=== PATIENT | female | born 1945 | race Caucasian/White ===

== ENCOUNTER 2018-05-26 09:20 | Day surgery (SDC) | payer MEDICARE, SELFPAY ==
--- NOTE | 2018-05-25 11:23 | W.PIPPEYE ---
History of Present Illness Chief Complaint: Progressive decreased vision, right eye Narrative: The patient is a 72-year-old female with history of hyperopia who has noted progressive decreased vision in both eyes at both distance and near. She has most difficulty when reading. On examination she was noted to have significant bilateral nuclear cataracts as well as endothelial dystrophy. Visual acuity measured less than 20/100 in the right eye best corrected. The option of cataract surgery was offered to the patient and she wished to proceed. NOTE: The Chief Complaint, HPI, Past Medical History, Past Surgical History, Family History, Social History, Medications, and complete Ophthalmic Exam with detailed Assessment and Plan have already been documented in the patient's outpatient ophthalmic record and are not covered again in detail here. [facility] Medical History Corneal endothelial dystrophy (Chronic) Nuclear sclerotic cataract of right eye (Acute) Nuclear sclerotic cataract of left eye (Acute) Social History Smoking/Tobacco Use Status: Former Tobacco Use Meds Home Medications Medication Instructions Recorded Confirmed Type aspirin [Aspir-81] 81 mg PO .QWE06/21/13 12/22/13 History levothyroxine [Synthroid] 100 mcg PO DAILY 06/21/13 05/21/18 History multivitamin [Multi-Day] 1 tab PO DAILY 06/21/13 05/21/18 History acetaminophen [Arthritis Pain 2 tab PO BID 05/21/18 05/21/18 History Reliever] diphenhydramine HCl [Benadryl 2 tab PO DAILY 05/21/18 05/21/18 History Allergy] loperamide [Imodium A-D] 2 mg PO BID 05/21/18 05/21/18 History metoprolol succinate 25 mg PO DAILY 05/21/18 05/21/18 History metoprolol succinate 50 mg PO DAILY 05/21/18 05/21/18 History Allergies Allergy/AdvReac Type Severity Reaction Status Date / Time codeine AdvReac Intermediate Unverified 12/22/13 10:51 Exam OCULAR EXAM:: Visual acuity at distance: Corrected to 20/125 OD, 20/40 OS. Pupils: Pupils equal, round, and reactive without afferent pupillary defect IOP: 16 OD 14 OS Extraocular Motility: Normal Pertinent Slit Lamp Findings: Significant for corneal endothelial guttata OU. 3+ brunescent nuclear cataract OD, 2+ nuclear cataract OS Dilated Funduscopic Examination: Disc cupping is 0.3 OU with good color BRIGHTNESS ACUITY TESTING (BAT):: Off right eye 20/125 Low: 20/200 Medium: 20/400 High: 20/400 Assessment and Plan (1) Nuclear sclerotic cataract of right eye: Current visit: No Status: Acute Assessment: Visually significant cataract, right eye. Plan: Cataract extraction with intraocular lens implantation, right eye Note: NOTE:: The details of the planned surgery, including the risks, indications,limitations,expectations,outcome and possible complications were explained to the patient. The patient understands the complications including, but not limited to: infection, hemorrhage, posterior dislocation of the lens or nuclear fragments which may require the intervention of a vitreoretinal surgeon, possible loss of the eye, or from anesthetic complications. The patient has been made aware of the option of not having surgery, that vision following surgery may not be equal to that prior to surgery, and that the planned surgery may not achieve the intended results. Following this discussion, which the patient appeared to understand, the patient wishes to proceed with cataract surgery with lens implantation of the affected eye to improve and maximize vision.
[2018-05-26 09:36] VITALS: BP 135/81; PULSE 118; RESP 18; TEMP 35.3; O2SAT 98
[2018-05-26] MEDS: Lidocaine 2% Jelly 6 ML SYR (10:52)
[2018-05-26] MEDS: Duovisc Viscoelastic System EACH 1 EACH (10:56)
[2018-05-26] MEDS: Balanced Salt Soln.-PLUS 500 ML BAG (10:56)
[2018-05-26] MEDS: Lidocaine 1% Pres-Free 5 ML VIAL (10:56)
[2018-05-26] MEDS: Povidone-Iodine Ophth 30 ML BTL (11:17)
--- NOTE | 2018-05-26 11:20 | W.PM.DSUDISC ---
Discharge Plan Discharge Details Reason For Visit: CATARACT OD Attending Provider: Hever Lawson Primary Care Provider: Raymon Cosby Home Meds and New Rx's Prescriptions: No Action multivitamin [Multi-Day] 1 EACH tablet 1 tab PO DAILY RF: 0 aspirin [Aspir-81] 81 MG tablet,delayed release (DR/EC) 81 mg PO .QWEDNESDAYS RF: 0 levothyroxine [Synthroid] 100 MCG tablet 100 mcg PO DAILY RF: 0 metoprolol succinate 25 mg Tablet Extended Release 24 Hr 25 mg PO DAILY RF: 0 metoprolol succinate 50 mg Cap,Sprinkle,Er 24hr Dose Pack 50 mg PO DAILY RF: 0 loperamide [Imodium A-D] 2 mg Capsule 2 mg PO BID RF: 0 acetaminophen [Arthritis Pain Reliever] 650 mg Tablet Extended Release 2 tab PO BID RF: 0 diphenhydramine HCl [Benadryl Allergy] 25 mg Tablet 2 tab PO DAILY RF: 0 Discharge Instructions Stand Alone Forms: Post-op Topical Cataract, Joseph Winters (DSU) DS: Diagnosis Discharge Diagnosis (1) Nuclear sclerotic cataract of right eye: Status: Resolved (2) Status post cataract extraction and insertion of intraocular lens of right eye: Status: Chronic
--- NOTE | 2018-05-26 11:21 | W.PM.OP ---
Date of service: 05/26/18 Time of Service: 11:21 Operative Note DATE OF PROCEDURE: 05/26/18 PRE-OP DIAGNOSIS: Cataract, right eye POST-OP DIAGNOSIS: same SURGEON: Hever Lawson ANESTHESIA: MAC and local (sub-tenon's anesthetic infiltration) PATHOLOGY: none sent COMPLICATIONS: None Patient was transported to: same day Patient's condition: stable Implants: [employer] / [employer] Tecnis [id number] Indications: Progressive decreased vision due to cataract, right eye Procedure Description: CATARACT SURGERY OPERATIVE REPORT PREOPERATIVE DIAGNOSIS: Nuclear cataract, right eye, symptomatic POSTOPERATIVE DIAGNOSIS: Same OPERATION: Cataract extraction using phacoemulsification with posterior chamber intraocular lens implant, right eye. IOL: IOL Gamer/Model: [employer]J Vision / PEDRO Tecnis ZCB00 IOL Power: + 27.0 diopters IOL Serial Number: [id number] Optic Diameter: 6.0mm Haptic/Overall Diameter: 13.0mm PHACO INFO: Champ PPLCONNECTurion Vision System with OZil and Active Fluidics Cumulative Dispersed Energy (CDE): 14.06 seconds SURGEON: Hever Lawson MD, RAQUEL ANESTHESIA: Monitored Anesthesia Care (MAC), with local sub-tenon's anesthetic infiltration COMPLICATIONS: None SPECIMENS: None INDICATIONS FOR PROCEDURE: The patient is a 72-year-old lady with history of progressive decreased vision in her right eye. She is noted to have a dense nuclear cataract with corneal endothelial dystrophy with visual acuity of less than 20/100. The option of cataract surgery was offered to the patient and she wished to proceed. PROCEDURE: The correct surgical eye was identified and marked as the right eye and the pupil was dilated in the preoperative area using mydriatics, cycloplegics, and NSAIDS (except in aspirin allergic patients). The dilated pupil size was 8.0 mm. Oral sedation was administered in the form of an Imprimis MKO Melt (midazolam 3mg/ketamine 25mg/ondansetron 2mg). The patient was brought to the operating room where cardiopulmonary monitoring was instituted and surgical time-out was performed, confirming the correct operative eye and IOL power. Topical anesthesia was administered and ophthalmic povidone-iodine 5% was instilled into the conjunctival fornices. Lidocaine gel was applied to the cornea and the pinky-ocular area was prepped with Betadine 10% solution and draped in the usual sterile fashion for intraocular surgery. Steri-strips were used to cover the lashes and lid margins and an adhesive eye drape was placed. Care was taken to isolate the lashes and lid margins under the Steri-strips and adhesive eye drape. A lid speculum was placed between the lids of the operative eye and the Rebecca-Susan operating microscope was maneuvered into position. Hellen scissors were then used to make a conjunctival buttonhole approximately 6mm posterior to the limbus in the inferonasal quadrant. Blunt dissection was carried out to expose bare sclera, and a blunt-tipped sub-tenon?s anesthesia cannula was introduced and passed posteriorly along the globe where non-preserved plain lidocaine was injected into posterior sub-Tenon?s space. A sideport knife was used to make a paracentesis port at the 7:00 postion and the anterior chamber was filled with Viscoat. A 2.4mm keratome knife was used to create a half-thickness groove at the limbus and then to construct a three-plane near-clear corneal tunnel extending 2.0mm into clear cornea at the 10:00 position. A flap was raised on the anterior capsule and capsulorhexis forceps were used to complete a continuous curvilinear capsulorhexis of 5.5 mm. Balanced salt solution was then used to perform cortical cleaving hydrodissection and nuclear hydrodelineation until the lens could be freely rotated within the capsular bag. The lens nucleus was then disassembled and removed within the capsular bag and iris plane using phacoemulsification. Residual cortical material was removed using the 45-degree angled silicone I/A tip with 0.3mm port. The posterior capsule was carefully polished to remove as much residual lens epithelial cells as safely possible. The capsular bag was then inflated and the anterior chamber deepened with ProVisc. The lens implant described above was inserted into the capsular bag using the PEDRO [place] Injector. A Kuglen hook was used to dial the IOL into position. Residual viscoelastic was then removed first from posterior to the IOL, then from the anterior chamber using the I/A handpiece. The lens implant was noted to center nicely within the capsular bag. The incisions were stromally hydrated, and the anterior chamber was reformed using BSS. Then 0.4cc of moxifloxacin 1.5mg/ml were injected into the capsular bag and anterior chamber. The incisions were checked with a Weck spear and found to be secure. Several drops of ophthalmic povidone-iodine 5% were then applied to the eye followed by two drops of Imprimis combination moxifloxacin/dexamethasone solution. The drapes were removed and a clear plastic protective eye shield was placed over the eye. The patient was then returned to Same Day Surgery in stable condition.
--- NOTE | 2018-05-26 11:26 | ROE_ITS ---
Date of service: 05/26/18 Time of Service: 11:21 Operative Note DATE OF PROCEDURE: 05/26/18 PRE-OP DIAGNOSIS: Cataract, right eye POST-OP DIAGNOSIS: same SURGEON: Hever Lawson ANESTHESIA: MAC and local (sub-tenon's anesthetic infiltration) PATHOLOGY: none sent COMPLICATIONS: None Patient was transported to: same day Patient's condition: stable Implants: Jonathan and Jonathan Vision / [employer] Tecnis [id number] Indications: Progressive decreased vision due to cataract, right eye Procedure Description: CATARACT SURGERY OPERATIVE REPORT PREOPERATIVE DIAGNOSIS: Nuclear cataract, right eye, symptomatic POSTOPERATIVE DIAGNOSIS: Same OPERATION: Cataract extraction using phacoemulsification with posterior chamber intraocular lens implant, right eye. IOL: IOL Quality Improvement Analyst/Model: J&J Vision / PEDRO [employer]ecnis ZCB00 IOL Power: + 27.0 diopters IOL Serial Number: [id number] Optic Diameter: 6.0mm Haptic/Overall Diameter: 13.0mm PHACO INFO: Champ [employer]omotiurion Vision System with OZil and Active Fluidics Cumulative Dispersed Energy (CDE): 14.06 seconds SURGEON: Hever Lawson MD, RAQUEL ANESTHESIA: Monitored Anesthesia Care (MAC), with local sub-tenon's anesthetic infiltration COMPLICATIONS: None SPECIMENS: None INDICATIONS FOR PROCEDURE: The patient is a 72-year-old lady with history of progressive decreased vision in her right eye. She is noted to have a dense nuclear cataract with corneal endothelial dystrophy with visual acuity of less than 20/100. The option of cataract surgery was offered to the patient and she wished to proceed. PROCEDURE: The correct surgical eye was identified and marked as the right eye and the pupil was dilated in the preoperative area using mydriatics, cycloplegics, and NSAIDS (except in aspirin allergic patients). The dilated pupil size was 8.0 mm. Oral sedation was administered in the form of an Imprimis MKO Melt (midazolam 3mg/ketamine 25mg/ondansetron 2mg). The patient was brought to the operating room where cardiopulmonary monitoring was instituted and surgical time-out was performed, confirming the correct operative eye and IOL power. Topical anesthesia was administered and ophthalmic povidone-iodine 5% was instilled into the conjunctival fornices. Lidocaine gel was applied to the cornea and the pinky-ocular area was prepped with Betadine 10% solution and draped in the usual sterile fashion for intraocular surgery. Steri-strips were used to cover the lashes and lid margins and an adhesive eye drape was placed. Care was taken to isolate the lashes and lid margins under the Steri-strips and adhesive eye drape. A lid speculum was placed between the lids of the operative eye and the Rebecca-Susan operating microscope was maneuvered into position. Hellen scissors were then used to make a conjunctival buttonhole approximately 6mm posterior to the limbus in the inferonasal quadrant. Blunt dissection was carried out to expose bare sclera, and a blunt-tipped sub-tenon? s anesthesia cannula was introduced and passed posteriorly along the globe where non-preserved plain lidocaine was injected into posterior sub-Tenon?s space. A sideport knife was used to make a paracentesis port at the 7:00 postion and the anterior chamber was filled with Viscoat. A 2.4mm keratome knife was used to create a half-thickness groove at the limbus and then to construct a three-plane near-clear corneal tunnel extending 2.0mm into clear cornea at the 10:00 position. A flap was raised on the anterior capsule and capsulorhexis forceps were used to complete a continuous curvilinear capsulorhexis of 5.5 mm. Balanced salt solution was then used to perform cortical cleaving hydrodissection and nuclear hydrodelineation until the lens could be freely rotated within the capsular bag. The lens nucleus was then disassembled and removed within the capsular bag and iris plane using phacoemulsification. Residual cortical material was removed using the 45-degree angled silicone I/A tip with 0.3mm port. The posterior capsule was carefully polished to remove as much residual lens epithelial cells as safely possible. The capsular bag was then inflated and the anterior chamber deepened with ProVisc. The lens implant described above was inserted into the capsular bag using the PEDRO [place] Injector. A Kuglen hook was used to dial the IOL into position. Residual viscoelastic was then removed first from posterior to the IOL, then from the anterior chamber using the I/A handpiece. The lens implant was noted to center nicely within the capsular bag. The incisions were stromally hydrated , and the anterior chamber was reformed using BSS. Then 0.4cc of moxifloxacin 1.5mg/ml were injected into the capsular bag and anterior chamber. The incisions were checked with a Weck spear and found to be secure. Several drops of ophthalmic povidone-iodine 5% were then applied to the eye followed by two drops of Imprimis combination moxifloxacin/dexamethasone solution. The drapes were removed and a clear plastic protective eye shield was placed over the eye. The patient was then returned to Same Day Surgery in stable condition.
[2018-05-26 11:50] VITALS: BP 90/60; PULSE 60; RESP 16; TEMP 37.3; O2SAT 95
== END 2018-05-26 12:01 | disposition home or self-care (01) ==
LOC: SUR 09:21
PROVIDERS: PCP Internal Medicine; Visit Provider Ophthalmology
PROC: (CPT 66984; principal; 2018-05-26 11:30)
DX: H25.11 Age-related nuclear cataract, right eye (principal); Z98.41 Cataract extraction status, right eye; Z96.1 Presence of intraocular lens
CPT/HCPCS: 66984; V2632

== ENCOUNTER 2019-03-26 12:44 | Outpatient (REF) | payer MEDICARE, SELFPAY ==
[2019-03-26 21:38] LABS: Anion Gap 10.6 mmol/L (3-11); BUN 17 mg/dL (7-18); CO2 23.4 mmol/L (21.0-32.0); CREATININE 0.94 mg/dL (0.55-1.02); Calcium 9.5 mg/dL (8.5-10.1); Chloride 105 mmol/L (98-107); Estimated GFR 58.37 (mL/min/1.73m2); Glucose 82 mg/dL (70-100); Magnesium 1.5 mg/dL (1.8-2.4); Potassium 4.6 mmol/L (3.5-5.1); Sodium 139 mmol/L (136-145); TSH 0.29 uIU/mL (0.36-3.74)
== END 2019-03-26 13:04 ==
LOC: NCHCN 12:44
PROVIDERS: PCP Internal Medicine; Visit Provider Internal Medicine
DX: E03.9 Hypothyroidism, unspecified (principal); E83.42 Hypomagnesemia
CPT/HCPCS: 80048; 83735; 84443

== ENCOUNTER 2019-04-15 14:50 | Outpatient (REF) | payer MEDICARE, SELFPAY | END 2019-04-15 15:10 | LOC: NCHCN 14:50 | PROVIDERS: PCP Internal Medicine; Visit Provider Internal Medicine | DX: E03.9 Hypothyroidism, unspecified (principal) | CPT/HCPCS: 84443 ==

== ENCOUNTER 2019-07-03 10:21 | Outpatient (REF) | payer MEDICARE, SELFPAY ==
[2019-07-03 21:16] LABS: FREE T4 1.42 ng/dL (0.76-1.46); TSH 1.43 uIU/mL (0.36-3.74)
== END 2019-07-03 10:41 ==
LOC: NCHCN 10:21
PROVIDERS: PCP Internal Medicine; Visit Provider Internal Medicine
DX: E03.9 Hypothyroidism, unspecified (principal)
CPT/HCPCS: 84439; 84443

== ENCOUNTER 2020-03-29 11:54 | Outpatient (REF) | payer MEDICARE, SELFPAY ==
[2020-03-29 21:19] LABS: FREE T4 1.33 ng/dL (0.76-1.46); TSH 1.29 uIU/mL (0.36-3.74)
== END 2020-03-29 12:14 ==
LOC: NCHCN 11:54
PROVIDERS: PCP Internal Medicine; Visit Provider Internal Medicine
DX: E03.9 Hypothyroidism, unspecified (principal)
CPT/HCPCS: 84439; 84443

== ENCOUNTER 2021-02-20 10:35 | Outpatient (REF) | payer MEDICARE, SELFPAY ==
[2021-02-20 15:36] LABS: HCT 38.2 % (36.0-46.0); HGB 12.1 g/dL (11.2-15.7); MCH 32.5 pg (27.0-33.0); MCHC 31.7 % (32.0-36.0); MCV 102.7 fL (80-95); MPV 9.8 fL (8.0-11.0); Platelet Count 299 10^3/uL (130-400); RBC 3.72 10^6/uL (3.93-5.22); RDW 13.1 % (11.7-14.6); RDW-SD 49.3 fL; WBC 7.14 10^3/uL (4.4-10.8)
[2021-02-20 16:01] LABS: Anion Gap 8.9 mmol/L (3-11); BUN 12 mg/dL (7-18); CO2 27.1 mmol/L (21.0-32.0); CREATININE 0.8 mg/dL (0.55-1.02); Calcium 9.4 mg/dL (8.5-10.1); Chloride 105 mmol/L (98-107); FREE T4 1.46 ng/dL (0.76-1.46); Glucose 84 mg/dL (74-106); Potassium 4.3 mmol/L (3.5-5.1); Sodium 141 mmol/L (136-145); TSH 1.23 uIU/mL (0.36-3.74)
== END 2021-02-20 10:36 | disposition home or self-care (01) ==
LOC: NCHCN 10:35
PROVIDERS: PCP Internal Medicine; Visit Provider Internal Medicine
DX: E03.9 Hypothyroidism, unspecified (principal); I95.1 Orthostatic hypotension
CPT/HCPCS: 80048; 85027; 84439; 84443

== ENCOUNTER 2021-02-24 14:50 | Outpatient (REF) | payer MEDICARE, SELFPAY ==
[2021-02-24 16:52] LABS: Vitamin B12 221 pg/mL (193-986)
[2021-02-24 16:53] LABS: Folate > 20.0 ng/mL (8.6-20.0)
== END 2021-02-24 14:51 | disposition home or self-care (01) ==
LOC: NCHCN 14:50
PROVIDERS: PCP Internal Medicine; Visit Provider Internal Medicine
DX: E53.8 Deficiency of other specified B group vitamins (principal)
CPT/HCPCS: 82607; 82746

== ENCOUNTER 2023-01-25 19:17 | Emergency (ER) | payer MEDICARE, SELFPAY ==
[2023-01-25] VITALS (27 sets, daily range): BP systolic 139–165; BP diastolic 83–111; PULSE 97–167; RESP 16–31; TEMP 36.4; O2SAT 93–100
--- NOTE | 2023-01-25 20:00 | RT.EKG_ITS ---
APPROVED REPORT Exam: Resting ECG Reason for Exam: Tachycardia, hx of A fib Patient Location: E HR:150 bpm ECG Measurements Heart Rate 150 AXIS SD [id number] P [id number] QRSd 75 QRS 1 QT 299 T -18 QTc 473 Conclusion Atrial fibrillation with rapid V-rate...A-rate 454 Repolarization abnormality, prob rate related...ST dep, T neg, tachycardia afib rvr, normal axis
[2023-01-25 21:29] LABS: Abs Immature Grans 0.05 10^3/uL (0.0-0.06); Absolute Basophil Count 0.06 10^3/uL (0.0-0.2); Absolute Eosinophil Count 0.16 10^3/uL (0.0-0.7); Absolute Lymphocyte Count 0.97 10^3/uL (1.2-3.4); Absolute Monocyte Count 0.63 10^3/uL (0.1-0.8); Absolute Neutrophil Count 6.97 10^3/uL (1.2-6.7); Basophils % 0.7; Eosinophils % 1.8; HGB 13.2 g/dL (11.2-15.7); Immature Grans % 0.6; MCH 30.6 pg (27.0-33.0); MCHC 31.4 % (32.0-36.0); MCV 97 fL (80-95); Monocytes % 7.1; Neutrophils % 78.8; Platelet Count 293 10^3/uL (130-400); RBC 4.31 10^6/uL (3.93-5.22); RDW-SD 50.7 fL; WBC 8.84 10^3/uL (4.4-10.8)
[2023-01-25 21:41] LABS: ALT 32 U/L (14-59); AST 41 U/L (15-37); Albumin 3.8 g/dL (3.4-5.0); Alkaline Phosphatase 220 U/L (46-116); Anion Gap 10.5 mmol/L (3-11); BUN 18 mg/dL (7-18); Bilirubin, Total 0.4 mg/dL (0.2-1.0); CO2 27.5 mmol/L (21.0-32.0); CREATININE 0.9 mg/dL (0.55-1.02); Calcium 9.5 mg/dL (8.5-10.1); Chloride 103 mmol/L (98-107); Estimated GFR 65.84 (mL/min/1.73m2); Glucose 112 mg/dL (74-106); Magnesium 1.5 mg/dL (1.8-2.4); Potassium 4.3 mmol/L (3.5-5.1); Sodium 141 mmol/L (136-145); Total Protein 8.1 g/dL (6.4-8.2)
--- NOTE | 2023-01-25 22:00 | DI.CT_ITS ---
Exam(s) CT ABDOMEN PELVIS W EXAM: CT ABDOMEN PELVIS W CLINICAL HISTORY: Abdominal pain, Vaginal bleeding, Hx of bowel SX. TECHNIQUE: Imaging Protocol: Axial computed tomography images with coronal and sagittal reformatted images were created and reviewed CONTRAST MATERIAL: Intravenous: Omnipaque 350 Contrast volume:100 ml Oral: / no COMPARISON: CT ABD PELVIS WO CONTRAST from 08/30/2013 FINDINGS: Heart is enlarged. Nodule medial lung base measuring 10 millimeters, slightly increased in size when compared with the prior exam. IVC filter. Abdominal aorta and branches heavily calcified. Liver, spleen, kidneys are unremarkable. Gallstones noted. No gallbladder wall thickening. Pancrea s somewhat atrophic. Prominent left adrenal gland, unchanged from prior. IVC filter. Bilateral ostomies, unremarkable. Suture material at transverse colon.. Dilated loops of small arden l in the pelvis with fluid. Bowel distal to This is decompressed, consistent with partial obstructio n. Small amount of fluid in low in the pelvis. Status post hysterectomy. Fluid and air bubble seen within the vagina consistent with abscess. The urinary bladder is nearly empty but is thick walled. Degenerative changes in the spine and pelvis. Impression: Vaginal abscess. Partial small bowel obstruction with transition point in the low pelvis. Bilateral ostomies are unremarkable. Spiculated mass medial left lower lobe was present previously but appears larger. PET-CT could be pe rformed for further evaluation. RADIATION DOSE DELIVERED: 428.42mGy.cm Total DLP DATA REPOSITORY: All CT scans at this facility are submitted to the National Radiology Data Registry (NRDR) Dose Index Registry (DIR) with the [employer] (A[employer]). RADIATION OPTIMIZATION: All CT scans at this facility use at least one of these dose optimization te chniques: automated exposure control; mA and/or kV adjustment per patient size (includes targeted exa ms where dose is matched to clinical indication); or iterative reconstruction.
--- NOTE | 2023-01-25 22:03 | W.ED.GENAD ---
Discharge Plan Disposition Patient Disposition: Home Condition: Improving Discharge Details Clinical Impression: Bright red rectal bleeding, Painless vaginal bleeding Primary Care Provider: Raymon Cosby ED Provider: Sybil Quintero Home Meds and New Rx's Prescriptions: Continued multivitamin [Multi-Day] 1 EACH tablet 1 tab PO DAILY aspirin [Aspir-81] 81 MG tablet,delayed release (DR/EC) 81 mg PO .QWEDN Patient Comments: 09/12/13 ([facility])--NOW TAKING 325 MG REPLACING THE PREVIOUS ORDER levothyroxine [Synthroid] 100 MCG tablet 100 mcg PO DAILY metoprolol succinate 25 mg Tablet Extended Release 24 Hr 25 mg PO DAILY metoprolol succinate 50 mg Cap,Sprinkle,Er 24hr Dose Pack 50 mg PO DAILY loperamide [Imodium A-D] 2 mg Capsule 2 mg PO BID acetaminophen [Arthritis Pain Reliever] 650 mg Tablet Extended Release 2 tab PO BID diphenhydramine HCl [Benadryl Allergy] 25 mg Tablet 2 tab PO DAILY Discharge Instructions Instructions: Abnormal (Dysfunctional) Uterine Bleeding (ED), Rectal Bleeding (ED) Additional Instructions: At this time your lab work is stable. I am concerned because you do have some bleeding from your vaginal canal in your rectum. You were given a small extra dose of your metoprolol here in the ER. Please follow-up with women's wellness, [employer], your PCP or your GI specialist at [facility] for continued bleeding. Return to the ER at any time if you start feeling dizzy lightheaded worse than normal or the bleeding does not stop. Follow up with primary care provider in 3-5 days. Return to ED sooner if any worsening or concerns. Increase oral fluids. Referrals: [facility] [Provider Group] - 3 days (Call for an appointment if bleeding continues) [facility] [Outside] - Return if symptoms worsen Discharge Data Discharge Date/Time-TO BE ENTERED AT DEPARTURE: 01/26/23 01:13 Medical Decision Making 77-year-old female presents to the ER with a chief complaint of abdominal pain, vaginal bleeding which began today. Patient reports that she had an episode few days ago which resolved. Today she had worsening vaginal bleeding with clots. She reports some dizziness upon standing but that is at baseline for her. She does have a history of an ileostomy and colostomy due to cervical cancer. Other past medical history includes atrial fibrillation, chronic kidney disease, ruptured bladder, DVT chronic kidney disease patient is tachycardic upon arrival heart rate of 150. Pelvic exam performed Viridiana RN witnessed. Patient tolerated with difficulty. There is bleeding from the vaginal canal and from the rectum. Gross bright red blood. Patient does not make bowel movements any longer from her rectum. There was a mass felt to her rectum. No obvious gross blood noted in her ileostomy bag. At this time labs are stable. I did discuss with the patient that if she continues to bleed like this for days that she needs to follow-up with [employer] or GI doctor at [facility]. Patient's heart rate is 157 she is hypertensive we will give 2.5 of metoprolol IV. She did take her normal metoprolol today. She reports she takes baby aspirin once a week. She does have a history of bleeding with aspirin administration. Patient placed on the care management list to have palliative care consultation. Patient did express while in the room that she would not want surgery or any other heroic measures if it was needed. After metoprolol of 2.5 IV heart rate has improved to 112 blood pressure is 127/78. Spoke with [facility] radiologist regarding CT results he is questioning a fluid-filled area with bubbles in the vagina which could be abscess or mass he is also concerned for cancer. I do suspect that this is all cancer related as she has no systemic signs of infection no white blood cell count. I will discuss the results of the CT with patient and caregiver. I did discuss this findings with patient and friend. They will plan to follow-up with PCP early next week on Saturday. I did discuss strict return instructions to return for any continued or worsening bleeding at any time. Patient has stressed that she does not want any more surgeries and has discussed with her oncology team that radiation and chemotherapy are not options for her. Vital signs of improved. Patient alert and oriented. Patient discharged in the care of her friend. Medical Records Medical records reviewed: Yes I reviewed the patient's medical records. Lab Data Lab results reviewed: Yes I reviewed the patient's lab results. Labs: Laboratory Tests Range/Units 01/25/23 01/25/23 21:21 21:21 WBC (4.4-10.8) 10^3/uL 8.84 RBC (3.93-5.22) 10^6/uL 4.31 Hgb (11.2-15.7) g/dL 13.2 Hct (36.0-46.0) % 42.0 MCV (80-95) fL 97 H MCH (27.0-33.0) pg 30.6 MCHC (32.0-36.0) % 31.4 L RDW (11.7-14.6) % 14.0 Plt Count (130-400) 10^3/uL 293 MPV (8.0-11.0) fL 9.0 Immature Gran % 0.6 Neutrophils % 78.8 Lymphocytes % 11.0 Monocytes % 7.1 Eosinophils % 1.8 Basophils % 0.7 Nucleated RBC % (0.0-0.3) % 0.0 Absolute Neutrophils (1.2-6.7) 10^3/uL 6.97 H Absolute Lymphocytes (1.2-3.4) 10^3/uL 0.97 L Absolute Monocytes (0.1-0.8) 10^3/uL 0.63 Absolute Eosinophils (0.0-0.7) 10^3/uL 0.16 Absolute Basophils (0.0-0.2) 10^3/uL 0.06 Sodium (136-145) mmol/L 141 Potassium (3.5-5.1) mmol/L 4.3 Chloride (98-107) mmol/L 103 Carbon Dioxide (21.0-32.0) mmol/L 27.5 Anion Gap (3-11) mmol/L 10.5 BUN (7-18) mg/dL 18 Creatinine (0.55-1.02) mg/dL 0.9 Est GFR (CKD-EPI 2020) (mL/min/1.73m2) 65.84 Glucose (74-106) mg/dL 112 H Calcium (8.5-10.1) mg/dL 9.5 Magnesium (1.8-2.4) mg/dL 1.5 L Total Bilirubin (0.2-1.0) mg/dL 0.4 AST (15-37) U/L 41 H ALT (14-59) U/L 32 Alkaline Phosphatase (46-116) U/L 220 H Total Protein (6.4-8.2) g/dL 8.1 Albumin (3.4-5.0) g/dL 3.8 HPI General Mode of arrival: ambulatory. Date/Time Provider Initiated Documentation: 01/25/23 19:34. Limitations to Documentation: no limitations. Information obtained by: patient, family, RN notes reviewed and old records reviewed. HPI Narrative: 77-year-old female presents to the ER with a chief complaint of abdominal pain, vaginal bleeding which began today. Patient reports that she had an episode few days ago which resolved. Today she had worsening vaginal bleeding with clots. She reports some dizziness upon standing but that is at baseline for her. She does have a history of an ileostomy and colostomy due to cervical cancer. Other past medical history includes atrial fibrillation, chronic kidney disease, ruptured bladder, DVT chronic kidney disease patient is tachycardic upon arrival heart rate of 150. Related Data Home Medications Medication Instructions Recorded Confirmed aspirin 81 mg tablet,delayed 81 mg PO .QWEDN06/21/13 01/26/23 release (Aspir-) levothyroxine 100 mcg tablet 100 mcg PO DAILY 06/21/13 01/26/23 (Synthroid) multivitamin (Multi-Day tablet) 1 tab PO DAILY 06/21/13 01/26/23 acetaminophen 650 mg 2 tab PO BID 05/21/18 01/26/23 tablet,extended release (Arthritis Pain Reliever) diphenhydramine HCl 25 mg tablet 2 tab PO DAILY 05/21/18 01/26/23 (Benadryl Allergy) loperamide 2 mg capsule (Imodium 2 mg PO BID 05/21/18 01/26/23 A-D) metoprolol succinate 25 mg 25 mg PO DAILY 05/21/18 01/26/23 tablet,extended release 24 hr metoprolol succinate 50 mg capsule 50 mg PO DAILY 05/21/18 01/26/23 sprinkle, ext. release 24 hr Allergies Allergy/AdvReac Type Severity Reaction Status Date / Time codeine AdvReac Intermediate Unverified 01/26/23 14:35 General Stated Complaint: Abd Prob FEDE: 3 PFSH All Active Problems (Updated 01/26/23 @ 17:00 by Delvin Singh MD) Bright red rectal bleeding (Acute) Painless vaginal bleeding (Acute) Acute lactic acidosis (Acute) Acute blood loss anemia (Acute) Hypoalbuminemia (Acute) Moderate vaginal bleeding (Acute) Status post cataract extraction and insertion of intraocular lens of right eye (Chronic 05/26/18) Corneal endothelial dystrophy (Chronic) Nuclear sclerotic cataract of left eye (Acute) Weakness (Chronic 08/28/13) Hyponatremia (Chronic 06/21/13) 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 Frequent falls (Chronic 08/28/13) Hypothyroidism (Chronic) Orthostatic hypotension (Chronic) Treated with Fludrocortisone. 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 Pancreatic insufficiency (Chronic) Cholelithiasis (Chronic) Adrenal nodule (Chronic) Incidental. Ruptured bladder (Acute 09/12/13) Cutaneous urostomy tubes. Open midline wound (Acute 09/12/13) DVT (deep venous thrombosis) (Acute 09/12/13) Where the femoral and saphenous veins meet. No Coumadin. FIlter in palce. Aspirin 325 mg daily. Lovenox 40 mg subcutaneously until mobile. 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 Gross hematuria. Medical History (Updated 01/26/23 @ 17:00 by Delvin Singh MD) Nuclear sclerotic cataract of right eye Social History Smoking/Tobacco Use Status: Former Tobacco Use Smoking risk assessment performed?: Yes Alcohol Intake: never Drug use: Never Housing: house Do you feel safe at home: Yes Exam Narrative Exam Narrative: Constitutional: Alert and oriented x3. Appears stated age. Thin body habitus. Head: Normocephalic, no trauma. Eyes: Pupils PERRL, Red reflex noted, EOM's intact. Eyelids symmetrical without lesions, discharge, or swelling. ENT: Bilateral TM's WNL, External ear normal to inspection, no mastoid TTP, swelling, or erythema, Nasal turbinates WNL, no nasal discharge. Normal dentition, Posterior pharynx WNL, no exudate. Chest: Irregular rate A-fib with RVR intermittently rate of 150 down to 120, normal S1, S2, distal pulses intact. Resp: Lungs clear to auscultation bilaterally, no wheezes, rales, or rhonchi. Abdomen: non-distended, does have an ileostomy and urostomy bag no gross bleeding from the ileostomy. No gross blood noted from the urostomy bag. She does have some tenderness in the lower abdomen. exam: See below Musculoskeletal: 5/5 strength to all four extremities. Skin: No suspicious rashes or lesions. Capillary refill less than 2 sec. Neurologic: Cranial nerves II-XII intact. Alert and oriented x 3. Motor: No deficits noted. Sensory: Intact bilaterally all 4 extremities. Reflexes: DTR's intact bilaterally.. Hematologic/Lymphatic: No ecchymosis, no lymphadenopathy. GI Rectal Exam - female: heme positive stool Rectal exam heme positive - female: gross blood and tenderness Speculum Exam - Vagina: vaginal bleeding and tenderness Speculum Exam - Cervix: other (Unable to visualize cervix) OB/External & Speculum: vaginal bleeding Other: Unable to visualize vaginal vault , gross bleeding from vagina and rectum. Course Vital Signs Vital signs: Vital Signs Temperature 36.4 C 01/25/23 19:27 Pulse 122 H 01/25/23 19:27 Respiratory Rate 20 01/25/23 19:27 Blood Pressure 149/96 H 01/25/23 19:27 Pulse Oximetry 99 01/25/23 19:27 Temperature 36.4 C 01/25/23 19:27 Temperature Source Oral 01/25/23 19:27 Pulse 123 H 01/25/23 21:30 Pulse 137 H 01/25/23 21:31 Respiratory Rate 26 H 01/25/23 21:31 Respiratory Effort Normal, Non-Labored 01/25/23 19:33 Blood Pressure 147/93 H 01/25/23 21:30 Blood Pressure Mean 106 01/25/23 21:30 Blood Pressure Position Sitting 01/25/23 19:27 Pulse Oximetry 99 01/25/23 21:31 Oxygen Delivery Method Room Air 01/25/23 19:27 Oxygen Flow Rate 0 01/25/23 19:27 Pain Level 8 01/25/23 19:27 Lab/Test Results Lab/Test Results: Laboratory Tests Range/Units 01/25/23 01/25/23 21:21 21:21 WBC (4.4-10.8) 10^3/uL 8.84 RBC (3.93-5.22) 10^6/uL 4.31 Hgb (11.2-15.7) g/dL 13.2 Hct (36.0-46.0) % 42.0 MCV (80-95) fL 97 H MCH (27.0-33.0) pg 30.6 MCHC (32.0-36.0) % 31.4 L RDW (11.7-14.6) % 14.0 Plt Count (130-400) 10^3/uL 293 MPV (8.0-11.0) fL 9.0 Immature Gran % 0.6 Neutrophils % 78.8 Lymphocytes % 11.0 Monocytes % 7.1 Eosinophils % 1.8 Basophils % 0.7 Nucleated RBC % (0.0-0.3) % 0.0 Absolute Neutrophils (1.2-6.7) 10^3/uL 6.97 H Absolute Lymphocytes (1.2-3.4) 10^3/uL 0.97 L Absolute Monocytes (0.1-0.8) 10^3/uL 0.63 Absolute Eosinophils (0.0-0.7) 10^3/uL 0.16 Absolute Basophils (0.0-0.2) 10^3/uL 0.06 Sodium (136-145) mmol/L 141 Potassium (3.5-5.1) mmol/L 4.3 Chloride (98-107) mmol/L 103 Carbon Dioxide (21.0-32.0) mmol/L 27.5 Anion Gap (3-11) mmol/L 10.5 BUN (7-18) mg/dL 18 Creatinine (0.55-1.02) mg/dL 0.9 Est GFR (CKD-EPI 2020) (mL/min/1.73m2) 65.84 Glucose (74-106) mg/dL 112 H Calcium (8.5-10.1) mg/dL 9.5 Magnesium (1.8-2.4) mg/dL 1.5 L Total Bilirubin (0.2-1.0) mg/dL 0.4 AST (15-37) U/L 41 H ALT (14-59) U/L 32 Alkaline Phosphatase (46-116) U/L 220 H Total Protein (6.4-8.2) g/dL 8.1 Albumin (3.4-5.0) g/dL 3.8
[2023-01-25] MEDS: ACETAMINOPHEN 1,000 MG/100 ML BTL 400 MG IVPB (22:10)
[2023-01-25] MEDS: Normal Saline 250 ML 500 ML IV (22:10)
[2023-01-25] MEDS: Magnesium Oxide 400 MG TAB PO (22:10)
[2023-01-25] MEDS: Omnipaque 350 MG/ML 100 ML BTL IJ (22:32)
[2023-01-25] MEDS: Normal Saline - Diluent 50 ML VIAL IJ (22:33)
--- NOTE | 2023-01-25 23:25 | NUR.NOTE ---
Pt placed on care management for palliative care within 1-5 days Nursing Note:
[2023-01-25] MEDS: Metoprolol 5 MG/5 ML VIAL 2.5 MG IVP (23:30)
[2023-01-26] VITALS: BP 127/78; PULSE 109; PULSE 131; RESP 18; O2SAT 98
[2023-01-26 00:01] VITALS: PULSE 120; RESP 16; O2SAT 98
[2023-01-26 00:10] VITALS: PULSE 108; RESP 14; O2SAT 95
--- NOTE | 2023-01-26 00:19 | DI.VRAD_ITS ---
Addendum created by Alfred Daley MD on 01/26/2023 12:29:02 AM EDT: There has been a left hemicolectomy. There are ostomies in both right and left flanks. Addendum created by Alfred Daley MD on 01/26/2023 12:26:05 AM EDT: THIS REPORT CONTAINS FINDINGS THAT MAY BE CRITICAL TO PATIENT CARE. The findings were verbally communicated via telephone conference with ANALIA DINH at 12:24 AM EDT on 01/26/2023. The findings were acknowledged and understood. Vaginal or surgical carcinoma may present a similar picture. As there is thickening of the rectum and cecum, consider non emergent colonoscopy to exclude underlying neoplasm. Initial report created on 01/26/2023 12:19:11 AM EDT: PROCEDURE INFORMATION: Exam: CT Abdomen And Pelvis With Contrast Exam date and time: 01/25/2023 10:57 PM Age: 77 years old Clinical indication: Other: Abd pain, vag bleeding, HX bowel SX TECHNIQUE: Imaging protocol: Computed tomography of the abdomen and pelvis with contrast. Contrast material: 350; Contrast volume: 60 ml; Contrast route: INTRAVENOUS (IV); COMPARISON: CT Abdomen And Pelvis wo Contrast 08/30/2013 6:01 PM FINDINGS: Lungs: In the left lower lobe, there is a suspicious perifissural, 8 x 7 mm nodule with prominent spiculation. The nodule is identified on the comparison study of 08/30/2013, at which time it measured 6 x 7 mm. It has increased mildly in size in the interim and has developed more prominent spiculation. Liver: The liver is normal in size. There are no enhancing liver masses. Gallbladder and bile ducts: There are multiple calcified gallstones. There is no significant gallbladder wall thickening or pericholecystic fluid. Pancreas: There is fatty degeneration of the pancreas. Spleen: Normal. No splenomegaly. Adrenal glands: Stable indeterminate left adrenal gland measuring 1.9 x 1.6 cm. Kidneys and ureters: There is no hydronephrosis. No renal or obstructive ureteral calculi are identified. There are bilateral extrarenal pelvises. Stomach and bowel: Wall thickening of the cecum, ascending colon and ileum with mild dilatation of distal ileal loops. The ileal loops appear tethered in the pelvis in the expected location of the uterus and roof of the bladder. Findings are suggestive of a low-grade partial small bowel obstruction with a transition point at this level in the lower pelvis. Thickening of the rectal wall suggestive of proctitis. Appendix: There is a 13 mm calcific opacity adherent to the tip of the cecum, in close proximity to the appendix. This likely represents an area of old fat necrosis. There are no periappendiceal inflammatory changes. Intraperitoneal space: No free air. There is a small fluid collection in the pelvis. Vasculature: There is an inferior vena cava filter in appropriate position, with the vertex at the level of the confluence of the renal veins. Some of the filter legs extend beyond the wall of the IVC into the retroperitoneal, para-aortic space. There is moderate atherosclerotic calcification of the abdominal aorta and its branches without aneurysm. Lymph nodes: No enlarged retroperitoneal or mesenteric lymph nodes. Urinary bladder: There is bladder wall thickening. Reproductive: The vagina contains debris and gas bubbles suggestive of infection/abscess. The uterus is not identified and may be surgically absent or atrophic. Bones/joints: Multilevel degenerative disc disease with mild central spinal canal stenosis at L4-L5. Grade 1 anterolisthesis of L4 without associated fracture and presumably degenerative related. Soft tissues: Anasarca. IMPRESSION: 1. Partial small bowel obstruction with a transition point at the lower pelvis, level of the uterus and vagina. The uterus is not clearly visualized. 2. Findings suggestive of vaginal infection/abscess. 3. Distal ileocolitis. 4. Bladder wall thickening that may be secondary to cystitis or underdistension. 5. Thickening of the rectal wall suggestive of proctitis. 6. IVC filter in appropriate position. 7. Cholelithiasis. 8. A suspicious 8 mm nodule in the left lower lobe. Consider correlation with non emergent PET-CT and/or tissue sampling if clinically indicated. 9. Additional non emergent findings as stated in the body of the report. Dictated and Authenticated by: Alfred Daley MD. Ordering:TERRIE Devine MD
== END 2023-01-26 01:13 | disposition home or self-care (01) ==
PROVIDERS: Emergency Provider Registered Nurse Emergency; PCP Internal Medicine
DX: N93.9 Abnormal uterine and vaginal bleeding, unspecified (principal); K62.5 Hemorrhage of anus and rectum
CPT/HCPCS: 80053; 93005; 96361; 96365; 96375; 99285; 74177; 83735; 85025; 93010; 99284; J0131; J3490

== ENCOUNTER 2023-01-26 09:07 | Emergency (ER) | payer MEDICARE, SELFPAY ==
[2023-01-26] VITALS (133 sets, daily range): BP systolic 109–147; BP diastolic 66–100; PULSE 90–140; RESP 12–34; TEMP 36.8–37; O2SAT 90–97
--- NOTE | 2023-01-26 09:08 | W.ED.GENAD ---
Discharge Plan Disposition Patient Disposition: Transfer-Acute Inpatient Care Specific Acute Inpt Facility: [facility] Discharge Details Clinical Impression: Acute lactic acidosis, Acute blood loss anemia, Hypoalbuminemia, Moderate vaginal bleeding Primary Care Provider: Raymon Cosby ED Provider: Delvin Singh Home Meds and New Rx's Prescriptions: No Action multivitamin [Multi-Day] 1 EACH tablet 1 tab PO DAILY aspirin [Aspir-81] 81 MG tablet,delayed release (DR/EC) 81 mg PO .QWEDN Patient Comments: 09/12/13 ([facility])--NOW TAKING 325 MG REPLACING THE PREVIOUS ORDER levothyroxine [Synthroid] 100 MCG tablet 100 mcg PO DAILY metoprolol succinate 25 mg Tablet Extended Release 24 Hr 25 mg PO DAILY metoprolol succinate 50 mg Cap,Sprinkle,Er 24hr Dose Pack 50 mg PO DAILY loperamide [Imodium A-D] 2 mg Capsule 2 mg PO BID acetaminophen [Arthritis Pain Reliever] 650 mg Tablet Extended Release 2 tab PO BID diphenhydramine HCl [Benadryl Allergy] 25 mg Tablet 2 tab PO DAILY Medical Decision Making This is a chronically ill tachycardic and not hypoxic but normotensive 77-year-old female with what appears to be a bleeding mass in her pelvis likely secondary to cervical cancer. CT read from last night was concern for possibility of abscess so based on vital signs will obtain lactate, 2 sets of blood cultures, treat empirically with piperacillin/tazobactam. Given vaginal bleeding will provide 1 g of IV tranexamic acid. Patient is not anticoagulated to suggest need for reversal. We will send type and screen cross and transfuse as needed based on labs. Given ongoing bleeding and complicated past surgical history including ileostomy and urostomy anticipate patient will benefit from transfer to tertiary care as she may require surgical intervention and/or embolization with interventional radiology. We [place] [facility] [place]. Will plan on reaching out [place] [facility] [place] following labs. 9:51 AM Patient did have a mild lactic acidosis at 2.6 mmol/L for which she will receive 500 cc of crystalloid. 10 AM Leukocytosis with a white blood cell count of 12.48. Mild macrocytic anemia with a hemoglobin of 10.2. No thrombocytopenia. Patient had 2-3 drenched pads when she was changed. In the setting of active vaginal bleeding will transfuse with 2 units. We will treat with 5 mg IV metoprolol.Comprehensive metabolic panel with hypoalbuminemia concerning for the possibility of capillary leak. No MUKUL. No acute electrolyte abnormalities. Negative troponin. Patient confirms full code. [id number] I spoke to Dr. Petty from rad/onc who reviewed patient history of diverting colostomy. 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 She reported has demured pelvic exams. She agreed to accept the patient in transfer [place] [facility] [place] We will repeat H&H at 12:45 PM. 12:37 PM I received a call from the blood bank. They reported that they were having difficult time crossmatching patient for blood. I asked that they crossmatch some O- blood. Will defer transfusion at this point in time as patient is pending transfer. 1:35 PM Hemoglobin stable. Will order repeat H&H at 4:30 PM in the event that patient remains in the department. For patient's nurse patient is lost 3 cc of blood based on calculations using scale and measured pads. We will defer transfusion at this point in time as patient would only build to received code blood. Still waiting on bed placement [place] [facility] [place] We will initiate maintenance fluids and keep patient n.p.o. 2:45 PM Patient has a bed available at [facility] [place] We will treat with 5 additional milligrams of metoprolol. Patient transferred [place] [facility] [place] Patient and her son updated at bedside. Chronic conditions affecting the care of the patient: Cervical malignancy History obtained from an outside historian: Paramedics External record review: [facility] [place] Diagnostic interpretations performed by me: [Per my independent interpretation chest x-ray shows:] No acute cardiopulmonary process Per my independent interpretation EKG shows: Narrow complex atrial fibrillation with rapid ventricular response at a rate of 133. Normal axis. Mildly prolonged QTc at [address] segment depressions left chest wall leads. Appears similar to prior dated last night. QTc has prolonged. Low voltage in limb leads similar to prior. No acute injury pattern. Medications: Home metoprolol ordered Social determinants of health affecting disposition: N/A Management discussed with: Gynecology[place]cology [place] [facility] [place] Treatment/interventions considered: Local hospitalization but deferred given concern for possible IR needs Response to therapies provided: Hemodynamically stable in the ED. HPI General Date/Time Provider Initiated Documentation: 01/26/23 09:08. HPI Narrative: This is a 77-year-old female with a history of cervical cancer in the emergency department in setting of vaginal bleeding. Patient reported that her bleeding began yesterday. She was seen in the emergency department and had a CT scan performed of her abdomen and pelvis which showed concern for possible abscess. She remotely had radiation to her pelvis. She said that since she got home she soaked through several towels. She reports both rectal and vaginal bleeding. She has remote history of an ileostomy and urostomy. She has also remotely had a DVT. She has an IVC filter. She is not anticoagulated. She denies routine tobacco, ethanol, and illicits. She does not have any chest pain fevers chills nausea nor vomiting. She had a room air sat for paramedics of 88%. She has not taken any recent falls. Patient has not taken her home metoprolol this morning. Related Data Home Medications Medication Instructions Recorded Confirmed aspirin 81 mg tablet,delayed 81 mg PO .QWE06/21/13 01/26/23 release (Aspir-) levothyroxine 100 mcg tablet 100 mcg PO DAILY 06/21/13 01/26/23 (Synthroid) multivitamin (Multi-Day tablet) 1 tab PO DAILY 06/21/13 01/26/23 acetaminophen 650 mg 2 tab PO BID 05/21/18 01/26/23 tablet,extended release (Arthritis Pain Reliever) diphenhydramine HCl 25 mg tablet 2 tab PO DAILY 05/21/18 01/26/23 (Benadryl Allergy) loperamide 2 mg capsule (Imodium 2 mg PO BID 05/21/18 01/26/23 A-D) metoprolol succinate 25 mg 25 mg PO DAILY 05/21/18 01/26/23 tablet,extended release 24 hr metoprolol succinate 50 mg capsule 50 mg PO DAILY 05/21/18 01/26/23 sprinkle, ext. release 24 hr Allergies Allergy/AdvReac Type Severity Reaction Status Date / Time codeine AdvReac Intermediate Unverified 01/26/23 14:35 General FEDE: 3 PFSH All Active Problems (Updated 01/26/23 @ 17:00 by Delvin Singh MD) Bright red rectal bleeding (Acute) Painless vaginal bleeding (Acute) Acute lactic acidosis (Acute) Acute blood loss anemia (Acute) Hypoalbuminemia (Acute) Moderate vaginal bleeding (Acute) Status post cataract extraction and insertion of intraocular lens of right eye (Chronic 05/26/18) Corneal endothelial dystrophy (Chronic) Nuclear sclerotic cataract of left eye (Acute) Weakness (Chronic 08/28/13) Hyponatremia (Chronic 06/21/13) 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. Frequent falls (Chronic 08/28/13) Hypothyroidism (Chronic) Orthostatic hypotension (Chronic) Treated with Fludrocortisone. 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 Pancreatic insufficiency (Chronic) Cholelithiasis (Chronic) Adrenal nodule (Chronic) Incidental. Ruptured bladder (Acute 09/12/13) Cutaneous urostomy tubes. Open midline wound (Acute 09/12/13) DVT (deep venous thrombosis) (Acute 09/12/13) Where the femoral and saphenous veins meet. No Coumadin. FIlter in palce. Aspirin 325 mg daily. Lovenox 40 mg subcutaneously until mobile. 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 Gross hematuria. Medical History (Updated 01/26/23 @ 17:00 by Delvin Singh MD) Nuclear sclerotic cataract of right eye Social History Smoking/Tobacco Use Status: Former Tobacco Use Smoking risk assessment performed?: Yes Alcohol Intake: never Drug use: Never Housing: house Do you feel safe at home: Yes Exam Narrative Exam Narrative: General: Pale and chronically ill-appearing in no acute distress speaking in complete sentences. Head: Normocephalic, atraumatic. Eye: Extraocular eye movements intact. No conjunctival injection. No scleral icterus. Ear, nose, mouth, throat: Grossly normal inspection. Normal voice, handling secretions normally. Neck: Trachea midline. Cardiovascular: Pale feet bilaterally with venous insufficiency changes. Cap refill less than 2 seconds in the toes bilaterally. Irregularly irregular rhythm. Respiratory: Nonlabored respiration. Satting well on 2 L nasal cannula. Gastrointestinal: Urostomy and ileostomy bags in place. No significant abdominal tenderness. : Active vaginal bleeding. Patient refused internal exam. I was chaperoned by patient's nurse Enma during external exam. Musculoskeletal: No significant lower extremity edema. Moving all 4 extremities spontaneously. Bilateral feet with chronic venous insufficiency. On limited bedside ultrasound patient did pulses with Doppler signals on her bilateral DP and PT pulses. Skin: Normal for age and race, grossly normal temperature and turgor. No acute rash. Neurologic: Alert and appropriate, no apparent acute deficits. Psychiatric: Mood and manner are appropriate. Grooming and personal hygiene are appropriate. Critical Care Time Critical Care Time Critical Care Time: Yes Total Critical Care Time: 30 Attestation: Active vaginal bleeding requiring tranexamic acid and a tertiary care transfer.
--- NOTE | 2023-01-26 09:15 | DI.RAD_ITS ---
Exam(s) XR PORTABLE CHEST AP EXAM: XR PORTABLE CHEST AP CLINICAL HISTORY: Shortness of breath TECHNIQUE: 2D digital imaging was performed. COMPARISON: CR ABD FLAT UPRIGHT PA CHEST from 08/30/2013 FINDINGS: LUNGS: Fibrotic changes, otherwise clear. No infiltrate. No evidence of pulmonary edema. No pleura l abnormality seen. HEART: Enlarged AORTA: Normal diameter. BONES: Unremarkable for age. Soft tissues: IVC filter. If occasions around right shoulder. IMPRESSION: No acute findings. DATA REPOSITORY: RADIATION DOSE DELIVERED:
--- NOTE | 2023-01-26 09:15 | RT.EKG_ITS ---
APPROVED REPORT Exam: Resting ECG Reason for Exam: Tachycardia Patient Location: E HR:133 bpm ECG Measurements Heart Rate 133 AXIS MI [id number] P [id number] QRSd 70 QRS 3 QT 333 T -2 QTc 496 Conclusion Atrial fibrillation...V-rate 105-163, irreg A-activity Narrow complex atrial fibrillation with rapid ventricular response at a rate of 133. Normal axis. M ildly prolonged QTc at [address] segment depressions left chest wall leads. Appears simila r to prior dated last night. QTc has prolonged. Low voltage in limb leads similar to prior. No acu te injury pattern.
[2023-01-26 09:49] LABS: Abs Immature Grans 0.09 10^3/uL (0.0-0.06); Absolute Basophil Count 0.06 10^3/uL (0.0-0.2); Absolute Eosinophil Count 0.04 10^3/uL (0.0-0.7); Absolute Lymphocyte Count 0.84 10^3/uL (1.2-3.4); Basophils % 0.5; Eosinophils % 0.3; HCT 32.3 % (36.0-46.0); HGB 10.2 g/dL (11.2-15.7); Immature Grans % 0.7; Lymphocytes % 6.7; MCHC 31.6 % (32.0-36.0); MCV 98 fL (80-95); MPV 8.8 fL (8.0-11.0); Monocytes % 5.6; Neutrophils % 86.2; Platelet Count 269 10^3/uL (130-400); RBC 3.29 10^6/uL (3.93-5.22); RDW 14.2 % (11.7-14.6); WBC 12.48 10^3/uL (4.4-10.8)
[2023-01-26 09:51] LABS: Lactate 2.6 mmol/L (0.6-1.4)
[2023-01-26 09:56] LABS: Absolute Neutrophil Count 10.76 10^3/uL (1.2-6.7)
[2023-01-26 10:10] LABS: ALT 19 U/L (14-59); AST 29 U/L (15-37); Albumin 2.9 g/dL (3.4-5.0); Alkaline Phosphatase 172 U/L (46-116); BUN 16 mg/dL (7-18); Bilirubin, Total 0.3 mg/dL (0.2-1.0); CREATININE 0.9 mg/dL (0.55-1.02); Calcium 8.5 mg/dL (8.5-10.1); Chloride 108 mmol/L (98-107); Estimated GFR 65.84 (mL/min/1.73m2); Glucose 132 mg/dL (74-106); Potassium 4.3 mmol/L (3.5-5.1); Sodium 143 mmol/L (136-145)
[2023-01-26 10:13] LABS: Troponin I < 50 ng/L (<or=60)
[2023-01-26] MEDS: Normal Saline 500 ML IV (10:16)
[2023-01-26] MEDS: Tranexamic Acid 1,000 MG/10 ML VIAL 1000 MG IVP (10:17)
[2023-01-26] MEDS: Metoprolol 5 MG/5 ML VIAL IVP ×2 (10:17→14:52)
[2023-01-26] MEDS: PIPERACILLIN/TAZO 3.375 GM in Normal Saline 50 ML IVPB (10:17)
--- NOTE | 2023-01-26 10:44 | DI.VRAD_ITS ---
PROCEDURE INFORMATION: Exam: XR Chest Exam date and time: 01/26/2023 10:36 AM Age: 77 years old Clinical indication: Shortness of breath TECHNIQUE: Imaging protocol: Radiologic exam of the chest. Views: 1 view. COMPARISON: CT ABDOMEN PELVIS W 01/25/2023 10:57 PM FINDINGS: Lungs: Hyperexpanded lung saha consistent with COPD. No focal consolidation.. Pleural spaces: Unremarkable. No pleural effusion. No pneumothorax. Heart/Mediastinum: Stable cardiac silhouette Bones/joints: Unremarkable. IMPRESSION: No focal consolidation.. Dictated and Authenticated by: Faiza Shukla MD. Ordering:CELESTE Hargrove MD
[2023-01-26 13:13] LABS: HCT 31.1 % (36.0-46.0)
[2023-01-26 14:20] LABS: Troponin I < 50 ng/L (<or=60)
== END 2023-01-26 15:47 | disposition short-term general hospital (02) ==
PROVIDERS: Emergency Provider Emergency Medicine; PCP Internal Medicine
DX: R06.02 Shortness of breath (principal); K62.5 Hemorrhage of anus and rectum; E87.21 Acute metabolic acidosis; D62 Acute posthemorrhagic anemia; E88.09 Other disorders of plasma-protein metabolism, not elsewhere classified; R00.0 Tachycardia, unspecified; I48.91 Unspecified atrial fibrillation; R94.31 Abnormal electrocardiogram [ECG] [EKG]; C53.9 Malignant neoplasm of cervix uteri, unspecified; C79.82 Secondary malignant neoplasm of genital organs; Z79.82 Long term (current) use of aspirin; Z93.2 Ileostomy status; Z79.899 Other long term (current) drug therapy
CPT/HCPCS: 80053; 86850; 86900; 86901; 86920; 87040; 93005; 96365; 96375; 99291; 71045; 83605; 84484; 85014; 85018; 85025; 86870; 86902; 93010; J2543

== ENCOUNTER 2023-02-06 11:26 | Outpatient (REF) | payer MEDICARE, SELFPAY ==
[2023-02-06 16:25] LABS: HCT 33.2 % (36.0-46.0); HGB 10.4 g/dL (11.2-15.7); MCH 30.5 pg (27.0-33.0); MCHC 31.3 % (32.0-36.0); MCV 97 fL (80-95); MPV 8.8 fL (8.0-11.0); Platelet Count 504 10^3/uL (130-400); RBC 3.41 10^6/uL (3.93-5.22); RDW 14.6 % (11.7-14.6); RDW-SD 52.9 fL; WBC 8.13 10^3/uL (4.4-10.8)
== END 2023-02-06 11:27 | disposition home or self-care (01) ==
LOC: NCHCN 11:26
PROVIDERS: PCP Internal Medicine; Visit Provider Internal Medicine
DX: N93.8 Other specified abnormal uterine and vaginal bleeding (principal)
CPT/HCPCS: 85027

== ENCOUNTER 2023-03-18 12:50 | Outpatient (REF) | payer MEDICARE, SELFPAY ==
[2023-03-18 14:58] LABS: HCT 41.9 % (36.0-46.0); MCV 97 fL (80-95); MPV 9.5 fL (8.0-11.0); Platelet Count 334 10^3/uL (130-400); RBC 4.33 10^6/uL (3.93-5.22); RDW 14.6 % (11.7-14.6); RDW-SD 52.7 fL; WBC 8.09 10^3/uL (4.4-10.8)
[2023-03-18 15:28] LABS: Iron 38 ug/dL (50-170); Total Iron Binding Capacity 441 ug/dL (250-450); Transferrin Sat 9 % (15-50)
[2023-03-18 15:33] LABS: TSH (W/Ref FT4) 1.95 uIU/mL (0.36-3.74)
== END 2023-03-18 12:51 | disposition home or self-care (01) ==
LOC: NCHCN 12:50
PROVIDERS: PCP Internal Medicine; Visit Provider Family Medicine
DX: R63.6 Underweight (principal); N93.8 Other specified abnormal uterine and vaginal bleeding; E03.9 Hypothyroidism, unspecified
CPT/HCPCS: 85027; 83540; 83550; 84443

== ENCOUNTER → 2023-07-24 01:36 | Outpatient (CLI) | payer MEDICARE, SELFPAY ==
--- NOTE | 2023-07-24 | DI.CT_ITS ---
Exam(s) CT NECK W EXAM: CT NECK W CLINICAL HISTORY: ENLARGED LYMPH NODES R59.0. TECHNIQUE: Imaging Protocol: Axial computed tomography images with coronal and sagittal reformatted images were created and reviewed CONTRAST MATERIAL: Intravenous: Omnipaque 350 Contrast volume:100 ml contrast COMPARISON: CT CHEST ABD WITH CONTRAST from 04/01/2012 CT ABD PELVIS WITH CONTRAST from 05/21/2012 CT ABD PELVIS WO CONTRAST from 08/30/[address] ABDOMEN PELVIS W from 01/25/2023 FINDINGS: Parotids: Normal. Submandibular glands: Normal. Thyroid gland: Normal. Lymph nodes: No enlarged lymph nodes are identified. Soft tissues: The floor the mouth is unremarkable. The tonsils and adenoids are unremarkable. The epiglottis and vocal cords are within normal limits. Lungs: Emphysematous changes. Nodular area of scarring noted in anterior right upper lobe. Bones: Severe degenerative changes of the cervical spine. Severe degenerative changes at C1-2 with p annus formation causing significant central canal stenosis. Visualized portions of the brain and orbits: Unremarkable. Sinuses and mastoids: Clear. IMPRESSION: No evidence of adenopathy or neck mass. Severe degenerative changes C1 to causing severe central canal stenosis. RADIATION DOSE DELIVERED: Total DLP DATA REPOSITORY: All CT scans at this facility are submitted to the National Radiology Data Registry (NRDR) Dose Index Registry (DIR) with the [employer] (ACR). RADIATION OPTIMIZATION: All CT scans at this facility use at least one of these dose optimization te chniques: automated exposure control; mA and/or kV adjustment per patient size (includes targeted exa ms where dose is matched to clinical indication); or iterative reconstruction.
[2023-07-24 14:49] LABS: Estimated GFR 57.66 (mL/min/1.73m2)
[2023-07-24] MEDS: Normal Saline - Diluent 50 ML VIAL IJ (15:14)
[2023-07-24] MEDS: Omnipaque 350 MG/ML 100 ML BTL IJ (15:15)
== END ==
PROVIDERS: PCP Internal Medicine; Visit Provider Family Medicine
DX: M48.02 Spinal stenosis, cervical region (principal)
CPT/HCPCS: 70491; 82565; J3490

== ENCOUNTER 2023-08-29 14:52 | Outpatient (REF) | payer MEDICARE, SELFPAY ==
[2023-08-29 15:29] LABS: HCT 42.4 % (36.0-46.0); HGB 13.5 g/dL (11.2-15.7); MCH 32.5 pg (27.0-33.0); MCHC 31.8 % (32.0-36.0); MCV 102 fL (80-95); MPV 9.8 fL (8.0-11.0); Platelet Count 354 10^3/uL (130-400); RBC 4.16 10^6/uL (3.93-5.22); RDW 15.4 % (11.7-14.6); RDW-SD 58.9 fL; WBC 7.29 10^3/uL (4.4-10.8)
[2023-08-29 16:05] LABS: Iron 134 ug/dL (50-170); Total Iron Binding Capacity 345 ug/dL (250-450); Transferrin Sat 39 % (15-50)
[2023-08-29 16:15] LABS: Ferritin 94 ng/mL (8-252); TSH 1.96 uIU/mL (0.36-3.74)
== END 2023-08-29 14:53 | disposition home or self-care (01) ==
LOC: NCHCN 14:52
PROVIDERS: PCP Internal Medicine; Visit Provider Family Medicine
DX: D64.9 Anemia, unspecified (principal); E03.9 Hypothyroidism, unspecified
CPT/HCPCS: 85027; 82728; 83540; 83550; 84439; 84443

== ENCOUNTER 2023-10-31 14:33 | Outpatient (REF) | payer MEDICARE, SELFPAY ==
[2023-10-31 15:27] LABS: TSH (W/Ref FT4) 2.14 uIU/mL (0.36-3.74)
== END 2023-10-31 14:34 | disposition home or self-care (01) ==
LOC: NCHCN 14:33
PROVIDERS: PCP Internal Medicine; Visit Provider Family Medicine
DX: E03.9 Hypothyroidism, unspecified (principal)
CPT/HCPCS: 84443

== ENCOUNTER 2023-11-27 08:46 | Inpatient (IN) | payer MEDICARE, SELFPAY ==
[2023-11-27] VITALS (98 sets, daily range): BP systolic 112–175; BP diastolic 54–121; PULSE 65–159; RESP 12–37; TEMP 35.9–36.4; O2SAT 97–99
--- NOTE | 2023-11-27 08:45 | DI.CT_ITS ---
Exam(s) CT HEAD CERVICAL SPINE WO EXAM: CT HEAD CERVICAL SPINE WO CLINICAL HISTORY: fall, head injury, neck pain. TECHNIQUE: Imaging Protocol: Axial computed tomography images with coronal and sagittal reformatted images were created and reviewed COMPARISON: CT CT NECK W from 07/24/2023 FINDINGS: Head CT Ventricles and Extra axial spaces: Normal in size and morphology for the patient's age. Hemorrhage: None. Cerebral parenchyma: No evidence of mass or acute infarct. Midline shift: None. Brainstem/Cerebellum: Normal. Calvarium: Normal. Visualized Paranasal sinuses/Mastoids: Clear. Soft tissues: Unremarkable. Cervical Spine CT BONES: Vertebral body heights are maintained. Alignment is normal. There is no evidence of acute frac ture. Severe degenerative disc changes and facet degenerative changes are seen are particularly around the dens. SOFT TISSUES: No paraspinal hematoma. The airway appears intact. No pneumothorax is seen at the lung apices. IMPRESSION: Head CT: No acute abnormality. C-spine CT: Degenerative changes, no acute abnormality. RADIATION DOSE DELIVERED: 1,109.7mGy.cm Total DLP DATA REPOSITORY: All CT scans at this facility are submitted to the National Radiology Data Registry (NRDR) Dose Index Registry (DIR) with the [employer] (ACR). RADIATION OPTIMIZATION: All CT scans at this facility use at least one of these dose optimization te chniques: automated exposure control; mA and/or kV adjustment per patient size (includes targeted exa ms where dose is matched to clinical indication); or iterative reconstruction.
--- NOTE | 2023-11-27 08:56 | DI.CT_ITS ---
Exam(s) CT CHEST/ABD/PEL W CT THORACIC LUMBAR SPINE REC EXAM: CT CHEST/ABD/PEL W CLINICAL HISTORY: fall, sob, pain. TECHNIQUE: Imaging Protocol: Axial computed tomography images with coronal and sagittal reformatted images were created and reviewed CONTRAST MATERIAL: Intravenous: Omnipaque 350 Contrast volume:60 ml Oral: / no COMPARISON: CT CHEST ABD WITH CONTRAST from 04/01/2012 CT ABD PELVIS WITH CONTRAST from 05/21/2012 CT ABD PELVIS WO CONTRAST from 08/30/[address] ABDOMEN PELVIS W from 01/25/[address] THORACIC LUMBAR SPINE REC from 11/27/2023 FINDINGS: CHEST: Small amount of fluid in lower sided skin the indicate reflux. Tracheobronchial tree: Patent. Pulmonary parenchyma: 9 millimeter nodule with surrounding ground-glass opacities at the medial left lung base. This has increased slowly over time since 2011. Mild emphysematous changes Pleura: No effusion or pneumothorax. Lymph nodes: Within normal limits. Aorta: Ascending aorta measures 3.5 cm in diameter. Descending aorta measures 2.2 cm. Heart: Biatrial enlargement. Coronary artery calcifications. No pericardial effusion. Pulmonary arteries. No emboli are identified. Bones: Severe degenerative changes at the right shoulder and sternoclavicular joints. No lytic or bl astic lesions.Severe degenerative changes of the thoracic spine. No acute fractures. Old left rib fra ctures. No acute rib fracture visible. Soft tissues: Unremarkable. ABDOMEN and PELVIS: Liver: Normal density. No measurable mass. Gallbladder and biliary tract: Cholelithiasis. No gallbladder wall thickening. No biliary dilatatio n. Pancreas: Normal density, no abnormal calcifications or inflammatory process. Spleen: Normal. Kidneys: Normal size, contour and axis. Tiny nonobstructing stone lower pole right kidney. No obstr uctive uropathy. No suspicious masses seen. Adrenal glands: Stable thickening of the left adrenal gland. Aorta: Abdominal portion non-dilated. Severe atherosclerotic changes. Lymph nodes: Within normal limits. Soft tissues: Bilateral ostomies. IVC filter. Bladder: Nearly empty. Not well evaluated. Bowel: No obstruction or bowel wall thickening. Peritoneal cavity: Small amount fluid in the presacral region, similar to prior. No focal collection . No mesenteric inflammatory response. Bones: Minimal compression of the superior endplate of T1 which is new since the prior exam. Severe degenerative changes in the lumbar spine. Severe central canal stenosis at L3-4 and L4-5 secondary to a combination of degenerative disc changes and facet degenerative changes. Reproductive organs: Status post hysterectomy. Abnormal vaginal thickening noted. This area. Findi ngs may represent vaginal mass. Small amount of fluid present. IMPRESSION: No acute abnormality in the chest. 9 millimeter nodule again noted in the left lung base. No acute t horacic spine fracture. Minimal compression of the superior endplate of L1, new since the prior exam. Severe degenerative davey nges causing severe central canal stenosis at L3-4 and L4-5. Abnormal thickening enhanced and enhancement of the vagina may represent a mass versus infection. Si milar appearance to prior. Clinical correlation recommended. Findings called to find BONY Colon provider RADIATION DOSE DELIVERED: 633.99mGy.cm Total DLP DATA REPOSITORY: All CT scans at this facility are submitted to the National Radiology Data Registry (NRDR) Dose Index Registry (DIR) with the [employer] (ACR). RADIATION OPTIMIZATION: All CT scans at this facility use at least one of these dose optimization te chniques: automated exposure control; mA and/or kV adjustment per patient size (includes targeted exa ms where dose is matched to clinical indication); or iterative reconstruction.
--- NOTE | 2023-11-27 09:00 | RT.EKG_ITS ---
APPROVED REPORT Exam: Resting ECG Reason for Exam: weakness Patient Location: E HR:120 bpm ECG Measurements Heart Rate 120 AXIS PA [id number] P [id number] QRSd 76 QRS -18 QT 326 T -21 QTc 461 Conclusion Atrial fibrillation...V-rate 82-165, irreg A-activity Inferior infarct, old...Q >35mS, II III aVF
[2023-11-27 09:30] LABS: Abs Immature Grans 0.06 10^3/uL (0.0-0.06); Absolute Basophil Count 0.04 10^3/uL (0.0-0.2); Absolute Eosinophil Count 0.03 10^3/uL (0.0-0.7); Absolute Lymphocyte Count 0.74 10^3/uL (1.2-3.4); Absolute Monocyte Count 0.48 10^3/uL (0.1-0.8); Absolute Neutrophil Count 8.67 10^3/uL (1.2-6.7); Basophils % 0.4 %; Eosinophils % 0.3 %; HCT 44.2 % (36.0-46.0); HGB 14.3 g/dL (11.2-15.7); Immature Grans % 0.6 %; Lymphocytes % 7.4 %; MCH 32.6 pg (27.0-33.0); MCHC 32.4 % (32.0-36.0); MCV 101 fL (80-95); MPV 8.9 fL (8.0-11.0); Monocytes % 4.8 %; Neutrophils % 86.5 %; Platelet Count 351 10^3/uL (130-400); RBC 4.39 10^6/uL (3.93-5.22); RDW 14.2 % (11.7-14.6); WBC 10.02 10^3/uL (4.4-10.8)
[2023-11-27] MEDS: Metoprolol 5 MG/5 ML VIAL IVP (09:33)
[2023-11-27 09:34] LABS: Lactate 2.1 mmol/L (0.6-1.4)
[2023-11-27 09:59] LABS: ALT 30 U/L (14-59); AST 30 U/L (15-37); Alkaline Phosphatase 179 U/L (46-116); Anion Gap 9.6 mmol/L (3-11); BUN 16 mg/dL (7-18); Bilirubin, Total 0.4 mg/dL (0.2-1.0); CO2 28.4 mmol/L (21.0-32.0); CREATININE 0.9 mg/dL (0.55-1.02); Calcium 9.4 mg/dL (8.5-10.1); Chloride 99 mmol/L (98-107); Estimated GFR 65.44 (mL/min/1.73m2); Glucose 103 mg/dL (74-106); Magnesium 1.5 mg/dL (1.8-2.4); NT-proBNP 2234 pg/mL (<300); Potassium 4.4 mmol/L (3.5-5.1); Sodium 137 mmol/L (136-145); TSH (W/Ref FT4) 4.18 uIU/mL (0.36-3.74); Total Protein 7.2 g/dL (6.4-8.2)
[2023-11-27 10:17] LABS: FREE T4 1.54 ng/dL (0.76-1.46); Procalcitonin 0.2 ng/mL
[2023-11-27] MEDS: Omnipaque 350 MG/ML 100 ML BTL IJ (10:34)
[2023-11-27] MEDS: Normal Saline - Diluent 50 ML VIAL IJ (10:36)
--- NOTE | 2023-11-27 10:46 | W.ED.GENAD ---
Discharge Plan Disposition Patient Disposition: Admit to [facility] Discharge Details Clinical Impression: Hypothyroidism, Orthostatic hypotension, Compression fx, lumbar spine, Cardiomegaly, Atrial fibrillation Primary Care Provider: Raymon Cosby ED Provider: Veronika Pfeiffer Home Meds and New Rx's Prescriptions: No Action multivitamin [Multi-Day] 1 EACH tablet 1 tab PO DAILY aspirin [Aspir-81] 81 MG tablet,delayed release (DR/EC) 81 mg PO .QWEDN metoprolol succinate 25 mg Tablet Extended Release 24 Hr 25 mg PO DAILY metoprolol succinate 50 mg Cap,Sprinkle,Er 24hr Dose Pack 50 mg PO DAILY loperamide [Imodium A-D] 2 mg Capsule 2 mg PO BID acetaminophen [Arthritis Pain Reliever] 650 mg Tablet Extended Release 2 tab PO BID diphenhydramine HCl [Benadryl Allergy] 25 mg Tablet 2 tab PO DAILY levothyroxine 75 mcg tablet 75 mcg PO DAILY Patient Comments: TAKE 1 TABLET BY MOUTH DAILY HPI General Date/Time Provider Initiated Documentation: 11/27/23 08:56. HPI Narrative: This 78-year-old female presents with weakness, hyponatremia, chronic A-fib without anticoagulation secondary to GI bleed risk and frequent falls with hypothyroidism presents with report of fall on Saturday, this is a mechanical fall per patient. She states that she is having difficulty ambulating today secondary to shortness of breath and generalized weakness which is why she presents. She has not taken any of her morning meds specifically not her metoprolol. Patient denies any fever or chills. She has pain to her cervical spine and lumbar spine which she thinks is attributed to the fall on Saturday. Today her friend recommended she come to the emergency department secondary to her discomfort. Related Data Home Medications Medication Instructions Recorded Confirmed aspirin 81 mg tablet,delayed 81 mg PO .QWEDN06/21/13 11/27/23 release (Aspir-) multivitamin (Multi-Day tablet) 1 tab PO DAILY 06/21/13 11/27/23 acetaminophen 650 mg 2 tab PO BID 05/21/18 11/27/23 tablet,extended release (Arthritis Pain Reliever) diphenhydramine HCl 25 mg tablet 2 tab PO DAILY 05/21/18 11/27/23 (Benadryl Allergy) loperamide 2 mg capsule (Imodium 2 mg PO BID 05/21/18 11/27/23 A-D) metoprolol succinate 25 mg 25 mg PO DAILY 05/21/18 11/27/23 tablet,extended release 24 hr metoprolol succinate 50 mg capsule 50 mg PO DAILY 05/21/18 11/27/23 sprinkle, ext. release 24 hr levothyroxine 75 mcg tablet 75 mcg PO DAILY 11/27/23 11/27/23 Allergies Allergy/AdvReac Type Severity Reaction Status Date / Time codeine AdvReac Intermediate Nausea Unverified 11/27/23 08:43 General Stated Complaint: Fall/Non TraumaCriteria FEDE: 3 Exam Narrative Exam Narrative: Alert and oriented 78-year-old chronically ill-appearing female without any visible signs of trauma to head, GCS 15, no hemotympanum, pupils equal round reactive to light and accommodation, mild paraspinal cervical spine tenderness, no reproducible chest wall tenderness, lungs with crackles at bases, no respiratory distress although dyspneic with speech, no abdominal tenderness, lumbar spine tenderness paraspinally on exam, excoriations noted to posterior neck, back, no crepitus on exam, dorsi and plantarflexion symmetrical to bilateral lower extremities, hand grasp equal bilaterally, cranial nerves II through XII intact, alert and oriented x 4 Course Vital Signs Vital signs: Vital Signs Temperature 35.9 C L 11/27/23 08:37 Pulse 123 H 11/27/23 08:37 Respiratory Rate 22 11/27/23 08:37 Blood Pressure 173/121 H 11/27/23 08:37 Pulse Oximetry 97 11/27/23 08:37 Temperature 35.9 C L 11/27/23 08:37 Temperature Source Temporal Artery Scan 11/27/23 08:37 Pulse 89 11/27/23 09:45 Pulse 103 H 11/27/23 09:45 Respiratory Rate 28 H 11/27/23 09:45 Respiratory Effort Short of Breath 11/27/23 08:47 Blood Pressure 152/97 H 11/27/23 09:45 Blood Pressure Mean 111 11/27/23 09:45 Blood Pressure Position Sitting 11/27/23 08:37 Pulse Oximetry 97 11/27/23 08:37 Oxygen Delivery Method Room Air 11/27/23 08:37 Oxygen Flow Rate 0 11/27/23 08:37 Pain Level 8 11/27/23 08:37 Lab/Test Results Lab/Test Results: Laboratory Tests Range/Units 11/27/23 11/27/23 09:20 09:20 WBC (4.4-10.8) 10^3/uL 10.02 RBC (3.93-5.22) 10^6/uL 4.39 Hgb (11.2-15.7) g/dL 14.3 Hct (36.0-46.0) % 44.2 MCV (80-95) fL 101 H MCH (27.0-33.0) pg 32.6 MCHC (32.0-36.0) % 32.4 RDW (11.7-14.6) % 14.2 Plt Count (130-400) 10^3/uL 351 MPV (8.0-11.0) fL 8.9 Immature Gran % % 0.6 Neutrophils % % 86.5 Lymphocytes % % 7.4 Monocytes % % 4.8 Eosinophils % % 0.3 Basophils % % 0.4 Nucleated RBC % (0.0-0.3) % 0.0 Absolute Neutrophils (1.2-6.7) 10^3/uL 8.67 H Absolute Lymphocytes (1.2-3.4) 10^3/uL 0.74 L Absolute Monocytes (0.1-0.8) 10^3/uL 0.48 Absolute Eosinophils (0.0-0.7) 10^3/uL 0.03 Absolute Basophils (0.0-0.2) 10^3/uL 0.04 VBG Lactate (0.6-1.4) mmol/L 2.1 H Sodium (136-145) mmol/L 137 Potassium (3.5-5.1) mmol/L 4.4 Chloride (98-107) mmol/L 99 Carbon Dioxide (21.0-32.0) mmol/L 28.4 Anion Gap (3-11) mmol/L 9.6 BUN (7-18) mg/dL 16 Creatinine (0.55-1.02) mg/dL 0.9 Est GFR (CKD-EPI 2020) (mL/min/1.73m2) 65.44 Glucose (74-106) mg/dL 103 Calcium (8.5-10.1) mg/dL 9.4 Magnesium (1.8-2.4) mg/dL 1.5 L Total Bilirubin (0.2-1.0) mg/dL 0.4 AST (15-37) U/L 30 ALT (14-59) U/L 30 Alkaline Phosphatase (46-116) U/L 179 H NT-Pro-B Natriuret Pep (<300) pg/mL 2234 H Total Protein (6.4-8.2) g/dL 7.2 Albumin (3.4-5.0) g/dL 3.0 L Procalcitonin ng/mL 0.2 TSH (0.36-3.74) uIU/mL 4.18 H Cancelled Free T4 (0.76-1.46) ng/dL 1.54 H ABO/Rh A Positive Antibody Screen POSITIVE Medical Decision Making 78-year-old female looks older than stated age presenting with weakness and intermittent shortness of breath. Patient states symptoms began on Saturday after she had some lightheadedness and fell. She injured her neck and back when she fell but denies loss of consciousness. She is been having trouble ambulating since that time she has been able to crawl to get some food and fluids but feels too weak to stand. States she feels very lightheaded when she tries to ambulate, like she might pass out. She denies any blood in stool. She says she had her thyroid medication changed recently. CT head, cervical spine, chest abdomen pelvis ordered, she has cardiomegaly on CT, CT head and cervical spine are negative for acute abnormality, CT lumbar spine shows L1 superior endplate compression fracture, neurovascularly intact. Magnesium of 1.5, BNP of 2234, cardiomegaly on CT although no evidence of pulmonary vascular congestion, TSH of 4.18, 3 3 T4 mildly elevated. Has been taking her metoprolol as prescribed, but does state she missed her dose this morning. Denies any cough or urinary symptoms. Denies additional falls. States she feels worse when she goes from sitting to standing. Urinalysis with 5-10 white blood cells but leukocyte Estrace negative, will pend culture. Ambulatory trial was attempted, however patient with orthostatic positive, please see documentation and pulse went from 107 at rest to 159 with ambulation. She is in A-fib RVR with ambulation and not rate controlled which I suspect contributed to her lightheadedness and falls. She is fully alert and oriented at this time. I reviewed patient's prior echocardiogram however this was from 2013 and her ejection fraction was 55%. As patient is not anticoagulated and refuses anticoagulation secondary to recurrent vaginal and GI bleeding I did speak with Jovita Daly, physician emergency veterinary assistant at [facility]. She recommended increasing patient's metoprolol back to 25 mg a day as needed and using diltiazem or additional short acting metoprolol IV as needed for rate control. She did not recommend cardioverting patient at this time as she is in chronic atrial fibrillation. We talked about diuresis and patient may benefit from Lasix administration, 20 mg IV. Patient does not appear to be overtly volume overloaded at this time but I think an echocardiogram would be beneficial. I also think patient is probably intravascular depleted as she has not been able to ambulate well at home and will give 100 cc of clear an hour and monitor closely for any volume overload status. Quality:SDOH Health Related Social Needs: Health related social needs transpo insecurity Critical Care Time Critical Care Time Attestation: Approximately 35 minutes of critical care time secondary to metoprolol administration of atrial fibrillation RVR, telemetry monitoring, diagnostic imaging interpretation and review, diagnostic lab interpretation and review, magnesium supplementation PFSH All Active Problems (Updated 11/27/23 @ 15:05 by CARISSA Colon) Atrial fibrillation (Chronic) Cardiomegaly (Acute) Compression fx, lumbar spine (Acute) Status post cataract extraction and insertion of intraocular lens of right eye (Chronic 05/26/18) Corneal endothelial dystrophy (Chronic) Nuclear sclerotic cataract of left eye (Acute) Weakness (Chronic 08/28/13) Hyponatremia (Chronic 06/21/13) 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 Frequent falls (Chronic 08/28/13) Hypothyroidism (Chronic) Orthostatic hypotension (Chronic) Treated with Fludrocortisone. 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 Pancreatic insufficiency (Chronic) Cholelithiasis (Chronic) Adrenal nodule (Chronic) Incidental. Ruptured bladder (Acute 09/12/13) Cutaneous urostomy tubes. Open midline wound (Acute 09/12/13) DVT (deep venous thrombosis) (Acute 09/12/13) Where the femoral and saphenous veins meet. No Coumadin. FIlter in palce. Aspirin 325 mg daily. Lovenox 40 mg subcutaneously until mobile. 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 Gross hematuria. Medical History (Updated 11/27/23 @ 15:05 by CARISSA Colon) Nuclear sclerotic cataract of right eye Social History Smoking/Tobacco Use Status: Former Tobacco Use Smoking risk assessment performed?: Yes Alcohol Intake: never Drug use: Never Housing: house Do you feel safe at home: Yes
[2023-11-27] MEDS: METOPROLOL CR 50 MG, METOPROLOL CR 25 MG 75 MG PO (10:58)
[2023-11-27] MEDS: MAGNESIUM SULFATE 2 GM/50 ML BAG IVINF (10:59)
[2023-11-27 11:20] LABS: Bilirubin Negative (Negative); Blood Small (Negative); Clarity Clear (Clear); Glucose Negative (Negative); Ketones Negative (Negative); Leukocyte Esterase Negative (Negative); Nitrite Positive (Negative); Specific Gravity <= 1.005 (1.005-1.025); Urobilinogen 0.2 mg/dL (Up to 0.2)
[2023-11-27 11:29] LABS: Bacteria Moderate HPF (Negative); C & S Indicated? Yes; Casts Negative LPF (Negative); Crystals Negative HPF (Negative); Epithelial Cells Rare HPF (Negative); Mucus Negative (Negative)
[2023-11-27] MEDS: Normal Saline 1,000 ML 100 ML IV ×2 (14:22→23:52)
[2023-11-27] MEDS: Metoprolol CR 25 MG TABCR PO (14:22)
[2023-11-27 14:25] LABS: Lactate 1.8 mmol/L (0.6-1.4)
[2023-11-27 14:58] LABS: Troponin I < 50 ng/L (< or =60)
--- NOTE | 2023-11-27 15:45 | DI.US_ITS ---
APPROVED REPORT EXAM: Comprehensive 2D, Doppler, and color-flow Echocardiogram Patient Location: ER Room/Bed: 4 Sample Coordinator: Alyson Martinez RDCS (AE) Indications: Atrial Fibrillation, Orthostatic BNaP high Other Information Study Quality: Fair. Technically limited study due to body habitus, inability to position patient exa m done supine bedside er. Conclusion Normal left ventricular wall thickness and chamber size. Ejection fraction is reduced, EF is5 to 30% . There are no segmental wall motion abnormalities. Patient is in atrial fibrillation with beat-to- beat variation Mildly dilated and hypocontractile right ventricle Both atria are enlarged Trileaflet sclerotic aortic valve without stenosis or regurgitation Mild mitral annular calcification. Mild to moderate mitral regurgitation Mild tricuspid regurgitation. Estimated right ventricular systolic pressure is 22 mmHg Dilated aortic root Wall motion Left Ventricle The left ventricle is normal size. Left ventricular systolic function is decreased. There is normal l eft ventricular wall thickness. There is global hypokinesis of the left ventricle. There is no ventri cular septal defect visualized. LVEF is 25-30% Right Ventricle Right ventricle is mildly dilated. Right ventricle is mildly hypokinetic. Atria Left atrium is mildly dilated. Right atrium is mild to moderately dilated. The interatrial septum is intact with no evidence for an atrial septal defect. Aortic Valve The Aortic valve is sclerotic. Aortic valve is trileaflet. There is no aortic valvular stenosis. No a ortic regurgitation is present. Mitral Valve Mild mitral annular calcification. No evidence of mitral valve stenosis. Mild to moderate mitral regu rgitation. Tricuspid Valve The tricuspid valve is normal in structure. There is no tricuspid valve stenosis. Mild tricuspid regu rgitation. Pulmonic Valve The pulmonary valve is normal in structure. There is no pulmonic valvular stenosis. Trace pulmonic re gurgitation. Great Vessels Aortic root is mildly dilated. Ascending aorta is not well visualized. Aortic arch is not well visual ized. IVC is normal in size and collapses >50% with inspiration. Pericardium There is no pericardial effusion. 2D Dimensions IVSD d PLAX 0.77 cm F: 0.6-1.0 Ao Root d 3.41 cm F: 2.7 - 3.3 LVPW d PLAX 0.74 cm F: 0.6 - 1.0 LVID d PLAX 3.49 cm F: 3.8 - 5.2 LVDs 3.27 cm F: 2.2 - 3.5 LV EF Teichholz 14.9 % FS 6.46 % LV EDV (Teich) 50.7 mL LV ESV (Teich) 43.1 mL LA Volume LA Length A4C 5.1 cm LA Length A2C 4.8 cm LA Area A4C s 19.90 cm2 LA Area A2C s 15.90 cm2 LA Vol A4C A-L 66.49 mL LA Vol A2C A-L 44.65 mL LA Vol Biplane A-L 55.9 mL LA Vol/BSA A4C A-L LA Vol/BSA A2C A-L LA Vol/BSA BP A-L 40.5 mL/m2 LA Vol A4C MOD 63.1 mL LA Vol A2C MOD 41.0 mL LA Vol BP MOD 52.0 mL RA Volume RA Area A4C 19.1 cm2 RA ESV A4C (A-L) 59.9mL RA Vol/BSA A4C A-L RA Length A4C 5.2 cm RA ESV A4C (MOD) 58.0mL LV Diastology MV E' medial 0.103 (>0.07 m/s) Aortic Valve AoV Vmax 0.76 m/s LVOT Vmax 0.50 m/s AoV Peak Grad 2.3 mmHg LVOT Peak Grad 1.0 mmHg AoV Area (Vmax) 2.15 cm2 LVOT VTI 0.089 m AoV VTI 0.156 m LVOT Mean Grad 0.5 mmHg AoV Mean Zaid. 0.58 m/s LVOT SV 29.45 mL AoV Mean Grad 1.5 mmHg LVOT Diam s 2.00 cm AoV Area (VTI) 1.88 cm2 Velocity Ratio 0.66 Mitral Valve MV Vmax TIPS 0.93 m/s MV Mean Grad 1.1 (<2mmHg) MV VTI 0.197 m Pulmonary Valve PV Vmax 0.51 (0.5-1.5 m/s) RVOT Vmax 0.32 m/s PV Peak Grad 1.1 mmHg RVOT Peak Gr. 0.4 mmHg PV Mean Zaid 0.33 m/s RVOT VTI 0.075 m PV Mean Grad 0.5 mmHg RVOT Mean Gr. 0.2 mmHg Tricuspid Valve RA Pressure 3.00 mmHg TR Vmax 2.15 m/s TR Peak Grad 18.6 mmHg RVSP (TR) 21.7 mmHg
--- NOTE | 2023-11-27 17:00 | HPE_ITS ---
Date of service: 11/27/23 Time of Service: 17:00 Assessment and Plan Assessment and plan (1) Atrial fibrillation: Status: Chronic Assessment and plan: Chronic atrial fibrillation and now in RVR with associated DYSNO and orthostasis. Reviewing her history, she runs 100-120 often on a chronic basis. Her rate is likely higher due to missing a day or two of metoprolol and some degree of dehyrdation from poor oral intake. BNaP is elevated but exam and CT do not suggest CHF. I don't think she needs diuresis. EKG and troponin do not suggest ACS as a trigger Echocardiogram done today, should be read in AM by cardiology Case discussed with [facility] cardiology in the ED, will titrate up metoprolol slightly from 75mg to 100mg succinate. she decliens anticoagulation, understands risk of stroke. (2) Hypothyroidism: Status: Chronic Assessment and plan: TSH and Free T4 slightly high. This would suggest central hypothyroid if she wasn't on levothyroxine. Get T3 to help clarify. Given her weight and atrial fibrillation, I think she would be better off on a lower dose of levothyroxine, titrate down for now to 62.5 and follow. (3) Compression fx, lumbar spine: Status: Acute Assessment and plan: Symptoms are mild currently, treat pain as needed and consult PT. (4) Orthostatic hypotension: Status: Chronic Assessment and plan: This has been a chronic issue, and per record has been on fludricortisone in the past. For now, symptoms imrpoving with fluids and she is hypertensive at rest. Echo pending. Monitor on telemetry. Will not add mineralocorticoid for now. (5) DVT (deep venous thrombosis): Status: Acute Assessment and plan: Does not tolerate anticoagulation, has IVC filter (6) Adrenal nodule: Status: Chronic Assessment and plan: raises thought of pheochromocytoma contributing to tachycardia/hypertension, but this is more of thickening than a nodule and clinical presentation not consistent. History of Present Illness History of Present Illness Chief Complaint: weakness Narrative: 78 yo F with history Lof chronic atrial fibrillation, cervical cancer s/p uretostomy and ileostomy, underweight with malabsorption, h/o DVT, h/o orthostatic hypotension previously on fludricortisone, hypothyroid, presenting with dizziness for a week that has become worse in the past 2 days. She started feeling lightheaded about a week ago. Feels lightheaded standing, but also sitting and even in bed. She has been holding onto the wall to keep from falling. Two days ago she fell backward on her buttocks and hit the nuchal area of her head. Since then she has had low back pain, has been too weak to walk so has not been getting up to eat or drink or take her medications. During the past 2 days she has been increasingly short of breath. She never had chest pain. Her heart has been fast, but this is common for her. She never had LOC or focal weakness or numbness or headache, states her head where she hit it feels fine. She feels less dizzy and SOB since getting fluids here in the ED. She is quite hungry. Her back pain isn't bad now. Of note, 01/2023 she was transferred to [facility] with significant vaginal bleed from her pelvic wounds from her previous cervical cancer. She has refused blood thinners since then and has no interest in restarting. In august of 2023 her levothyroxine was decreased from 88mcg to 75mcg. She has been slowly loosing weight, 40lbs since her cancer and ostomies 10 years ago, states she eats but it goes right through her no matter what she eats. Review of Systems All systems reviewed & are unremarkable except as noted in HPI and below Constitutional Constitutional: Denies chills, Denies fever(s), Reports frequent falls, Denies headache(s) and Reports weight loss Eyes Eyes: Reports loss of vision (chronic, no acute change) ENT Ears, Nose, Mouth, and Throat: Reports change in voice, Denies dysphagia, Denies headache(s), Denies mouth lesions, Reports nasal discharge (chronic allergies) and Reports disequilibrium Gastrointestinal Gastrointestinal: Denies melena, Denies hematochezia, Reports change in bowel habits, Denies dysphagia, Reports loose stools (always has a lot of output after she eats), Denies nausea and Reports vomiting Genitourinary Genitourinary: Denies hematuria Integumentary/Breasts Skin/Breast: Reports pruritus and Reports sores (scabs from itching cased by tags on her shirt per patient) Neurologic Neurologic: Denies behavioral changes, Denies confusion, Reports frequent falls, Denies headache(s), Denies localized weakness, Reports loss of vision (chronic, no acute change), Denies memory loss, Denies tremor(s) and Reports disequilibrium Psychiatric Psychiatric: Denies behavioral changes, Denies confusion, Denies depression, Denies memory loss, Denies mood swings and Denies hallucinations PFSH All Active Problems Atrial fibrillation (Chronic) Cardiomegaly (Acute) Compression fx, lumbar spine (Acute) Status post cataract extraction and insertion of intraocular lens of right eye (Chronic 05/26/18) Corneal endothelial dystrophy (Chronic) Nuclear sclerotic cataract of left eye (Acute) Weakness (Chronic 08/28/13) Radiation cystitis (Chronic) Chronic diarrhea (Chronic) Chronic atrial fibrillation (Chronic) With a mean heart rate of 120 on Holter monitor July 2012 at [facility]. Frequent falls (Chronic 08/28/13) Hypothyroidism (Chronic) Orthostatic hypotension (Chronic) Treated with Fludrocortisone. 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 Pancreatic insufficiency (Chronic) Cholelithiasis (Chronic) Adrenal nodule (Chronic) Incidental. Ruptured bladder (Acute 09/12/13) Cutaneous urostomy tubes. Open midline wound (Acute 09/12/13) DVT (deep venous thrombosis) (Acute 09/12/13) Where the femoral and saphenous veins meet. No Coumadin. FIlter in palce. Aspirin 325 mg daily. Lovenox 40 mg subcutaneously until mobile. 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 Gross hematuria. Medical History Nuclear sclerotic cataract of right eye Surgical History (Updated 11/27/23 @ 21:26 by Delvin Horn) History of urostomy Status post ileostomy May 2012 Social History (Updated 11/27/23 @ 21:27 by Delvin Horn) Smoking/Tobacco Use Status: Former Tobacco Use Quit Date: 11/19/13 Smoking risk assessment performed?: Yes Alcohol Intake: never Drug use: Never Housing: house Do you feel safe at home: Yes Additional Social history: lives alone, with her cat Meds Allergies and Home Medications Allergies Allergy/AdvReac Type Severity Reaction Status Date / Time codeine AdvReac Intermediate Nausea Unverified 11/27/23 08:43 Home Medications Medication Instructions Recorded Confirmed Type aspirin 81 mg tablet,delayed 81 mg PO .QWE06/21/13 11/27/23 History release (Aspir-) multivitamin (Multi-Day tablet) 1 tab PO DAILY 06/21/13 11/27/23 History acetaminophen 650 mg 2 tab PO BID 05/21/18 11/27/23 History tablet,extended release (Arthritis Pain Reliever) diphenhydramine HCl 25 mg tablet 2 tab PO DAILY 05/21/18 11/27/23 History (Benadryl Allergy) loperamide 2 mg capsule (Imodium 2 mg PO BID 05/21/18 11/27/23 History A-D) metoprolol succinate 25 mg 25 mg PO DAILY 05/21/18 11/27/23 History tablet,extended release 24 hr metoprolol succinate 50 mg capsule 50 mg PO DAILY 05/21/18 11/27/23 History sprinkle, ext. release 24 hr levothyroxine 75 mcg tablet 75 mcg PO DAILY 11/27/23 11/27/23 History Exam Narrative Exam Narrative: GEN: Alert and oriented, pleasant and cooperative, gives linear history. No acute distress at rest. Cachectic appearing. HEENT: Head atraumatic. Conjunctiva clear, no icterus. PEERL, EOMI. no rhinorrhea. MMM, OP benign. Neck is supple with no masses or lymphadenopathy, trachea midline LUNGS: CTAB with normal effort CV: RRR with no murmurs, gallops, or rubs. nl carotid pulses leonides. No JVP ABD: +BS, soft, NT/ND EXT: no cyanosis, clubbing, or edema, legs non-tender MSK: No joint redness or swelling NEURO: CN 2-12 grossly intact. Normal movement and gross sensation of 4 extremities, though demished in feet leonides (chronc per patient) Normal speech and coordination. no tremor. SKIN: Excoriation with scabbing scattered on scalp and neck. No other rashes. PSYCH: normal mood and affect, normal thought process. Results Imaging CT scan - chest: report reviewed (No acute abnormality in the chest. 9 millimeter nodule again noted in the left lung base. No acute thoracic spine fracture. ) CT scan - pelvis: report reviewed (Minimal compression of the superior endplate of L1, new since the prior exam. Severe degenerative changes causing severe central canal stenosis at L3-4 and L4-5. Abnormal thickening enhanced and enhancement of the vagina may represent a mass versus infection. Similar appearance to prior. Clinica) EKG: report reviewed and image reviewed (atrial fibrillation rate 120, nl axis, intervals. no STEMI) Imaging Studies: Head CT: No acute abnormality. C-spine CT: Degenerative changes, no acute abnormality. Labs 11/27/23 09:20 11/27/23 09:20 Labs: Laboratory Results - last 24 hr 11/27/23 11/27/23 11/27/23 09:20 09:20 11:02 WBC 10.02 RBC 4.39 Hgb 14.3 Hct 44.2 MCV 101 H MCH 32.6 MCHC 32.4 RDW 14.2 Plt Count 351 MPV 8.9 Immature Gran % 0.6 Neutrophils % 86.5 Lymphocytes % 7.4 Monocytes % 4.8 Eosinophils % 0.3 Basophils % 0.4 Nucleated RBC % 0.0 Absolute Neutrophils 8.67 H Absolute Lymphocytes 0.74 L Absolute Monocytes 0.48 Absolute Eosinophils 0.03 Absolute Basophils 0.04 VBG Lactate 2.1 H Sodium 137 Potassium 4.4 Chloride 99 Carbon Dioxide 28.4 Anion Gap 9.6 BUN 16 Creatinine 0.9 Est GFR (CKD-EPI 2020) 65.44 Glucose 103 Calcium 9.4 Magnesium 1.5 L Total Bilirubin 0.4 AST 30 ALT 30 Alkaline Phosphatase 179 H Troponin I NT-Pro-B Natriuret Pep 2234 H Total Protein 7.2 Albumin 3.0 L Procalcitonin 0.2 TSH 4.18 H Cancelled Free T4 1.54 H Urine Color Yellow Urine Clarity Clear Urine pH 5.0 Ur Specific [place] <= 1.005 Urine Protein Negative Urine Ketones Negative Urine Blood Small H Urine Nitrite Positive H Urine Bilirubin Negative Urine Urobilinogen 0.2 Ur Leukocyte Esterase Negative Urine RBC 3-5 H Urine WBC 5-10 Ur Epithelial Cells Rare Urine Crystals Negative Urine Bacteria Moderate Urine Casts Negative Urine Mucus Negative Ur Culture Indicated? Yes Urine Glucose Negative ABO/Rh A Positive Antibody Screen POSITIVE Antibody Identification Not Applicable 11/27/23 11/27/23 11:06 14:19 WBC RBC Hgb Hct MCV MCH MCHC RDW Plt Count MPV Immature Gran % Neutrophils % Lymphocytes % Monocytes % Eosinophils % Basophils % Nucleated RBC % Absolute Neutrophils Absolute Lymphocytes Absolute Monocytes Absolute Eosinophils Absolute Basophils VBG Lactate 1.8 H Sodium Potassium Chloride Carbon Dioxide Anion Gap BUN Creatinine Est GFR (CKD-EPI 2020) Glucose Calcium Cancelled Magnesium Total Bilirubin AST ALT Alkaline Phosphatase Troponin I < 50 NT-Pro-B Natriuret Pep Total Protein Albumin Procalcitonin TSH Free T4 Urine Color Urine Clarity Urine pH Ur Specific [place] Urine Protein Urine Ketones Urine Blood Urine Nitrite Urine Bilirubin Urine Urobilinogen Ur Leukocyte Esterase Urine RBC Urine WBC Ur Epithelial Cells Urine Crystals Urine Bacteria Urine Casts Urine Mucus Ur Culture Indicated? Urine Glucose ABO/Rh Antibody Screen Antibody Identification Last Vital Signs Temp 35.9 C L 11/27/23 08:37 Pulse 99 H 11/27/23 16:00 Resp 20 11/27/23 16:10 BP 164/98 H 11/27/23 16:00 Pulse Ox 97 11/27/23 08:37 Time Spent Time spent with Patient: 55-74 minutes Time was spent: preparing to see the patient(eg.review tests), obtaining and/or reviewing separately otained hiistory, ordering medications,tests, procedures, referring, communicating with other health adult care manager, indepentently interpreting results and counseling the patient
[2023-11-27] MEDS: Loperamide 2 MG CAP PO (19:45)
[2023-11-27] MEDS: Acetaminophen 325 MG TAB PO (19:45)
[2023-11-28] VITALS (11 sets, daily range): BP systolic 99–144; BP diastolic 50–91; PULSE 69–151; RESP 16–27; TEMP 36.1–36.7; O2SAT 91–100
--- NOTE | 2023-11-28 01:22 | W.PC.ACHO ---
Registration Status: ADM IN Primary Language: Preferred Language: Divehi ED Information & Data Chief Complaint Fall/Non TraumaCriteria 11/27/23 10:52 Triage Note lives alone, fell saturday and 11/27/23 08:37 has had increased weakness and pain in back & neck ever since fall. SOB w/no exertion. Rapid afib, has not taken meds yet today. Medical / Surgical History (Last Reviewed 11/27/23 @ 21:24 by Delvin Horn) Nuclear sclerotic cataract of right eye (Last Updated 11/27/23 @ 21:26 by Delvin Horn) History of urostomy Status post ileostomy Most Recent Vital Signs Temperature 36.4 C L 11/27/23 18:33 Temperature Source Temporal Artery Scan 11/27/23 18:33 Pulse 69 11/28/23 00:01 Pulse 86 11/28/23 00:01 Respiratory Rate 20 11/28/23 00:01 Respiratory Effort Normal 11/28/23 00:22 Respiratory Depth Normal 11/28/23 00:22 Respiratory Pattern Normal 11/28/23 00:22 Blood Pressure 111/50 L 11/28/23 00:01 Blood Pressure Mean 66 11/28/23 00:01 Blood Pressure Position Sitting 11/27/23 08:37 Pulse Oximetry 91 L 11/28/23 00:01 Oxygen Delivery Method Room Air 11/28/23 00:22 Oxygen Flow Rate 0 11/28/23 00:22 Pain Level 7 11/27/23 19:45 Allergies codeine Adverse Reaction (Intermediate, Unverified 11/27/23 08:43) Nausea gi upset Precautions Isolation Standard precaution 11/27/23 08:47 Active Medications Generic Name Dose Route Start Last Admin Trade Name Freq PRN Reason Stop Dose Admin Acetaminophen 0 mg 11/27/23 15:13 11/27/23 19:45 Acetaminophen 325 Mg Tab PO 650 mg Q4H PRN PRN Administration Sodium Chloride 1,000 mls @ 100 mls/hr 11/27/23 14:00 11/27/23 23:52 Saline 1000ml Bag IV 100 mls/hr INFUSION NITIN Administration Iohexol 100 ml 11/27/23 10:45 11/27/23 10:34 Omnipaque 350 Mg/Ml 100 Ml Btl IJ 12/27/23 23:59 60 ml DIRECTED NITIN Administration Loperamide HCl 2 mg 11/27/23 20:00 11/27/23 19:45 Loperamide 2 Mg Cap PO 2 mg BID NITIN Administration Sodium Chloride 50 ml 11/27/23 10:45 11/27/23 10:36 Normal Saline - Diluent 50 Ml Vial IJ 50 ml .FOR DI USE NITIN Administration IV IV Catheter Type [Right Nexiva Diffusics Forearm] IV Catheter Gauge [Right 20 Forearm] Diet Orders Category Date Time Status Regular/Normal [DIET] Nutrition 11/27/23 Dinner Active Diagnostics 11/28/23 11/27/23 11/27/23 Range/Units 05:35 14:19 11:06 WBC (4.4-10.8) 10^3/uL RBC (3.93-5.22) 10^6/uL Hgb (11.2-15.7) g/dL Hct (36.0-46.0) % MCV (80-95) fL MCH (27.0-33.0) pg MCHC (32.0-36.0) % RDW (11.7-14.6) % Plt Count (130-400) 10^3/uL MPV (8.0-11.0) fL Immature Gran % % Neutrophils % % Lymphocytes % % Monocytes % % Eosinophils % % Basophils % % Nucleated RBC % (0.0-0.3) % Absolute Neutrophils (1.2-6.7) 10^3/uL Absolute Lymphocytes (1.2-3.4) 10^3/uL Absolute Monocytes (0.1-0.8) 10^3/uL Absolute Eosinophils (0.0-0.7) 10^3/uL Absolute Basophils (0.0-0.2) 10^3/uL VBG Lactate 1.8 H (0.6-1.4) mmol/L Sodium (136-145) mmol/L Potassium (3.5-5.1) mmol/L Chloride (98-107) mmol/L Carbon Dioxide (21.0-32.0) mmol/L Anion Gap (3-11) mmol/L BUN (7-18) mg/dL Creatinine (0.55-1.02) mg/dL Est GFR (CKD-EPI 2020) (mL/min/1.73m2) Glucose (74-106) mg/dL Calcium Cancelled (8.5-10.1) mg/dL Magnesium Pending (1.8-2.4) mg/dL Total Bilirubin (0.2-1.0) mg/dL AST (15-37) U/L ALT (14-59) U/L Alkaline Phosphatase (46-116) U/L Troponin I < 50 (< or =60) ng/L NT-Pro-B Natriuret Pep (<300) pg/mL Total Protein (6.4-8.2) g/dL Albumin (3.4-5.0) g/dL Procalcitonin ng/mL TSH (0.36-3.74) uIU/mL Free T4 (0.76-1.46) ng/dL Free T3 pg/mL Pending Urine Color (Yellow) Urine Clarity (Clear) Urine pH (5-8) Ur Specific [place] (1.005-1.025) Urine Protein (Neg-Trace) mg/dL Urine Ketones (Negative) mg/dL Urine Blood (Negative) Urine Nitrite (Negative) Urine Bilirubin (Negative) Urine Urobilinogen (Up to 0.2) mg/dL Ur Leukocyte Esterase (Negative) Urine RBC (0-2) HPF Urine WBC (0-5) HPF Ur Epithelial Cells (Negative) HPF Urine Crystals (Negative) HPF Urine Bacteria (Negative) HPF Urine Casts (Negative) LPF Urine Mucus (Negative) Ur Culture Indicated? Urine Glucose (Negative) mg/dL ABO/Rh Antibody Screen Antibody Identification 11/27/23 11/27/23 11/27/23 Range/Units 11:02 09:20 09:20 WBC 10.02 (4.4-10.8) 10^3/uL RBC 4.39 (3.93-5.22) 10^6/uL Hgb 14.3 (11.2-15.7) g/dL Hct 44.2 (36.0-46.0) % MCV 101 H (80-95) fL MCH 32.6 (27.0-33.0) pg MCHC 32.4 (32.0-36.0) % RDW 14.2 (11.7-14.6) % Plt Count 351 (130-400) 10^3/uL MPV 8.9 (8.0-11.0) fL Immature Gran % 0.6 % Neutrophils % 86.5 % Lymphocytes % 7.4 % Monocytes % 4.8 % Eosinophils % 0.3 % Basophils % 0.4 % Nucleated RBC % 0.0 (0.0-0.3) % Absolute Neutrophils 8.67 H (1.2-6.7) 10^3/uL Absolute Lymphocytes 0.74 L (1.2-3.4) 10^3/uL Absolute Monocytes 0.48 (0.1-0.8) 10^3/uL Absolute Eosinophils 0.03 (0.0-0.7) 10^3/uL Absolute Basophils 0.04 (0.0-0.2) 10^3/uL VBG Lactate 2.1 H (0.6-1.4) mmol/L Sodium 137 (136-145) mmol/L Potassium 4.4 (3.5-5.1) mmol/L Chloride 99 (98-107) mmol/L Carbon Dioxide 28.4 (21.0-32.0) mmol/L Anion Gap 9.6 (3-11) mmol/L BUN 16 (7-18) mg/dL Creatinine 0.9 (0.55-1.02) mg/dL Est GFR (CKD-EPI 2020) 65.44 (mL/min/1.73m2) Glucose 103 (74-106) mg/dL Calcium 9.4 (8.5-10.1) mg/dL Magnesium 1.5 L (1.8-2.4) mg/dL Total Bilirubin 0.4 (0.2-1.0) mg/dL AST 30 (15-37) U/L ALT 30 (14-59) U/L Alkaline Phosphatase 179 H (46-116) U/L Troponin I (< or =60) ng/L NT-Pro-B Natriuret Pep 2234 H (<300) pg/mL Total Protein 7.2 (6.4-8.2) g/dL Albumin 3.0 L (3.4-5.0) g/dL Procalcitonin 0.2 ng/mL TSH Cancelled 4.18 H (0.36-3.74) uIU/mL Free T4 1.54 H (0.76-1.46) ng/dL Free T3 pg/mL Urine Color Yellow (Yellow) Urine Clarity Clear (Clear) Urine pH 5.0 (5-8) Ur Specific [place] <= 1.005 (1.005-1.025) Urine Protein Negative (Neg-Trace) mg/dL Urine Ketones Negative (Negative) mg/dL Urine Blood Small H (Negative) Urine Nitrite Positive H (Negative) Urine Bilirubin Negative (Negative) Urine Urobilinogen 0.2 (Up to 0.2) mg/dL Ur Leukocyte Esterase Negative (Negative) Urine RBC 3-5 H (0-2) HPF Urine WBC 5-10 (0-5) HPF Ur Epithelial Cells Rare (Negative) HPF Urine Crystals Negative (Negative) HPF Urine Bacteria Moderate (Negative) HPF Urine Casts Negative (Negative) LPF Urine Mucus Negative (Negative) Ur Culture Indicated? Yes Urine Glucose Negative (Negative) mg/dL ABO/Rh A Positive Antibody Screen POSITIVE Antibody Identification Not Applicable 11/27/23 11:02 Urine Culture - Pending Urine - Reflex from Ua Intake and Output - 24 Hour Total 11/27/23 08:31 thru 11/28/23 00:22 Intake Total 1020 Output Total 200 Balance 820 Weight 37.4 kg Intake: IV 1020 Output: Urine 200 Other: Comment Urostomy Falls Risk Assessment History of Falls Admit Due to Fall 11/27/23 18:33 Contributing Factors Unstable,Impairments, 11/27/23 18:33 Medications Ambulatory Aids Uses ambulatory device + 11/27/23 18:33 Tubes/Lines With any additional score 11/27/23 18:33 Gait Evaluation W/any additional score 11/27/23 18:33 Cognition No cognitive impairment 11/27/23 18:33 Fall Total Score 104 11/27/23 18:33 Level of Risk Maximum Risk 11/27/23 18:33 Problems (Last Reviewed 11/27/23 @ 21:24 by Delvin Horn) Atrial fibrillation (Chronic) Cardiomegaly (Acute) Compression fx, lumbar spine (Acute) Hypothyroidism (Chronic) Orthostatic hypotension (Chronic) Adrenal nodule (Chronic) DVT (deep venous thrombosis) (Acute 09/12/13) v v v v v v v v v Sending and/or Receiving Nurses: Please use comment section below to note any information pertinent to the patient hand-off not included above. Information / Comments: Report received from: CASTILLO Driscoll 11/27/2023 @ 1152
[2023-11-28] MEDS: Metoprolol CR 100 MG TABCR PO (08:00)
[2023-11-28] MEDS: Loperamide 2 MG CAP PO ×2 (08:00→21:46)
[2023-11-28] MEDS: Multivitamin TAB 1 TAB PO (08:00)
[2023-11-28 09:33] LABS: Magnesium 1.7 mg/dL (1.8-2.4)
[2023-11-28] MEDS: Normal Saline 1,000 ML 100 ML IV (09:55)
[2023-11-28] MEDS: Acetaminophen 325 MG TAB PO (09:58)
--- NOTE | 2023-11-28 10:36 | W.PM.PROGNOT ---
Date of Service Date of service: 11/28/23 Time of Service: 10:37 Assessment and Plan Assessment and plan (1) Atrial fibrillation: Status: Chronic Assessment and plan: Chronic atrial fibrillation, admitted in RVR with associated DYSON and orthostasis. Improving but still orthostatic this mornign. Reviewing her history, she runs 100-120 often on a chronic basis, BNaP is elevated but exam and CT do not suggest CHF. I don't think she needs diuresis. EKG and troponin on admission not c/w ACS Echocardiogram shows deminished LVEF, see below. Case discussed with [facility] cardiology in the ED, titrated up metoprolol slightly from 75mg to 100mg succinate. she decliens anticoagulation, understands risk of stroke. (2) Heart failure with reduced ejection fraction due to cardiomyopathy: Status: Acute Assessment and plan: This is a new finding, last echo 2013. Looks biventricular. Will stop fluids (though she wasn't fluid overloaded at the time of her echo), touch base with cardiology about further work up, medication management (3) Hypothyroidism: Status: Chronic Assessment and plan: TSH and Free T4 slightly high. This would suggest central hypothyroid if she wasn't on levothyroxine. Get T3 to help clarify. Given her weight and atrial fibrillation, I think she would be better off on a lower dose of levothyroxine, titrated down for now to 62.5 and follow. (4) Compression fx, lumbar spine: Status: Acute Assessment and plan: Symptoms are mild currently, treat pain as needed and consult PT once she can stand up without orthostasis. (5) Orthostatic hypotension: Status: Chronic Assessment and plan: This has been a chronic issue, and per record has been on fludricortisone in the past (though she doesn't remember this). For now, symptoms improved some with fluids and she is hypertensive at rest, but still orthostatic with drop in BP and jump in HR with standing. D/w cardiology as above given new HFrEF. (6) DVT (deep venous thrombosis): Status: Acute Assessment and plan: Does not tolerate anticoagulation, has IVC filter Subjective Subjective Patient reports: feels better; denies nausea, vomiting, shortness of breath or fever Interval history since last seen: Feels less dizzy, but still dizzy with standing. She is eating but small amounts. Nothing out of ostomy yet, but no abdominal pain or bloating. Exam Narrative Exam Narrative: GEN: Alert and oriented, No acute distress at rest. Cachectic appearing. LUNGS: CTAB with normal effort CV: RRR with no murmurs, gallops, or rubs. ABD: +BS, soft, NT/ND. colonostomy and urostomy look benign, yellow urine in bag, no stool EXT: no cyanosis, clubbing, or edema, legs non-tender SKIN: Excoriation with scabbing scattered on scalp and neck. No other rashes. Objective Last Vital Signs Temp 36.1 C L 11/28/23 08:30 Pulse 91 H 11/28/23 09:52 Resp 20 11/28/23 08:30 BP 130/72 11/28/23 09:52 Pulse Ox 100 11/28/23 08:30 Laboratory Results - last 24 hr 11/27/23 11/27/23 11/27/23 09:20 11:02 11:06 VBG Lactate Calcium Cancelled Magnesium Troponin I Urine Color Yellow Urine Clarity Clear Urine pH 5.0 Ur Specific [place] <= 1.005 Urine Protein Negative Urine Ketones Negative Urine Blood Small H Urine Nitrite Positive H Urine Bilirubin Negative Urine Urobilinogen 0.2 Ur Leukocyte Esterase Negative Urine RBC 3-5 H Urine WBC 5-10 Ur Epithelial Cells Rare Urine Crystals Negative Urine Bacteria Moderate Urine Casts Negative Urine Mucus Negative Ur Culture Indicated? Yes Urine Glucose Negative Antibody Screen POSITIVE Antibody Identification Not Applicable 11/27/23 11/28/23 14:19 06:02 VBG Lactate 1.8 H Calcium Magnesium 1.7 L Troponin I < 50 Urine Color Urine Clarity Urine pH Ur Specific [place] Urine Protein Urine Ketones Urine Blood Urine Nitrite Urine Bilirubin Urine Urobilinogen Ur Leukocyte Esterase Urine RBC Urine WBC Ur Epithelial Cells Urine Crystals Urine Bacteria Urine Casts Urine Mucus Ur Culture Indicated? Urine Glucose Antibody Screen Antibody Identification Time Spent with Patient Time Spent with Patient: 35-49 minutes Time was spent: preparing to see the patient(eg.review tests), obtaining and/or reviewing separately otained hiistory, ordering medications,tests, procedures, referring, communicating with other health rn acute care, indepentently interpreting results, counseling the patient and care coordination
[2023-11-28] MEDS: Normal Saline Flush 10 ML SYR (10:38)
[2023-11-28] MEDS: MAGNESIUM SULFATE 2 GM/50 ML BAG IVINF (10:45)
--- NOTE | 2023-11-28 12:09 | INITIAL_ITS ---
Date of service: 11/28/23 Time of Service: 12:09 Care Management Initial Assmt Initial Assessment REASON FOR HOSPITALIZATION:: Afib with [facility] PREVIOUS FUNCTIONAL STATUS/SOCIAL/FAMILY SUPPORTS:: Emma lives alone in a single family home in [place] with her cat Joaquín. She has one son who lives in [place]. Emma is independent with ADLs but no longer drives. She has problems with her vision and for the past couple of days had a hard time getting around due to her recent illness. Emma uses [facility] for transportation. She also has friends and neighbors that will help her with shopping. CURRENT FUNCTIONAL STATUS:: Emma was sitting up in a chair when CM met with her. She was open to conversation and engaged well with CM. Emma talked about her home and all of the work she has had done. She is very independent and does most things for herself except drive. She shared that not driving has been the hardest thing for her. She used to just get in the car and drive wherever she wanted to, and now she can't. She indicated that she does not like to depend on others for anything. When asked if she would consider home health services if recommended, se stated only if Ann Marie comes every time. Ann Marie is a friend and neighbor that happens to work for [employer]. ADVANCE DIRECTIVES:: on file. Son Jerald Garcia [facility] Has patient been provided with info about the portal/API?: Yes Did the patient sign up for the portal?: No CODE STATUS:: DNR/DNI INSURANCE COVERAGE / FINANCIAL ISSUES:: Medicare CURRENT HOME/COMMUNITY SERVICES/EQUIPMENT:: [facility] for transportation to the grocery store PRIMARY CARE PHYSICIAN:: Maliha Ceja POTENTIAL DISCHARGE NEEDS:: follow up with PCP and plan of care PATIENT/FAMILY EDUCATION NEEDS:: Review of discharge instructions, activity, limitations, follow up plan, discuss [employer] TRANSPORTATION:: via private vehicle with family PLAN:: Anticipate Emma will be discharged home, possibly with new home health services, when medically cleared by provider. She will follow up with her PCP and plan of care and transport with family. CM will follow and continue to assess for discharge needs. PFSH All Active Problems (Updated 11/28/23 @ 10:53 by Delvin Horn) Heart failure with reduced ejection fraction due to cardiomyopathy (Acute) Atrial fibrillation (Chronic) Cardiomegaly (Acute) Compression fx, lumbar spine (Acute) Status post cataract extraction and insertion of intraocular lens of right eye (Chronic 05/26/18) Corneal endothelial dystrophy (Chronic) Nuclear sclerotic cataract of left eye (Acute) Weakness (Chronic 08/28/13) Radiation cystitis (Chronic) Chronic diarrhea (Chronic) Chronic atrial fibrillation (Chronic) With a mean heart rate of 120 on Holter monitor July 2012 at [facility] [place]. Frequent falls (Chronic 08/28/13) Hypothyroidism (Chronic) Orthostatic hypotension (Chronic) Treated with Fludrocortisone. 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 Pancreatic insufficiency (Chronic) Cholelithiasis (Chronic) Adrenal nodule (Chronic) Incidental. Ruptured bladder (Acute 09/12/13) Cutaneous urostomy tubes. Open midline wound (Acute 09/12/13) DVT (deep venous thrombosis) (Acute 09/12/13) Where the femoral and saphenous veins meet. No Coumadin. FIlter in palce. Aspirin 325 mg daily. Lovenox 40 mg subcutaneously until mobile. 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 Gross hematuria. 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 Social History (Updated 11/27/23 @ 21:27 by Delvin Horn) Smoking/Tobacco Use Status: Former Tobacco Use Quit Date: 11/19/13 Smoking risk assessment performed?: Yes Alcohol Intake: never Drug use: Never Housing: house Do you feel safe at home: Yes Additional Social history: lives alone, with her cat SDOH(Care Management) Screening Will the Patient Participate in the Screening?: Yes Do you worry about having a steady place to live?: no Problems where you live: no known problems In the past 12 months, have you had to go without electric, gas, oil or water in your home?: no Have you or anyone in your house had to go without enough food to eat?: no Has lack of transportation kept you from medical appointments or from doing things needed for daily living?: no Has anyone in your support network made you feel unsafe for any reason?: no Social Determinants of Health Comments(SDOH Details): Pt states she gets transportation assistance from [employer] [employer] but it has been a little inconsistent. Is looking for a appraiser personal property because she can't reach some shelves or see labels.
--- NOTE | 2023-11-28 13:41 | NS.NUTBLAN_ITS ---
Date of service: 11/28/23 Time of Service: 13:20 Nutritional Consult ASSESSMENT: Received consult regarding concerns of weight loss/nutrition status Pt is 78yo female who lives at home alone (she has caring neighbors who help when they can), does her own shopping and meal prep at home (with more and more help with transportation and shopping over the recent years). She had a fall and was found to be in Afib and admitted. PMH significant for Hypothyroid, comp fx of lumbar spine, adrenal nodule, cervical cancer - s/p ileostomy and urostomy over a decade ago. Has chronic diarrhea at home - states she has to change her pouch a million times a day. States output is digested material except peas and spinach will end up in the pouch whole when she eats them. She states she has been ~180lbs her whole life but has slowly lost weight over the last 14 years and remembers being 107lbs 2 years ago. Pt is currently 82.3lbs, which correlates to a 24.7lb wt loss x 2 years or 23% of her body weight over this time. She has poor vision but states she can maneuver around the kitchen and knows where most things are kept. She has dentures at home (not with her this admission) but states she doesn't use them often due to her weight loss they don't fit right anymore. Only supplement she takes at home is a MVI tablet for 60+. She has tried ONS at home like ensure and doesn't like the taste of those and they result in greater diarrhea - I offered boost pudding, or a homemade smoothie and she declines these. She does enjoy puddings and custards and such - will make kitchen aware and have these and similar items available to her. Also brought up that provider can order liquid protein TID and she does not want this either. Pt's electrolytes wnl except low magnesium (has received 4g magsulfate over the last 48hours to replete. Total protein wnl with low albumin. Nutrition focused physical exam findings: Moderate to severe subcutaneous fat loss assessed in orbital and buccal fat pads, tricps and midline/ribs. Moderate to severe muscle loss noted to temporal, pectoral and deltoid areas, milk interosseous muscle loss, sever muscle loss to gastrocnemius. Fluid status and private tutors and teachers strength not assessed. Noted alopecia with easily pluckable hairs which can point to zinc/biotin/iron, EFA and B2 deficiency. Estimated energy needs: 987kcals (REE x1.2 AF) (recommend 1200 for slow wt gain) and 52-62g protein (1-1.2g/kg IBW) From diet recall pt can offer (tends to be a grazer with dinner being bigger meal) she probably meets half her protein recommendation most days and falls closer to 500kcals most days lately due to small portions. NUTRITIONAL DIAGNOSIS: Severe Malnutrition (E43) related to inadequate protein-energy intake in the setting of chronic disease/condition and environment (radiation for cervical cancer ultimately resulting in colostomy/urostomy - with limited ability to consistently make and consume healthy meals due to diminished eye site, poor dentition and fatigue) as evidenced by taking <50% of estimated energy needs for >1 month, significant wt loss of >20% of body weight x2 years, and severe fat loss and muscle wasting. INTERVENTION: PT declines ONS that were offered. Provided education on high kcal food choices on the menu like custard, puddings, cottage cheese, sandwich fillings, mac and cheese, shepards pie etc... Will let kitchen staff know to offer her foods she likes and check with her on textures while ordering. Suggest she continue on MVI with iron but change from tablet to a liquid/powder/chewable form Suggest Magnesium Glycinate for less GI upset and to keep mag levels up without contributing to diarrhea problems at home Suggest Bcomplex vitamin and calcium chewable. Suggest check Vitamin D lab and correct (last viewable lab it was <10) MONITORING AND EVALUATION: will monitor labs, intake, weight, and ostomy output for further recommendations and nutrition intervention. Time Spent in Nutritional Counseling and Treatment: 15 minutes
[2023-11-28] MEDS: Metoprolol CR 25 MG TABCR PO (15:55)
--- NOTE | 2023-11-28 16:04 | W.PALLCONSUL ---
Date of service: 11/28/23 Time of Service: 16:04 History of Present Illness Narrative: Emma Garcia is a 78 year old woman from [facility] admitted to [facility] yesterday with significant orthostatic hypotension (50 points change in pulse from laying to standing)and recent falls resulting in compression fracture lumbar spine. Patient has significant past history of cervical cancer, chronic A-fib (not on anticoagulation since pelvic bleeding a year ago), hypothyroidism, macular degeneration. Pt also noted to have marked reduction in EF to 30% (previous 55% 2013) History today from patient and [facility] notes. Patient is a somewhat reticent historian. Some additional information from phone call with son Jerald. Patient initially diagnosed with cervical cancer in 2000. Underwent chemotherapy and radiation at [facility]. Ensuing complications included bladder rupture 2006, radiation proctitis requiring diverting ileocolostomy 2011, diverting nephrostomy because of chronic ruptured bladder 2013. She had been followed by Dr. Damon, urology with annual check-ins until 2019. In January 2023 developed vaginal bleeding. She was taken again to the OR at [facility] and this required resection of necrotic tissue which apparently was causing the bleeding. Patient has not had follow-up with [facility] urology or gynecology since last January 2023. Malnutrition/weight loss: Patient says her weight is low because I do not absorb things . This is from chronic diarrhea. Has to empty her ostomy bag multiple times a day. Only 1 kg weight loss from 02/11, but 11 kg weight loss over last 10 years. Son says under 95 pounds for 10 years. HAs lst a little more weight recently. Nutrition consult done today reviewed. They describe protein calorie malnutrition. Recommending 1200 kcal/day diet, change iron supplement from tablet to a liquid/powder/chewable form, change to Mag supplement Magnesium Glycinate (less GI upset and to keep mag levels up without contributing to diarrhea), Bcomplex vitamin and calcium chewable. Also recheck VItamin D as quite low in the past. -Patient says that she does not need vitamin D anymore They told me in [place] that it was now fine and I didn't need it any more. Unclear that she is taking the multivitamin discussed and nutrition consult. She says she eats a lot . Does not like supplements. Needs to limit dairy because she thinks she has lactose intolerance (increases her diarrhea). -Patient reports that she has an excellent appetite and eats well. Son says that she reports that she eats a lot but then he notes she only eats small amounts (she is not reliable in this regard). Chronic anemia: This is mentioned in [facility] notes but I note normal hemoglobin upon admission yesterday (there may be some hemoconcentration, however August 2023 hemoglobin normal range) Cardiology: -Patient has had atrial fibrillation for many years. Reports that she has seen Dr. Greenberg,But last note on record from 2011. She may have been seen at [facility] cardiology in the past. -ECHO done since admission shows markedly reduced EF at 5-30% - Patiently reportedly on DOAC up until episode of severe vaginal bleeding January 2023. She declined to resume taking DOAC subsequent to that event. -Patient declines to answer my question about how long she has been more short of breath. -Son says that neighbor Poppy says SOB started just the week before this admission. Supports: PC with Son Jerald: She has only a little accepted help from [employer]. Prefers to get this help from friends. He describes that she always has a Sharp 'no' ! to any changes, but might accept something new over time. She has always been this way, on reflection she might come around to the right choice. Mentally she is sharp. Once she trusts someone, she maintains that trust. Allowed HH to come in for only one or two visits last summer. Helpers need to persist and earn her trust. She seems to TRUST [facility] (as per son). Care Team: Primary Care physician: [facility] , Dr. Ayala Urology: [facility], no regular follow-up in the last few years Gynecology: [facility], 1 telehealth visit after hospital discharge January 2023 Cardiology: Unclear, see above note Social HX: Marital Status: Lives alone with cat (Joaquín). 2006. 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 Children: Son Jerald lives in [facility]. He calls her weekly.He visits every few months. 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 Mentions several friends and neighbors who helped her. (son mentions Poppy friend and neighbor (she was leaning too much on). She is currently going to the post office for all mail, son trying to talk her into mailbox, as someone else always has to go to Post Office for her. Son: really loves animals, she will trust anyone with a service dog. If you bring a service animal to her room, she will be really happy! Additional Services: Son Jerald recently connected with [place] [facility] ([facility]), who was able to set up twice monthly transportation to go shopping for his mom. Signed up for RTC Impression of currents health status: Heart is screwed up. Things will be better once that gets straightened out. What bothers you the most: Nothing. What worries you the most: No worries Goals: Feel stronger. remaining independent. Taking her cat for walks (he walks on a leash) Current information preferences: Function: Ambulation: Uses a cane (has a walker at home if she needs). ADLs: Independent iADLs: Does not drive. Hearing:fine Vision: Macular degeneration (R eye sees better than R). Magnifying glass. Cognition: perfect Falls:Fell 2 days before Driving: Had to give up driving 3+ years ago due to macular degeneration as per son. Palliative Performance Scale % Ambulation Activity and Evidence of Disease Self Care Intake Level of Consciousness 100 Full Normal activity, no evidence of disease Full Normal Full 90 Full Normal activity, some evidence of disease Full Normal Full 80 Full Normal activity with effort, some evidence of disease Full Normal or reduced Full 70 Reduced Unable to do normal work, some evidence of disease Full Normal or reduced Full 60 Reduced Unable to do hobby or some housework, significant disease Occasional assist necessary Normal or reduced Full or confusion 50 Mainly sit/lie Unable to do any work, extensive disease Considerable assistance required Normal or reduced Full or confusion 40 Mainly in bed Unable to do any work, extensive disease Mainly assistance Normal or reduced Full, drowsy, or confusion 30 Totally bed bound Unable to do any work, extensive disease Total care Reduced Full, drowsy, or confusion 20 Totally bed bound Unable to do any work, extensive disease Total care Minimal sips Full, drowsy, or confusion 10 Totally bed bound Unable to do any work, extensive disease Total care Mouth care only Drowsy or coma 0 - - - - Patient Score: 80 by report. Needs to be corroborated by family. Spiritual history: Not judaism. Frederic by joking and keeping an open mind. Palliative review of systems: Pain: No chronic pain Dyspnea: Does not answer (son says friend reported only dyspneic cutely in the last week) GI symptoms: Chronic diarrhea. I don't absorb food. Uses lmodium twice a day chronically. Appetite: Excellent. Eats a lot. usually eats 5-6 smaller meals. Depression: No Anxiety: None Emotional Distress: Spiritual/Existential Distress: None Labs: Cr:0.9 Liver panel: AST/ALT NL, alk phos sl elevated Albumin:3.0 CBC: hgb 14.3 Advanced Care Planning: Advanced Directive: 2011 [place] advanced directive on file Health Care Agent: Jerald Garcia listed as healthcare agent in 2011 advanced directive COLST: DNR/DNI status ordered, no COLST on file. (She says that she does not need a form and adamantly declines to have COLST form completed today) Limitations: Assessment and Plan Assessment and plan (1) Heart failure with reduced ejection fraction due to cardiomyopathy: Status: Acute Assessment and plan: Ms. Garcia is a 78-year-old woman who lives independently in [facility]. Overall during the last 10 years she has done well independently without many doctor's visits with her ileostomy and nephrostomy resulting from late radiation effects (cervical cancer 20 years ago). 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 Now she has newly diagnosed significant systolic heart failure, in addition to poor rate control with her Afib (may have ran out of beta linda), significant orthostasis (likely from dehydration) resulting in fall with lumbar compression fracture (likely osteoporosis associated with malnutrition). After talking with son, I suspect that her function has been declining over the last year, as he has reached out to [place] [facility] to put in place increased services. He describes his mother as set in her ways and not interested in change . She is fiercely independent. Examples of this include preferring not to follow-up with her medical providers unless necessary, up to this point successfully managing her ostomies on her own, declining to take supplements recommended in the past to counteract malabsorption, etc. However, she has been accepting of services that she clearly sees as beneficial, such as accepting rides to shopping from [employer] volunteer and accepting help from her son. Her son does point out that she often is reluctant to make any changes and it takes a long time to get her used to the idea and to accept changes. Since independence and remaining in her own home is so important to Mrs. Garcia, clearly stating (and restating) exactly how following medical/nutritional recommendations will facilitate this goal may be the best way to proceed. As per son's recommendation, also helpful to give suggestions time for consideration and to introduce changes 1 at the time. #Advance care planning: Patient has advanced directive from 2011. We discussed the procedure of CPaR, actual mechanical process, rate of success in restoring heartbeat, short and long-term side effects in survivors (including likely decreased physical and cognitive functioning). Patient consistently and repeatedly states that she is not interested in ever having CPR or being on a ventilator. She Understands what this means.However she repeatedly refuses to complete a COLST form, even to give verbal consent For me to complete a COLST without her signing. I have already filled out that form, everyone has a copy, it would just be confusing to have another form . This is not the first patient I have met who is refused to have a COLST form because they believe that their advance directive already states this. When I pointed out to the patient that EMS does not know this and that it would be important to have this form on her refrigerator (Otherwise CPR might be performed by EMT), she still declines to have a COLST form. This is my first meeting with the patient,I will revisit this with Her in the future.However, I agree that she clearly wishes to be DNR/DNI. She does want to continue to be transferred to the hospital to be evaluated and treated, receive IV hydration and IV fluids. #Goals of care: Patient's primary goal is to remain living independently in her house. She feels overall she is doing pretty good . Although she feels the diarrhea is too much , lessening the diarrhea is not one of her goals. Sounds like her son is strong advocate for her, ready having reached out to [place] [facility] to increase her supports. Going forward The patient, family,And chronic home health care provider from [facility] can work to further increase supports for patient. 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 Malabsorption quite concerning as has led to dangerous dehydration and orthostasis. Helpful nutrition consult done today. Patient may ultimately need referral to GI clinic for assistance from specialized dietitian. If this referral needed, consider referral to [facility], as this is logistically better for son. (son reports she only has ekta in [facility],) For diarrhea/malabsorptionPatient taking Imodium twice daily. Would recommend adding on soluble fiber (Metamucil starting with 2 g daily and increasing to 4 g if tolerated) It would be helpful for patient to have established relationship with an RD, whether through home health or outpatient at [facility]. Information Technology Account Manager will need to establish trust and BUY IN from the patient to continue vitamin/mineral supplements, emphasizing the Importance of nutrition in order to maintain independence. Suggest adding supplements one by one, allowing patient to set priorities and listening carefully for barriers (cost? Palatability of supplements? Side effects of supplements?). #Palliative care follow-up: Palliative Care Team will follow-up with patient home visits if she is amenable. 16 to 30 minutes spent today on Advance Care Planning. Patient and family participated voluntarily. Advance care planning may include (not limited to) explanation and discussion of advance directives, choosing and appointing healthcare agents, alternatives to various ACP tools, discussion of (and if indicated, completion of) COLST form, discussion of patient's values and overall goals for treatment, palliative and disease directive care options, ways to avoid hospital readmission including hospice discussions, care preferences should the patient's several other adverse health events.See today's palliative care note for additional information. This note was dictated using speech recognition software. Attempt was made at proofreading, but errors may be present. Please call with questions. (2) Atrial fibrillation: Status: Chronic (3) Reduced vision: Status: Acute (4) Compression fx, lumbar spine: Status: Acute (5) Underweight: Status: Acute (6) Radiation colitis: Status: Acute (7) History of urostomy: (8) Status post ileostomy: (9) Orthostatic hypotension: Status: Chronic (10) Advanced care planning/counseling discussion: Status: Acute (11) Palliative care patient: Status: Acute (12) DNR (do not resuscitate): Status: Acute PFSH All Active Problems (Updated 11/29/23 @ 07:40 by Yoly Bobby MD) DNR (do not resuscitate) (Acute) See November 28, 2023 palliative care note. Patient desires DNR/DNI. Does want to be transferred to the hospital and treated, receive IV fluids and IV antibiotics. Refuses to complete COLST form, as she feels advanced directive is enough and additional forms would just be confusing . Palliative care patient (Acute) Advanced care planning/counseling discussion (Acute) Radiation colitis (Acute) Underweight (Acute) Reduced vision (Acute) Macular degeneration by report Heart failure with reduced ejection fraction due to cardiomyopathy (Acute) Atrial fibrillation (Chronic) Cardiomegaly (Acute) Compression fx, lumbar spine (Acute) Status post cataract extraction and insertion of intraocular lens of right eye (Chronic 05/26/18) Corneal endothelial dystrophy (Chronic) Nuclear sclerotic cataract of left eye (Acute) Weakness (Chronic 08/28/13) Radiation cystitis (Chronic) Chronic diarrhea (Chronic) Short-bowel syndrome? Chronic atrial fibrillation (Chronic) With a mean heart rate of 120 on Holter monitor July 2012 at [facility]. Frequent falls (Chronic 08/28/13) Hypothyroidism (Chronic) Orthostatic hypotension (Chronic) Treated with Fludrocortisone. 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 Pancreatic insufficiency (Chronic) Cholelithiasis (Chronic) Adrenal nodule (Chronic) Incidental. Ruptured bladder (Acute 09/12/13) Cutaneous urostomy tubes. Open midline wound (Acute 09/12/13) DVT (deep venous thrombosis) (Acute 09/12/13) Where the femoral and saphenous veins meet. No Coumadin. FIlter in palce. Aspirin 325 mg daily. Lovenox 40 mg subcutaneously until mobile. 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 Gross hematuria. Medical History (Updated 11/29/23 @ 07:40 by Yoly Bobby MD) Nuclear sclerotic cataract of right eye Surgical History (Updated 11/27/23 @ 21:26 by Delvin Horn) History of urostomy Status post ileostomy May 2012 Social History (Updated 11/27/23 @ 21:27 by Delvin Horn) Smoking/Tobacco Use Status: Former Tobacco Use Quit Date: 11/19/13 Smoking risk assessment performed?: Yes Alcohol Intake: never Drug use: Never Housing: house Do you feel safe at home: Yes Additional Social history: lives alone, with her cat Exam Narrative Exam Narrative: Thin pleasant elderly woman in no distress. No dyspnea. Alert. Oriented to month, year, president. Full affect: Occasionally joking, sometimes annoyed by questions (and changes subject). Sometimes angry or irritated by specific questions. Results Last Vital Signs Temp 36.5 C 11/28/23 15:21 Pulse 82 11/28/23 15:21 Resp 16 11/28/23 15:21 BP 116/72 11/28/23 15:24 Pulse Ox 97 11/28/23 15:21 Labs 11/27/23 09:20 11/29/23 05:55 Labs: Laboratory Results - last 24 hr 11/28/23 06:02 Magnesium 1.7 L
[2023-11-28 19:12] LABS: T3,Free 2.3 pg/mL (2.8-5.3)
[2023-11-29] VITALS (9 sets, daily range): BP systolic 91–130; BP diastolic 60–87; PULSE 70–111; RESP 16–18; TEMP 35.9–36.7; O2SAT 94–98
[2023-11-29] MEDS: Levothyroxine 25 MCG TAB 62.5 MCG PO (05:47)
[2023-11-29 07:10] LABS: Anion Gap 8.8 mmol/L (3-11); BUN 13 mg/dL (7-18); CO2 27.2 mmol/L (21.0-32.0); CREATININE 0.7 mg/dL (0.55-1.02); Calcium 8.8 mg/dL (8.5-10.1); Chloride 104 mmol/L (98-107); Estimated GFR 88.47 (mL/min/1.73m2); Glucose 79 mg/dL (74-106); Magnesium 1.7 mg/dL (1.8-2.4); Potassium 3.7 mmol/L (3.5-5.1); Sodium 140 mmol/L (136-145)
[2023-11-29] MEDS: Loperamide 2 MG CAP PO ×2 (07:36→20:32)
[2023-11-29] MEDS: Multivitamin TAB 1 TAB PO (07:36)
[2023-11-29] MEDS: Acetaminophen 325 MG TAB PO ×2 (07:36→20:32)
--- NOTE | 2023-11-29 08:16 | CMPROGNOTE_ITS ---
Date of service: 11/29/23 Time of Service: 08:16 Care Management Progress Note Progress Note Text Progress Note Text: S/O:Emma was sitting up in a chair when CM met with her. She seemed to be in good spirits and engaged well with CM. Emma stated that she is feeling better, however she still can't walk far. She has only been able to stand for a short time and go from bed to chair. Emma's heart rate has been much better controlled today, running between 70 and 100, but her blood pressure has been on the low side. Her SBP has been in the 90s. CM spoke with Emma's son Sebastian. He informed CM that he plans to drive over from [place] on Saturday and will remain in the area when she is discharged. He believes his mother could benefit from some home health services. At this time Emma is reluctant to accept outside help. A PT evaluation will be ordered to assess her needs and help to inform a safe discharge plan. A: Emma is a 78 year old woman admitted on 11/27/23 with atrial fibrillation P:Anticipate Emma will be discharged home, possibly with new home health services, when medically cleared by provider. She will follow up with her PCP and plan of care and transport with family. CM will follow and continue to assess for discharge needs. SDOH(Care Management) Screening Will the Patient Participate in the Screening?: Yes Do you worry about having a steady place to live?: no Problems where you live: no known problems In the past 12 months, have you had to go without electric, gas, oil or water in your home?: no Have you or anyone in your house had to go without enough food to eat?: no Has lack of transportation kept you from medical appointments or from doing things needed for daily living?: no Has anyone in your support network made you feel unsafe for any reason?: no Social Determinants of Health Comments(SDOH Details): Pt states she gets transportation assistance from [place] [facility] but it has been a little inconsistent. Is looking for a operational test mechanic because she can't reach some shelves or see labels.
[2023-11-29] MEDS: Metoprolol CR 25 MG TABCR PO (08:20)
[2023-11-29] MEDS: Metoprolol CR 100 MG TABCR PO (08:20)
[2023-11-29] MEDS: MAGNESIUM SULFATE 2 GM/50 ML BAG IVINF (10:48)
[2023-11-29] MEDS: Normal Saline Flush 10 ML SYR (10:49)
--- NOTE | 2023-11-29 12:35 | W.PM.PROGNOT ---
Date of Service Date of service: 11/29/23 Time of Service: 12:36 Assessment and Plan Assessment and plan (1) Atrial fibrillation: Status: Chronic Assessment and plan: Chronic atrial fibrillation, admitted in RVR with associated DYSON and orthostasis. Improving but still orthostatic this mornign. Reviewing her history, she runs 100-120 often on a chronic basis, BNaP is elevated but exam and CT do not suggest CHF, we did not give further diuresis EKG and troponin on admission not c/w ACS Echocardiogram shows deminished LVEF, see below. Case discussed with [facility] cardiology in the ED and with Dr. Greenberg 11/27. Titrated up metoprolol slightly from 75mg. 125mg on 11/27 and improving but rate still high, will increase to 150mg. she declines anticoagulation, understands risk of stroke. (2) Heart failure with reduced ejection fraction due to cardiomyopathy: Status: Acute Assessment and plan: This is a new finding, last echo 2013. Looks biventricular. Case discussed with Dr. Greenberg who felt like this is tachycardia related and did not warrant a stress test/cath. We could expand GDMT but but we need to have caution with orthostatic hypotenstion. First step is to better control the rate as above. Will trial on SGLTi empagliflozin. (3) Orthostatic hypotension: Status: Chronic Assessment and plan: This has been a chronic issue, and per record has been on fludricortisone in the past (though she doesn't remember this). For now, symptoms improved some with fluids and better rate control of Afib. She is stil technically orthostatic this mornign but much less of a drop in BP. Adjusting medication as above. (4) Hypothyroidism: Status: Chronic Assessment and plan: TSH and Free T4 slightly high. This would suggest central hypothyroid if she wasn't on levothyroxine. Get T3 to help clarify. Given her weight and atrial fibrillation, I think she would be better off on a lower dose of levothyroxine, titrated down for now to 62.5 and follow as outpatient (5) Compression fx, lumbar spine: Status: Acute Assessment and plan: Symptoms are mild currently, treat pain as needed. Consider consulting PT once she can stand up without orthostasis. (6) DVT (deep venous thrombosis): Status: Acute Assessment and plan: Does not tolerate anticoagulation, has IVC filter (7) Underweight: Status: Acute Assessment and plan: a/w malnutrition. appreciate palliative and nutrition consults. 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 Will discuss vitamin supplument recommendations with patient first as she has been resistant to this in the past. Hopefully she will follow up fdc. Additional IV magnesium given today Subjective Subjective Patient reports: no new complaints; denies nausea, vomiting, shortness of breath or fever Interval history since last seen: Events: Seen by palliative care and nutritation She is feeling a bit better. Was able to stand up this morning without feelign as dizzy. She sat up most of yesterday in the chair. She is eating well. Her colostomy is putting out. Exam Narrative Exam Narrative: GEN: Alert and oriented, No acute distress at rest. Cachectic appearing, but energetic. LUNGS: CTAB with normal effort CV: RRR with no murmurs, gallops, or rubs. ABD: +BS, soft, NT/ND. colonostomy and urostomy look benign. EXT: no cyanosis, clubbing, or edema, legs non-tender SKIN: Excoriation with scabbing scattered on scalp and neck. No other rashes. Objective Last Vital Signs Temp 36.1 C L 11/29/23 11:05 Pulse 98 H 11/29/23 11:05 Resp 16 11/29/23 11:05 BP 105/60 11/29/23 11:05 Pulse Ox 98 11/29/23 11:05 Laboratory Results - last 24 hr 11/28/23 11/29/23 06:02 05:55 Sodium 140 Potassium 3.7 Chloride 104 Carbon Dioxide 27.2 Anion Gap 8.8 BUN 13 Creatinine 0.7 Est GFR (CKD-EPI 2020) 88.47 Glucose 79 Calcium 8.8 Magnesium 1.7 L Free T3 pg/mL 2.3 L Time Spent with Patient Time Spent with Patient: 35-49 minutes Time was spent: preparing to see the patient(eg.review tests), obtaining and/or reviewing separately otained hiistory, ordering medications,tests, procedures, referring, communicating with other health home health care provider, indepentently interpreting results, counseling the patient and care coordination
[2023-11-29] MEDS: Normal Saline Flush 10 ML SYR IVP (13:41)
[2023-11-29] MEDS: Empaglifozin 10 MG TAB PO (14:28)
[2023-11-29] MEDS: Cetirizine 10 MG TAB PO (15:19)
[2023-11-30] VITALS (8 sets, daily range): BP systolic 97–134; BP diastolic 58–89; PULSE 60–103; RESP 16–20; TEMP 35.9–36.8; O2SAT 94–99
--- NOTE | 2023-11-30 | DI.CT_ITS ---
Exam(s) CT CHEST PE CTA EXAM: CT CHEST PE CTA CLINICAL HISTORY: acute chest pain, h/o DVT. TECHNIQUE: Imaging Protocol: Axial CT angiography was performed with multi-slice acquisition and mu lti-planar and/or 3D reconstructions. CONTRAST MATERIAL: Intravenous: Omnipaque 350 contrast volume:55 mL COMPARISON: CT CT NECK W from 07/24/[address] CHEST/ABD/PEL W from 11/27/[address] THORACIC LUMBAR SPINE REC from 11/27/2023 FINDINGS: Tracheobronchial tree: Patent where visualized. Pulmonary parenchyma: Centrilobular emphysematous changes are present. The 3 mm nodule in the latera l aspect of the right lower lobe is stable (series 8, image 390). The nodular opacity in the medial aspect of the left lower lobe is again seen. There is mild increased surrounding infiltrate. Curren tly the whole area measures approximately 1.5 cm. There is a stable small ground-glass nodule in the left upper lobe (series 8, image 132). Pulmonary Arteries: No evidence of filling defect to suggest pulmonary emboli. Mediastinum and Priscilla: No dominant adenopathy or fluid collection. The esophagus is unremarkable. Visualized thyroid gland: Unremarkable. Pleura: No effusion or pneumothorax. Heart: Mild cardiomegaly. Coronary artery calcifications are present. No pericardial effusion. Aorta: Thoracic aorta non-dilated. Due to the bolus timing, the aorta is not adequately opacified. A therosclerotic calcification is present. Upper abdomen: Portions of an IVC filter are present. Stable nodularity of the left adrenal gland. The right adrenal gland is unremarkable. Tubes, Catheters, and Lines: Portions of the IVC filter are identified. Soft tissues: Unremarkable. Bones: Within normal limits for the patient's age.There is again seen a stable compression fracture o f the superior endplate of L1. The bones are osteopenic. IMPRESSION: 1. No evidence of a pulmonary embolism. 2. Interval increase in size of the nodule in the left lower lobe since 11/27/2023. This increase in s ize in less than 7 days suggest infection. Follow-up examination is recommended to document resoluti on and to exclude malignancy. A CT scan of the chest in 1 month should be considered for re-evaluati on. 3. Small ground-glass nodule in the left upper lobe. Given the findings in the left lower lobe this may represent sent an infectious or inflammatory nodule. 4. Stable 3 mm nodule in the right lower lobe. RADIATION DOSE DELIVERED: 178.21mGy.cm Total DLP DATA REPOSITORY: All CT scans at this facility are submitted to the National Radiology Data Registry (NRDR) Dose Index Registry (DIR) with the [employer] (A[employer]). RADIATION OPTIMIZATION: All CT scans at this facility use at least one of these dose optimization te chniques: automated exposure control; mA and/or kV adjustment per patient size (includes targeted exa ms where dose is matched to clinical indication); or iterative reconstruction.
[2023-11-30] MEDS: Levothyroxine 25 MCG TAB 62.5 MCG PO (06:47)
[2023-11-30] MEDS: Acetaminophen 325 MG TAB PO ×2 (06:52→20:52)
[2023-11-30] MEDS: Metoprolol CR 50 MG TABCR 150 MG PO (08:32)
[2023-11-30] MEDS: Metoprolol 5 MG/5 ML VIAL 2.5 MG IVP (08:39)
[2023-11-30] MEDS: Normal Saline Flush 10 ML SYR IVP (08:42)
[2023-11-30] MEDS: Loperamide 2 MG CAP PO ×2 (08:42→20:52)
[2023-11-30] MEDS: Multivitamin TAB 1 TAB PO (08:42)
[2023-11-30] MEDS: Cetirizine 10 MG TAB PO (08:42)
[2023-11-30] MEDS: Empaglifozin 10 MG TAB PO (08:42)
[2023-11-30 09:38] LABS: Vitamin D 25 Total < 5 ng/mL (30-100)
--- NOTE | 2023-11-30 14:30 | RT.EKG_ITS ---
APPROVED REPORT Exam: Resting ECG Reason for Exam: chest pain Patient Location: I HR:89 bpm ECG Measurements Heart Rate 89 AXIS [place] [id number] P [id number] QRSd 101 QRS -15 QT 359 T -13 QTc 437 Conclusion Atrial fibrillation...V-rate 68-119, irreg A-activity Borderline left axis deviation...QRS axis (-15,-29) Borderline low voltage, extremity leads...all extremity leads <0.6mV
--- NOTE | 2023-11-30 14:44 | W.PM.PROGNOT ---
Date of Service Date of service: 11/30/23 Time of Service: 14:44 Assessment and Plan Assessment and plan (1) Chest pain: Status: Acute Assessment and plan: EKG reassuring, no ischemic changes. However with her history of DVT, not anticoagulated, and ongoing tachycadia she should have CTA. Get troponins as well. (2) Atrial fibrillation: Status: Chronic Assessment and plan: Chronic atrial fibrillation, admitted in RVR with associated DYSON and orthostasis. Improving but still orthostatic this mornign. Reviewing her history, she runs 100-120 often on a chronic basis, BNaP is elevated but exam and CT do not suggest CHF, we did not give further diuresis EKG and troponin on admission not c/w ACS Echocardiogram shows deminished LVEF, see below. Case discussed with [facility] in the ED and with Dr. Greenberg 11/27. Titrated up metoprolol slightly from 75mg, up to 150mg. 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 she declines anticoagulation, understands risk of stroke. (3) Heart failure with reduced ejection fraction due to cardiomyopathy: Status: Acute Assessment and plan: This is a new finding, last echo 2013. Looks biventricular. Case discussed with Dr. Greenberg who felt like this is tachycardia related and did not warrant a stress test/cath. We could expand GDMT but but we need to have caution with orthostatic hypotenstion. First step is to better control the rate as above. Will trial on SGLTi empagliflozin. (4) Orthostatic hypotension: Status: Chronic Assessment and plan: This has been a chronic issue, and per record has been on fludricortisone in the past (though she doesn't remember this). For now, symptoms improved some with fluids and better rate control of Afib. She is stil technically orthostatic this mornign but much less of a drop in BP. Adjusting medication as above. (5) Hypothyroidism: Status: Chronic Assessment and plan: TSH and Free T4 slightly high. This would suggest central hypothyroid if she wasn't on levothyroxine. Get T3 to help clarify. Given her weight and atrial fibrillation, I think she would be better off on a lower dose of levothyroxine, titrated down for now to 62.5 and follow as outpatient (6) Compression fx, lumbar spine: Status: Acute Assessment and plan: Symptoms are mild currently, treat pain as needed. Consider consulting PT once she can stand up without orthostasis. (7) DVT (deep venous thrombosis): Status: Acute Assessment and plan: Does not tolerate anticoagulation, has IVC filter (8) Underweight: Status: Acute Assessment and plan: a/w malnutrition. appreciate palliative and nutrition consults. 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 Will discuss vitamin supplument recommendations with patient first as she has been resistant to this in the past. Hopefully she will follow up parts counterman. Additional IV magnesium given today, vitamin D, liquid MVI to start Subjective Subjective Patient reports: no new complaints; denies nausea, vomiting or fever Interval history since last seen: She has been able to get up in the room, but feels lightheaded. Had HR in 180s while eating this morning, again felt a little cloudy headed but no chest pain or real palpitations. She has been eating, ostomy changes 10 times a day or more. Had chest pain just now at rest with more SOB that is new left sided, feels pressure in her left arm, lightheaded. Improving after a few minutes, but still there. EKG ordered. Exam Narrative Exam Narrative: GEN: Alert and oriented, No acute distress at rest. Cachectic appearing, but energetic. LUNGS: CTAB with normal effort CV: tachycardic, irregularly irregular with no murmurs, gallops, or rubs. ABD: +BS, soft, NT/ND. colonostomy and urostomy look benign. EXT: no cyanosis, clubbing, or edema, legs non-tender SKIN: Excoriation with scabbing scattered on scalp and neck. No other rashes. Objective Last Vital Signs Temp 35.9 C L 11/30/23 07:26 Pulse 101 H 11/30/23 08:49 Resp 16 11/30/23 08:49 BP 97/58 L 11/30/23 08:49 Pulse Ox 99 11/30/23 08:49 Laboratory Results - last 24 hr 11/30/23 08:40 25-OH Vitamin D Total < 5 L Time Spent with Patient Time Spent with Patient: >50 minutes Time was spent: preparing to see the patient(eg.review tests), obtaining and/or reviewing separately otained hiistory, ordering medications,tests, procedures, referring, communicating with other health critical care educator, indepentently interpreting results and counseling the patient
[2023-11-30 15:46] LABS: Troponin I < 50 ng/L (< or =60)
[2023-11-30] MEDS: Normal Saline - Diluent 50 ML VIAL IJ (15:47)
[2023-11-30] MEDS: Omnipaque 350 MG/ML 100 ML BTL IJ (15:48)
[2023-11-30] MEDS: MAGNESIUM SULFATE 2 GM/50 ML BAG IVINF (16:30)
[2023-11-30] MEDS: Metoprolol 50 MG TAB PO (16:30)
--- NOTE | 2023-11-30 17:05 | DI.VRAD_ITS ---
PROCEDURE INFORMATION: Exam: CTA Chest With Contrast Exam date and time: 11/30/2023 3:45 PM Age: 78 years old Clinical indication: Other: Acute chest pain, h/o dvt TECHNIQUE: Imaging protocol: Computed tomographic angiography of the chest with contrast. Exam focused on the arteries. 3D rendering (Not supervised by radiologist): MIP and/or 3D reconstructed images were created by the technologist. Contrast material: 350; Contrast volume: 100 ml; Contrast route: INTRAVENOUS (IV); COMPARISON: CT CHEST/ABD/PEL W 11/27/2023 10:39 AM FINDINGS: Pulmonary arteries: No evidence for pulmonary arterial embolism. Aorta: Unremarkable. No aortic aneurysm. No aortic dissection. Veins: IVC filter. Lungs: Spiculated left lower lobe nodule measuring up to 1.7 cm. 4 mm solid nodule left upper lobe (series 6, image 124). 3 mm posterior peripheral right upper lobe nodule (series 6, image 92). Fleischner Society based recommendations for follow-up not indicated prior to evaluation left lower lobe nodule. Focal scarring anteriorly in right upper lobe. Pleural spaces: Unremarkable. No pneumothorax. No pleural effusion. Heart: Unremarkable. No cardiomegaly. No pericardial effusion. Lymph nodes: Unremarkable. No enlarged lymph nodes. Bones/joints: Degenerative change in both shoulders. Diffuse thoracic spine degenerative disc disease. Mild nonacute L1 compression fracture. Soft tissues: Unremarkable. Other findings: Emphysema. IMPRESSION: 1. No evidence for pulmonary arterial embolism. 2. Spiculated left lower lobe nodule measuring up to 1.7 cm. This is larger than what was seen on chest CT from 11/27/2023. This rapid increase favors infection rather than neoplasm but follow up is recommended to document resolution. Dictated and Authenticated by: Ryan Green MD. Ordering:GEOFF Hargrove MD
[2023-11-30 18:54] LABS: Troponin I < 50 ng/L (< or =60)
[2023-12-01] MEDS: Metoprolol 50 MG TAB PO ×4 (00:23→23:18)
[2023-12-01 03:09] VITALS: BP 119/73; PULSE 79; RESP 16; TEMP 35.8; O2SAT 97
[2023-12-01 06:18] LABS: Lactate 1.5 mmol/L (0.6-1.4)
[2023-12-01 06:21] LABS: Abs Immature Grans 0.04 10^3/uL (0.0-0.06); Absolute Basophil Count 0.08 10^3/uL (0.0-0.2); Absolute Eosinophil Count 0.35 10^3/uL (0.0-0.7); Absolute Lymphocyte Count 0.76 10^3/uL (1.2-3.4); Absolute Monocyte Count 0.89 10^3/uL (0.1-0.8); Absolute Neutrophil Count 6.02 10^3/uL (1.2-6.7); Eosinophils % 4.3 %; HCT 41.3 % (36.0-46.0); HGB 13.3 g/dL (11.2-15.7); Immature Grans % 0.5 %; Lymphocytes % 9.3 %; MCH 32.8 pg (27.0-33.0); MCHC 32.2 % (32.0-36.0); MCV 102 fL (80-95); MPV 8.6 fL (8.0-11.0); Monocytes % 10.9 %; Platelet Count 277 10^3/uL (130-400); RBC 4.06 10^6/uL (3.93-5.22); RDW 14.3 % (11.7-14.6); WBC 8.14 10^3/uL (4.4-10.8)
[2023-12-01 06:32] LABS: Anion Gap 6.2 mmol/L (3-11); BUN 16 mg/dL (7-18); CO2 30.8 mmol/L (21.0-32.0); CREATININE 0.8 mg/dL (0.55-1.02); Calcium 8.8 mg/dL (8.5-10.1); Chloride 104 mmol/L (98-107); Estimated GFR 75.37 (mL/min/1.73m2); Glucose 92 mg/dL (74-106); Sodium 141 mmol/L (136-145)
[2023-12-01 06:33] LABS: Magnesium 2.1 mg/dL (1.8-2.4)
[2023-12-01] MEDS: Levothyroxine 25 MCG TAB 62.5 MCG PO (06:52)
[2023-12-01 07:55] VITALS: BP 123/89; PULSE 77; RESP 18; TEMP 36.3; O2SAT 97
[2023-12-01] MEDS: Empaglifozin 10 MG TAB PO (08:43)
[2023-12-01] MEDS: Cetirizine 10 MG TAB PO (08:44)
[2023-12-01] MEDS: Loperamide 2 MG CAP PO ×2 (08:44→20:17)
[2023-12-01] MEDS: Multivitamin TAB 1 TAB PO (08:44)
[2023-12-01] MEDS: Acetaminophen 325 MG TAB PO ×2 (08:45→23:18)
[2023-12-01] MEDS: Ergocalciferol 50000 UNITS CAP PO (08:50)
[2023-12-01 09:15] LABS: Folate > 20.0 ng/mL (8.6-20.0); Vitamin B12 349 pg/mL (193-986)
[2023-12-01 11:29] VITALS: BP 115/71; PULSE 74; RESP 18; TEMP 36.3; O2SAT 99
--- NOTE | 2023-12-01 13:39 | W.PM.PROGNOT ---
Date of Service Date of service: 12/01/23 Time of Service: 13:39 Assessment and Plan Assessment and plan (1) Chest pain: Status: Resolved Assessment and plan: no further chest pain, negative troponin I from 11/29 x 2 sets, repeat EKG on 11/29 w/out acute ischemic or injury pattern Qualifiers: Chest pain type: precordial pain Qualified Code(s): R07.2 - Precordial pain (2) Atrial fibrillation: Status: Chronic Assessment and plan: patient does not want anticoagulated d/t prior bleeding complications; she is now on lopressor 50 mg q8h (had been on Toprol XL 50 gdaily); Dr. Horn changed her to the shorter acting lopressor d/t more rapid absorption and in light of her short gut, this is a good choice, her rate seems better controlled in the 80's and 90's; will monitor for one more day and if she remains stable on this regimen, she can return home on her new dose. Qualifiers: Atrial fibrillation type: longstanding persistent Qualified Code(s): I48.11 - Longstanding persistent atrial fibrillation (3) Heart failure with reduced ejection fraction due to cardiomyopathy: Status: Acute Assessment and plan: echo demonstrated biventricular failure w/ LVEF of 25 to 30%, RV also dilated and hypocontractile , biatrial enlargement and mild to moderate MR and mild TR. Dr. Horn has begun her on Jardiance 10 mg daily; I would also like to trial her on Entresto however w/ her orthostatic hypotension I am reluctant to add this at this time. I will have nursing monitor her BP orthostatic but Entresto should be considered as outpatient treatment (or at least an ARB at low dose). she appears to be euvolemic, therefore I have not added diuretics. (4) Orthostatic hypotension: Status: Chronic Assessment and plan: monitor, hopefully will improve w/ treatment of her rapid afib. she already wears support stockings at home but does not have them on here. I will order them. consider low dose midodrine if not improved w/ TEDS. avoid fludrocortisone given her CHF. (5) Hypothyroidism: Status: Chronic Assessment and plan: Dr. Horn decr her dose of levothyroxoine to 62 mcg from 75 mcg however her TSH was slightly elevated, not decreased as would be expected if she were being over replaced and although her FT4 was slightly higher than normal her FT3 was actually low. I have resumed her prior dose of levothyroxine. I do not think her levothyroxine is contributing in any significant way to her rapid afib. (6) Compression fx, lumbar spine: Status: Acute Assessment and plan: patient states pain is controlled now. If she needs anything for pain, I would add topical steroids or lidocaine and avoid narcotics. Qualifiers: Encounter type: initial encounter Lumbar vertebra fracture level: L1 Qualified Code(s): S32.010A - Wedge compression fracture of first lumbar vertebra, initial encounter for closed fracture (7) Underweight: Status: Acute (8) DVT prophylaxis: Status: Acute Assessment and plan: TEDBlue Subjective Subjective Interval history since last seen: Emma denies any pain, dyspnea or dizziness. however she has only gotten from the bed to the chair and has not done any walking. HR is better controlled today. Exam Narrative Exam Narrative: she is alert and oriented and in NAD, sitting up in her chair Lungs: clear Heart: irregularly irregular, soft systomic murmur over apex Abdomen: soft, nontender Legs/feet: no edema Objective Last Vital Signs Temp 36.3 C L 12/01/23 11:29 Pulse 74 12/01/23 11:29 Resp 18 12/01/23 11:29 BP 115/71 12/01/23 11:29 Pulse Ox 99 12/01/23 11:29 Laboratory Results - last 24 hr 11/30/23 11/30/23 12/01/23 15:20 18:29 06:08 WBC 8.14 RBC 4.06 Hgb 13.3 Hct 41.3 MCV 102 H MCH 32.8 MCHC 32.2 RDW 14.3 Plt Count 277 MPV 8.6 Immature Gran % 0.5 Neutrophils % 74.0 Lymphocytes % 9.3 Monocytes % 10.9 Eosinophils % 4.3 Basophils % 1.0 Nucleated RBC % 0.0 Absolute Neutrophils 6.02 Absolute Lymphocytes 0.76 L Absolute Monocytes 0.89 H Absolute Eosinophils 0.35 Absolute Basophils 0.08 VBG Lactate 1.5 H Sodium 141 Potassium 4.0 Chloride 104 Carbon Dioxide 30.8 Anion Gap 6.2 BUN 16 Creatinine 0.8 Est GFR (CKD-EPI 2020) 75.37 Glucose 92 Calcium 8.8 Magnesium 2.1 Troponin I < 50 < 50 Vitamin B12 349 Folate > 20.0 H Time Spent with Patient Time Spent with Patient: 25-34 minutes Time was spent: preparing to see the patient(eg.review tests), ordering medications,tests, procedures, referring, communicating with other health care management associate, indepentently interpreting results, counseling the patient and care coordination
[2023-12-01 15:37] VITALS: BP 115/70; PULSE 83; RESP 17; TEMP 36.3; O2SAT 99
[2023-12-01 19:20] VITALS: BP 137/84; PULSE 86; RESP 16; TEMP 36.2; O2SAT 99
[2023-12-01 23:15] VITALS: BP 121/91; PULSE 113; RESP 16; TEMP 36; O2SAT 95
[2023-12-02] VITALS (11 sets, daily range): BP systolic 90–125; BP diastolic 66–81; PULSE 86–103; RESP 16–20; TEMP 36.4–36.8; O2SAT 95–100
[2023-12-02] MEDS: Levothyroxine 75 MCG TAB PO (05:59)
[2023-12-02] MEDS: Acetaminophen 325 MG TAB PO ×2 (06:01→21:00)
[2023-12-02] MEDS: Loperamide 2 MG CAP PO ×2 (09:05→21:00)
[2023-12-02] MEDS: Multivitamin TAB 1 TAB PO (09:05)
[2023-12-02] MEDS: Empaglifozin 10 MG TAB PO (09:05)
[2023-12-02] MEDS: Cetirizine 10 MG TAB PO (09:05)
--- NOTE | 2023-12-02 10:12 | CMPROGNOTE_ITS ---
Date of service: 12/02/23 Time of Service: 10:12 Care Management Progress Note Progress Note Text Progress Note Text: S/O:Emma was sitting up in a chair when CM met with her. She was smiling and engaged well with CM. Emma stated that she is finally feeling better. Her heart rate is under better control and has been below 100 for most of the past 2 days and her systolic blood pressure has not been below 90; it has generally been between 105 and the 120s. Per provider, if she continues to do well, she will possibly be discharged tomorrow. CM contavcted Emma's son Reg to update him at the end of the day. A: Emma is a 78 year old woman admitted on 11/27/23 with atrial fibrillation P:Anticipate Emma will be discharged home, likely with new home health services, when medically cleared by provider. She will follow up with her PCP and plan of care and transport with family. CM will follow and continue to assess for discharge needs. SDOH(Care Management) Screening Will the Patient Participate in the Screening?: Yes Do you worry about having a steady place to live?: no Problems where you live: no known problems In the past 12 months, have you had to go without electric, gas, oil or water in your home?: no Have you or anyone in your house had to go without enough food to eat?: no Has lack of transportation kept you from medical appointments or from doing things needed for daily living?: no Has anyone in your support network made you feel unsafe for any reason?: no Social Determinants of Health Comments(SDOH Details): Pt states she gets transportation assistance from [place] [facility] [employer] but it has been a little inconsistent. Is looking for a building maintenance supervisor because she can't reach some shelves or see labels.
[2023-12-02] MEDS: Metoprolol 50 MG TAB PO ×2 (11:17→16:34)
--- NOTE | 2023-12-02 13:23 | PGE_ITS ---
Date of Service Date of service: 12/02/23 Time of Service: 13:23 Assessment and Plan Assessment and plan (1) Atrial fibrillation: Status: Chronic Assessment and plan: patient does not want anticoagulated d/t prior bleeding complications; she is now on lopressor 50 mg q8h (had been on Toprol XL 50 gdaily); Dr. 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 I will begin iv digoxin (0.25 mg IVP q6h x 3 doses) and check levels tomorrow (at least 8 hour after last dose), then put on low dose for maintenance. Qualifiers: Atrial fibrillation type: longstanding persistent Qualified Code(s): I48.11 - Longstanding persistent atrial fibrillation (2) Heart failure with reduced ejection fraction due to cardiomyopathy: Status: Acute Assessment and plan: echo demonstrated biventricular failure w/ LVEF of 25 to 30%, RV also dilated and hypocontractile , biatrial enlargement and mild to moderate MR and mild TR. Dr. Horn has begun her on Jardiance 10 mg daily; I would also like to trial her on Entresto however w/ her orthostatic hypotension I am reluctant to add this at this time. I will have nursing monitor her BP orthostatic but Entresto should be considered as outpatient treatment (or at least an ARB at low dose). she appears to be euvolemic, therefore I have not added diuretics although addition of spironolactone would be indicated for GDT of her HFREF. (3) Orthostatic hypotension: Status: Chronic Assessment and plan: monitor, hopefully will improve w/ treatment of her rapid afib. she already wears support stockings at home but does not have them on here. I will order them. consider low dose midodrine if not improved w/ TEDS. avoid fludrocortisone given her CHF. (4) Hypothyroidism: Status: Chronic Assessment and plan: I resumed her home dose of levothryoxine 75 mcg yesterday.. Qualifiers: Hypothyroidism type: acquired Qualified Code(s): E03.9 - Hypothyroidism, unspecified (5) Compression fx, lumbar spine: Status: Acute Assessment and plan: patient states pain is controlled now. If she needs anything for pain, I would add topical steroids or lidocaine and avoid narcotics. Qualifiers: Encounter type: initial encounter Lumbar vertebra fracture level: L1 Qualified Code(s): S32.010A - Wedge compression fracture of first lumbar vertebra, initial encounter for closed fracture (6) Underweight: Status: Acute Assessment and plan: nutritional consult obtained 11/27, see Antione Webster notes for recommendations regarding MVI, magensium supplement and B complex and vitamin D levels. 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 I will request repeat levels in 4 weeks. (7) DVT prophylaxis: Status: Acute Assessment and plan: TEDS Subjective Subjective Interval history since last seen: Overall Emma feels better. Still having some paroxysms of rapid afib. However for most part her HR has been controlled w/ the lopressor (changed from her Toprol XL, better absorption given her short gut). I have added digoxin to her regimen given her biventricular HF (LVEF 25-30%, dilated hypocontractile RV). She denies any CP or dyspnea at rest. I told Emma that we would get P.T. to see her and evaluate her for home health services since she lives alone. Exam Narrative Exam Narrative: Emma is sitting up in her chair, alert and oriented, pleasant, watching TV, no acute distress, not dyspneic w/ prolonged conversation Lungs: clear Heart: irregularly irregular slightly fast, soft systolic murmur over apex Extremities: no edema Objective Last Vital Signs Temp 36.6 C 12/02/23 11:22 Pulse 98 H 12/02/23 11:22 Resp 20 12/02/23 11:22 BP 116/79 12/02/23 11:22 Pulse Ox 100 12/02/23 11:22 Reviewed Pertinent PMH: Yes Time Spent with Patient Time Spent with Patient: 25-34 minutes Time was spent: preparing to see the patient(eg.review tests), ordering medications,tests, procedures, referring, communicating with other health residential care facility manager, indepentently interpreting results, counseling the patient and care coordination
--- NOTE | 2023-12-02 14:03 | IN_ITS ---
PT Notes Visit Reasons: Atrial Fibrillation with RVR, Orthostasis Physical Therapy Inpatient Initial Evaluation Date: 12/02/2023 Referring Doctor: Bryant Linton. PT Orders: PT CONSULT: Safety consult for D/C Precautions: Fall. Standard. Activity as tolerated. Patient Profile/Admitting Diagnosis: Aron is a 78-year-old female who presented to the ED on 11/27/2023 due to a fall on 11/25/2023, SOB, and generalized weakness. Patient is admitted for management of AF, hypothyroidism, compression fracture of lumbar vertebrae, orthostatic hypotension, and adrenal nodule. PMHX: All Active Problems Atrial fibrillation (Chronic) Cardiomegaly (Acute) Compression fx, lumbar spine (Acute) Status post cataract extraction and insertion of intraocular lens of right eye (Chronic 05/26/18) Corneal endothelial dystrophy (Chronic) Nuclear sclerotic cataract of left eye (Acute) Weakness (Chronic 08/28/13) Radiation cystitis (Chronic) Chronic diarrhea (Chronic) Chronic atrial fibrillation (Chronic) With a mean heart rate of 120 on Holter monitor July 2012 at [facility].Frequent falls (Chronic 08/28/13) Hypothyroidism (Chronic) Orthostatic hypotension (Chronic) Treated with Fludrocortisone.Hyperlipidemia (Chronic) 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 No Coumadin. FIlter in palce. Aspirin 325 mg daily. Lovenox 40 mg subcutaneously until mobile. 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 Gross hematuria. 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 Receives help from neighbor for grocery shopping. Independent with all mobility ADL performance using a single-point cane. Able to manage colostomy and suprapubic catheter independently. Has a son who lives in [place] who is able to provide needed help. Equipment Owned/DME: [employer] MÉNDE[employer] Subjective: Denied headache, chest pain, and lightheadedness throughout ambulation activity. Mildly fatigued. No SOB. Objective: General Observation: Seated on bedside recliner. Suprapubic catheter in place. Colostomy bag in place. Low BMI. Mental Status: Alert and oriented as to person, place, time, and purpose. Able to pay attention, focus, and respond appropriately. Pain: None reported Vital Signs: After walking activity BP 117/64 mmHg, oxygen saturations left index finger 98% on RA, HR 92 bpm ROM: Right Upper Extremity: Shoulder Flexion WFL. Shoulder abduction WFL. Elbow flexion WFL. Wrist flexion WFL. Functional opening and closing of hand WFL. Left Upper Extremity: Shoulder Flexion WFL. Shoulder abduction WFL. Elbow flexion WFL. Wrist flexion WFL. Functional opening and closing of hand WFL. Right Lower Extremity: Hip flexion WFL. Hip abduction WFL. Knee flexion WFL. Ankle dorsiflexion WFL. Ankle plantarflexion WFL. Left Lower Extremity: Hip flexion WFL. Hip abduction WFL. Knee flexion WFL. Ankle dorsiflexion WFL. Ankle plantarflexion WFL. Strength: Right Upper Extremity: Shoulder flexors 4-/5. Shoulder abductors 4-/5. Elbow flexors 4-/5. Elbow extensors 4-/5. Jig And Fixture Maker strong. Left Upper Extremity: Shoulder flexors 4-/5. Shoulder abductors 4-/5. Elbow flexors 4-/5. Elbow extensors 4-/5. Jig And Fixture Maker strong. Right Lower Extremity: Hip flexors 4-/5. Hip abductors 4-/5. Knee flexors 4-/5. Knee extensors 4-/5. Ankle dorsiflexors 4-/5. Ankle plantarflexors 4-/5. Left Lower Extremity: Hip flexors 4-/5. Hip abductors 4-/5. Knee flexors 4-/5. Knee extensors 4-/5. Ankle dorsiflexors 4-/5. Ankle plantarflexors 4-/5. Bed Mobility/Transfers: Minimal cueing provided for use of B hands as needed for support, movement sequence, AD management, and posture to reduce fall risk and minimize pain report Rolling independent Supine to sit independent Sit to supine independent Sit to stand supervision Stand to sit supervision Bed to reclining chair standby assist with FWW Reclining chair to bed standby assist with FWW Gait: Facilitated safe and correct performance of level surface ambulation covering a distance of 300 feet using front wheeled walker with step through reciprocal heel-toe gait pattern requiring only standby assist with wheelchair follow provided for safety. No SOB. Minimal SOB that resolved with rest. VS as above. Balance: Static Sitting: Normal Dynamic Sitting: Normal Static Standing: Good Dynamic Standing: Fair Special Tests: Mobility Limitations Standardized Measure [facility] AM-PAC 6 clicks Basic Mobility Inpatient Short Form: Raw Score: 23 CMS Score: 11% deficit 4-Stage Balance test: Feet together 10 seonds Semi-tandem <10 seconds minutes Full tandem <10 seconds One-legged stance unable Informed Consent/Education: Patient was instructed in purpose of PT consult and plan of care. Agreeable to proceed with established PT POC to achieve personal goals. Assessment: Patient requires use of front wheeled walker for mobility ADL performance maximize independence and reduce fall risk at this time. Patient presents with clinical signs and symptoms consistent with current/admitting diagnoses that have resulted to mobility limitations, gait instability, generalized weakness, and overall ADL decline as demonstrated by the following impairment level findings: 1. Decreased strength to B UE/LE major muscle groups 2. Impaired sitting/standing balance 3. Impaired activity tolerance 4. Shortness of breath Impairments are contributing to the following functional limitations: 1. Difficulty with ambulation without assistive device and physical assistance 2. Increased completion time for mobility ADL performance 3. Increased risk for falls 4. Difficulty with managing steps alone safely Patient is assessed as a 61035 moderate complexity based on the following: History: 78-year-old female with past medical history as indicated above Examination: Demonstrable impairment in strength, balance, and mobility level with underlying impairments and functional limitations as exhibited above as well as deficit score of 11% utilizing the [facility] Mobility Inpatient Short Form Presentation: Evolving Decision Makin moderate complexity Goals: Goals X1 week 1. Supine-Sit independent 2. Sit-Supine independent 3. Sit-Stand independent 4. Stand-Sit independent with SPC 5. Bed-Chair independent with SPCSPC 6. Chair-Bed independent with SPC 7. Independent gait on level surface with use of SPC for at least 300 feet without report of pain nor dyspnea 8. Independent stair negotiation while holding onto B rails for at least 4 steps without report of pain nor dyspnea 9. Independent with home exercise program 10. Good static and dynamic standing balance/tolerance Plan of Care/Treatment Plan: 1-2x/day, 7 days/week x 1 week. Plan of care has been reviewed with the [employer]AT[employer] PROFESSIONAL providing the service under Physical Therapy direction. Initiate Physical Therapy intervention for pain management as needed, strengthening, bed mobility, transfers, gait, stairs, balance training, and use of assistive device. DISCHARGE RECOMMENDATIONS: [] Home with no services [] [X] Home with services. Patient will benefit from home health PT services in order to progress mobility level using least restrictive assistive ambulatory device, assess home safety, identify additional equipment needs, and establish a functional maintenance program that will increase ability of patient to remain at home. He is not discharged as tolerated. [] Home with outpatient PT [] [] SNF for continued rehabilitation [] [] Residential Care [] [] SNF versus LTC based on ability to participate and progress [] TREATMENT CODE/TIME: 47059 x 20 minutes for 1 unit, 9753 0 x 7 minutes for 1 unit (14:03-14:34). Thank you for the opportunity to participate in the care of this patient. Kandy Raza PT, DPT, CLT [facility] [place], [place]
[2023-12-02] MEDS: Digoxin 0.5 MG/2 ML AMP 0.25 MG IVP ×2 (14:49→21:00)
[2023-12-02] MEDS: Normal Saline Flush 10 ML SYR IVP (21:01)
[2023-12-03] MEDS: Metoprolol 50 MG TAB PO ×3 (00:25→16:02)
[2023-12-03 02:53] VITALS: BP 114/72; PULSE 85; RESP 18; TEMP 36.2; O2SAT 96
[2023-12-03 02:55] VITALS: BP 114/72; PULSE 78
[2023-12-03] MEDS: Digoxin 0.5 MG/2 ML AMP 0.25 MG IVP (02:55)
[2023-12-03] MEDS: Normal Saline Flush 10 ML SYR IVP ×2 (02:55→08:19)
[2023-12-03] MEDS: Acetaminophen 325 MG TAB PO (05:01)
[2023-12-03] MEDS: Levothyroxine 75 MCG TAB PO (05:01)
[2023-12-03 07:14] LABS: Anion Gap 6.4 mmol/L (3-11); BUN 22 mg/dL (7-18); CO2 28.6 mmol/L (21.0-32.0); CREATININE 0.9 mg/dL (0.55-1.02); Calcium 9.2 mg/dL (8.5-10.1); Chloride 103 mmol/L (98-107); Estimated GFR 65.44 (mL/min/1.73m2); Glucose 76 mg/dL (74-106); Magnesium 1.6 mg/dL (1.8-2.4); Potassium 4.6 mmol/L (3.5-5.1); Sodium 138 mmol/L (136-145)
[2023-12-03 07:30] VITALS: BP 113/78; PULSE 81; RESP 18; TEMP 36.3; O2SAT 96
[2023-12-03] MEDS: Empaglifozin 10 MG TAB PO (08:15)
[2023-12-03] MEDS: Cetirizine 10 MG TAB PO (08:17)
[2023-12-03] MEDS: Loperamide 2 MG CAP PO (08:18)
[2023-12-03] MEDS: Magnesium Gluconate 500 MG TAB PO (09:40)
[2023-12-03] MEDS: Calcium Carbonate *TUMS* 500 MG CHEW 1000 MG PO (09:41)
--- NOTE | 2023-12-03 10:38 | PT.INTREAT ---
PT Notes Visit Reasons: Atrial Fibrillation with RVR, Orthostasis Date: 12/03/23 PRECAUTIONS: Fall. Standard. Activity as tolerated. SUBJECTIVE: Pt in recliner when approached for therapy this morning. no complaint of pain, agreed to participating with therapy session. OBJECTIVE: ? Telemetry in place, yusuf catheter? PAIN: none reported VITALS: ?Monitored by nursing?? Therapeutic Activities 98762: Direct one-on-one instruction in dynamic activities to improve functional performance. ?? BED MOBILITY/TRANSFERS? Rolling L/R: Supervision Supine-sit: ? Supervision? Sit-supine: ?Supervision ? Sit-stand: ? Supervision ? Stand-sit: ??Supervision ? Bed-Chair:? Supervision? Chair-bed: Supervision Provided skilled cues and instruction on performance and technique throughout. Gait Training 42171: Direct one-on-one instruction and skilled instruction in: Employing an assistive device Modified weight-bearing status Movement sequencing Turning and movement with proper form Provided verbal cues for equipment management and technique Provided instruction in gait pattern Patient education regarding pacing and breathing techniques to maximize activity tolerance? GAIT? Assistive Device: ?SPC? Weight bearing: FWB Assist: ?SBA? Distance:?? 300' ? Deviation: ? WBOS, Stoop forward posture, low step height, low step length ? ASSESSMENT:?Pt tolerated activity well did not have SOB, pt expressed she is looking forward to going home this afternoon. PLAN: Continue with balance training, global strengthening and general conditioning for improved safety, mobility and activity tolerance until pt is ready for DC. TREATMENT CODE/TIME: 46330h4 15mins (10:20-10:35am)
[2023-12-03 11:01] VITALS: BP 115/77; PULSE 82; RESP 18; TEMP 36.1; O2SAT 98
[2023-12-03 11:49] LABS: Digoxin 1.48 ng/mL (0.90-2.00)
--- NOTE | 2023-12-03 15:05 | PT.INTREAT ---
PT Notes Visit Reasons: Atrial Fibrillation with RVR, Orthostasis Date: 12/03/23 PRECAUTIONS: Fall. Standard. Activity as tolerated. SUBJECTIVE: Pt in recliner when approached for therapy in the afternoon. no complaint of pain, agreed to participating with therapy session. Pt expressed she is getting frustrated with not getting information about her DC later in the afternoon, concerned since her son that is coming from [place] has still not received any confirmation that she is going home at 7pm. brought pt concern to Nurse Roxanna and senior manager mergers & acquisitions Lacey to clarify DC status with pt. OBJECTIVE: ? Telemetry in place, yusuf catheter? PAIN: none reported VITALS: ?Monitored by nursing?? Therapeutic Activities 91016: Direct one-on-one instruction in dynamic activities to improve functional performance. ?? BED MOBILITY/TRANSFERS? Rolling L/R: Supervision Supine-sit: ? Supervision? Sit-supine: ?Supervision ? Sit-stand: ? Supervision ? Stand-sit: ??Supervision ? Bed-Chair:? Supervision? Chair-bed: Supervision Provided skilled cues and instruction on performance and technique throughout. Gait Training 39032: Direct one-on-one instruction and skilled instruction in: Employing an assistive device Modified weight-bearing status Movement sequencing Turning and movement with proper form Provided verbal cues for equipment management and technique Provided instruction in gait pattern Patient education regarding pacing and breathing techniques to maximize activity tolerance? GAIT? Assistive Device: ?SPC? Weight bearing: FWB Assist: ?SBA? Distance:?? 300' ? Deviation: ? WBOS, Stoop forward posture, low step height, low step length ? ASSESSMENT:?Tolerated activity well had no LOB or OB during gait training session. PLAN: Continue with balance training, global strengthening and general conditioning for improved safety, mobility and activity tolerance until pt is ready for DC. TREATMENT CODE/TIME: [id number] 15mins (2:45-3:00pm)
[2023-12-03 15:11] VITALS: BP 122/75; PULSE 87; RESP 18; TEMP 36.3; O2SAT 96
--- NOTE | 2023-12-03 15:48 | CMDISCH_ITS ---
Date of service: 12/03/23 Time of Service: 15:49 LACE Index Scoring Tool Questions: Length of Stay (in days): 4 - 6 Was the patient admitted via the E.D.?: Yes Comorbidities: Congestive Heart Failure and Liver or Renal Disease E.D. Visits: 1 Answers: Total Score: 13 Risk of Readmission: High Risk Care Management Discharge Plan Reason for Hospitalization: Afib with RVR Discharge Plan: Emma will be discharged home with new home health services for RN, PT, OT and INTERVENTIONAL RADIOLOGIST. She will follow up with her PCP and plan of care and transport with her son. Patient/Family Education Needs: Review of discharge instructions, activity, limitations, follow up plan, discuss Ask Me Three Services Needed at Discharge: Home Health Care Services SDOH Health Related Social Needs: Health related social needs transpo insecurity Health related social needs: transportation insecurity(Z59.82)
--- NOTE | 2023-12-03 16:02 | W.PM.DS.N ---
Date of service: 12/03/23 Time of Service: 16:02 DS: Diagnosis Discharge Diagnosis (1) Atrial fibrillation: Status: Chronic Asessment and Plan: not anticoagulated d/t prior severe bleeding complications. rate now controlled on metoprolol tartrate (Lopressor) 50 mg tid along w/ digoxin. Just completed loading dose of iv digoxin last night. will give her po dose 0.125 mg today prior to her discharge then put on every other day dose. Consider repeat holter in a week to see if this regimen maintains control. Patient Toprol XL changed to shorter acting but more rapidly absorbed lopressor, which seems to have helped w/ her rate control but she still needed an additional agent therefore digoxin was chosen given her HFREF and intolerance to higher doses of lopressor. (2) Heart failure with reduced ejection fraction due to cardiomyopathy: Status: Acute Asessment and Plan: found to have biventricular failure w/ LVEF 25 to 30%, diffuse global hypokinesis and dilated hypocontractile RV, biatrial enlargment, sclerotic aortic valve w/out stenosis or regurgitation, but mild to moderate MR and mild TR w/ normal RVSP of 22 mm. Begun on Jardiance, not started on diuretics (she clinically was not hypervolemic and her BP were too tenous to add diuretics in addition to her metoprolol. Likewise Entresto was not added this admission. If BP remains stable as outpatient then suggest trial of low dose Entresto. (3) Orthostatic hypotension: Status: Resolved (4) Hypothyroidism: Status: Chronic Asessment and Plan: TSH 4.18 (slightly elevated) and slightly elevated FT4 of 1.54. I left her dose of levothyroxine the same at 75 mcg daily. (5) Compression fx, lumbar spine: Status: Acute Asessment and Plan: L1 compression fracture. patient not having any significant back pain w/ this. patient begun on vitamin D ergocalciferol 50,000 units weekly for her hypovitamin D (< 5 ng/mL) and begun on calcium supplements (Tums 1000 mg po bid). consider getting DEXA scan as outpatient and consider Boniva or another bisphosphonate. (6) Underweight: Status: Acute Asessment and Plan: consider cancer workup particularly in light of her lung nodules. See CT report (7) Lung nodule, multiple: Status: Acute Asessment and Plan: note some of her lung nodules seen on her CT scan have been reported in the past however there has been interval increase in her LLL nodule 1.[address] scan and stable RLL nodule 3 mm. I would recommend follow up PET/CT and possible bx Discharge Plan Disposition Patient Disposition: Home W/Home Health Services Condition: Improving Discharge Details Reason For Visit: Atrial Fibrillation with RVR, Orthostasis Admit Date/Time: 11/27/23 15:13 Admit Provider: Delvin Horn Attending Provider: Delvin Horn Primary Care Provider: Raymon Cosby Home Meds and New Rx's Prescriptions: New metoprolol tartrate 50 mg Tablet 50 mg PO TID Qty: 90 0RF Poly-Vi-Love 250 mcg-50 mg- 10 mcg/mL Drops 1 ml PO DAILY Qty: 30 0RF calcium carbonate 200 mg calcium (500 mg) Tablet,Chewable 1,000 mg PO BID Qty: 120 0RF ergocalciferol (vitamin D2) [Vitamin D2] 1,250 mcg (50,000 unit) Capsule 1,250 mcg PO Q7D Qty: 12 0RF magnesium gluconate 27 mg magnesium (500 mg) Tablet 500 mg PO DAILY Qty: 30 0RF Jardiance 10 mg Tablet 10 mg PO QAM Qty: 30 0RF digoxin 125 mcg (0.125 mg) tablet 125 mcg PO Q48H Qty: 15 0RF Continued multivitamin [Multi-Day] 1 EACH tablet 1 tab PO DAILY aspirin [Aspir-81] 81 MG tablet,delayed release (DR/EC) 81 mg PO .QWEDNESDAYS loperamide [Imodium A-D] 2 mg Capsule 2 mg PO BID acetaminophen [Arthritis Pain Reliever] 650 mg Tablet Extended Release 2 tab PO BID diphenhydramine HCl [Benadryl Allergy] 25 mg Tablet 2 tab PO DAILY levothyroxine 75 mcg tablet 75 mcg PO DAILY Patient Comments: TAKE 1 TABLET BY MOUTH DAILY Discontinued metoprolol succinate 25 mg Tablet Extended Release 24 Hr 25 mg PO DAILY metoprolol succinate 50 mg Cap,Sprinkle,Er 24hr Dose Pack 50 mg PO DAILY Discharge Instructions Instructions: Digoxin (By mouth), A-fib (Atrial Fibrillation) (DC) Additional Instructions: You were admitted for rapid atrial fibrillation after presenting w/ symptoms of weakness and dyspnea. You were found to have congestive heart failure. Echocardiogram (ultrasound of the heart was done) which demonstrated severe impairment of your left and right ventricles. Dr. Greenberg, coin machine collector was consulted, it was recommended that metoprolol dose be adjusted to control your atrial fibrillation rate and to treat for any volume overload of your heart failure. You were not found to be in acute volume overload. You had CT chest, abdomen and pelvis that demonstrated stable 9 mm nodule in the left lung and emphysema, enlarged heart and coronary calcifications but no lung blood clots and a new lumbar vertebral compression fracture of L1. CT of head and neck showed no acute abnormalities (there is degenerative arthritis of neck) Echocardiogram (ultrasound of the heart) was done and demonstrated moderate to severe decreased contraction of the left ventricle and mildly decreased contraction of the right ventricle. You were started on goal directed therapy for heart failure including starting on Jardiance. Your Toprol XL (metoprolol succinate) was changed to a form of metoprolol tartrate (Lopressor) which is better absored, more immediately available given your short gut syndrome. This did help w/ control of your atrial fibrillation but when it was not adequately controlled, digoxin intravenous doses were started and you will be discharged on low dose of oral digoxin to help control the atrial fibrillation. A digoxin level was checked after you completed your loading doses of intravenous digoxin and was found to be therapeutic. You should follow up w/ a coin machine collector to assist your primary care provider in controlling your heart failure and atrial fibrillation. You may need to go on a diuretics to control excess fluid build up. You should also be considered for addition of Entresto for your heart failure. Stand Alone Forms: Nursing Discharge Form Referrals: Karlos Lovell RDN [AUTOMOBILE SERVICE WRITER] - (Karlos will call you set up an appointment. ) Ritu Greenberg MD [ [facility] STAFF PHYSICIAN] - (The office will call to set up an appt) Raymon Cosby MD [Primary Care Provider] - 12/20/23 11:55 am Activity:: Activity as Tolerated Equipment/Supplies:: No Equipment Needed Diet:: Normal Diet Discharge Orders Discharge Orders: Discharge Order (Routine); Ordered 12/03/23 Ordered By: Bryant Linton Discharge Data Discharge Date/Time-TO BE ENTERED AT DEPARTURE: 12/03/23 19:08 DS: Summary Time Spent with Patient providing and/or coordinating discharge services: Greater than 30 minutes Specific discharge activities: Interview/exam of patient; review of discharge instructions, completion of prescriptions/discharge instructions; discussion w/ nursing and CM; documentation of hospital visit Status at Discharge Functional status at discharge: uses cane/walker Overall status at discharge: patient is progressing back to baseline Mental Status: mental status grossly normal Speech and Movement: speech and movement normal Mood: congruent mood Affect: normal affect Quality:SDOH Health Related Social Needs: Health related social needs transpo insecurity Exam Psych Mental Status: mental status grossly normal Speech and Movement: speech and movement normal Mood: congruent mood Affect: normal affect DS: Data Vitals/I&O Vitals and I&O: Vital Signs Temperature 36.3 C L 12/03/23 15:11 Temperature Source Tympanic 12/03/23 15:11 Pulse 87 12/03/23 15:11 Pulse Rhythm Irregular 12/03/23 14:45 Pulse 138 H 11/28/23 08:08 Respiratory Rate 18 12/03/23 15:11 Respiratory Effort Normal, Non-Labored 12/03/23 14:45 Respiratory Depth Normal 12/03/23 14:45 Respiratory Pattern Normal 12/03/23 14:45 Blood Pressure 122/75 12/03/23 15:11 Blood Pressure Mean 109 11/28/23 08:08 Blood Pressure Position Sitting 11/27/23 08:37 Pulse Oximetry 96 12/03/23 15:11 Oxygen Delivery Method Room Air 12/03/23 15:11 Oxygen Flow Rate 0 12/03/23 15:11 Pain Level 2 12/03/23 15:11 Comment s/p 2.5 mg IV and 150 mg PO metoprolol 11/30/23 08:49 Intake & Output 12/02/23 12/03/23 12/03/23 23:59 11:59 23:59 Intake Total 220 / 440 255 / 735 480 / 735 Output Total 375 / 1375 1450 / 1900 450 / 1900 Balance -155 / -935 -1195 / -1165 30 / -1165 Weight 39.463 kg Intake: IV 5 / 5 Oral 220 / 440 250 / 730 480 / 730 Output: Urine 175 / 575 850 / 1150 300 / 1150 Right Abd 200 / 200 Stool 200 / 800 600 / 750 150 / 750 Other: Urine Color Yellow Yellow Yellow Urine Appearance Clear Clear Clear Urine Odor Normal Stool Size Small Stool Characteristics Soft Voiding Methods Urostomy Urostomy Urostomy Data Completed and Pending Labs on day of discharge: Labs from last 24 hours 12/03/23 12/03/23 11:15 06:30 Sodium 138 Potassium 4.6 Chloride 103 Carbon Dioxide 28.6 Anion Gap 6.4 BUN 22 H Creatinine 0.9 Est GFR (CKD-EPI 2020) 65.44 Glucose 76 Calcium 9.2 Magnesium 1.6 L Digoxin 1.48 PFSH All Active Problems (Updated 12/03/23 @ 20:12 by Bryant Linton MD) Lung nodule, multiple (Acute) DVT prophylaxis (Acute) DNR (do not resuscitate) (Acute) See November 28, 2023 palliative care note. Patient desires DNR/DNI. Does want to be transferred to the hospital and treated, receive IV fluids and IV antibiotics. Refuses to complete COLST form, as she feels advanced directive is enough and additional forms would just be confusing . Palliative care patient (Acute) Advanced care planning/counseling discussion (Acute) Radiation colitis (Acute) Underweight (Acute) Reduced vision (Acute) Macular degeneration by report Heart failure with reduced ejection fraction due to cardiomyopathy (Acute) Atrial fibrillation (Chronic) Cardiomegaly (Acute) Compression fx, lumbar spine (Acute) Status post cataract extraction and insertion of intraocular lens of right eye (Chronic 05/26/18) Corneal endothelial dystrophy (Chronic) Nuclear sclerotic cataract of left eye (Acute) Weakness (Chronic 08/28/13) Radiation cystitis (Chronic) Chronic diarrhea (Chronic) Short-bowel syndrome? Chronic atrial fibrillation (Chronic) With a mean heart rate of 120 on Holter monitor July 2012 at [facility]. 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 Pancreatic insufficiency (Chronic) Cholelithiasis (Chronic) Adrenal nodule (Chronic) Incidental. Ruptured bladder (Acute 09/12/13) Cutaneous urostomy tubes. Open midline wound (Acute 09/12/13) DVT (deep venous thrombosis) (Acute 09/12/13) Where the femoral and saphenous veins meet. No Coumadin. FIlter in palce. Aspirin 325 mg daily. Lovenox 40 mg subcutaneously until mobile. 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 Gross hematuria. 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 Social History Smoking/Tobacco Use Status: Former Tobacco Use Quit Date: 11/19/13 Smoking risk assessment performed?: Yes Alcohol Intake: never Drug use: Never Housing: house Do you feel safe at home: Yes Additional Social history: lives alone, with her cat Time Spent with Patient Time Spent with Patient: 45-69 minutes Time was spent: preparing to see the patient(eg.review tests), obtaining and/or reviewing separately otained hiistory, ordering medications,tests, procedures, referring, communicating with other health wound care coordinator, indepentently interpreting results, counseling the patient and care coordination
--- NOTE | 2023-12-03 16:11 | PDOC.HHF2F ---
Home Health Referral Home Health Orders Clinical synopsis of why skilled professionals are needed: patient needs home health including nursing, P.T., O.T. and CHEMICAL RESEARCH ENGINEER. She was hospitalized d/t rapid atrial fibrillation exacerbation, weight loss, malnutrition. She was found to be hypovitamin D, hypomagnesemic and found to have new onset heart failure w/ reduced ejection fraction of a moderate to severe degree. Nursing needs to monitor her HR and BP and the changes in her meds for her HF and to coordinate w/ her PCP and cardiology any further med changes, or relay any changes in her condition. P.T. and O.T. have been requested as the patient is weak, deconditioned and has hx of falls, (has new L1 compression fracture) and needs therapy to prevent falls, improve her ADL performance and to improve her overall strength and mobility. CHEMICAL RESEARCH ENGINEER is requested to help coordinate her services. Medical diagnosis necessitation home health referral: new HFREF, chronic atrial fibrillation w/ exacerbation w/ rapid ventricular response, malnutrition w/ inadequate protein/calorie intake, involuntary weight loss, hypomagnesemia, hypothyroidism, L1 compression fracture, high output diarrhea, exertional dyspnea Registered Nurse: Check all that apply Instruct on new or changed medication(s)/assess compliance: Ordered Assess for exacerbation of medical condition, instruct patient/caregivers on signs and symptoms to report for early detection: Ordered Physical Therapist: Check all that apply Increase strength & endurance for safe mobility at home: Ordered To design/establish home maintenance program: Ordered Fall reduction therapy program for patient with history of frequent falls: Ordered Home safety evaluation and teaching/gait training including stair management (if applicable): Ordered Occupational Therapist: Evaluate and treat for patient unable to perform ADL/IADL/self-care: Ordered Upper extremity strengthening, range and motion: Ordered Acoustical Logging Engineer: Assist with community resources: Ordered Assist with assisted care planning: Ordered Home Bound Status Requires the aid of supportive device (check all that apply): Walker Describe why leaving home would require a considerable and taxing effort: Requires frequent rest periods and Safety Concerns: describe (frequent falls leading to lumbar frx) Encounter Date and Reason: I certify that a FTF encounter for this patient was performed on December 03, 2023 and that such encounter was related to the primary reason the patient requires home health services. The encounter was conducted in the following manner: By me as the certifying physician, TALENT DEVELOPMENT MANAGER, PA or By an inpatient physician, TALENT DEVELOPMENT MANAGER or PA during an inpatient stay who communicated findings to me, Certification And Authentication I certify that I composed the above information based on my clinical judgment relating to this patient's medical condition and, if applicable, clinical findings communicated to me by the NPP or inpatient physician who performed the FTF encounter. Name of Provider that will be monitoring home health services: Raymon Cosby
--- NOTE | 2023-12-03 16:25 | CHAPLAIN ---
Emma and two friends/family members with her. I introduced myself, explained my role and offered support.
[2023-12-03 17:03] VITALS: PULSE 84
[2023-12-03] MEDS: Digoxin 0.125 MG TAB PO (17:03)
== END 2023-12-03 19:08 | disposition home health service (06) | DRG 308 ==
LOC: ER 16:48 → ICU 18:23 → MS 11-28 09:49
PROVIDERS: Internal Medicine; Admitting Provider Family Medicine; Emergency Provider Physician Assistant; PCP Internal Medicine; Visit Provider Family Medicine
DX: I48.11 Longstanding persistent atrial fibrillation (principal); I50.21 Acute systolic (congestive) heart failure; S32.010A Wedge compression fracture of first lumbar vertebra, initial encounter for closed fracture; Z68.1 Body mass index [BMI] 19.9 or less, adult; N30.40 Irradiation cystitis without hematuria; K90.822 Short bowel syndrome without colon in continuity; I42.9 Cardiomyopathy, unspecified; E03.9 Hypothyroidism, unspecified; I95.1 Orthostatic hypotension; E27.8 Other specified disorders of adrenal gland; Z93.2 Ileostomy status; Z66 Do not resuscitate; Z51.5 Encounter for palliative care; R07.2 Precordial pain; Z86.718 Personal history of other venous thrombosis and embolism; W19.XXXA Unspecified fall, initial encounter; Z85.41 Personal history of malignant neoplasm of cervix uteri; K52.9 Noninfective gastroenteritis and colitis, unspecified; R29.6 Repeated falls; E78.5 Hyperlipidemia, unspecified; K86.89 Other specified diseases of pancreas; N18.9 Chronic kidney disease, unspecified; Z95.828 Presence of other vascular implants and grafts; I08.1 Rheumatic disorders of both mitral and tricuspid valves; R91.1 Solitary pulmonary nodule; J43.9 Emphysema, unspecified; M47.812 Spondylosis without myelopathy or radiculopathy, cervical region
CPT/HCPCS: 00123; 36415; 71275; 74177; 80048; 80053; 82306; 84145; 86850; 86900; 86901; 87077; 93005; 93306; 96361; 96365; 96366; 96375; 97162; 97530; 99291; 70450; 71260; 72125; 80162; 81003; 81015; 82310; 82607; 82746; 83605; 83735; 83880; 84439; 84443; 84481; 84484; 85025; 86870; 87086; 87186; 93010; 99222; 99231; 99232; 99233; 99239; J1160; J3475; J3490

== ENCOUNTER 2023-12-12 05:19 | Outpatient (CLI) | payer MEDICARE, SELFPAY ==
--- NOTE | 2023-12-17 09:53 | TELEFU_ITS ---
Date of service: 12/12/23 Time of Service: 12:30 Nutrition Note NOTE: Completed nutrition referral appt telephonically as Emma does not drive and has transportation barriers. Emma was hospitalized earlier in the month and was found to be in poor nutrition status. She has a colostomy and urostomy and has had unintentional wt loss with diarrhea a chronic issue. While hospitalized Emma declined nutrition based oral supplements, banatrol for diarrhea mgt and anything that fell into the realm of more agressive nutritional therapy. We spoke today and she reports diarrhea lately not quite so bad - she states she eats lots of rice and peanut better to help thicken out put. Has been prioritizing more protein choices that are better tolerated like cottage cheese, mac and cheese, oats, chicken, hamburger, and eggs. She reports gaining about 4 pounds since discharge and states she is now 86lbs. Still at this point declines to use ensure/boost or any other ONS or nutrition supplement outside of multivitamin. She received meals on wheels 5 times per week. She adds butter to veggies and starches to increase calories. She could not quantify her ostomy output - I empty it 16 times a day if it needs it - don't keep track. She seems to be certain that she is managing her conditions the way she feels she wants to. She did listen to my ideas for adding protein/kcals to her diet through fats/oils and [id number] starches and protein options. She thanked me for calling and said she was managing fine for now and will call with concerns. Time Spent in Nutritional Counseling and Treatment: 15 minutes
== END 2023-12-12 05:20 | disposition home or self-care (01) ==
LOC: DS 05:19
PROVIDERS: PCP Family Medicine; Visit Provider Dietitian, Registered
DX: R63.6 Underweight (principal); R19.7 Diarrhea, unspecified; Z71.3 Dietary counseling and surveillance
CPT/HCPCS: 00123; 97802

== ENCOUNTER 2023-12-13 14:50 | Outpatient (REF) | payer MEDICARE, SELFPAY ==
[2023-12-13 21:15] LABS: Anion Gap 4.8 mmol/L (3-11); BUN 18 mg/dL (7-18); CO2 31.2 mmol/L (21.0-32.0); CREATININE 0.9 mg/dL (0.55-1.02); Calcium 9.8 mg/dL (8.5-10.1); Chloride 106 mmol/L (98-107); Estimated GFR 65.44 (mL/min/1.73m2); Glucose 101 mg/dL (74-106); Magnesium 1.7 mg/dL (1.8-2.4); Potassium 4.7 mmol/L (3.5-5.1); Sodium 142 mmol/L (136-145)
== END 2023-12-13 14:51 | disposition home or self-care (01) ==
LOC: NCHCN 14:50
PROVIDERS: PCP Family Medicine; Visit Provider Family Medicine
DX: I48.20 Chronic atrial fibrillation, unspecified (principal); E83.42 Hypomagnesemia
CPT/HCPCS: 80048; 83735

== ENCOUNTER 2023-12-27 10:49 | Outpatient (CLI) | payer MEDICARE, SELFPAY ==
--- NOTE | 2023-12-27 10:45 | RT.EKG_ITS ---
APPROVED REPORT Exam: Resting ECG Reason for Exam: cardiac evaluation Patient Location: O HR:83 bpm ECG Measurements Heart Rate 83 AXIS SC [id number] P [id number] QRSd 83 QRS -7 QT 388 T 1 QTc 456 Conclusion Atrial fibrillation...V-rate 83- 83, irreg A-activity Low voltage, extremity leads...all extremity leads <0.5mV Borderline ST depression, diffuse leads...ST <-0.07mV, ant/lat/inf Baseline wander in lead(s) V2
== END 2023-12-27 10:50 | disposition home or self-care (01) ==
LOC: DI.CARD 10:50
PROVIDERS: PCP Family Medicine; Visit Provider Internal Medicine Cardiovascular Disease
DX: I51.7 Cardiomegaly (principal)
CPT/HCPCS: 93010

== ENCOUNTER → 2023-12-27 12:31 | Outpatient (BNVA) | payer MEDICARE, SELFPAY | PROVIDERS: PCP Family Medicine; Referring Provider Family Medicine; Visit Provider Internal Medicine Cardiovascular Disease | DX: I48.11 Longstanding persistent atrial fibrillation (principal); I48.91 Unspecified atrial fibrillation; R94.31 Abnormal electrocardiogram [ECG] [EKG]; I50.20 Unspecified systolic (congestive) heart failure | CPT/HCPCS: 93005; 99214 ==

== ENCOUNTER 2024-02-21 13:11 | Emergency (ER) | payer MEDICARE, SELFPAY ==
[2024-02-21] VITALS (34 sets, daily range): BP systolic 77–133; BP diastolic 45–86; PULSE 59–93; RESP 11–30; TEMP 36.6–36.7; O2SAT 98–100
--- NOTE | 2024-02-21 13:00 | RT.EKG_ITS ---
APPROVED REPORT Exam: Resting ECG Reason for Exam: dizziness Patient Location: E HR:79 bpm ECG Measurements Heart Rate 79 AXIS IN [id number] P [id number] QRSd 72 QRS -10 QT 379 T -42 QTc 434 Conclusion Pacemaker spikes or artifacts...timing non-diagnostic Atrial fibrillation...V-rate 60- 96, irreg A-activity Borderline ST depression, anterolateral leads...ST <-0.07mV, I aVL V2-V6 afib low volt, consider st depression anterior lateral leads
--- NOTE | 2024-02-21 13:30 | DI.RAD_ITS ---
Exam(s) XR CHEST 2V PA LATERAL EXAM: XR CHEST 2V PA LATERAL CLINICAL HISTORY: fatigue, presyncope TECHNIQUE: 2D digital imaging was performed. Two views. COMPARISON: CT CT CHEST PE CTA from 11/30/2023 FINDINGS: HEART: Normal mildly enlarged. Aorta: Not dilated. Calcification at aortic arch. PULMONARY VASCULATURE: Normal. MEDIASTINUM: Unremarkable. LUNGS: Mild interstitial changes. No focal infiltrate or mass. PLEURAL SPACE: No pleural effusion or pneumothorax. BONE:Unremarkable for age. SOFT TISSUES: IVC filter noted. IMPRESSION: No acute abnormality. DATA REPOSITORY: RADIATION DOSE DELIVERED:
--- NOTE | 2024-02-21 13:30 | DI.CT_ITS ---
Exam(s) CT HEAD WO EXAM: CT HEAD WO CLINICAL HISTORY: headache, lightheaded. TECHNIQUE: Imaging Protocol: Axial computed tomography images with coronal and sagittal reformatted images were created and reviewed COMPARISON: CT CT HEAD CERVICAL SPINE WO from 11/27/2023 FINDINGS: Ventricles and Extra axial spaces: Normal in size and morphology for the patient's age. Hemorrhage: None. Cerebral parenchyma: No evidence of acute infarct or mass. Midline shift: None. Brainstem/Cerebellum: Normal. Calvarium: Normal. Visualized Paranasal sinuses:Clear. Mastoids: Clear. Soft Tissues: Unremarkable. ORBITS: Unremarkable. PITUITARY: Not enlarged. IMPRESSION: No acute intracranial process. RADIATION DOSE DELIVERED: Total DLP DATA REPOSITORY: All CT scans at this facility are submitted to the National Radiology Data Registry (NRDR) Dose Index Registry (DIR) with the [employer] (A[employer]). RADIATION OPTIMIZATION: All CT scans at this facility use at least one of these dose optimization te chniques: automated exposure control; mA and/or kV adjustment per patient size (includes targeted exa ms where dose is matched to clinical indication); or iterative reconstruction.
[2024-02-21 14:03] LABS: Abs Immature Grans 0.03 10^3/uL (0.0-0.06); Absolute Basophil Count 0.05 10^3/uL (0.0-0.2); Absolute Eosinophil Count 0.15 10^3/uL (0.0-0.7); Absolute Lymphocyte Count 0.96 10^3/uL (1.2-3.4); Absolute Monocyte Count 0.81 10^3/uL (0.1-0.8); Absolute Neutrophil Count 5.99 10^3/uL (1.2-6.7); Basophils % 0.6 %; Eosinophils % 1.9 %; HCT 31.1 % (36.0-46.0); HGB 9.8 g/dL (11.2-15.7); Immature Grans % 0.4 %; MCH 33.6 pg (27.0-33.0); MCHC 31.5 % (32.0-36.0); MCV 107 fL (80-95); MPV 8.7 fL (8.0-11.0); Monocytes % 10.1 %; Platelet Count 303 10^3/uL (130-400); RBC 2.92 10^6/uL (3.93-5.22); RDW 16.6 % (11.7-14.6); RDW-SD 64.6 fL; WBC 7.99 10^3/uL (4.4-10.8)
[2024-02-21] MEDS: ACETAMINOPHEN 1,000 MG/100 ML BTL 400 MG IVPB (14:05)
[2024-02-21] MEDS: Normal Saline 1,000 ML 1000 ML IV (14:05)
--- NOTE | 2024-02-21 14:10 | ED.GENADUL_ITS ---
Discharge Plan Discharge Details Chief Complaint: Dizzy/Sync Primary Care Provider: Maliha Ceja ED Provider: Hever Devlin Home Meds and New Rx's Prescriptions: No Action multivitamin [Multi-Day] 1 EACH tablet 1 tab PO DAILY loperamide [Imodium A-D] 2 mg Capsule 2 mg PO BID acetaminophen [Arthritis Pain Reliever] 650 mg Tablet Extended Release 2 tab PO BID levothyroxine 75 mcg tablet 75 mcg PO DAILY Patient Comments: TAKE 1 TABLET BY MOUTH DAILY metoprolol tartrate 50 mg Tablet 50 mg PO TID Qty: 90 0RF Poly-Vi-Love 250 mcg-50 mg- 10 mcg/mL Drops 1 ml PO DAILY Qty: 30 0RF calcium carbonate 200 mg calcium (500 mg) Tablet,Chewable 1,000 mg PO BID Qty: 120 0RF ergocalciferol (vitamin D2) [Vitamin D2] 1,250 mcg (50,000 unit) Capsule 1,250 mcg PO Q7D Qty: 12 0RF magnesium gluconate 27 mg magnesium (500 mg) Tablet 500 mg PO DAILY Qty: 30 0RF Jardiance 10 mg Tablet 10 mg PO QAM Qty: 30 0RF digoxin 125 mcg (0.125 mg) tablet 125 mcg PO Q48H Qty: 15 0RF HPI General Date/Time Provider Initiated Documentation: 02/21/24 13:34 . HPI Narrative: 78-year-old female history of colostomy, urostomy, shortcut syndrome, A-fib on digoxin presents with generalized fatigue presyncopal sensation low energy over the last couple of days. Related Data Home Medications ?Medication ?Instructions ?Recorded ?Confirmed multivitamin (Multi-Day tablet) 1 tab PO DAILY 06/21/13 02/21/24 acetaminophen 650 mg 2 tab PO BID 05/21/18 02/21/24 tablet,extended release (Arthritis Pain Reliever) loperamide 2 mg capsule (Imodium 2 mg PO BID 05/21/18 02/21/24 A-D) levothyroxine 75 mcg tablet 75 mcg PO DAILY 11/27/23 02/21/24 calcium carbonate 1,000 mg (5 x 200 mg calcium (500 12/03/23 02/21/24 mg)) PO BID #120 tabs digoxin 125 mcg (0.125 mg) tablet 125 mcg PO Q48H #15 tabs 12/03/23 02/21/24 empagliflozin 10 mg tablet 10 mg PO QAM #30 tabs 12/03/23 02/21/24 (Jardiance) ergocalciferol (vitamin D2) 1,250 1,250 mcg PO Q7D #12 caps 12/03/23 02/21/24 mcg (50,000 unit) capsule (Vitamin D2) magnesium gluconate 27 mg 500 mg (18.5185 x 27 mg magnesium 12/03/23 02/21/24 magnesium (500 mg) tablet (500 mg)) PO DAILY #30 tabs metoprolol tartrate 50 mg tablet 50 mg PO TID #90 tabs 12/03/23 02/21/24 pediatric multivitamin no.192 250 1 ml PO DAILY #30 mL 12/03/23 02/21/24 mcg-50 mg-10 mcg/mL oral drops (Poly-Vi-Love) Previous Rx's ?Medication ?Instructions ?Recorded calcium carbonate 1,000 mg (5 x 200 mg calcium (500 12/03/23 mg)) PO BID #120 tabs digoxin 125 mcg (0.125 mg) tablet 125 mcg PO Q48H #15 tabs 12/03/23 empagliflozin 10 mg tablet 10 mg PO QAM #30 tabs 12/03/23 (Jardiance) ergocalciferol (vitamin D2) 1,250 1,250 mcg PO Q7D #12 caps 12/03/23 mcg (50,000 unit) capsule (Vitamin D2) magnesium gluconate 27 mg 500 mg (18.5185 x 27 mg magnesium 12/03/23 magnesium (500 mg) tablet (500 mg)) PO DAILY #30 tabs metoprolol tartrate 50 mg tablet 50 mg PO TID #90 tabs 12/03/23 pediatric multivitamin no.192 250 1 ml PO DAILY #30 mL 12/03/23 mcg-50 mg-10 mcg/mL oral drops (Poly-Vi-Love) Allergies Allergy/AdvReac Type Severity Reaction Status Date / Time codeine AdvReac Intermediate Nausea Verified 02/21/24 13:18 General Stated Complaint: Dizzy/Sync EFDE: 2 Exam Narrative Exam Narrative: Alert oriented interactive Cachectic frail Dry oral mucosa poor skin turgor Lungs clear bilaterally no wheezes rales or rhonchi Heart sounds clear no murmurs rubs or gallops Abdomen soft nontender nondistended No peripheral edema no signs of trauma Alert oriented cranial nerves intact 5-5 strength upper and lower extremities bilaterally no truncal ataxia Course Vital Signs Vital signs: Vital Signs Temperature 36.7 C 02/21/24 13:13 Pulse 78 02/21/24 13:13 Respiratory Rate 16 02/21/24 13:13 Blood Pressure 93/59 L 02/21/24 13:13 Pulse Oximetry 98 02/21/24 13:13 Temperature 36.7 C 02/21/24 13:13 Pulse 78 02/21/24 13:13 Respiratory Rate 16 02/21/24 13:13 Blood Pressure 93/59 L 02/21/24 13:13 Pulse Oximetry 98 02/21/24 13:13 Oxygen Delivery Method Room Air 02/21/24 13:13 Oxygen Flow Rate 0 02/21/24 13:13 Lab/Test Results Lab/Test Results: Laboratory Tests Range/Units 02/21/24 13:54 WBC (4.4-10.8) 10^3/uL 7.99 RBC (3.93-5.22) 10^6/uL 2.92 L Hgb (11.2-15.7) g/dL 9.8 L Hct (36.0-46.0) % 31.1 L MCV (80-95) fL 107 H MCH (27.0-33.0) pg 33.6 H MCHC (32.0-36.0) % 31.5 L RDW (11.7-14.6) % 16.6 H Plt Count (130-400) 10^3/uL 303 MPV (8.0-11.0) fL 8.7 Immature Gran % % 0.4 Neutrophils % % 75.0 Lymphocytes % % 12.0 Monocytes % % 10.1 Eosinophils % % 1.9 Basophils % % 0.6 Nucleated RBC % (0.0-0.3) % 0.0 Absolute Neutrophils (1.2-6.7) 10^3/uL 5.99 Absolute Lymphocytes (1.2-3.4) 10^3/uL 0.96 L Absolute Monocytes (0.1-0.8) 10^3/uL 0.81 H Absolute Eosinophils (0.0-0.7) 10^3/uL 0.15 Absolute Basophils (0.0-0.2) 10^3/uL 0.05 TSH Cancelled Medical Decision Making High clinical sufficient for dehydration/hypovolemia versus viral illness muscles EXTR bacterial infection such as pneumonia or UTI, low suspicion for CVA or intracranial hemorrhage, patient feels frail cachectic and dehydrated. Will initiate crystalloid fluid resuscitation, patient found to be hypoalbuminemic will infuse albumin. Awaiting labs and imaging for disposition likely admission 16: 27 evidence of hypoalbuminemia hypomagnesemia and likely hypovolemia. Responding to fluids albumin and magnesium. Will p.o. 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 Patient desires DNR/DNI. Does want to be transferred to the hospital and treated, receive IV fluids and IV antibiotics. Refuses to complete COLST form, as she feels advanced directive is enough and additional forms would just be confusing . Palliative care patient (Acute) Advanced care planning/counseling discussion (Acute) Radiation colitis (Acute) Underweight (Acute) Reduced vision (Acute) Macular degeneration by report Heart failure with reduced ejection fraction due to cardiomyopathy (Acute) Atrial fibrillation (Chronic) Cardiomegaly (Acute) Compression fx, lumbar spine (Acute) Status post cataract extraction and insertion of intraocular lens of right eye (Chronic 05/26/18) Corneal endothelial dystrophy (Chronic) Nuclear sclerotic cataract of left eye (Acute) Weakness (Chronic 08/28/13) Radiation cystitis (Chronic) Chronic diarrhea (Chronic) Short-bowel syndrome? 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 Pancreatic insufficiency (Chronic) Cholelithiasis (Chronic) Adrenal nodule (Chronic) Incidental. Ruptured bladder (Acute 09/12/13) Cutaneous urostomy tubes. 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 Gross hematuria. 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 Social History Smoking/Tobacco Use Status: Former Tobacco Use Quit Date: 11/19/13 Smoking risk assessment performed?: Yes Alcohol Intake: never Drug use: Never Housing: house Do you feel safe at home: Yes Additional Social history: lives alone, with her cat
[2024-02-21 14:17] LABS: INR 3.9 (0.9-1.1); PTT Activated 34.5 sec (23.6-32.8); Prothrombin Time 34.5 sec (9.1-11.1)
[2024-02-21 14:27] LABS: ALT 26 U/L (14-59); AST 37 U/L (15-37); Albumin 2.3 g/dL (3.4-5.0); Alkaline Phosphatase 110 U/L (46-116); Anion Gap 6.6 mmol/L (3-11); BUN 15 mg/dL (7-18); Bilirubin, Total 0.33 mg/dL (0.2-1.0); CO2 27.4 mmol/L (21.0-32.0); CREATININE 1.1 mg/dL (0.55-1.02); Calcium 8.5 mg/dL (8.5-10.1); Chloride 107 mmol/L (98-107); Estimated GFR 51.43 (mL/min/1.73m2); Glucose 94 mg/dL (74-106); Magnesium 1.7 mg/dL (1.8-2.4); NT-proBNP 3365 pg/mL (<300); Potassium 4.5 mmol/L (3.5-5.1); Sodium 141 mmol/L (136-145); TSH (W/Ref FT4) 3.19 uIU/mL (0.36-3.74); Total Protein 5.5 g/dL (6.4-8.2); Troponin I < 50 ng/L (< or =60)
[2024-02-21 14:38] LABS: Digoxin < 0.20 ng/mL (0.90-2.00)
[2024-02-21 15:06] LABS: COVID-19 PCR Negative (Negative); Influenza A PCR Negative (Negative); Influenza B PCR Negative (Negative); RSV PCR Negative (Negative)
[2024-02-21 15:12] LABS: Source Nasopharynx
[2024-02-21] MEDS: ALBUMIN HUMAN 25 GM/100 ML BTL IVPB (15:34)
[2024-02-21 15:57] LABS: Bilirubin Negative (Negative); Blood Negative (Negative); Clarity Clear (Clear); Glucose 100 mg/dL (Negative); Ketones Negative (Negative); Leukocyte Esterase Negative (Negative); Nitrite Negative (Negative); Urobilinogen 0.2 mg/dL (Up to 0.2)
[2024-02-21] MEDS: MAGNESIUM SULFATE 1 GM/100 ML BAG IVINF (16:20)
--- NOTE | 2024-02-21 16:38 | W.EDPROG ---
Date of service: 02/21/24 Time of Service: 17:00 Medical Decision Making This patient was signed out to me. Please see previous notes for H&P and initial eval. In brief, 78yo F with hx cancer/sp abdominal radiation, colostomy, shortgut, afib, presenting with generalized weakness. Workup significant for hypoalbumin and hypomag. Received fluids, albumin, magnesium and reports improvement in symptoms. Signed out pending ambulatory trial, if tolerates well plan for discharge home. Ambulated and tolerated well. Requesting discharge home which is reasonable. On review of ED labs, noted that her PTT/PT/INR are elevated. Normal LFTs/bilirubin. Discussed with patient, she is not on any blood thinners but does state she is prone to easy bleeding and that this has always been the case, she is careful to avoid aspirin and NSAIDs for this reason. No bleeding at this time including no dark stools. I am concerned that she could potentially fall (even though she ambualtes well currently) which could cause significant injury or given her coagulopathy. She states that she is feeling better and would like to go home and followup with her primary care doctor for this rather than remain in the hospital, which is reasonable given her lack of active bleeding, overall reassuring workup, improved symptoms, and current goals of care. Discharged home to followup with PCP on Saturday; discharge instructions and return precautions were reviewed with patient who verbalized understanding. All questions were answered and she is in full agreement with the plan. Lab Data Lab results reviewed: Yes I reviewed the patient's lab results. Quality:SDOH Health Related Social Needs: Health related social needs transpo insecurity Sign Out Sign Out Data: Sign Out Comment: hypomag, hypoalbumin, dehydrated, responding to interventions; eating, ambulate for dispo post albumin mag and fluids Last updated by Hever Devlin MD at 02/21/24 16:28 Discharge Plan Disposition Patient Disposition: Home Condition: Good Discharge Details Clinical Impression: Weakness, Hypoalbuminemia, Hypomagnesemia, Elevated INR Primary Care Provider: Maliha Ceja ED Provider: Josie Ness Home Meds and New Rx's Prescriptions: Continued multivitamin [Multi-Day] 1 EACH tablet 1 tab PO DAILY loperamide [Imodium A-D] 2 mg Capsule 2 mg PO BID acetaminophen [Arthritis Pain Reliever] 650 mg Tablet Extended Release 2 tab PO BID levothyroxine 75 mcg tablet 75 mcg PO DAILY Patient Comments: TAKE 1 TABLET BY MOUTH DAILY metoprolol tartrate 50 mg Tablet 50 mg PO TID Qty: 90 0RF Poly-Vi-Love 250 mcg-50 mg- 10 mcg/mL Drops 1 ml PO DAILY Qty: 30 0RF calcium carbonate 200 mg calcium (500 mg) Tablet,Chewable 1,000 mg PO BID Qty: 120 0RF ergocalciferol (vitamin D2) [Vitamin D2] 1,250 mcg (50,000 unit) Capsule 1,250 mcg PO Q7D Qty: 12 0RF magnesium gluconate 27 mg magnesium (500 mg) Tablet 500 mg PO DAILY Qty: 30 0RF Jardiance 10 mg Tablet 10 mg PO QAM Qty: 30 0RF digoxin 125 mcg (0.125 mg) tablet 125 mcg PO Q48H Qty: 15 0RF Discharge Instructions Instructions: Generalized Weakness, Low Magnesium Level (DC) Additional Instructions: Call your primary care doctor on Saturday to schedule an appointment to be seen as soon as possible, ideally Saturday, to followup on your visit here and to repeat your blood work. Return to the emergency department for new or worsening symptoms including headache, fall, dark or bloody stool, difficulty walking, difficultly breathing, or if you have any other concerns.
[2024-02-21 17:08] LABS: Troponin I < 50 ng/L (< or =60)
== END 2024-02-21 18:59 | disposition home or self-care (01) ==
PROVIDERS: Emergency Medicine; Emergency Provider Student in an Organized Health Care Education/Training Program; PCP Family Medicine
DX: R53.1 Weakness; E88.09 Other disorders of plasma-protein metabolism, not elsewhere classified; E83.42 Hypomagnesemia; I10 Essential (primary) hypertension; E78.5 Hyperlipidemia, unspecified; I48.91 Unspecified atrial fibrillation; K90.829 Short bowel syndrome, unspecified; Z93.3 Colostomy status; Z93.6 Other artificial openings of urinary tract status; R79.1 Abnormal coagulation profile
CPT/HCPCS: 123; 36415; 80053; 87637; 93005; 96365; 96366; 96367; 96375; 99285; 00123; 70450; 71046; 80162; 81003; 83735; 83880; 84443; 84484; 85025; 85610; 85730; 93010; 99284; J0131; J3475; P9047

== ENCOUNTER 2024-03-25 10:39 | Inpatient (IN) | payer MEDICARE, SELFPAY ==
[2024-03-25] VITALS (24 sets, daily range): BP systolic 81–130; BP diastolic 44–78; PULSE 61–107; RESP 15–32; TEMP 36.1–36.8; O2SAT 81–100
--- NOTE | 2024-03-25 10:45 | RT.EKG_ITS ---
APPROVED REPORT Exam: Resting ECG Reason for Exam: weakness , sob Patient Location: E HR:68 bpm ECG Measurements Heart Rate 68 [place] [id number] P [id number] QRSd 73 QRS -19 QT 360 T -67 QTc 384 Conclusion Atrial fibrillation...V-rate 50- 93, irreg A-activity Low voltage, extremity leads...all extremity leads <0.5mV afib rate controlled, consider lateral st seg depressions and t wave inversions
--- NOTE | 2024-03-25 11:01 | DI.CT_ITS ---
Exam(s) CT ABDOMEN PELVIS CTA EXAM: CT ABDOMEN PELVIS CTA CLINICAL HISTORY: blood in ostomy, hx vaginal ca, short gut. TECHNIQUE: Imaging Protocol: Axial CT angiography was performed with multi-slice acquisition and m ulti-planar and/or 3D reconstructions. Images were obtained without IV contrast, arterial phase imag ing and venous phase imaging. CONTRAST MATERIAL: Intravenous: Omnipaque 350 Contrast volume:100mL Oral: No COMPARISON: CT ABD PELVIS WITH CONTRAST from 05/21/2012 CT ABD PELVIS WO CONTRAST from 08/30/[address] ABDOMEN PELVIS W from 01/25/[address] CHEST/ABD/PEL W from 11/27/[address] THORACIC LUMBAR SPINE REC from 11/27/[address] CHEST PE CTA from 11/30/2023 FINDINGS: ABDOMEN AND PELVIS: Abdomen: Celiac axis/mesenteric arteries: Atherosclerotic calcification at the origins without significant patricia nosis. No evidence of occlusion. Renal Arteries: No evidence of occlusion or significant stenosis. Atherosclerotic calcification at th e origins without significant stenosis. Aorta: No evidence of occlusion or significant stenosis. No aneurysm or dissection. Atherosclerotic calcification is present. Pelvis: Iliac Arteries: No evidence of occlusion or significant stenosis. Atherosclerotic calcification is p resent. The findings are most marked in the internal iliac arteries bilaterally where there is multi focal marked stenosis. Common Femoral Arteries: No evidence of occlusion or significant stenosis. Atherosclerotic calcifica tion is present. No significant stenosis. ABDOMEN: Lung bases: There has been interval decrease in size of the left lower lobe pulmonary nodule. It now measures 7 x 6 mm (series 31, image 5). This compares to 1.5 x 0.9 cm on the prior examination. Liver: Normal density. No measurable mass. Portal, Superior Mesenteric, and Splenic Veins: Unremarkable. Gallbladder and Biliary Tract: Cholelithiasis. The gallbladder is contracted. There is no biliary d uctal dilatation. Pancreas: Normal density, no abnormal calcifications or inflammatory process. Spleen: Normal. Adrenals: There is again seen a left adrenal nodule likely reflecting an adenoma. This is been prese nt dating back to 2011. No right adrenal mass. IVC: There is an IVC filter in place. Kidneys: Normal size, contour and axis. No radiodense stones or obstructive uropathy. There is a tiny hypodensity in the left kidney. It is too small for further characterization but likely reflects a small cyst. No follow-up is recommended. Bowel: The patient has had a sigmoid resection. There is a residual blind-ending rectum. There is p ersistent mild thickening of the wall of the rectum. There is an ostomy in the left abdomen. There is no bowel wall thickening or obstruction present. No evidence to suggest acute appendicitis. No e vidence of extravasation of contrast into the lumen. Peritoneal Cavity: There is again seen thickening of the soft tissues anterior to the sacrum which ap pears stable. No ascites or pneumoperitoneum. No free air. Lymph Nodes: Within normal limits. Bones: The bones are osteopenic. Age-related degenerative changes are present. There has been inter nadiya slight progression of the compression fracture of the superior endplate of L1. There is now loss of approximately 25-30 percent of the height of the vertebral body anteriorly. No retropulsion or c entral spinal canal stenosis results. Soft Tissues: There is multifocal muscular fatty atrophy. PELVIS: Bladder: The patient appears to have a ileal conduit in the right abdominal wall. There does appear to be air in the patient's residual urinary bladder. Reproductive Organs: The uterus is absent. There is air seen within the vaginal vault. Lymph Nodes: Within normal limits. Bones: Within normal limits. IMPRESSION: 1. No evidence to suggest active bleeding from the bowels. 2. The patient has a right-sided ileal conduit/urostomy and left-sided colostomy. 3. The patient has the ute urinary bladder which is air-filled. There is also again seen an air-f illed structure posteriorly which may represent ute gynecologic structure. 4. Persistent mild thickening of the residual rectum. 5. Slight progression of the compression fracture of the superior endplate of L1. There is now loss of approximately 30 percent of the height of the vertebral body anteriorly. 6. Stable soft tissue thickening anterior to the sacrum. 7. Interval decrease in size of the left lower lobe pulmonary nodule. 8. Extensive atherosclerotic disease. Multifocal marked stenosis involving the internal iliac arteri es bilaterally. 9. Cholelithiasis. 10. Findings were discussed with Dr. Devlin at 2:10 p.m. on 03/25/2024. RADIATION DOSE DELIVERED: 578.56mGy.cm Total DLP DATA REPOSITORY: All CT scans at this facility are submitted to the National Radiology Data Registry (NRDR) Dose Index Registry (DIR) with the [employer] (A[employer]). RADIATION OPTIMIZATION: All CT scans at this facility use at least one of these dose optimization te chniques: automated exposure control; mA and/or kV adjustment per patient size (includes targeted exa ms where dose is matched to clinical indication); or iterative reconstruction.
--- NOTE | 2024-03-25 11:15 | ED.GENADUL_ITS ---
Discharge Plan Disposition Patient Disposition: Admit to [facility] Condition: Stable Discharge Details Chief Complaint: GI Bleed Clinical Impression: Frailty, Dehydration, Hypoalbuminemia, Generalized weakness Primary Care Provider: Maliha Ceja ED Provider: Hever Devlin Home Meds and New Rx's Prescriptions: No Action multivitamin [Multi-Day] 1 EACH tablet 1 tab PO DAILY loperamide [Imodium A-D] 2 mg Capsule 2 mg PO BID acetaminophen [Arthritis Pain Reliever] 650 mg Tablet Extended Release 2 tab PO BID levothyroxine 75 mcg tablet 75 mcg PO DAILY Patient Comments: TAKE 1 TABLET BY MOUTH DAILY metoprolol tartrate 50 mg Tablet 50 mg PO TID Qty: 90 0RF calcium carbonate 200 mg calcium (500 mg) Tablet,Chewable 1,000 mg PO BID Qty: 120 0RF ergocalciferol (vitamin D2) [Vitamin D2] 1,250 mcg (50,000 unit) Capsule 1,250 mcg PO Q7D Qty: 12 0RF magnesium gluconate 27 mg magnesium (500 mg) Tablet 500 mg PO DAILY Qty: 30 0RF Jardiance 10 mg Tablet 10 mg PO QAM Qty: 30 0RF digoxin 125 mcg (0.125 mg) tablet 125 mcg PO Q48H Qty: 15 0RF HPI General Date/Time Provider Initiated Documentation: 03/25/24 10:59 . 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 Patient experiencing generalized fatigue. No chest pain or shortness of breath no falls. Patient lives alone. Related Data Home Medications ?Medication ?Instructions ?Recorded ?Confirmed multivitamin (Multi-Day tablet) 1 tab PO DAILY 06/21/13 03/25/24 acetaminophen 650 mg 2 tab PO BID 05/21/18 03/25/24 tablet,extended release (Arthritis Pain Reliever) loperamide 2 mg capsule (Imodium 2 mg PO BID 05/21/18 03/25/24 A-D) levothyroxine 75 mcg tablet 75 mcg PO DAILY 11/27/23 03/25/24 calcium carbonate 1,000 mg (5 x 200 mg calcium (500 12/03/23 03/25/24 mg)) PO BID #120 tabs digoxin 125 mcg (0.125 mg) tablet 125 mcg PO Q48H #15 tabs 12/03/23 03/25/24 empagliflozin 10 mg tablet 10 mg PO QAM #30 tabs 12/03/23 03/25/24 (Jardiance) ergocalciferol (vitamin D2) 1,250 1,250 mcg PO Q7D #12 caps 12/03/23 03/25/24 mcg (50,000 unit) capsule (Vitamin D2) magnesium gluconate 27 mg 500 mg (18.5185 x 27 mg magnesium 12/03/23 03/25/24 magnesium (500 mg) tablet (500 mg)) PO DAILY #30 tabs metoprolol tartrate 50 mg tablet 50 mg PO TID #90 tabs 12/03/23 03/25/24 Previous Rx's ?Medication ?Instructions ?Recorded calcium carbonate 1,000 mg (5 x 200 mg calcium (500 12/03/23 mg)) PO BID #120 tabs digoxin 125 mcg (0.125 mg) tablet 125 mcg PO Q48H #15 tabs 12/03/23 empagliflozin 10 mg tablet 10 mg PO QAM #30 tabs 12/03/23 (Jardiance) ergocalciferol (vitamin D2) 1,250 1,250 mcg PO Q7D #12 caps 12/03/23 mcg (50,000 unit) capsule (Vitamin D2) magnesium gluconate 27 mg 500 mg (18.5185 x 27 mg magnesium 12/03/23 magnesium (500 mg) tablet (500 mg)) PO DAILY #30 tabs metoprolol tartrate 50 mg tablet 50 mg PO TID #90 tabs 12/03/23 Allergies Allergy/AdvReac Type Severity Reaction Status Date / Time aspirin Allergy Unknown Unknown Verified 03/25/24 10:57 codeine AdvReac Intermediate Nausea Verified 03/25/24 10:56 General Stated Complaint: GI Bleed FEDE: 3 Exam Narrative Exam Narrative: Frail, cachectic Pale with slightly dry oral mucosa and dry skin Lungs clear bilaterally speaking full sentences Abdomen soft nontender nondistended, dark brown stool with some possible admixed blood in ostomy Moving all extremities without deficit Course Vital Signs Vital signs: Vital Signs Temperature 36.1 C L 03/25/24 10:38 Pulse 74 03/25/24 10:38 Respiratory Rate 15 03/25/24 10:38 Blood Pressure 130/67 03/25/24 10:38 Pulse Oximetry 100 03/25/24 10:38 Temperature 36.1 C L 03/25/24 10:38 Temperature Source Temporal Artery Scan 03/25/24 10:38 Pulse 74 03/25/24 10:38 Respiratory Rate 15 03/25/24 10:38 Blood Pressure 130/67 03/25/24 10:38 Pulse Oximetry 100 03/25/24 10:38 Oxygen Delivery Method Room Air 03/25/24 10:38 Oxygen Flow Rate 0 03/25/24 10:38 Pain Level 0 03/25/24 10:38 Medical Decision Making 70-year-old female 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 Abdomen soft nontender nondistended, consider GI bleed versus enteritis versus dehydration versus electrolyte derangement lower suspicion for fistula with great vessels lower suspicion for AAA, was also consider viral illness, will obtain IV access will provide fluid hydration, will obtain CTA abdomen pelvis to assess for any active intra-abdominal bleeding given patient's frail state cachexia and dehydration patient will likely need admission for rehabilitation placement 14: 50 dehydration hypoalbuminemia, no evidence of acute GI bleed on CT imaging, patient remains hemodynamically stable, will admit for fluids PT OT evaluation assessment of functionality would likely benefit from placement given patient lives alone and is not able to perform her acts of daily living has had a precipitous decline in her physical capabilities over the last couple of weeks worsening over the last couple of days. Quality:SDOH Health Related Social Needs: Health related social needs transpo insecurity PFSH All Active Problems (Updated 03/25/24 @ 14:52 by Hever Devlin MD) Generalized weakness (Acute) Hypoalbuminemia (Acute) Dehydration (Acute) Frailty (Acute) Short gut syndrome (Acute) Ileostomy in place (Acute) Lung nodule, multiple (Acute) DNR (do not resuscitate) (Acute) See November 28, 2023 palliative care note. Patient desires DNR/DNI. Does want to be transferred to the hospital and treated, receive IV fluids and IV antibiotics. Refuses to complete COLST form, as she feels advanced directive is enough and additional forms would just be confusing . Palliative care patient (Acute) Advanced care planning/counseling discussion (Acute) Radiation colitis (Acute) Underweight (Acute) Reduced vision (Acute) Macular degeneration by report Heart failure with reduced ejection fraction due to cardiomyopathy (Acute) Atrial fibrillation (Chronic) Cardiomegaly (Acute) Compression fx, lumbar spine (Acute) Status post cataract extraction and insertion of intraocular lens of right eye (Chronic 05/26/18) Corneal endothelial dystrophy (Chronic) Nuclear sclerotic cataract of left eye (Acute) Weakness (Chronic 08/28/13) Radiation cystitis (Chronic) Chronic diarrhea (Chronic) Short-bowel syndrome? 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 Pancreatic insufficiency (Chronic) Cholelithiasis (Chronic) Adrenal nodule (Chronic) Incidental. Ruptured bladder (Acute 09/12/13) Cutaneous urostomy tubes. 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 Gross hematuria. 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 Social History Smoking/Tobacco Use Status: Former Tobacco Use Quit Date: 11/19/13 Smoking risk assessment performed?: Yes Alcohol Intake: never Drug use: Never Housing: house Do you feel safe at home: Yes Additional Social history: lives alone, with her cat
[2024-03-25 11:27] LABS: Abs Immature Grans 0.06 10^3/uL (0.0-0.06); Absolute Basophil Count 0.04 10^3/uL (0.0-0.2); Absolute Eosinophil Count 0.06 10^3/uL (0.0-0.7); Absolute Lymphocyte Count 1.01 10^3/uL (1.2-3.4); Absolute Monocyte Count 0.66 10^3/uL (0.1-0.8); Absolute Neutrophil Count 8.77 10^3/uL (1.2-6.7); Basophils % 0.4 %; Eosinophils % 0.6 %; HCT 36.5 % (36.0-46.0); HGB 11.2 g/dL (11.2-15.7); Immature Grans % 0.6 %; Lymphocytes % 9.5 %; MCHC 30.7 % (32.0-36.0); MPV 8.8 fL (8.0-11.0); Monocytes % 6.2 %; Neutrophils % 82.7 %; Platelet Count 314 10^3/uL (130-400); RBC 3.39 10^6/uL (3.93-5.22); RDW 16.8 % (11.7-14.6); RDW-SD 67.4 fL
[2024-03-25 11:29] LABS: MCV 108 fL (80-95)
[2024-03-25] MEDS: Normal Saline 1,000 ML 1000 ML IV (11:40)
[2024-03-25 11:46] LABS: Bilirubin Negative (Negative); Blood Moderate (Negative); Clarity Sl Cloudy (Clear); Glucose 500 mg/dL (Negative); Ketones Negative (Negative); Leukocyte Esterase Negative (Negative); Nitrite Negative (Negative); Specific Gravity 1.015 (1.005-1.025); Urobilinogen 0.2 mg/dL (Up to 0.2); pH 5.5 (5-8)
[2024-03-25 11:52] LABS: ALT 33 U/L (14-59); AST 41 U/L (15-37); Albumin 2.8 g/dL (3.4-5.0); Alkaline Phosphatase 122 U/L (46-116); Anion Gap 5.3 mmol/L (3-11); BUN 20 mg/dL (7-18); Bilirubin, Total 0.26 mg/dL (0.2-1.0); CO2 28.7 mmol/L (21.0-32.0); CREATININE 1.1 mg/dL (0.55-1.02); Calcium 9.2 mg/dL (8.5-10.1); Chloride 104 mmol/L (98-107); Estimated GFR 51.43 (mL/min/1.73m2); Glucose 102 mg/dL (74-106); Magnesium 1.8 mg/dL (1.8-2.4); Potassium 4.6 mmol/L (3.5-5.1); Sodium 138 mmol/L (136-145); TSH (W/Ref FT4) 6.75 uIU/mL (0.36-3.74); Total Protein 6.2 g/dL (6.4-8.2)
[2024-03-25 11:55] LABS: Bacteria Many HPF (Negative); C & S Indicated? Yes; Crystals Negative HPF (Negative); Epithelial Cells Rare HPF (Negative); Mucus Negative (Negative)
[2024-03-25 12:20] LABS: FREE T4 1.22 ng/dL (0.76-1.46)
[2024-03-25] MEDS: Normal Saline - Diluent 50 ML VIAL IJ (12:49)
[2024-03-25] MEDS: Omnipaque 350 MG/ML 500 ML BTL-Imaging package IJ (12:50)
--- NOTE | 2024-03-25 13:04 | DI.RAD_ITS ---
Exam(s) XR CHEST 2V PA LATERAL EXAM: XR CHEST 2V PA LATERAL CLINICAL HISTORY: fatigue. TECHNIQUE: 2D digital imaging was performed. COMPARISON: CR XR CHEST 2V PA LATERAL from 02/21/2024 FINDINGS: 2 views: Heart size is normal. The mediastinum is not widened. Bilateral hyperinflation again noted but no new infiltrates nor pleural effusions. No pulmonary ava a. No pneumothorax. No fractures. IVC filter is again noted. IMPRESSION: No acute pulmonary findings. IVC filter again noted. DATA REPOSITORY: RADIATION DOSE DELIVERED:
[2024-03-25 14:00] LABS: COVID-19 PCR Negative (Negative); Influenza A PCR Negative (Negative); Influenza B PCR Negative (Negative); RSV PCR Negative (Negative)
[2024-03-25 14:04] LABS: Source Nasopharynx
[2024-03-25 14:45] LABS: PTT Activated 69.7 sec (23.6-32.8)
--- NOTE | 2024-03-25 14:56 | HPE_ITS ---
Date of service: 03/25/24 Time of Service: 15:10 Assessment and Plan Assessment and plan (1) Elevated INR: Status: Acute Assessment and plan: -Patient initially presented with generalized weakness and inability to perform ADLs (see below for details), but in the emergency department she was noted as having significantly elevated INR greater than 10 -Patient not on any anticoagulation -At this time it is presumed that this is secondary to poor p.o. intake/nutrition in combination with short gut and malabsorption -Given IV potassium and Kcentra in the emergency department -Will follow-up repeat vitamin K and give additional IV vitamin K as indicated (2) Generalized weakness: Status: Acute Assessment and plan: - Likely secondary to poor nutrition, short gut, malabsorption resulting in progressive worsening functional status generalized weakness and inability to perform ADLs -Will consult nutrition -Appreciate PT consultation and recommendations (3) Hypoalbuminemia: Status: Acute Assessment and plan: - Secondary to poor p.o. intake and shortcut/malabsorption as noted above (4) Frailty: Status: Acute (5) Short gut syndrome: Status: Acute History of Present Illness History of Present Illness Chief Complaint: weakness, blood from ostomy N arrative: 78yo female with PMH as medical history of vaginal cancer status postsurgical resection and radiation resulting in loss of bowel length, short gut syndrome ileostomy initially presenting the emergency department with increased bloody output from her ostomy noted by her home health nurse earlier today in addition to generalized fatigue. Patient reportedly presented because there was some blood in her ostomy that was noted by home health earlier today. Additionally, the patient states that she has significant worsening of fatigue over the last few weeks and has had increased difficulty being able to take care of herself. She even states that she has had difficulty performing her ADLs due to progressive decline in her functional capacity. She denies any headaches, lightheadedness, dizziness, chest pain, shortness of breath, nausea vomiting or diarrhea. In the emergency department the patient was noted as having dry mucous membranes, but had otherwise normal physical exam, vital signs, and despite complaining of blood in her ostomy did not have any bloody output while in the emergency department and noted as having hemoglobin is 11.2. BMP was remarkable for a TSH of 6.75, albumin of 2.8, total protein of 6.2. UA was negative, as was CT abdomen pelvis and chest x-ray. However, patient was noted as having elevated INR greater than 10 that was refired followed by lab. On the emergency department the patient was ordered Kcentra and vitamin K, emergency room physician paged hospitalist for admission for patient with generalized weakness, failure to thrive, and elevated INR presumably due to short-gut and vitamin K deficiency due to malabsorption. Review of Systems All systems reviewed & are unremarkable except as noted in HPI and below PFSH All Active Problems (Updated 03/25/24 @ 16:38 by Jonathan Escamilla MD) Elevated INR (Acute) Generalized weakness (Acute) Hypoalbuminemia (Acute) Dehydration (Acute) Frailty (Acute) Short gut syndrome (Acute) Ileostomy in place (Acute) Lung nodule, multiple (Acute) DNR (do not resuscitate) (Acute) See November 28, 2023 palliative care note. Patient desires DNR/DNI. Does want to be transferred to the hospital and treated, receive IV fluids and IV antibiotics. Refuses to complete COLST form, as she feels advanced directive is enough and additional forms would just be confusing . Palliative care patient (Acute) Advanced care planning/counseling discussion (Acute) Radiation colitis (Acute) Underweight (Acute) Reduced vision (Acute) Macular degeneration by report Heart failure with reduced ejection fraction due to cardiomyopathy (Acute) Atrial fibrillation (Chronic) Cardiomegaly (Acute) Compression fx, lumbar spine (Acute) Status post cataract extraction and insertion of intraocular lens of right eye (Chronic 05/26/18) Corneal endothelial dystrophy (Chronic) Nuclear sclerotic cataract of left eye (Acute) Weakness (Chronic 08/28/13) Radiation cystitis (Chronic) Chronic diarrhea (Chronic) Short-bowel syndrome? 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 Pancreatic insufficiency (Chronic) Cholelithiasis (Chronic) Adrenal nodule (Chronic) Incidental. Ruptured bladder (Acute 09/12/13) Cutaneous urostomy tubes. 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 Gross hematuria. 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 Social History Smoking/Tobacco Use Status: Former Tobacco Use Quit Date: 11/19/13 Smoking risk assessment performed?: Yes Alcohol Intake: never Drug use: Never Housing: house Do you feel safe at home: Yes Additional Social history: lives alone, with her cat Meds Allergies and Home Medications Allergies Allergy/AdvReac Type Severity Reaction Status Date / Time aspirin Allergy Unknown Unknown Verified 03/25/24 10:57 codeine AdvReac Intermediate Nausea Verified 03/25/24 10:56 Home Medications ?Medication ?Instructions ?Recorded ?Confirmed ?Type multivitamin (Multi-Day tablet) 1 tab PO DAILY 06/21/13 03/25/24 History acetaminophen 650 mg 2 tab PO BID 05/21/18 03/25/24 History tablet,extended release (Arthritis Pain Reliever) loperamide 2 mg capsule (Imodium 2 mg PO BID 05/21/18 03/25/24 History A-D) levothyroxine 75 mcg tablet 75 mcg PO DAILY 11/27/23 03/25/24 History calcium carbonate 1,000 mg (5 x 200 mg calcium (500 12/03/23 03/25/24 Rx mg)) PO BID #120 tabs digoxin 125 mcg (0.125 mg) tablet 125 mcg PO Q48H #15 tabs 12/03/23 03/25/24 Rx empagliflozin 10 mg tablet 10 mg PO QAM #30 tabs 12/03/23 03/25/24 Rx (Jardiance) ergocalciferol (vitamin D2) 1,250 1,250 mcg PO Q7D #12 caps 12/03/23 03/25/24 Rx mcg (50,000 unit) capsule (Vitamin D2) magnesium gluconate 27 mg 500 mg (18.5185 x 27 mg magnesium 12/03/23 03/25/24 Rx magnesium (500 mg) tablet (500 mg)) PO DAILY #30 tabs metoprolol tartrate 50 mg tablet 50 mg PO TID #90 tabs 12/03/23 03/25/24 Rx Exam Narrative Exam Narrative: extremely cachectic appearing elderly female laying in bed in no acute distress, AOx4, heart RRR, lungs CTAB, abdomen soft, non-tender, non-distended, multiple excoriations across entire body in various stages of healing Results Labs 03/25/24 11:20 03/25/24 11:20 Labs: Laboratory Results - last 24 hr 03/25/24 03/25/24 03/25/24 11:20 11:20 11:37 WBC 10.60 RBC 3.39 L Hgb 11.2 Hct 36.5 MCV 108 H MCH 33.0 MCHC 30.7 L RDW 16.8 H Plt Count 314 MPV 8.8 Immature Gran % 0.6 Neutrophils % 82.7 Lymphocytes % 9.5 Monocytes % 6.2 Eosinophils % 0.6 Basophils % 0.4 Nucleated RBC % 0.0 Absolute Neutrophils 8.77 H Absolute Lymphocytes 1.01 L Absolute Monocytes 0.66 Absolute Eosinophils 0.06 Absolute Basophils 0.04 PT Cancelled INR Cancelled APTT Cancelled Sodium 138 Potassium 4.6 Chloride 104 Carbon Dioxide 28.7 Anion Gap 5.3 BUN 20 H Creatinine 1.1 H Est GFR (CKD-EPI 2020) 51.43 Glucose 102 Calcium 9.2 Magnesium 1.8 Total Bilirubin 0.26 AST 41 H ALT 33 Alkaline Phosphatase 122 H Total Protein 6.2 L Albumin 2.8 L TSH 6.75 H Free T4 1.22 Urine Color Yellow Urine Clarity Sl Cloudy Urine pH 5.5 Ur Specific Sullivan 1.015 Urine Protein Trace Urine Ketones Negative Urine Blood Moderate H Urine Nitrite Negative Urine Bilirubin Negative Urine Urobilinogen 0.2 Ur Leukocyte Esterase Negative Urine RBC 10-20 H Urine WBC 5-10 Ur Epithelial Cells Rare Urine Crystals Negative Urine Bacteria Many Urine Mucus Negative Ur Culture Indicated? Yes Urine Glucose 500 H COVID-19 Source SARS-CoV-2 (PCR) Influenza Type A (PCR) Influenza Type B (PCR) RSV (PCR) ABO/Rh A Positive Antibody Screen POSITIVE Antibody Identification Anti-K Anti-Kpa 03/25/24 03/25/24 03/25/24 12:27 13:20 14:25 WBC RBC Hgb Hct MCV MCH MCHC RDW Plt Count MPV Immature Gran % Neutrophils % Lymphocytes % Monocytes % Eosinophils % Basophils % Nucleated RBC % Absolute Neutrophils Absolute Lymphocytes Absolute Monocytes Absolute Eosinophils Absolute Basophils PT Cancelled INR Cancelled APTT Cancelled 69.7 H Sodium Potassium Chloride Carbon Dioxide Anion Gap BUN Creatinine Est GFR (CKD-EPI 2020) Glucose Calcium Magnesium Total Bilirubin AST ALT Alkaline Phosphatase Total Protein Albumin TSH Free T4 Urine Color Urine Clarity Urine pH Ur Specific Sullivan Urine Protein Urine Ketones Urine Blood Urine Nitrite Urine Bilirubin Urine Urobilinogen Ur Leukocyte Esterase Urine RBC Urine WBC Ur Epithelial Cells Urine Crystals Urine Bacteria Urine Mucus Ur Culture Indicated? Urine Glucose COVID-19 Source Nasopharynx SARS-CoV-2 (PCR) Negative Influenza Type A (PCR) Negative Influenza Type B (PCR) Negative RSV (PCR) Negative ABO/Rh Antibody Screen Antibody Identification Last Vital Signs Temp 97 F L 03/25/24 10:38 Pulse 70 03/25/24 12:31 Resp 27 H 03/25/24 12:31 BP 123/48 L 03/25/24 12:31 Pulse Ox 100 03/25/24 12:31 Time Spent Time spent with Patient: >75 minutes Time was spent: preparing to see the patient(eg.review tests), obtaining and/or reviewing separately otained hiistory, ordering medications,tests, procedures, referring, communicating with other health career services assistant, indepentently interpreting results, counseling the patient and care coordination
[2024-03-25 15:05] LABS: Prothrombin Time > 83.4 sec (9.1-11.1)
--- NOTE | 2024-03-25 15:38 | ED.PROG_ITS ---
Date of service: 03/25/24 Time of Service: 15:38 Medical Decision Making Resting comfortably no acute distress. Hemodynamically stable. PT/INR PTT all elevated. Lab has run samples 3 times with similar results. High clinical suspicion that this is related to poor vitamin K absorption in the setting of short gut syndrome. Vitamin K and Kcentra have been ordered. Quality:SDOH Health Related Social Needs: Health related social needs transpo insecurity Discharge Plan Disposition Patient Disposition: Admit to [facility] Condition: Stable Discharge Details Clinical Impression: Frailty, Dehydration, Hypoalbuminemia, Generalized weakness Primary Care Provider: Maliha Ceja ED Provider: Hever Devlin Home Meds and New Rx's Prescriptions: No Action multivitamin [Multi-Day] 1 EACH tablet 1 tab PO DAILY loperamide [Imodium A-D] 2 mg Capsule 2 mg PO BID acetaminophen [Arthritis Pain Reliever] 650 mg Tablet Extended Release 2 tab PO BID levothyroxine 75 mcg tablet 75 mcg PO DAILY Patient Comments: TAKE 1 TABLET BY MOUTH DAILY metoprolol tartrate 50 mg Tablet 50 mg PO TID Qty: 90 0RF calcium carbonate 200 mg calcium (500 mg) Tablet,Chewable 1,000 mg PO BID Qty: 120 0RF ergocalciferol (vitamin D2) [Vitamin D2] 1,250 mcg (50,000 unit) Capsule 1,250 mcg PO Q7D Qty: 12 0RF magnesium gluconate 27 mg magnesium (500 mg) Tablet 500 mg PO DAILY Qty: 30 0RF Jardiance 10 mg Tablet 10 mg PO QAM Qty: 30 0RF digoxin 125 mcg (0.125 mg) tablet 125 mcg PO Q48H Qty: 15 0RF
[2024-03-25] MEDS: PHYTONADIONE 10 MG in Normal Saline 50 ML 200 MG IVPB (15:53)
[2024-03-25 16:14] LABS: INR 10.2 (0.9-1.1); Prothrombin Time > 83.4 sec (9.1-11.1)
--- NOTE | 2024-03-25 18:00 | PT.INNT ---
PT Notes Visit Reasons: Generalized Weakness Nurse admitting patient when PT came in. Will plan on evaluation tomorrow morning, as ordered.
--- NOTE | 2024-03-25 18:15 | W.PC.ACHO ---
Registration Status: Primary Language: Preferred Language: ED Information & Data Chief Complaint GI Bleed 03/25/24 11:40 Chief Complaint GI Bleed 03/25/24 11:17 Triage Note blood in colostomy bag which 03/25/24 10:38 was changed today at 8am. bag is filling fast. feels weak. difficulty breathing. denies fever, chills or abd pain. Medical / Surgical History (Last Reviewed 12/27/23 @ 12:45 by Ritu Greenberg MD) Nuclear sclerotic cataract of right eye (Last Reviewed 12/27/23 @ 12:45 by Ritu Greenberg MD) History of urostomy Status post ileostomy Most Recent Vital Signs Temperature 36.8 C 03/25/24 17:49 Temperature Source Temporal Artery Scan 03/25/24 10:38 Pulse 107 H 03/25/24 17:49 Pulse Rhythm Regular 03/25/24 17:49 Pulse 85 03/25/24 12:32 Respiratory Rate 19 03/25/24 17:49 Respiratory Effort Normal 03/25/24 17:49 Respiratory Depth Normal 03/25/24 17:49 Respiratory Pattern Normal 03/25/24 17:49 Blood Pressure 121/73 03/25/24 17:49 Blood Pressure Mean 84 03/25/24 17:30 Blood Pressure Position Supine 03/25/24 17:30 Pulse Oximetry 95 03/25/24 17:49 Oxygen Delivery Method Room Air 03/25/24 17:49 Oxygen Flow Rate 0 03/25/24 17:49 Pain Level 0 03/25/24 10:38 Allergies aspirin Allergy (Unknown, Verified 03/25/24 10:57) Unknown codeine Adverse Reaction (Intermediate, Verified 03/25/24 10:56) Nausea gi upset IV IV Catheter Type [Left Peripheral IV Antecubital] IV Catheter Gauge [Left 20 Antecubital] Diet Orders Category Date Time Status Regular/Normal [DIET] Nutrition 03/25/24 Dinner Active Diagnostics 03/25/24 03/25/24 03/25/24 Range/Units 15:40 14:25 13:20 WBC (4.4-10.8) 10^3/uL RBC (3.93-5.22) 10^6/uL Hgb (11.2-15.7) g/dL Hct (36.0-46.0) % MCV (80-95) fL MCH (27.0-33.0) pg MCHC (32.0-36.0) % RDW (11.7-14.6) % Plt Count (130-400) 10^3/uL MPV (8.0-11.0) fL Immature Gran % % Neutrophils % % Lymphocytes % % Monocytes % % Eosinophils % % Basophils % % Nucleated RBC % (0.0-0.3) % Absolute Neutrophils (1.2-6.7) 10^3/uL Absolute Lymphocytes (1.2-3.4) 10^3/uL Absolute Monocytes (0.1-0.8) 10^3/uL Absolute Eosinophils (0.0-0.7) 10^3/uL Absolute Basophils (0.0-0.2) 10^3/uL PT > 83.4 H > 83.4 H INR 10.2 H* > 10.2 H* APTT 68.0 H 69.7 H Sodium (136-145) mmol/L Potassium (3.5-5.1) mmol/L Chloride (98-107) mmol/L Carbon Dioxide (21.0-32.0) mmol/L Anion Gap (3-11) mmol/L BUN (7-18) mg/dL Creatinine (0.55-1.02) mg/dL Est GFR (CKD-EPI 2020) (mL/min/1.73m2) Glucose (74-106) mg/dL Calcium (8.5-10.1) mg/dL Magnesium (1.8-2.4) mg/dL Total Bilirubin (0.2-1.0) mg/dL AST (15-37) U/L ALT (14-59) U/L Alkaline Phosphatase (46-116) U/L Total Protein (6.4-8.2) g/dL Albumin (3.4-5.0) g/dL TSH (0.36-3.74) uIU/mL Free T4 (0.76-1.46) ng/dL Urine Color (Yellow) Urine Clarity (Clear) Urine pH (5-8) Ur Specific [place] (1.005-1.025) Urine Protein (Neg-Trace) mg/dL Urine Ketones (Negative) mg/dL Urine Blood (Negative) Urine Nitrite (Negative) Urine Bilirubin (Negative) Urine Urobilinogen (Up to 0.2) mg/dL Ur Leukocyte Esterase (Negative) Urine RBC (0-2) HPF Urine WBC (0-5) HPF Ur Epithelial Cells (Negative) HPF Urine Crystals (Negative) HPF Urine Bacteria (Negative) HPF Urine Mucus (Negative) Ur Culture Indicated? Urine Glucose (Negative) mg/dL COVID-19 Source Nasopharynx SARS-CoV-2 (PCR) Negative (Negative) Influenza Type A (PCR) Negative (Negative) Influenza Type B (PCR) Negative (Negative) RSV (PCR) Negative (Negative) ABO/Rh Antibody Screen Antibody Identification Antibody ID Referred 03/25/24 03/25/24 03/25/24 Range/Units 12:27 12:00 11:37 WBC (4.4-10.8) 10^3/uL RBC (3.93-5.22) 10^6/uL Hgb (11.2-15.7) g/dL Hct (36.0-46.0) % MCV (80-95) fL MCH (27.0-33.0) pg MCHC (32.0-36.0) % RDW (11.7-14.6) % Plt Count (130-400) 10^3/uL MPV (8.0-11.0) fL Immature Gran % % Neutrophils % % Lymphocytes % % Monocytes % % Eosinophils % % Basophils % % Nucleated RBC % (0.0-0.3) % Absolute Neutrophils (1.2-6.7) 10^3/uL Absolute Lymphocytes (1.2-3.4) 10^3/uL Absolute Monocytes (0.1-0.8) 10^3/uL Absolute Eosinophils (0.0-0.7) 10^3/uL Absolute Basophils (0.0-0.2) 10^3/uL PT Cancelled Cancelled INR Cancelled Cancelled APTT Cancelled Cancelled Sodium (136-145) mmol/L Potassium (3.5-5.1) mmol/L Chloride (98-107) mmol/L Carbon Dioxide (21.0-32.0) mmol/L Anion Gap (3-11) mmol/L BUN (7-18) mg/dL Creatinine (0.55-1.02) mg/dL Est GFR (CKD-EPI 2020) (mL/min/1.73m2) Glucose (74-106) mg/dL Calcium (8.5-10.1) mg/dL Magnesium (1.8-2.4) mg/dL Total Bilirubin (0.2-1.0) mg/dL AST (15-37) U/L ALT (14-59) U/L Alkaline Phosphatase (46-116) U/L Total Protein (6.4-8.2) g/dL Albumin (3.4-5.0) g/dL TSH (0.36-3.74) uIU/mL Free T4 (0.76-1.46) ng/dL Urine Color Yellow (Yellow) Urine Clarity Sl Cloudy (Clear) Urine pH 5.5 (5-8) Ur Specific [place] 1.015 (1.005-1.025) Urine Protein Trace (Neg-Trace) mg/dL Urine Ketones Negative (Negative) mg/dL Urine Blood Moderate H (Negative) Urine Nitrite Negative (Negative) Urine Bilirubin Negative (Negative) Urine Urobilinogen 0.2 (Up to 0.2) mg/dL Ur Leukocyte Esterase Negative (Negative) Urine RBC 10-20 H (0-2) HPF Urine WBC 5-10 (0-5) HPF Ur Epithelial Cells Rare (Negative) HPF Urine Crystals Negative (Negative) HPF Urine Bacteria Many (Negative) HPF Urine Mucus Negative (Negative) Ur Culture Indicated? Yes Urine Glucose 500 H (Negative) mg/dL COVID-19 Source SARS-CoV-2 (PCR) (Negative) Influenza Type A (PCR) (Negative) Influenza Type B (PCR) (Negative) RSV (PCR) (Negative) ABO/Rh Antibody Screen Antibody Identification Antibody ID Referred Pending 03/25/24 03/25/24 Range/Units 11:20 11:20 WBC 10.60 (4.4-10.8) 10^3/uL RBC 3.39 L (3.93-5.22) 10^6/uL Hgb 11.2 (11.2-15.7) g/dL Hct 36.5 (36.0-46.0) % MCV 108 H (80-95) fL MCH 33.0 (27.0-33.0) pg MCHC 30.7 L (32.0-36.0) % RDW 16.8 H (11.7-14.6) % Plt Count 314 (130-400) 10^3/uL MPV 8.8 (8.0-11.0) fL Immature Gran % 0.6 % Neutrophils % 82.7 % Lymphocytes % 9.5 % Monocytes % 6.2 % Eosinophils % 0.6 % Basophils % 0.4 % Nucleated RBC % 0.0 (0.0-0.3) % Absolute Neutrophils 8.77 H (1.2-6.7) 10^3/uL Absolute Lymphocytes 1.01 L (1.2-3.4) 10^3/uL Absolute Monocytes 0.66 (0.1-0.8) 10^3/uL Absolute Eosinophils 0.06 (0.0-0.7) 10^3/uL Absolute Basophils 0.04 (0.0-0.2) 10^3/uL PT INR APTT Sodium 138 (136-145) mmol/L Potassium 4.6 (3.5-5.1) mmol/L Chloride 104 (98-107) mmol/L Carbon Dioxide 28.7 (21.0-32.0) mmol/L Anion Gap 5.3 (3-11) mmol/L BUN 20 H (7-18) mg/dL Creatinine 1.1 H (0.55-1.02) mg/dL Est GFR (CKD-EPI 2020) 51.43 (mL/min/1.73m2) Glucose 102 (74-106) mg/dL Calcium 9.2 (8.5-10.1) mg/dL Magnesium 1.8 (1.8-2.4) mg/dL Total Bilirubin 0.26 (0.2-1.0) mg/dL AST 41 H (15-37) U/L ALT 33 (14-59) U/L Alkaline Phosphatase 122 H (46-116) U/L Total Protein 6.2 L (6.4-8.2) g/dL Albumin 2.8 L (3.4-5.0) g/dL TSH 6.75 H (0.36-3.74) uIU/mL Free T4 1.22 (0.76-1.46) ng/dL Urine Color (Yellow) Urine Clarity (Clear) Urine pH (5-8) Ur Specific [place] (1.005-1.025) Urine Protein (Neg-Trace) mg/dL Urine Ketones (Negative) mg/dL Urine Blood (Negative) Urine Nitrite (Negative) Urine Bilirubin (Negative) Urine Urobilinogen (Up to 0.2) mg/dL Ur Leukocyte Esterase (Negative) Urine RBC (0-2) HPF Urine WBC (0-5) HPF Ur Epithelial Cells (Negative) HPF Urine Crystals (Negative) HPF Urine Bacteria (Negative) HPF Urine Mucus (Negative) Ur Culture Indicated? Urine Glucose (Negative) mg/dL COVID-19 Source SARS-CoV-2 (PCR) (Negative) Influenza Type A (PCR) (Negative) Influenza Type B (PCR) (Negative) RSV (PCR) (Negative) ABO/Rh A Positive Antibody Screen POSITIVE Antibody Identification Anti-Kpa Anti-K Antibody ID Referred 03/25/24 11:37 Urine Culture - Pending Urine - Reflex from Ua Intake and Output - 24 Hour Total 03/25/24 10:32 thru 03/25/24 18:01 Intake Total 964.667 Balance 964.667 Weight 37.149 kg Intake: IV 964.667 Other: Urine Appearance Clear Falls Risk Assessment History of Falls Previous History 03/25/24 17:49 Contributing Factors Impairments 03/25/24 17:49 Ambulatory Aids Uses ambulatory device + 03/25/24 17:49 Tubes/Lines With any additional score 03/25/24 17:49 Gait Evaluation W/any additional score 03/25/24 17:49 Cognition No cognitive impairment 03/25/24 17:49 Fall Total Score 88 03/25/24 17:49 Level of Risk Maximum Risk 03/25/24 17:49 Problems (Last Reviewed 12/27/23 @ 12:45 by Ritu Greenberg MD) Elevated INR (Acute) Generalized weakness (Acute) Hypoalbuminemia (Acute) Dehydration (Acute) Frailty (Acute) Short gut syndrome (Acute) v v v v v v v v v Sending and/or Receiving Nurses: Please use comment section below to note any information pertinent to the patient hand-off not included above. Information / Comments: Report received from: Hemalatha King RN
[2024-03-25] MEDS: Loperamide 2 MG CAP PO (20:09)
[2024-03-25] MEDS: Calcium Carbonate *TUMS* 500 MG CHEW 1000 MG PO (20:09)
[2024-03-25] MEDS: Metoprolol 50 MG TAB PO (20:09)
[2024-03-25] MEDS: Normal Saline Flush 10 ML SYR IVP (20:10)
[2024-03-25] MEDS: Acetaminophen 325 MG TAB PO (20:33)
[2024-03-26] VITALS (10 sets, daily range): BP systolic 86–101; BP diastolic 44–68; PULSE 63–106; RESP 16–32; TEMP 35.8–36.9; O2SAT 79–100
[2024-03-26] MEDS: Normal Saline 250 ML IV (00:15)
[2024-03-26] MEDS: Digoxin 0.125 MG TAB PO (04:04)
[2024-03-26] MEDS: Levothyroxine 75 MCG TAB PO (06:04)
[2024-03-26 07:05] LABS: HCT 30.6 % (36.0-46.0); HGB 9.7 g/dL (11.2-15.7); MCH 33.6 pg (27.0-33.0); MCHC 31.7 % (32.0-36.0); MCV 106 fL (80-95); MPV 9.2 fL (8.0-11.0); Platelet Count 233 10^3/uL (130-400); RBC 2.89 10^6/uL (3.93-5.22); RDW 16.7 % (11.7-14.6); RDW-SD 64.8 fL; WBC 10.19 10^3/uL (4.4-10.8)
[2024-03-26 07:19] LABS: Anion Gap 7.7 mmol/L (3-11); BUN 19 mg/dL (7-18); CO2 26.3 mmol/L (21.0-32.0); Calcium 8.7 mg/dL (8.5-10.1); Chloride 102 mmol/L (98-107); Estimated GFR 57.66 (mL/min/1.73m2); Glucose 79 mg/dL (74-106); Magnesium 1.7 mg/dL (1.8-2.4); Potassium 3.6 mmol/L (3.5-5.1); Sodium 136 mmol/L (136-145)
[2024-03-26 07:49] LABS: Prothrombin Time 9.8 sec (9.1-11.1)
[2024-03-26] MEDS: Calcium Carbonate *TUMS* 500 MG CHEW 1000 MG PO ×2 (08:34→20:05)
[2024-03-26] MEDS: Empaglifozin 10 MG TAB PO (08:35)
[2024-03-26] MEDS: Loperamide 2 MG CAP PO ×2 (08:35→20:03)
[2024-03-26] MEDS: Normal Saline Flush 10 ML SYR IVP ×2 (08:35→20:04)
[2024-03-26] MEDS: Magnesium Gluconate 500 MG TAB PO (08:35)
[2024-03-26] MEDS: Metoprolol 50 MG TAB PO ×2 (08:35→14:39)
[2024-03-26] MEDS: Multivitamin TAB 1 TAB PO (08:35)
[2024-03-26] MEDS: Acetaminophen 325 MG TAB PO ×2 (08:48→15:18)
--- NOTE | 2024-03-26 08:51 | PGE_ITS ---
Date of Service Date of service: 03/26/24 Time of Service: 08:51 Assessment and Plan Assessment and plan (1) Elevated INR: Status: Acute Assessment and plan: -Patient initially presented with generalized weakness and inability to perform ADLs (see below for details), but in the emergency department she was noted as having significantly elevated INR greater than 10 -Patient not on any anticoagulation -At this time it is presumed that this is secondary to poor p.o. intake/nutrition in combination with short gut and malabsorption -Given IV Vit K and Kcentra in the emergency department -Repeat INR AM 03/26 down to 1.0 -Will discuss with Nutrition, but patient will likely require weekly IV vitamin K (2) Generalized weakness: Status: Acute Assessment and plan: - Likely secondary to poor nutrition, short gut, malabsorption resulting in progressive worsening functional status generalized weakness and inability to perform ADLs -Will consult nutrition -Appreciate PT consultation and recommendations (3) Hypoalbuminemia: Status: Acute Assessment and plan: - Secondary to poor p.o. intake and shortcut/malabsorption as noted above (4) Frailty: Status: Acute (5) Short gut syndrome: Status: Acute Subjective Subjective Interval history since last seen: Patient states that she is doing well today but is still feeling weak. She is looking forward to working with PT, Nutrition, and Palliative Care sometime today. Exam Narrative Exam Narrative: extremely cachectic appearing elderly female laying in bed in no acute distress, AOx4, heart RRR, lungs CTAB, abdomen soft, non-tender, non-distended, multiple excoriations across entire body in various stages of healing Objective Last Vital Signs Temp 96.6 F L 03/26/24 07:49 Pulse 106 H 03/26/24 07:49 Resp 17 03/26/24 07:49 BP 86/68 L 03/26/24 07:49 Pulse Ox 100 03/26/24 06:17 Laboratory Results - last 24 hr 03/25/24 03/25/24 03/25/24 11:20 11:20 11:37 WBC 10.60 RBC 3.39 L Hgb 11.2 Hct 36.5 MCV 108 H MCH 33.0 MCHC 30.7 L RDW 16.8 H Plt Count 314 MPV 8.8 Immature Gran % 0.6 Neutrophils % 82.7 Lymphocytes % 9.5 Monocytes % 6.2 Eosinophils % 0.6 Basophils % 0.4 Nucleated RBC % 0.0 Absolute Neutrophils 8.77 H Absolute Lymphocytes 1.01 L Absolute Monocytes 0.66 Absolute Eosinophils 0.06 Absolute Basophils 0.04 PT Cancelled INR Cancelled APTT Cancelled Sodium 138 Potassium 4.6 Chloride 104 Carbon Dioxide 28.7 Anion Gap 5.3 BUN 20 H Creatinine 1.1 H Est GFR (CKD-EPI 2020) 51.43 Glucose 102 Calcium 9.2 Magnesium 1.8 Total Bilirubin 0.26 AST 41 H ALT 33 Alkaline Phosphatase 122 H Total Protein 6.2 L Albumin 2.8 L TSH 6.75 H Free T4 1.22 Urine Color Yellow Urine Clarity Sl Cloudy Urine pH 5.5 Ur Specific [place] 1.015 Urine Protein Trace Urine Ketones Negative Urine Blood Moderate H Urine Nitrite Negative Urine Bilirubin Negative Urine Urobilinogen 0.2 Ur Leukocyte Esterase Negative Urine RBC 10-20 H Urine WBC 5-10 Ur Epithelial Cells Rare Urine Crystals Negative Urine Bacteria Many Urine Mucus Negative Ur Culture Indicated? Yes Urine Glucose 500 H COVID-19 Source SARS-CoV-2 (PCR) Influenza Type A (PCR) Influenza Type B (PCR) RSV (PCR) ABO/Rh A Positive Antibody Screen POSITIVE Antibody Identification Anti-K Anti-Kpa 03/25/24 03/25/24 03/25/24 12:27 13:20 14:25 WBC RBC Hgb Hct MCV MCH MCHC RDW Plt Count MPV Immature Gran % Neutrophils % Lymphocytes % Monocytes % Eosinophils % Basophils % Nucleated RBC % Absolute Neutrophils Absolute Lymphocytes Absolute Monocytes Absolute Eosinophils Absolute Basophils PT Cancelled > 83.4 H INR Cancelled > 10.2 H* APTT Cancelled 69.7 H Sodium Potassium Chloride Carbon Dioxide Anion Gap BUN Creatinine Est GFR (CKD-EPI 2020) Glucose Calcium Magnesium Total Bilirubin AST ALT Alkaline Phosphatase Total Protein Albumin TSH Free T4 Urine Color Urine Clarity Urine pH Ur Specific [place] Urine Protein Urine Ketones Urine Blood Urine Nitrite Urine Bilirubin Urine Urobilinogen Ur Leukocyte Esterase Urine RBC Urine WBC Ur Epithelial Cells Urine Crystals Urine Bacteria Urine Mucus Ur Culture Indicated? Urine Glucose COVID-19 Source Nasopharynx SARS-CoV-2 (PCR) Negative Influenza Type A (PCR) Negative Influenza Type B (PCR) Negative RSV (PCR) Negative ABO/Rh Antibody Screen Antibody Identification 03/25/24 03/26/24 03/26/24 15:40 06:30 07:30 WBC 10.19 RBC 2.89 L Hgb 9.7 L Hct 30.6 L MCV 106 H MCH 33.6 H MCHC 31.7 L RDW 16.7 H Plt Count 233 MPV 9.2 Immature Gran % Neutrophils % Lymphocytes % Monocytes % Eosinophils % Basophils % Nucleated RBC % Absolute Neutrophils Absolute Lymphocytes Absolute Monocytes Absolute Eosinophils Absolute Basophils PT > 83.4 H 9.8 INR 10.2 H* 1.0 APTT 68.0 H Sodium 136 Potassium 3.6 D Chloride 102 Carbon Dioxide 26.3 Anion Gap 7.7 BUN 19 H Creatinine 1.0 Est GFR (CKD-EPI 2020) 57.66 Glucose 79 Calcium 8.7 Magnesium 1.7 L Total Bilirubin AST ALT Alkaline Phosphatase Total Protein Albumin TSH Free T4 Urine Color Urine Clarity Urine pH Ur Specific [place] Urine Protein Urine Ketones Urine Blood Urine Nitrite Urine Bilirubin Urine Urobilinogen Ur Leukocyte Esterase Urine RBC Urine WBC Ur Epithelial Cells Urine Crystals Urine Bacteria Urine Mucus Ur Culture Indicated? Urine Glucose COVID-19 Source SARS-CoV-2 (PCR) Influenza Type A (PCR) Influenza Type B (PCR) RSV (PCR) ABO/Rh Antibody Screen Antibody Identification Time Spent with Patient Time Spent with Patient: >50 minutes Time was spent: preparing to see the patient(eg.review tests), obtaining and/or reviewing separately otained hiistory, ordering medications,tests, procedures, referring, communicating with other health residential child care counselor, indepentently interpreting results, counseling the patient and care coordination
--- NOTE | 2024-03-26 11:40 | PCNE_ITS ---
Date of service: 03/26/24 Time of Service: 11:25 History of Present Illness Narrative: Ms. Garcia is a 78-year-old woman who lives alone in her house in [facility] with her cat Joaquín. 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 Palliative Care Team has been following her since her November 2022 [facility] admission to help with advanced Care planning, Goals of Care, rallying support services and additional support to her and her son. Patient seen in hospital room today with her son Jerald present (I have talked with him on the phone several times but never met him in person) Patient reports that she was doing fine, doing all her own housework including vacuuming, only having someone go out and go shopping for her and had fully recovered from her November hospitalization. About a month ago, she had some vaginal bleeding, which she had not had in a long long time (vaginal bleeding was occurring January 2023 resulting in significant anemia, treated successfully with resection of necrotic tissue and bleeding had not recurred until last month) Then starting about 2 weeks ago she began feeling dizzy and weaker. She noted that she had black ileostomy ostomy output as well as some red blood on the outside of her stools in her ileostomy bag. This is not something that has ever happened before. She continues to get weaker and dizzy here. Got to the point she could not prepare herself meals and was laying in bed most of the time. Over the 3 days prior to admission, she began to feel that she was dying. Her neighbors and her son also felt that she might be dying and they both discussed possible referral to hospice. Patient did not want to go to the ER. Was a pro Palliative care was called a few days ago and asked to urgently do home visit to evaluate whether patient for hospice. I was scheduled to do a home visit this morning before lunch. However, at some point yesterday afternoon, patient made decision that she wanted to go to the ER to be evaluated because she was feeling so poorly. As a result of ED evaluation, she was felt to be dehydrated, initially mildly anemic and upon rehydration hemoglobin in the 9 range. Additionally she had a INR above 10 (not prescribed any anticoagulants and has not previously exhibited this problem in the past). Also question her whether she has a UTI (probably not). She was noted to have some bloody streaks in her ileostomy bag as well. She was diagnosed with coagulopathy likely due to vitamin K deficiency and was treated with 1 dose of parenteral vitamin K, PT?INR normalized. She is feeling much better and her appetite is back. She denies taking any [id number] supplements or herbs, denies any new medications. No alcohol use. At this point she is glad to find out that I am not dying and I just want to go back home . She is certain that she has vitamin K deficiency as cause of these problems due to her malabsorption. She cannot explain where this is never been a problem in the past even though she has had short gut syndrome for 20 years. I agree with her that the coagulopathy probably also contributed to the vaginal bleeding she had a month ago. I do note that her MCV has increased as well Care Team: Primary Care physician: [facility] , Dr. Ayala Urology: [facility], no regular follow-up in the last few years Gynecology: [facility], 1 telehealth visit after hospital discharge January 2023 Cardiology: Dr. Greenberg Social HX: Marital Status: Lives alone with cat (Joaquín). 2006. 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 Children: Son Jerald lives in [place]. Previously he was visiting every several months and calling weekly. He stayed with her for several days following discharge and has been visiting weekly since she came home from the hospital. 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 Mentions several friends and neighbors who helped her. Neighbor Poppy. She really loves animals. She walks Joaquín on a leash outside several times a day. Joaquín is her constant staff physical therapy assistant and sleeps with her as well. Additional Services: Son and pt connected with [place] [employer] [facility] ([facility]), but no resources have worked out for her yet. She has hired someone to go shopping for her once a week and this is working out very well for her. Signed up for RTC Impression of currents health status: What bothers you the most: What worries you the most: Goals: Feel stronger. remaining independent. Staying at home for the rest of her life Taking her cat for walks (he walks on a leash) Current information preferences: Function: Ambulation: Walks without assist inside. Uses a cane or walker outdoors. Sometimes cruises holding onto the wall. ADLs: Independent. Got a shower chair andIs working well for her (bathing independently). iADLs: Does not drive. Has hired someone to go shopping for her.Reports that she does her own vacuuming, dishwashing. Does her own finances Hearing:fine Vision: Macular degeneration (R eye sees better than R). Magnifying glass. Can no longer comfortably read. Cognition: perfect Falls: None since before hospital admission Driving: Had to give up driving 3+ years ago due to macular degeneration as per son. Palliative Performance Scale Palliative Performance Scale % Ambulation Activity and Evidence of Disease Self Care Intake Level of Consciousness 100 Full Normal activity, no evidence of disease Full Normal Full 90 Full Normal activity, some evidence of disease Full Normal Full 80 Full Normal activity with effort, some evidence of disease Full Normal or reduced Full 70 Reduced Unable to do normal work, some evidence of disease Full Normal or reduced Full 60 Reduced Unable to do hobby or some housework, significant disease Occasional assist necessary Normal or reduced Full or confusion 50 Mainly sit/lie Unable to do any work, extensive disease Considerable assistance required Normal or reduced Full or confusion 40 Mainly in bed Unable to do any work, extensive disease Mainly assistance Normal or reduced Full, drowsy, or confusion 30 Totally bed bound Unable to do any work, extensive disease Total care Reduced Full, drowsy, or confusion 20 Totally bed bound Unable to do any work, extensive disease Total care Minimal sips Full, drowsy, or confusion 10 Totally bed bound Unable to do any work, extensive disease Total care Mouth care only Drowsy or coma 0 - - - - Patient Score: 70?80 Spiritual history: Not methodist. Frederic by joking and keeping an open mind. Palliative review of systems: Pain: No chronic pain Dyspnea: Denies GI symptoms: Chronic diarrhea. I don't absorb food. Uses lmodium twice a day chronically. See HPI Appetite: Weight 37 kg, which is in her usual recent range. Depression: No Anxiety: None Emotional Distress: Spiritual/Existential Distress: None Labs: 03/26/2024 Cr:1.0-1.1 Liver panel: AST/ALT NL, alk phos sl elevated Albumin:2.8 INR >10.2, has been elevated inthe past CBC: hgb 9.7 (11.2 yesterday on adm, concentrated yesterday?), MCV 106 Magnesium 1.7 (scheduled to be rechecked in 2 weeks) Advanced Care Planning: Advanced Directive: 2011 [place] advanced directive on file Health Care Agent: stuart Mclaughlin (see advanced directive 2012). COLST: COLST 01/02/2024: DNR/DNI, transfer to the hospital, wants IV antibiotics and IV fluids. Prefers not to have any surgery. Reviewed today and she wishes no changes. Limitations: Assessment and Plan Assessment and plan (1) Coagulopathy: Status: Acute Assessment and plan: Patient is a 78-year-old woman who lives alone in her house with her cat. She has a diagnosis of significant congestive heart failure (EF 30%), history of cervical cancer 20 years ago (with radiation proctitis requiring ileostomy and cystostomy, short gut syndrome with malabsorption, chronically underweight). She has been followed by the palliative care team since spring of this year when she had her admission for first presentation of heart failure with reduced output. She is admitted this time with what appears to be a new to her coagulopathy, possibly vitamin K deficiency due to malabsorption, resulting in vaginal bleeding a month ago (resolved and not recurred) and now lower GI bleeding into her ileostomy bag. This resulted in dehydration, weakness, dizziness. Patient initially declined to see her doctor or go to the ER for evaluation and she decided that she might be dying and was interested in hospice. But ultimately decided to come to the ER. Happy to find that she has a reversible cause of bleeding (along with the subsequent anemia and weakness) and would like to be treated for this. She is not interested in hospice at this time. Son is a little upset that she is not still considering hospice. he is concerned that she may not be able to return home without significant support. I anticipate that if this is indeed only vitamin K deficiency, that it can be easily corrected and patient will most likely overtime be able to return to her previous level of functioning. However is not entirely clear to me that we understand exactly what happened. Hospitalist will work on sorting this out. They are currently working diagnosis at this time is vitamin K deficiency. Goals of care reviewed. No changes: Patient believes reluctant to accept any help at home but would be willing to accept help at home if this was the only way she could return to her home. Absolutely [place] to go [place] [facility]. She also would prefer not to have surgery. However if she had vaginal bleeding again that could not be managed, I think she would consider repeat procedure at [facility] similar to last summer (where they removed necrotic tissue that was continually bleeding from her vagina). She confirmed that she wishes to be DNR/DNI. At the end of my visit she mentioned that she is having increased difficulties with leaking and poor adherence of her ostomy apparatus. She has not worked with an ostomy nurse in many years. Patient has been quite independent with ordering and using her own supplies. She denies any big change in weight or anatomy in that area. She does think she is challenged by her decreased vision, this is making it harder for her to correctly affects the ostomy apparati, much more so than in the past. She again mentions that if she indeed had a life limiting illness And she was getting weaker and no longer able to live independently, she would want to transition to hospice. Again, she does not meet criteria for hospice at this time. We will plan to follow-up with patient. Recommend: -Given suspicion that she has developed vitamin K deficiency due to malabsorption and that she has an increasing MCV, suggest checking B12 and folate levels as well. -Please include request for her to be seen by ostomy nurse when home health referral is made. Patient is willing to work with ostomy nurse on this. (2) GI bleeding: Status: Chronic (3) Anemia: Status: Inactive (4) Elevated INR: Status: Inactive (5) History of urostomy: (6) Status post ileostomy: (7) History of cervical cancer: Status: Inactive (8) Cardiomyopathy: Status: Acute (9) Palliative care encounter: Status: Acute Assessment and plan: 16 to 30 minutes spent today on Advance Care Planning. Patient and family participated voluntarily. Advance care planning may include (not limited to) explanation and discussion of advance directives, choosing and appointing healthcare agents, alternatives to various ACP tools, discussion of (and if indicated, completion of) COLST form, discussion of patient's values and overall goals for treatment, palliative and disease directive care options, ways to avoid hospital readmission including hospice discussions, care preferences should the patient's several other adverse health events.See today's palliative care note for additional information. This note was dictated using speech recognition software. Attempt was made at proofreading, but errors may be present. Please call with questions. [facility] All Active Problems (Updated 03/26/24 @ 13:35 by Yoly Bobby MD) Palliative care encounter (Acute) Cardiomyopathy (Acute) Diagnosed November 2023: EF 30% GI bleeding (Chronic) Coagulopathy (Acute) Elevated INR (Acute) Generalized weakness (Acute) Hypoalbuminemia (Acute) Dehydration (Acute) Frailty (Acute) Short gut syndrome (Acute) Ileostomy in place (Acute) Lung nodule, multiple (Acute) DNR (do not resuscitate) (Acute) See November 28, 2023 palliative care note. Patient desires DNR/DNI. Does want to be transferred to the hospital and treated, receive IV fluids and IV antibiotics. Refuses to complete COLST form, as she feels advanced directive is enough and additional forms would just be confusing . Palliative care patient (Acute) Advanced care planning/counseling discussion (Acute) Radiation colitis (Acute) Underweight (Acute) Reduced vision (Acute) Macular degeneration by report Heart failure with reduced ejection fraction due to cardiomyopathy (Acute) Atrial fibrillation (Chronic) Cardiomegaly (Acute) Compression fx, lumbar spine (Acute) Status post cataract extraction and insertion of intraocular lens of right eye (Chronic 05/26/18) Corneal endothelial dystrophy (Chronic) Nuclear sclerotic cataract of left eye (Acute) Weakness (Chronic 08/28/13) Radiation cystitis (Chronic) Chronic diarrhea (Chronic) Short-bowel syndrome? 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 Pancreatic insufficiency (Chronic) Cholelithiasis (Chronic) Adrenal nodule (Chronic) Incidental. Ruptured bladder (Acute 09/12/13) Cutaneous urostomy tubes. 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 Gross hematuria. 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 Social History Smoking/Tobacco Use Status: Former Tobacco Use Quit Date: 11/19/13 Smoking risk assessment performed?: Yes Alcohol Intake: never Drug use: Never Housing: house Do you feel safe at home: Yes Additional Social history: lives alone, with her cat Exam Narrative Exam Narrative: Thin pleasant elderly woman laying in bed. Appears to be at his baseline. She is alert oriented to month, year, date. While I am in the room she complains that she is hungry and when her lunch tray arrives, she avidly eats about 80% of an extremely large lunch without difficulty. She is interactive and pleasant. Results Last Vital Signs Temp 35.9 C L 03/26/24 11:13 Pulse 63 03/26/24 11:13 Resp 17 03/26/24 11:13 BP 88/49 L 03/26/24 11:13 Pulse Ox 93 03/26/24 11:13 Labs 03/26/24 06:30 03/26/24 06:30 Labs: Laboratory Results - last 24 hr 03/25/24 03/25/24 03/25/24 11:20 11:20 11:37 WBC RBC Hgb Hct MCV MCH MCHC RDW Plt Count MPV PT Cancelled INR Cancelled APTT Cancelled Sodium 138 Potassium 4.6 Chloride 104 Carbon Dioxide 28.7 Anion Gap 5.3 BUN 20 H Creatinine 1.1 H Est GFR (CKD-EPI 2020) 51.43 Glucose 102 Calcium 9.2 Magnesium 1.8 Total Bilirubin 0.26 AST 41 H ALT 33 Alkaline Phosphatase 122 H Total Protein 6.2 L Albumin 2.8 L TSH 6.75 H Free T4 1.22 Urine Color Yellow Urine Clarity Sl Cloudy Urine pH 5.5 Ur Specific [place] 1.015 Urine Protein Trace Urine Ketones Negative Urine Blood Moderate H Urine Nitrite Negative Urine Bilirubin Negative Urine Urobilinogen 0.2 Ur Leukocyte Esterase Negative Urine RBC 10-20 H Urine WBC 5-10 Ur Epithelial Cells Rare Urine Crystals Negative Urine Bacteria Many Urine Mucus Negative Ur Culture Indicated? Yes Urine Glucose 500 H COVID-19 Source SARS-CoV-2 (PCR) Influenza Type A (PCR) Influenza Type B (PCR) RSV (PCR) ABO/Rh A Positive Antibody Screen POSITIVE Antibody Identification Anti-K Anti-Kpa 03/25/24 03/25/24 03/25/24 12:27 13:20 14:25 WBC RBC Hgb Hct MCV MCH MCHC RDW Plt Count MPV PT Cancelled > 83.4 H INR Cancelled > 10.2 H* APTT Cancelled 69.7 H Sodium Potassium Chloride Carbon Dioxide Anion Gap BUN Creatinine Est GFR (CKD-EPI 2020) Glucose Calcium Magnesium Total Bilirubin AST ALT Alkaline Phosphatase Total Protein Albumin TSH Free T4 Urine Color Urine Clarity Urine pH Ur Specific [place] Urine Protein Urine Ketones Urine Blood Urine Nitrite Urine Bilirubin Urine Urobilinogen Ur Leukocyte Esterase Urine RBC Urine WBC Ur Epithelial Cells Urine Crystals Urine Bacteria Urine Mucus Ur Culture Indicated? Urine Glucose COVID-19 Source Nasopharynx SARS-CoV-2 (PCR) Negative Influenza Type A (PCR) Negative Influenza Type B (PCR) Negative RSV (PCR) Negative ABO/Rh Antibody Screen Antibody Identification 03/25/24 03/26/24 03/26/24 15:40 06:30 07:30 WBC 10.19 RBC 2.89 L Hgb 9.7 L Hct 30.6 L MCV 106 H MCH 33.6 H MCHC 31.7 L RDW 16.7 H Plt Count 233 MPV 9.2 PT > 83.4 H 9.8 INR 10.2 H* 1.0 APTT 68.0 H Sodium 136 Potassium 3.6 D Chloride 102 Carbon Dioxide 26.3 Anion Gap 7.7 BUN 19 H Creatinine 1.0 Est GFR (CKD-EPI 2020) 57.66 Glucose 79 Calcium 8.7 Magnesium 1.7 L Total Bilirubin AST ALT Alkaline Phosphatase Total Protein Albumin TSH Free T4 Urine Color Urine Clarity Urine pH Ur Specific [place] Urine Protein Urine Ketones Urine Blood Urine Nitrite Urine Bilirubin Urine Urobilinogen Ur Leukocyte Esterase Urine RBC Urine WBC Ur Epithelial Cells Urine Crystals Urine Bacteria Urine Mucus Ur Culture Indicated? Urine Glucose COVID-19 Source SARS-CoV-2 (PCR) Influenza Type A (PCR) Influenza Type B (PCR) RSV (PCR) ABO/Rh Antibody Screen Antibody Identification Time Spent Time Spent with Patient Time Spent(min): 75
--- NOTE | 2024-03-26 11:44 | PHA.REVIEW2 ---
Pharmacy Admission Review Admission Clinical Review Admission Pharmacy Review: Elevated INR (Acute) Generalized weakness (Acute) Hypoalbuminemia (Acute) Dehydration (Acute) Frailty (Acute) Short gut syndrome (Acute) aspirin Allergy (Unknown, Verified 03/25/24 10:57) Unknown codeine Adverse Reaction (Intermediate, Verified 03/25/24 10:56) Nausea Resuscitation Status DNR/DNI Height 5 ft 3 in Weight 37.149 kg Pharmacy Admission Review Renal Dosing Renal Dosing: BUN 19 mg/dL (7-18) H 03/26/24 06:30 Creatinine 1.0 mg/dL (0.55-1.02) 03/26/24 06:30 Medications needing adjustments: Reviewed (CrCl 27.19 mL/min, BUN decreased from 20 and SCr decreased from 1.1) List of meds needing interventions: Current medications are okay Anticoagulation Anticoagulation: Hgb 9.7 g/dL (11.2-15.7) L 03/26/24 06:30 Hct 30.6 % (36.0-46.0) L 03/26/24 06:30 Plt Count 233 10^3/uL (130-400) 03/26/24 06:30 INR 1.0 (0.9-1.1) 03/26/24 07:30 Creatinine 1.0 mg/dL (0.55-1.02) 03/26/24 06:30 DVT Prophylaxis: Reviewed (SCDs, INR decreased from 10.2 - received Kcentra 1800 units and IV vitamin K in ED yesterday, Hgb decreased from 11.2) Relevant Labs Relevant Labs: Sodium 136 mmol/L (136-145) 03/26/24 06:30 Potassium 3.6 mmol/L (3.5-5.1) D 03/26/24 06:30 Chloride 102 mmol/L (98-107) 03/26/24 06:30 Magnesium 1.7 mg/dL (1.8-2.4) L 03/26/24 06:30 Electrolytes, C-Reactive P, ESR: Reviewed (Mg 1.7 - has order for PO 500mg daily) Cardiac Review Cardiac Review: Blood Pressure : Heart Rate 88/49 : 63 1113 Blood Pressure : Heart Rate 86/68 : 106 0749 Blood Pressure : Heart Rate 98/61 : 80 0617 Blood Pressure : Heart Rate 97/68 : 95 0402 Blood Pressure : Heart Rate 101/58 : 95 0041 BP, HR, EF%: Reviewed List meds needing interventions: Patient is on digoxin 0.125mg q48h and metoprolol 50mg TID QTc Review QTc: Reviewed (384 from 03/25/24) IV to PO Switch IV Medications: Reviewed Home Meds Home Med List reviewed: Reviewed Current Meds Current Medication Order Review: Reviewed
--- NOTE | 2024-03-26 12:24 | IN_ITS ---
PT Notes Visit Reasons: Generalized Weakness Inpatient Physical Therapy Evaluation Date: 03/26/2024 Referring Doctor: Blaine Escamilla PT Orders: PT CONSULT: PT assessment Precautions: Standard, Urostomy, IV, Ileostomy Patient Profile/Admitting Diagnosis: Pt is a 78yo female presented to the ED with blood in urostomy, weakness. ED work up revealed dry mucous membranes , Elevated INR. She was treated with Vit K, and hydration. Pt admitted to MED Surg unit and PT order placed. 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 Patient desires DNR/DNI. Does want to be transferred to the hospital and treated, receive IV fluids and IV antibiotics. Refuses to complete COLST form, as she feels advanced directive is enough and additional forms would just be confusing .Palliative care patient (Acute) Advanced care planning/counseling discussion (Acute) Radiation colitis (Acute) Underweight (Acute) Reduced vision (Acute) Macular degeneration by reportHeart failure with reduced ejection fraction due to cardiomyopathy (Acute) Atrial fibrillation (Chronic) Cardiomegaly (Acute) Compression fx, lumbar spine (Acute) Status post cataract extraction and insertion of intraocular lens of right eye (Chronic 05/26/18) Corneal endothelial dystrophy (Chronic) Nuclear sclerotic cataract of left eye (Acute) Weakness (Chronic 08/28/13) Radiation cystitis (Chronic) Chronic diarrhea (Chronic) 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 Gross hematuria. 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 Social History/Home Situation: Lives alone with her cat which she walks daily on a leash. Independent ADL, iADLs,home management, meals. Independent Amb indoor without device and uses SPC or FWW outdoors. She has a HM for shopping weekly. Her son visits weekly. 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 Equipment Owned/DME: SPC, FWW, Shower chair Subjective: Pt reports she has not been able to do too much at home over the past 2-3 weeks. She states she no longer takes her cat for walks I just tie him out on a leash. She reports she sits in her chair most of the day listening to the tv. She reports she has not been eating or drinking as well lately stating I just don't have the energy anymore. Objective: [] General Observation: Frail cachetic female supine in bed with her son present. Mental Status: A+Ox4 Pain: B LEs aching 2 cramping feeling Vital Signs: 88/49 supine unable to get standing BP ROM: Right Upper Extremity: WNL Left Upper Extremity: WNL Right Lower Extremity: WNL Left Lower Extremity: WNL Strength: Right Upper Extremity: 3/5 Left Upper Extremity: 3/5 Right Lower Extremity: 3-/5 hips , knee extension 3/5, ankle 3/5 Left Lower Extremity: hip 3-/5, knee extension 3-/5, ankle 3/5 Sensation: intact Bed Mobility/Transfers: rolling min A supine to sit min A sit to supine min A sit to stand Min A stand to sit CGA bed to chair : step turn transfer with FWW min A Gait: 5 steps with FWW min A demonstrating Narrow RENETTA, decreased step length and height BLE Balance: [] Static Sitting: Fair Dynamic Sitting: Fair - Static Standing: Fair - with UE support Dynamic Standing: fair- with UE support Special Tests: Mobility Limitations Standardized Measure [facility] AM-PAC 6 clicks Basic Mobility Inpatient Short Form: Raw Score: 13 CMS Score: 64.91% disability Informed Consent/Education: Patient instructed in purpose of PT consult and plan of care. Assessment: Patient is a 78year old female referred to physical therapy services with the diagnosis of elevated INR, Failure to thrive, weakness . Pt demonstrates s/s of orthostatic hypotension including lightheadedness and room spinning after standing therefore stand progression with gait and stairs will be progressive as symptoms resolve. Patient presents with clinical signs and symptoms consistent with admitting diagnosis, as demonstrated by the following impairment level findings: 1. decreased strength B UE and LE muscle groups 2. decreased functional activity tolerance 3. decreased balance in sit and standing Impairments are contributing to the following functional limitations: AMPAC score. 1. decline in bed mobility skills 2. decline in transfer skills 3. difficulty with ambulation without physical assistance 4. Increased completion time for mobility ADL performance 5. Increased risk for falls 6. Difficulty with managing steps alone safely Patient is assessed as a Moderate 47928 complexity based on the following: History: Pt is 78 yo female with significantly complex comorbidities . PMHx. Examination: demonstrates impairments in strength, balance and mobility level with underlying impairments and functional limitations as stated above as well as deficit score of 64.91% utilizing the [facility] AM-PAC 6 clicks Basic Mobility Inpatient Short Form. Presentation: evolving Decision Making: moderate Goals: Goals X1 week 1. Supine-Sit supervision 2. Sit-Supine supervision 3. Sit-Stand supervision 4. Stand-Sit supervision 5. Bed-Chair supervision with device 6. Chair-Bed supervision with device 7. Gait amb 50 feet with device supervision 8. Stairs 5 steps with rail CGA 9. Independent with home exercise program 10. Balance Fair+ with FWW standing Plan of Care/Treatment Plan: 1-2x/day, 7 days/week x 1 week. Plan of care has been reviewed with the BEAVER TRAPPER providing the service under Physical Therapy direction. Initiate Physical Therapy intervention for strengthening, bed mobility, transfers, gait, stairs, balance training, use of assistive device. DISCHARGE RECOMMENDATIONS: [] [] Home with no services [] [] Home with services [specify] [] Home with outpatient PT [] [X] SNF for continued rehabilitation vs Home with HH PT [] Custodial Care [] [] SNF versus LTC based on ability to participate and progress [] TREATMENT CODE/TIME:82654j 20 mins for 1 unit , 18427f 25 mins for 2 units ( [id number]) Please sign an return this page within 30 days if you agree with the above POC. Thank you! Physician [facility]
--- NOTE | 2024-03-26 13:00 | CHAPLAIN ---
Emma was resting in bed when I visited. When I first introduced myself, she said she I'm not interested, and told me about a tenriism friend who tries to convert her to [employer] when she visits Emma. I assured Emma that I didn't have an agenda and was there to introduce myself and let her know I'm available if I can be helpful to her, with no intention of trying to convince her of anything, tenriism or otherwise. Her son also helped to explain my motives. Emma lives alone with her cat. She is a palliative care patient, last seen by Dr. Bobby. Today Emma tells me she was weak, but is getting stronger. She said she was weak enough that she couldn't do much for her herself, and although she still feel tired, she said she's not a weak as when she first arrived.
--- NOTE | 2024-03-26 15:45 | NUR.NOTE ---
Nursing Note: This RN called into room by pts son. Stated his mom had fallen asleep woken up had an episode of SOB. When this RN arrived to room pts RR was 32-40 O2 sat read 79, but could not get a good pleth. RT called and arrived to room. Unable to get a good O2 sat reading on pt. MD Escamilla notified and arrived to bedside. O2 sat now high 90s. SOB possibly d/t pain, ordering morphine x1. Will CTM.
[2024-03-26] MEDS: MORPHine 2 MG/ML SYR 1 MG IVP (15:59)
--- NOTE | 2024-03-26 19:01 | INITIAL_ITS ---
Date of service: 03/26/24 Time of Service: 19:01 Care Management Initial Assmt Initial Assessment Reason for Hospitalization: weakness, elevated INR Functional Status/Living Situation Patient Presentation: Emma was sitting up in a chair visiting with her son when CM met with her. She was alert, oriented and easily engaged with CM. Emma was admitted with an elevated INR (10.0). She received Vitamin K and this morning it was down to 1.0. Emma lives alone in [place]. She is independent at baseline with ADLs and has hired someone to do her shopping for her. She continues to do her own cooking and cleaning and uses a walker or cane for ambulatory assistance.Emma is dependent on others for transportation and has used the [employer] transportation in the past, as well as [facility]. Town of Residence: [place] Resides with: Alone Significant Other/Family: Out of area (son lives in [place]) Natural Supports: son corrie Employment Status: Retired Instrumental Activities of Daily Living (ADLs): Independent Physical Functioning/Mobility Assistive Device: walker and cane Advance Directives Advance Directives: Do you have an Advance Directive: Y 03/25/24 08:40 AD On File at [facility]: Y 03/25/24 08:40 Date Asked 03/25/24 03/25/24 10:45 AD Date Reviewed 02/21/24 03/25/24 08:40 COLST On File at [facility] COLST Date Scanned Code Status Resuscitation Status DNR/DNI Portal Pt does not currently have a portal and education provided: No Insurance Coverage/Financial Issues Insurance: Medicare Care Team Visit Care Team Role Provider Type Maliha Ceja Primary Care Provider NON-[facility] STAFF PHYSICIAN Falguni Lanier RDN, [facility] Other Providers AIR TUCKER Irene Lucas Other Providers [employer] TUCKER Bernadette Salgado Other Providers OTHER Karlos Lovell RDN Other Providers [employer] T[employer]ER Hever Devlin MD Emergency Provider [facility] STAFF PHYSICIAN Jonathan Escamilla MD Admit Provider [facility] STAFF PHYSICIAN Attending Provider Discharge Potential Discharge Needs: PCP F/U Appt Anticipated Barriers to Discharge: None Identified Patient/Family Education Needs: Review discharge instructions, discuss Ask Me Three Transportation: Private vehicle Plan: Anticipate Emma will be discharged home, likely with new home health services, when medically cleared. She would likely benefit from nursing to help with her ostomy and medicateion management and PT for balance, strength and endurance. Emma is not convinced that home health is necessary and will think about it before accepting the services. Emma will transport with her son and follow up with her PCP. CM will follow and support discharge needs. 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 Patient desires DNR/DNI. Does want to be transferred to the hospital and treated, receive IV fluids and IV antibiotics. Refuses to complete COLST form, as she feels advanced directive is enough and additional forms would just be confusing . Palliative care patient (Acute) Advanced care planning/counseling discussion (Acute) Radiation colitis (Acute) Underweight (Acute) Reduced vision (Acute) Macular degeneration by report Heart failure with reduced ejection fraction due to cardiomyopathy (Acute) Atrial fibrillation (Chronic) Cardiomegaly (Acute) Compression fx, lumbar spine (Acute) Status post cataract extraction and insertion of intraocular lens of right eye (Chronic 05/26/18) Corneal endothelial dystrophy (Chronic) Nuclear sclerotic cataract of left eye (Acute) Weakness (Chronic 08/28/13) Radiation cystitis (Chronic) Chronic diarrhea (Chronic) Short-bowel syndrome? 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 Pancreatic insufficiency (Chronic) Cholelithiasis (Chronic) Adrenal nodule (Chronic) Incidental. Ruptured bladder (Acute 09/12/13) Cutaneous urostomy tubes. 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 Gross hematuria. 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 Social History Smoking/Tobacco Use Status: Former Tobacco Use Quit Date: 11/19/13 Smoking risk assessment performed?: Yes Alcohol Intake: never Drug use: Never Housing: house Do you feel safe at home: Yes Additional Social history: lives alone, with her cat SDOH(Care Management) Screening Will the Patient Participate in the Screening?: Unable to obtain Do you worry about having a steady place to live?: no Problems where you live: no known problems In the past 12 months, have you had to go without electric, gas, oil or water in your home?: no Have you or anyone in your house had to go without enough food to eat?: no Has lack of transportation kept you from medical appointments or from doing things needed for daily living?: no Has anyone in your support network made you feel unsafe for any reason?: no
[2024-03-27] VITALS (8 sets, daily range): BP systolic 88–101; BP diastolic 52–67; PULSE 71–107; RESP 14–18; TEMP 35.2–36.6; O2SAT 94–99
[2024-03-27] MEDS: MORPHine 2 MG/ML SYR 1 MG IVP (04:49)
[2024-03-27] MEDS: Levothyroxine 75 MCG TAB PO (05:03)
[2024-03-27 07:15] LABS: HCT 29.3 % (36.0-46.0); HGB 9.1 g/dL (11.2-15.7); MCH 33.6 pg (27.0-33.0); MCHC 31.1 % (32.0-36.0); MPV 9.3 fL (8.0-11.0); Platelet Count 152 10^3/uL (130-400); RBC 2.71 10^6/uL (3.93-5.22); RDW 16.7 % (11.7-14.6); WBC 9.33 10^3/uL (4.4-10.8)
[2024-03-27 07:50] LABS: BUN 15 mg/dL (7-18); CREATININE 0.9 mg/dL (0.55-1.02); Calcium 8.5 mg/dL (8.5-10.1); Chloride 105 mmol/L (98-107); Estimated GFR 65.44 (mL/min/1.73m2); Glucose 78 mg/dL (74-106); Potassium 3.5 mmol/L (3.5-5.1); Sodium 139 mmol/L (136-145)
[2024-03-27 08:09] LABS: MCV 108 fL (80-95)
[2024-03-27 08:11] LABS: Magnesium 1.6 mg/dL (1.8-2.4)
[2024-03-27] MEDS: Metoprolol 50 MG TAB PO ×3 (08:23→20:47)
[2024-03-27] MEDS: Magnesium Gluconate 500 MG TAB PO (08:23)
[2024-03-27] MEDS: Calcium Carbonate *TUMS* 500 MG CHEW 1000 MG PO ×2 (08:23→20:48)
[2024-03-27] MEDS: Loperamide 2 MG CAP PO ×2 (08:23→20:47)
[2024-03-27] MEDS: Empaglifozin 10 MG TAB PO (08:23)
[2024-03-27] MEDS: Multivitamin TAB 1 TAB PO (08:23)
[2024-03-27 08:24] LABS: Lab Add On Test COMPLETED
[2024-03-27] MEDS: Normal Saline Flush 10 ML SYR IVP ×2 (08:24→21:17)
--- NOTE | 2024-03-27 09:16 | W.NUTCONSULT ---
Date of service: 03/26/24 Time of Service: 13:00 Nutritional Consult ASSESSMENT: Received nutrition consult regarding concern of malnutrition decline due to short bowel, cancer and also vitamin K deficiency due to malabsorption. Have met with patient during last inpatient admission and also via phone for outpatient referral last November. Patient with additional 5lb weight loss since our last communication at that time less than 4 months ago. Patient given IV vitamin K with improvement in coagulation and reports a much improved appetite. Did notice what looked like Purpura patches on arms which could also be from vitamin K and/or C deficiencies (althouh could just be age spots as well). Denies significant concerns with chewing and swallowing as she chooses foods easier to manage at home. She has a low vitamin K intake via food sources as she does not eat greens often and when she does they pass through notably undigested in her colostomy bag. She does take vitamin D in a weekly dose of 50,000 of ergocalciferol - last lab viewable vit D lab was <5ng/mL last November. Pt does not take any oral nutrition supplements at home to help prevent weight loss - she declines them here as well. She states she doesn't like them and they contribute too quickly to ostomy output. I made a soymilk based regine smoothie for her with whey protein for her to try and she overtly disliked it. She prefers to stick with what she eats at home, naming most common food choices of chicken, hamburger, veggies, cottage cheese, oats, cold cereals, peanut butter. She tries to eat every 2-3 hours. She does have a high added sugar intake frequently enjoys cookies. Her fasting glucose during admission has been in the 70's frequently - denies sx of hypoglycemia usually at home. Wondering if she may get lower glucose due to accelerated gastric emptying and/or due to empagliflozin (pt states she takes tragenta at home but maybe this was changed to jardiance). PT son was present towards the end of my visit and expressed his frustration somewhat with her pickiness and refusal to take supplemental nutrition at home. NUTRITIONAL DIAGNOSIS: Moderate malnutrition in the context of chronic disease/illness, related to compromised digestion due to short bowel, meeting <75% of estimated energy requirement over the last week prior to admission, and obvious wasting of muscle mass and subcutaneous fat losses with continued overall weight loss - as evidenced by weight assessments, pt diet history interview. INTERVENTION: -recommend labs for B12, Folate -recommned vitamin D lab and if still low after the above supplementation has been followed, would consider more active form that doesn't require kidney conversion such as calcitriol. -Would recommend patient be ordered for outpatient IM vitamin K to prevent future deficiencies. -Pt might be willing to try liquid protein concentrate if ordered but would not expect she will like/accept this. -Kitchen staff given update to encourage kcal/protein dense food choices at meals. MONITORING AND EVALUATION: Will monitor intake, labs, and continue to support a higher kcal and protein intake this admission. Pt aware of outpatient nutrition services but feels like she supports her intake as best she can at baseline when home. Time Spent in Nutritional Counseling and Treatment: 20 min
--- NOTE | 2024-03-27 09:43 | CMPROGNOTE_ITS ---
Date of service: 03/27/24 Time of Service: 09:43 Care Management Progress Note Progress Note Text Progress Note Text: Emma was sitting up in bed visiting with her son Tan when CM met with her. Emma was admitted with an elevated INR and weakness. Her INR is now normalized however she remains weak and is unable to return home independently. After much discussion and encouragement, Emma has agreed to go to a care home facility for short term rehab. She is in observation status, however she is ACO attributed so could have the 3 night stay requirement waived if she transfers to a designated facility. CM discussed the options with Emma and Tan and they have identified several facilities they would consider acceptable. As Tan lives and works in [place], they have chosen facilities are convenient to that area: they are:[facility], [facility], [facility], [facility], [facility], [facility] in [place] and [place]. Discharge Potential Discharge Needs: PCP F/U Appt Anticipated Barriers to Discharge: None Identified Patient/Family Education Needs: Review discharge instructions, discuss Ask Me Three Transportation: Private vehicle Plan: Emma has agreed to go to short term rehab before returning home. Referrals were sent to 8 facilities in the [place] area where her son lives and who are able to waive the 3 night stay Medicare rule. CM will follow up with the facilities on Saturday. Transportation will be determined by disposition. CM will follow and continue to support discharge needs. SDOH(Care Management) Screening Will the Patient Participate in the Screening?: Unable to obtain Do you worry about having a steady place to live?: no Problems where you live: no known problems In the past 12 months, have you had to go without electric, gas, oil or water in your home?: no Have you or anyone in your house had to go without enough food to eat?: no Has lack of transportation kept you from medical appointments or from doing things needed for daily living?: no Has anyone in your support network made you feel unsafe for any reason?: no
--- NOTE | 2024-03-27 11:38 | PT.INTREAT ---
PT Notes Visit Reasons: Generalized Weakness Inpatient Physical Therapy Treatment Note [facility] Date: 03/27/2024 PRECAUTIONS: Urostomy colostomy SUBJECTIVE: Patient reports she feels stronger today and that her blood pressure was over 100 early this morning which she was happy about. OBJECTIVE: Frail cachetic female supine in bed son visiting . patient agreeable to participate? PAIN: Patient reported her bottom being sore in the bed did not rate on numeric scale VITALS: Pre- 92/58; post 88/62 Therapeutic Activities (20207): Direct one-on-one instruction in dynamic activities to improve functional performance. ?? BED MOBILITY/TRANSFERS? Rolling L/R: supervision Supine-sit: CGA ? Sit-stand: CGA ? Stand-sit: CGA ? Bed-Chair: CGA with FWW ? Chair-bed: CGA with FWW Provided skilled cues and instruction on performance and technique throughout. Patient education regarding pacing and breathing techniques to maximize activity tolerance? Ambulation? Assistive Device: FWW ? Weight bearing: Full Assist: CGA ? Distance:? 15 feet x 2 with seat rest between? Deviation: decreased step length , decreased step height , Narrow RENETTA.? ASSESSMENT:?Patient demonstrates improved tolerance to standing and out of bed activities as compared to prior session. She is able to ambulate short distance with front wheel walker. She became anxious with increased respiratory rate requiring seat rest. BPs monitored as stated above. PLAN:Continue skilled PT for strengthening, bed mobility, transfers, balance, gait and stair training TREATMENT CODE/TIME:55551 x 29 mins for 2 units ( [id number]) DISCHARGE RECOMMENDATION: HH PT VS SNF if progress is slow.
--- NOTE | 2024-03-27 12:06 | W.PM.PROGNOT ---
Date of Service Date of service: 03/27/24 Time of Service: 12:06 Assessment and Plan Assessment and plan (1) Elevated INR: Status: Acute Assessment and plan: -Patient initially presented with generalized weakness and inability to perform ADLs (see below for details), but in the emergency department she was noted as having significantly elevated INR greater than 10 -Patient not on any anticoagulation -At this time it is presumed that this is secondary to poor p.o. intake/nutrition in combination with short gut and malabsorption -Given IV Vit K and Kcentra in the emergency department -Repeat INR AM 03/26 down to 1.0 -Will discuss with Nutrition, but patient will likely require weekly IV vitamin K (2) Generalized weakness: Status: Acute Assessment and plan: - Likely secondary to poor nutrition, short gut, malabsorption resulting in progressive worsening functional status generalized weakness and inability to perform ADLs -Will consult nutrition -Appreciate PT consultation and recommendations (3) Hypoalbuminemia: Status: Acute Assessment and plan: - Secondary to poor p.o. intake and shortcut/malabsorption as noted above (4) Frailty: Status: Acute (5) Short gut syndrome: Status: Acute (6) Ambulatory dysfunction: Status: Acute Assessment and plan: Patient has been unable to be safely reambulated for safe discharge to home Will continue physical therapy (7) Discharge planning issues: Status: Acute Assessment and plan: Case management is following for discharge planning Does not meet criteria for acute inpatient stay but unsafe for discharge to home at this time Continue working with physical therapy and plan for discharge to home with home health services once safe discussed with DR Horn Subjective Subjective Patient reports: no new complaints and afebrile Exam Narrative Exam Narrative: Cachectic chronically ill-appearing female of stated age no acute distress lying in the bed. Hair thinning with patches of hair loss eyes nonicteric noninjected oral mucosa slightly dry neck no JVD cardiovascular regular rate and rhythm respirations even and unlabored diminished in the bases abdomen with urostomy bag draining medium yellow urine, left sided ostomy with soft brown stool. Extremities without edema. Neurologic she is awake alert oriented no focal deficits good historian psychiatric normal mood and affect Objective Last Vital Signs Temp 35.9 C L 03/27/24 11:14 Pulse 76 03/27/24 11:14 Resp 14 03/27/24 11:14 BP 88/62 L 03/27/24 11:14 Pulse Ox 94 09/06/24 11:14 Laboratory Results - last 24 hr 03/25/24 03/25/24 03/25/24 12:00 12:00 12:00 WBC RBC Hgb Hct MCV MCH MCHC RDW Plt Count MPV Sodium Potassium Chloride Carbon Dioxide Anion Gap BUN Creatinine Est GFR (CKD-EPI 2020) Glucose Calcium Magnesium Add-On Test Request Blood Type (Referred) POSITIVE Blood Group (off-site) A Antibody ID Referred SEE COMMENT Direct Antiglob Test 03/25/24 03/27/24 12:00 06:10 WBC 9.33 RBC 2.71 L Hgb 9.1 L Hct 29.3 L MCV 108 H MCH 33.6 H MCHC 31.1 L RDW 16.7 H Plt Count 152 MPV 9.3 Sodium 139 Potassium 3.5 Chloride 105 Carbon Dioxide 25.0 Anion Gap 9.0 BUN 15 Creatinine 0.9 Est GFR (CKD-EPI 2020) 65.44 Glucose 78 Calcium 8.5 Magnesium 1.6 L Add-On Test Request COMPLETED Blood Type (Referred) Blood Group (off-site) Antibody ID Referred Direct Antiglob Test NEGATIVE Time Spent with Patient Time Spent with Patient: 35-49 minutes Time was spent: preparing to see the patient(eg.review tests), obtaining and/or reviewing separately otained hiistory, ordering medications,tests, procedures, indepentently interpreting results, counseling the patient and care coordination
[2024-03-27] MEDS: MAGNESIUM SULFATE 2 GM/50 ML BAG IVINF (12:37)
--- NOTE | 2024-03-27 13:43 | PT.INTREAT ---
PT Notes Visit Reasons: Generalized Weakness Inpatient Physical Therapy Treatment Note [facility] Date: 03/27/2024 PRECAUTIONS: Standard. Fall. Urostomy and colostomy in situ. Activity as tolerated. SUBJECTIVE: Exhausted this afternoon. tried to stand up and walk but needed to sit down after a fww steps due to fatigue. Did not want to lie down in bed but was agreebale when a sheet of sheepskin was placed as she does not want her bottom sticking to the bed. OBJECTIVE: Frail cachetic female. IV through the R UE. ? PAIN: Minimal pain in gluteal areas. VITALS: Closely monitored by nursing staff; not asymptomatic during mobility performance BED MOBILITY/TRANSFERS: Minimal cueing provided for use of B hands as needed for support, movement sequence, AD management, and posture to reduce fall risk and minimize pain report? Sit-stand: minimal assist with FWW ? Stand-sit: contact guard assist? Bed-Chair: minimal assist with FWW ? Chair-bed: minimal assist with FWW GAIT ? Assistive Device: FWW ? Weight bearing: FWB Assist: minimal assist ? Distance:? 5 steps from chair towards her door and then another 5 steps from wheelchair to edge of bed? Deviation: decreased step length , decreased step height , narrow RENETTA, mild kyphosis ? ASSESSMENT:? Fatigued at the start. Did not tolerate much this afternoon. Performed shorter distance compared to this morning and needed to lie back down in bed to rest. A sheet of sheepskin was provided for mary kate which she appreciated. She will need continued services for mobility progresssion at a SNF. PLAN:C Continue skilled PT for strengthening, bed mobility, transfers, balance, gait and stair training DISCHARGE RECOMMENDATION: Short-term SNF placement for mobility progression TREATMENT CODE/TIME: 16111 x 32 mins for 2 units ( 13:07-13:39).
[2024-03-28] VITALS (9 sets, daily range): BP systolic 91–111; BP diastolic 56–69; PULSE 66–99; RESP 16–20; TEMP 36–36.8; O2SAT 94–100
[2024-03-28] MEDS: Digoxin 0.125 MG TAB PO (03:06)
[2024-03-28] MEDS: Levothyroxine 75 MCG TAB PO (06:35)
[2024-03-28 06:40] LABS: Abs Immature Grans 0.05 10^3/uL (0.0-0.06); Absolute Basophil Count 0.04 10^3/uL (0.0-0.2); Absolute Eosinophil Count 0.33 10^3/uL (0.0-0.7); Absolute Lymphocyte Count 0.83 10^3/uL (1.2-3.4); Absolute Monocyte Count 0.76 10^3/uL (0.1-0.8); Absolute Neutrophil Count 7.04 10^3/uL (1.2-6.7); Basophils % 0.4 %; Eosinophils % 3.6 %; HCT 31.1 % (36.0-46.0); HGB 9.8 g/dL (11.2-15.7); Immature Grans % 0.6 %; Lymphocytes % 9.2 %; MCH 33.6 pg (27.0-33.0); MCHC 31.5 % (32.0-36.0); MCV 107 fL (80-95); MPV 8.8 fL (8.0-11.0); Monocytes % 8.4 %; Neutrophils % 77.8 %; Platelet Count 199 10^3/uL (130-400); RBC 2.92 10^6/uL (3.93-5.22); RDW 16.3 % (11.7-14.6); RDW-SD 63.7 fL; WBC 9.05 10^3/uL (4.4-10.8)
[2024-03-28 06:50] LABS: Anion Gap 6.5 mmol/L (3-11); BUN 11 mg/dL (7-18); CO2 29.5 mmol/L (21.0-32.0); CREATININE 0.8 mg/dL (0.55-1.02); Calcium 8.5 mg/dL (8.5-10.1); Chloride 102 mmol/L (98-107); Digoxin 1.43 ng/mL (0.90-2.00); Estimated GFR 75.37 (mL/min/1.73m2); Glucose 87 mg/dL (74-106); Potassium 3.4 mmol/L (3.5-5.1); Sodium 138 mmol/L (136-145)
[2024-03-28 07:36] LABS: Diff Comment RBC Morph Reviewed; Macrocytosis 2+
[2024-03-28] MEDS: Magnesium Gluconate 500 MG TAB PO (07:54)
[2024-03-28] MEDS: Normal Saline Flush 10 ML SYR IVP (07:54)
[2024-03-28] MEDS: Loperamide 2 MG CAP PO ×2 (07:54→20:27)
[2024-03-28] MEDS: Empaglifozin 10 MG TAB PO (07:54)
[2024-03-28] MEDS: Calcium Carbonate *TUMS* 500 MG CHEW 1000 MG PO ×2 (07:54→20:27)
[2024-03-28] MEDS: Multivitamin TAB 1 TAB PO (07:54)
[2024-03-28] MEDS: Metoprolol 50 MG TAB PO ×3 (07:54→20:27)
--- NOTE | 2024-03-28 09:34 | W.PM.PROGNOT ---
Date of Service Date of service: 03/28/24 Time of Service: 09:34 Assessment and Plan Assessment and plan (1) Elevated INR: Status: Acute Assessment and plan: -Patient initially presented with generalized weakness and inability to perform ADLs (see below for details), but in the emergency department she was noted as having significantly elevated INR greater than 10 -Patient not on any anticoagulation -At this time it is presumed that this is secondary to poor p.o. intake/nutrition in combination with short gut and malabsorption -Given IV Vit K and Kcentra in the emergency department -Repeat INR AM 03/26 down to 1.0 -Will discuss with Nutrition, but patient will likely require weekly IV vitamin K (2) Generalized weakness: Status: Acute Assessment and plan: - Likely secondary to poor nutrition, short gut, malabsorption resulting in progressive worsening functional status generalized weakness and inability to perform ADLs -Will consult nutrition -Appreciate PT consultation and recommendations (3) Hypoalbuminemia: Status: Acute Assessment and plan: - Secondary to poor p.o. intake and shortcut/malabsorption as noted above (4) Frailty: Status: Acute (5) Short gut syndrome: Status: Acute (6) Ambulatory dysfunction: Status: Acute Assessment and plan: Patient has been unable to be safely reambulated for safe discharge to home Will continue physical therapy (7) Discharge planning issues: Status: Acute Assessment and plan: Case management is following for discharge planning Does not meet criteria for acute inpatient stay but unsafe for discharge to home at this time Continue working with physical therapy and plan for discharge to home with home health services once safe discussed with DR Horn Exam Narrative Exam Narrative: Constitutional The patient is sitting in chair/ lying in bed comfortable and cooperative during the interview. The patient is well groomed without acute distress and has average body habitus/is obese/ is thin. HENMT: Head is atraumatic, normocephalic, no lymphadenopathy. Facial structures with normal appearance Eyes: Well aligned, intact ROM Neck: Normal ROM, no meningeal signs Neuro:alert and oriented to self, person, place time and situation. No neurological focal deficit, PERRLA Chest:Chest is symmetrical and normal appearance Resp: Normal respiratory pattern, speaks in full sentences, unlabored breathing, clear lung bilaterally Cardio: regular rhythm, S1, S2, no murmur, capillary refill<3 sec., bilateral radial and dorsalis pedis pulses are positive, palpable GI: Abdomen is not distended, soft and non tender, bowel sounds are present : Negative Costovertebral angle tenderness, no bladder distension Back/spine/Pelvis: No back tenderness, normal alignment Integumentary: No skin lesions or rash Extremities: strength 5/5 to bilateral lower and upper extremities Psych: RASS 0, congruent mood and normal affect. Objective Last Vital Signs Temp 36.2 C L 03/28/24 07:42 Pulse 69 03/28/24 07:42 Resp 19 03/28/24 07:42 BP 91/57 L 03/28/24 07:42 Pulse Ox 94 03/28/24 07:42 Laboratory Results - last 24 hr 03/28/24 06:23 WBC 9.05 RBC 2.92 L Hgb 9.8 L Hct 31.1 L MCV 107 H MCH 33.6 H MCHC 31.5 L RDW 16.3 H Plt Count 199 MPV 8.8 Immature Gran % 0.6 Neutrophils % 77.8 Lymphocytes % 9.2 Monocytes % 8.4 Eosinophils % 3.6 Basophils % 0.4 Nucleated RBC % 0.0 Absolute Neutrophils 7.04 H Absolute Lymphocytes 0.83 L Absolute Monocytes 0.76 Absolute Eosinophils 0.33 Absolute Basophils 0.04 RBC Morphology See Below Macrocytosis 2+ Sodium 138 Potassium 3.4 L Chloride 102 Carbon Dioxide 29.5 Anion Gap 6.5 BUN 11 Creatinine 0.8 Est GFR (CKD-EPI 2020) 75.37 Glucose 87 Calcium 8.5 Digoxin 1.43
--- NOTE | 2024-03-28 10:12 | W.PM.PROGNOT ---
Date of Service Date of service: 03/28/24 Time of Service: 10:13 Assessment and Plan Assessment and plan (1) Elevated INR: Status: Acute Assessment and plan: -Patient initially presented with generalized weakness and inability to perform ADLs (see below for details), but in the emergency department she was noted as having significantly elevated INR greater than 10 -Patient not on any anticoagulation -At this time it is presumed that this is secondary to poor p.o. intake/nutrition in combination with short gut and malabsorption -Given IV Vit K and Kcentra in the emergency department -Repeat INR AM 03/26 down to 1.0 -Will discuss with Nutrition, but patient will likely require weekly IV vitamin K (2) Generalized weakness: Status: Acute Assessment and plan: - Likely secondary to poor nutrition, short gut, malabsorption resulting in progressive worsening functional status generalized weakness and inability to perform ADLs -Will consult nutrition -Appreciate PT consultation and recommendations (3) Hypoalbuminemia: Status: Acute Assessment and plan: - Secondary to poor p.o. intake and shortcut/malabsorption as noted above (4) Frailty: Status: Acute (5) Short gut syndrome: Status: Acute (6) Ambulatory dysfunction: Status: Acute Assessment and plan: Patient has been unable to be safely reambulated for safe discharge to home Will continue physical therapy (7) Discharge planning issues: Status: Acute Assessment and plan: Case management is following for discharge planning Does not meet criteria for acute inpatient stay but unsafe for discharge to home at this time Continue working with physical therapy and plan for discharge to home with home health services once safe Subjective Subjective Interval history since last seen: Patient states that she is doing well today and is looking forward to continuing to work with PT on her strength. Exam Narrative Exam Narrative: extremely cachectic appearing elderly female laying in bed in no acute distress, AOx4, heart RRR, lungs CTAB, abdomen soft, non-tender, non-distended, multiple excoriations across entire body in various stages of healing Objective Last Vital Signs Temp 97.2 F L 03/28/24 07:42 Pulse 69 03/28/24 07:42 Resp 19 03/28/24 07:42 BP 91/57 L 03/28/24 07:42 Pulse Ox 94 03/28/24 07:42 Laboratory Results - last 24 hr 03/28/24 06:23 WBC 9.05 RBC 2.92 L Hgb 9.8 L Hct 31.1 L MCV 107 H MCH 33.6 H MCHC 31.5 L RDW 16.3 H Plt Count 199 MPV 8.8 Immature Gran % 0.6 Neutrophils % 77.8 Lymphocytes % 9.2 Monocytes % 8.4 Eosinophils % 3.6 Basophils % 0.4 Nucleated RBC % 0.0 Absolute Neutrophils 7.04 H Absolute Lymphocytes 0.83 L Absolute Monocytes 0.76 Absolute Eosinophils 0.33 Absolute Basophils 0.04 RBC Morphology See Below Macrocytosis 2+ Sodium 138 Potassium 3.4 L Chloride 102 Carbon Dioxide 29.5 Anion Gap 6.5 BUN 11 Creatinine 0.8 Est GFR (CKD-EPI 2020) 75.37 Glucose 87 Calcium 8.5 Digoxin 1.43 Time Spent with Patient Time Spent with Patient: >50 minutes Time was spent: preparing to see the patient(eg.review tests), obtaining and/or reviewing separately otained hiistory, ordering medications,tests, procedures, referring, communicating with other health senior care specialist, indepentently interpreting results, counseling the patient and care coordination
--- NOTE | 2024-03-28 10:51 | PTTR_ITS ---
PT Notes Visit Reasons: Generalized Weakness Date: 03/28/24 PRECAUTIONS: Standard. Fall. Urostomy and colostomy in situ. Activity as tolerated. SUBJECTIVE: Pt in bed when approached for therapy, pt grees to participating with session but is concerned about feeling nauseous when changing position OBJECTIVE: ? Pt on sheep skin on sacral area, colostomy bag in place, ? PAIN: painful sacral area, reports sitting in recliner makes it unbearable VITALS: Closely monitored by nursing ? Therapeutic Activities 20231: Direct one-on-one instruction in dynamic activities to improve functional performance. ?? BED MOBILITY/TRANSFERS? Rolling L/R: min A Supine-sit: ? min A ? Sit-supine: ? max A? Sit-stand: ? ?max A ? Stand-sit: ?? max a? Provided skilled cues and instruction on performance and technique throughout. ? ASSESSMENT:?Pt had severe nausea after standing initially and reports difficulty breathing requiring 2L O2 support, pt stood for 1min initially then resting for 5mins to recover from feeling dizzy. p able to stand a second time and stood for a good 5mins while nurses did perineum check and perineal care, pt reports feeling too exhausted after the activity and requested to go back in bed to rest. max A with moving upward in bed. PLAN: Continue with balance training, global strengthening and general conditioning for improved safety, mobility and activity tolerance until pt is r lupe for DC. TREATMENT CODE/TIME: 27086a9, 20mins (10:25-10:45am)
--- NOTE | 2024-03-28 11:26 | PT.INTREAT ---
PT Notes Visit Reasons: Generalized Weakness Date: PRECAUTIONS: SUBJECTIVE: OBJECTIVE: ? PAIN: VITALS: Pre-Treatment: Post-Treatment: ? Therapeutic Activities 43985: Direct one-on-one instruction in dynamic activities to improve functional performance. ?? BED MOBILITY/TRANSFERS? Rolling L/R: Supine-sit: ? Sit-supine: ? Sit-stand: ? Stand-sit: ? Bed-Chair:? Chair-bed: Provided skilled cues and instruction on performance and technique throughout. Gait Training 86836: Direct one-on-one instruction and skilled instruction in: Employing an assistive device Modified weight-bearing status Movement sequencing Turning and movement with proper form Provided verbal cues for equipment management and technique Provided instruction in gait pattern Patient education regarding pacing and breathing techniques to maximize activity tolerance? GAIT? Assistive Device: ? Weight bearing: Assist: ? Distance:? Deviation: ? STAIRS:? Therapeutic Exercises 95149: Direct one-on-one instruction in therapeutic exercises to develop strength, endurance, range of motion and flexibility. Exercises Ambulation ? Assistive Device: ? Weight bearing: Assist: ? Distance:? Deviation: ? Provided skilled instruction in proper exercise performance Provided skilled manual cues to facilitate proper muscle recruitment and/or form: Neuromuscular Re-education 47580: Activities that facilitate re-education of movement balance, posture, coordination, and proprioception or kinesthetic sense, requiring skilled tactile and verbal cues Exercises/techniques: ? ASSESSMENT:? PLAN: Continue with balance training, global strengthening and general conditioning for improved safety, mobility and activity tolerance until pt is ready for DC. TREATMENT CODE/TIME:
[2024-03-28] MEDS: Acetaminophen 325 MG TAB PO ×2 (11:38→20:27)
[2024-03-28] MEDS: Potassium Chloride 20 MEQ TABCR 40 MEQ PO (20:27)
[2024-03-29] VITALS (10 sets, daily range): BP systolic 75–100; BP diastolic 42–68; PULSE 66–111; RESP 16–18; TEMP 35.5–36.4; O2SAT 96–99
[2024-03-29] MEDS: Levothyroxine 75 MCG TAB PO (06:27)
[2024-03-29] MEDS: Calcium Carbonate *TUMS* 500 MG CHEW 1000 MG PO ×2 (08:10→20:58)
[2024-03-29] MEDS: Loperamide 2 MG CAP PO ×2 (08:10→20:58)
[2024-03-29] MEDS: Empaglifozin 10 MG TAB PO (08:10)
[2024-03-29] MEDS: MORPHine 2 MG/ML SYR 1 MG IVP (08:10)
[2024-03-29] MEDS: Magnesium Gluconate 500 MG TAB PO (08:10)
[2024-03-29] MEDS: Multivitamin TAB 1 TAB PO (08:10)
[2024-03-29] MEDS: Normal Saline Flush 10 ML SYR IVP ×2 (08:14→20:58)
[2024-03-29] MEDS: Metoprolol 50 MG TAB PO (08:53)
--- NOTE | 2024-03-29 08:56 | PGE_ITS ---
Date of Service Date of service: 03/29/24 Time of Service: 08:56 Assessment and Plan Assessment and plan (1) Elevated INR: Status: Acute Assessment and plan: -Patient initially presented with generalized weakness and inability to perform ADLs (see below for details), but in the emergency department she was noted as having significantly elevated INR greater than 10 -Patient not on any anticoagulation -At this time it is presumed that this is secondary to poor p.o. intake/nutrition in combination with short gut and malabsorption -Given IV Vit K and Kcentra in the emergency department -Repeat INR AM 03/26 down to 1.0 -Will discuss with Nutrition, but patient will likely require weekly IV vitamin K (2) Generalized weakness: Status: Acute Assessment and plan: - Likely secondary to poor nutrition, short gut, malabsorption resulting in progressive worsening functional status generalized weakness and inability to perform ADLs -Will consult nutrition -Appreciate PT consultation and recommendations (3) Hypoalbuminemia: Status: Acute Assessment and plan: - Secondary to poor p.o. intake and shortcut/malabsorption as noted above (4) Frailty: Status: Acute (5) Short gut syndrome: Status: Acute (6) Ambulatory dysfunction: Status: Acute Assessment and plan: Patient has been unable to be safely reambulated for safe discharge to home Will continue physical therapy (7) Discharge planning issues: Status: Acute Assessment and plan: Case management is following for discharge planning Does not meet criteria for acute inpatient stay but unsafe for discharge to home at this time Continue working with physical therapy and plan for discharge to home with home health services once safe Subjective Subjective Interval history since last seen: Patient states that she is doing well today. Exam Narrative Exam Narrative: extremely cachectic appearing elderly female laying in bed in no acute distress, AOx4, heart RRR, lungs CTAB, abdomen soft, non-tender, non-distended, multiple excoriations across entire body in various stages of healing Objective Last Vital Signs Temp 97.5 F L 03/29/24 07:32 Pulse 111 H 03/29/24 08:35 Resp 16 03/29/24 08:35 BP 92/42 L 03/29/24 08:35 Pulse Ox 99 03/29/24 08:35 Time Spent with Patient Time Spent with Patient: >50 minutes Time was spent: preparing to see the patient(eg.review tests), obtaining and/or reviewing separately otained hiistory, ordering medications,tests, procedures, referring, communicating with other health field care advocate, indepentently interpreting results, counseling the patient and care coordination
--- NOTE | 2024-03-29 09:59 | PT.INNT ---
PT Notes Visit Reasons: Generalized Weakness pt in bed when approached for therapy this morning, pt reports feeling very nauseous just by being in bed, feel very tired and her legs are in a lot of pain, pt reports she has been administered morphine for her pain but the pain meds has not kicked in yet, pt reports she would like to rest and politely declined participating with therapy session. Pt nurse update of pt condition and refusal to participate with therapy session.
[2024-03-29] MEDS: Normal Saline 250 ML IV ×2 (10:22→16:49)
--- NOTE | 2024-03-29 11:35 | W.PC.ACHO ---
Registration Status: Primary Language: Preferred Language: ED Information & Data Chief Complaint GI Bleed 03/25/24 11:40 Chief Complaint GI Bleed 03/25/24 11:17 Triage Note blood in colostomy bag which 03/25/24 10:38 was changed today at 8am. bag is filling fast. feels weak. difficulty breathing. denies fever, chills or abd pain. Medical / Surgical History (Last Reviewed 12/27/23 @ 12:45 by Rtiu Greenberg MD) Nuclear sclerotic cataract of right eye (Last Reviewed 12/27/23 @ 12:45 by Ritu Greenberg MD) History of urostomy Status post ileostomy Most Recent Vital Signs Temperature 35.9 C L 03/29/24 11:30 Temperature Source Tympanic 03/29/24 11:30 Pulse 71 03/29/24 11:30 Pulse Rhythm Regular 03/25/24 17:49 Pulse 85 03/25/24 12:32 Respiratory Rate 18 03/29/24 11:30 Respiratory Effort Normal 03/25/24 17:49 Respiratory Depth Normal 03/25/24 17:49 Respiratory Pattern Normal 03/25/24 17:49 Blood Pressure 95/54 L 03/29/24 11:30 Blood Pressure Mean 84 03/25/24 17:30 Blood Pressure Position Supine 03/25/24 17:30 Pulse Oximetry 97 03/29/24 11:30 Oxygen Delivery Method Room Air 03/29/24 11:30 Oxygen Flow Rate 0 03/29/24 11:30 Pain Level 3 03/29/24 11:30 Comment MD Notified of VS. 03/29/24 09:51 Allergies aspirin Allergy (Unknown, Verified 03/25/24 10:57) Unknown codeine Adverse Reaction (Intermediate, Verified 03/25/24 10:56) Nausea gi upset Active Medications Generic Name Dose Route Start Last Admin Trade Name Freq PRN Reason Stop Dose Admin Acetaminophen 0 mg 03/25/24 17:47 03/28/24 20:27 Acetaminophen 325 Mg Tab PO 650 mg Q4H PRN PRN Administration Calcium Carbonate 1,000 mg 03/25/24 20:00 03/29/24 08:10 Calcium Carbonate *Tums* 500 Mg Chew PO 1,000 mg BID NITIN Administration Digoxin 0.125 mg 03/26/24 04:00 03/28/24 03:06 Digoxin 0.125 Mg Tab PO 0.125 mg Q48H NITIN Administration Empagliflozin 10 mg 03/26/24 08:30 03/29/24 08:10 Empaglifozin 10 Mg Tab PO 10 mg QAM NITIN Administration Levothyroxine Sodium 75 mcg 03/26/24 06:00 03/29/24 06:27 Levothyroxine 75 Mcg Tab PO 75 mcg DAILY@0600 NITIN Administration Loperamide HCl 2 mg 03/25/24 20:00 03/29/24 08:10 Loperamide 2 Mg Cap PO 2 mg BID NITIN Administration Magnesium Gluconate 500 mg 03/26/24 08:30 03/29/24 08:10 Magnesium Gluconate 500 Mg Tab PO 500 mg DAILY NITIN Administration Metoprolol Tartrate 50 mg 03/25/24 20:00 03/29/24 08:53 Metoprolol 50 Mg Tab PO 50 mg TID NITIN Administration Morphine Sulfate 1 mg 03/26/24 15:38 03/29/24 08:10 Morphine 2 Mg/Ml Syr IVP 1 mg Q4H PRN PRN Administration Multivitamins 1 tab 03/26/24 08:30 03/29/24 08:10 Multivitamin Tab PO 1 tab DAILY NITIN Administration Sodium Chloride 0 ml 03/25/24 20:00 03/29/24 08:14 Normal Saline Flush 10 Ml Syr IVP 10 ml BID NITIN Administration IV IV Catheter Type [] Peripheral IV IV Catheter Type [Right Saline Lock Forearm] IV Catheter Type [Left Saline Lock Antecubital] IV Catheter Gauge [] 22 IV Catheter Gauge [Right 20 Forearm] IV Catheter Gauge [Left 20 Antecubital] Intake and Output - 24 Hour Total 03/25/24 10:32 thru 03/29/24 10:55 Intake Total 2804.667 Output Total 4245 Balance -1440.333 Weight 37.149 kg Intake: IV 1274.667 Oral 1530 Output: Urine 2420 Stool 1825 Other: Urine Color Yellow Urine Appearance Cloudy Urine Odor Strong Stool Size Moderate Stool Characteristics Soft Voiding Methods Urostomy Falls Risk Assessment History of Falls Previous History 03/25/24 17:49 Contributing Factors Impairments 03/25/24 17:49 Ambulatory Aids Uses ambulatory device + 03/25/24 17:49 Tubes/Lines With any additional score 03/25/24 17:49 Gait Evaluation W/any additional score 03/25/24 17:49 Cognition No cognitive impairment 03/25/24 17:49 Fall Total Score 88 03/25/24 17:49 Level of Risk Maximum Risk 03/25/24 17:49 Problems (Last Reviewed 12/27/23 @ 12:45 by Ritu Greenberg MD) Discharge planning issues (Acute) Ambulatory dysfunction (Acute) Palliative care encounter (Acute) Cardiomyopathy (Acute) GI bleeding (Chronic) Coagulopathy (Acute) Elevated INR (Acute) Generalized weakness (Acute) Hypoalbuminemia (Acute) Dehydration (Acute) Frailty (Acute) Short gut syndrome (Acute) Notes 03/26/24 15:45 Nursing Notes by Fiona Lewis Nursing Note: This RN called into room by pts son. Stated his mom had fallen asleep woken up had an episode of SOB. When this RN arrived to room pts RR was 32-40 O2 sat read 79, but could not get a good pleth. RT called and arrived to room. Unable to get a good O2 sat reading on pt. MD Escamilla notified and arrived to bedside. O2 sat now high 90s. SOB possibly d/t MD francine ordering morphine x1. Will CTM. Initialized on 03/26/24 15:45 - END OF NOTE v v v v v v v v v Sending and/or Receiving Nurses: Please use comment section below to note any information pertinent to the patient hand-off not included above. Information / Comments: Report received from: Tori Weaver RN in ICU at approx 1100. BECKY RN
--- NOTE | 2024-03-29 11:41 | NUR.NOTE ---
patient hypotensive this am, business writer notified MD at approx 0745 requesting hold on lopressors. MD stated to give lopressors due to HR. Lopressor given. BP and HR rechecked, patient noted to be hypotensive with BP 75/53 at 0952, MD notified and ordered fluid bolus of NS 250ml/hr for total of 250ml. Fluid infusion complete at 1122 and VS obtained post inufsion. AP RN Nursing Note:
[2024-03-29] MEDS: Ergocalciferol 50000 UNITS CAP PO (11:54)
--- NOTE | 2024-03-29 14:21 | NUR.NOTE ---
Patient BP 96/56, pulse 89, MD notified of VS, 1400 Metoprolol held per MD. Nursing Note:
--- NOTE | 2024-03-29 15:24 | NUR.NOTE ---
1500 BP 87/56, MD notified and requested BP recheck in 1-2 Hrs. patient asymptomatic at this time. AP RN Nursing Note:
[2024-03-29] MEDS: Acetaminophen 325 MG TAB PO (16:20)
--- NOTE | 2024-03-29 16:30 | NUR.NOTE ---
pt vital sign rechecked, BP 77/50, MD notified. AP RN Nursing Note:
[2024-03-30] VITALS (10 sets, daily range): BP systolic 74–108; BP diastolic 52–69; PULSE 64–112; RESP 15–18; TEMP 35.5–37; O2SAT 91–100
[2024-03-30] MEDS: Acetaminophen 325 MG TAB PO ×3 (00:49→21:04)
[2024-03-30] MEDS: Levothyroxine 75 MCG TAB PO (04:56)
[2024-03-30] MEDS: Digoxin 0.125 MG TAB PO (04:56)
[2024-03-30] MEDS: Hydrocortisone 1% CR 30 GM TUBE TP (04:57)
[2024-03-30 06:43] LABS: HCT 29.2 % (36.0-46.0); HGB 9.3 g/dL (11.2-15.7); MCH 34.2 pg (27.0-33.0); MCHC 31.8 % (32.0-36.0); MCV 107 fL (80-95); MPV 8.7 fL (8.0-11.0); Platelet Count 201 10^3/uL (130-400); RBC 2.72 10^6/uL (3.93-5.22); RDW 16.9 % (11.7-14.6); RDW-SD 66.1 fL; WBC 7.82 10^3/uL (4.4-10.8)
[2024-03-30 06:50] LABS: INR 1.1 (0.9-1.1); Prothrombin Time 10.6 sec (9.1-11.1)
[2024-03-30 07:07] LABS: Anion Gap 4.6 mmol/L (3-11); BUN 10 mg/dL (7-18); CO2 28.4 mmol/L (21.0-32.0); CREATININE 0.9 mg/dL (0.55-1.02); Chloride 103 mmol/L (98-107); Estimated GFR 65.44 (mL/min/1.73m2); Glucose 88 mg/dL (74-106); Magnesium 1.7 mg/dL (1.8-2.4); Potassium 4.3 mmol/L (3.5-5.1); Sodium 136 mmol/L (136-145)
[2024-03-30] MEDS: Normal Saline Flush 10 ML SYR IVP ×3 (07:36→20:43)
[2024-03-30] MEDS: Loperamide 2 MG CAP PO ×2 (07:38→20:42)
[2024-03-30] MEDS: Metoprolol 50 MG TAB PO ×3 (07:38→20:42)
[2024-03-30] MEDS: Empaglifozin 10 MG TAB PO (07:38)
[2024-03-30] MEDS: Magnesium Gluconate 500 MG TAB PO ×2 (07:39→20:42)
[2024-03-30] MEDS: Multivitamin TAB 1 TAB PO (07:39)
[2024-03-30] MEDS: Calcium Carbonate *TUMS* 500 MG CHEW 1000 MG PO ×2 (07:40→20:42)
[2024-03-30 08:51] LABS: Vitamin B12 269 pg/mL (193-986)
[2024-03-30 08:55] LABS: Folate > 20.0 ng/mL (8.6-20.0)
--- NOTE | 2024-03-30 09:28 | PDOC.CMPRO ---
Date of service: 03/30/24 Time of Service: 09:28 Care Management Progress Note Progress Note Text Progress Note Text: Emma was sitting up in bed when CM met with her. She has not been able to work with PT for the past few days secondary to dizziness. CM explained that if she is unable to work with PT, it will be difficult to get a bed offer at a rehab facility. The provision of skilled PT would be the basis for SNF reimbursement. Emma became teary and explained that her blood pressure is low and that she is having a lot of pain. While CM was meeting with Emma her provider also came to see her . Emma explained about her dizziness, hypotension and pain and he assured her he would address her concerns. CM followed up on the referrals sent on Saturday. Two facilities are no longer able to waive the 3 night stay for ACO patients and a third has declined to offer her a bed. Messages were left at the other facilities. Discharge Potential Discharge Needs: Other (SNF) Anticipated Barriers to Discharge: None Identified Patient/Family Education Needs: Review discharge instructions, discuss Ask Me Three Transportation: Other (to be determined by disposition) Plan: Emma has agreed to go to short term rehab before returning home. Referrals were sent to 8 facilities in the [facility] where her son lives and who are able to waive the 3 night stay Medicare rule. CM will follow up with the facilities on Saturday. Transportation will be determined by disposition. CM will follow and continue to support discharge needs. SDOH(Care Management) Screening Will the Patient Participate in the Screening?: Unable to obtain Do you worry about having a steady place to live?: no Problems where you live: no known problems In the past 12 months, have you had to go without electric, gas, oil or water in your home?: no Have you or anyone in your house had to go without enough food to eat?: no Has lack of transportation kept you from medical appointments or from doing things needed for daily living?: no Has anyone in your support network made you feel unsafe for any reason?: no
[2024-03-30] MEDS: cefTRIAXone 2 GM/50 ML BAG IVPB (11:48)
--- NOTE | 2024-03-30 12:31 | PGE_ITS ---
Date of Service Date of service: 03/30/24 Time of Service: 12:31 Assessment and Plan Assessment and plan (1) Elevated INR: Status: Acute Assessment and plan: -Patient initially presented with generalized weakness and inability to perform ADLs (see below for details), but in the emergency department she was noted as having significantly elevated INR greater than 10 -Patient not on any anticoagulation -At this time it is presumed that this is secondary to poor p.o. intake/nutrition in combination with short gut and malabsorption -Given IV Vit K and Kcentra in the emergency department -Repeat INR AM 03/26 down to 1.0 and remains within normal at 1.1 -Will discuss with Nutrition, but patient will likely require weekly IV vitamin K (2) Generalized weakness: Status: Acute Assessment and plan: - Likely secondary to poor nutrition, short gut, malabsorption resulting in progressive worsening functional status generalized weakness and inability to perform ADLs nutritional consult, P.T. consult, CM is working on sending referrals to SNF, however patient must participate in P.T. (3) Hypoalbuminemia: Status: Acute Assessment and plan: - Secondary to poor p.o. intake and shortcut/malabsorption as noted above (4) Frailty: Status: Acute Assessment and plan: continue w/ p.t. 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 B12 lower end of normal while high folate levels. will check MMA and homocysteine levels, may need parenteral vitamin b12 supplementation, low Mg level but improved. currently on oral magnesium supplementation; historically low vitamin D levels <5 ng/mL of hydroxy vitamin d as of 11/30/23. will put her on calcitril 0.25 mcg daily. 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 (6) Ambulatory dysfunction: Status: Acute Assessment and plan: Patient has been unable to be safely reambulated for safe discharge to home Will continue physical therapy (7) Discharge planning issues: Status: Acute Assessment and plan: Case management is following for discharge planning Does not meet criteria for acute inpatient stay but unsafe for discharge to home at this time Continue working with physical therapy and plan for discharge to home with home health services once safe Subjective Subjective Interval history since last seen: Emma is here w/ generalized weakness, she has a UTI, growing Klebsiella but has no fevers or rigors but generalized weakness. She has not been getting up f or P.T. d/t fatigue and weakness and orthostasis. she complains of pain over both legs and feet. Exam Narrative Exam Narrative: Elderly female sitting up in her bed eating her lunch, talking w/ the Lacey WINTER She is visibly upset and complaining of not seeing a doctor since last week. I did introduce myself and explain that I am a doctor. She appears to be in no respiratory distress and does not appear to be in exquisite pain, she is feeing herself her lunch Lungs: clear Heart: irregularly irregular (she has known afib) Abdomen: nondistended, soft, nontender Legs: no edema or cyanosis Objective Last Vital Signs Temp 36.1 C L 03/30/24 11:27 Pulse 77 03/30/24 11:27 Resp 15 03/30/24 11:27 BP 74/64 L 03/30/24 11:27 Pulse Ox 91 L 03/30/24 11:27 Laboratory Results - last 24 hr 03/30/24 03/30/24 06:20 06:20 WBC 7.82 RBC 2.72 L Hgb 9.3 L Hct 29.2 L MCV 107 H MCH 34.2 H MCHC 31.8 L RDW 16.9 H Plt Count 201 MPV 8.7 PT 10.6 INR 1.1 Sodium 136 Potassium 4.3 Chloride 103 Carbon Dioxide 28.4 Anion Gap 4.6 BUN 10 Creatinine 0.9 Est GFR (CKD-EPI 2020) 65.44 Glucose 88 Calcium 9.0 Magnesium 1.7 L Cancelled Vitamin B12 269 Folate > 20.0 H Time Spent with Patient Time Spent with Patient: 25-34 minutes Time was spent: preparing to see the patient(eg.review tests), ordering medications,tests, procedures, referring, communicating with other health child care development specialist, indepentently interpreting results, counseling the patient and care coordination
[2024-03-30] MEDS: Gabapentin 100 MG CAP PO ×2 (14:07→20:42)
[2024-03-30] MEDS: Midodrine 2.5 MG TAB PO ×2 (14:07→20:42)
--- NOTE | 2024-03-30 15:08 | PT.INTREAT ---
PT Notes Visit Reasons: Generalized Weakness Inpatient Physical Therapy Treatment Note [facility] Date: 03/30/2024 PRECAUTIONS: Standard, monitor for low BP, urostomy, ileostomy ,IV SUBJECTIVE: Patient reported during AM dizziness with low blood pressure. ( Confirmed by nursing and MD anticipated to see patient). When approached in the afternoon patient denied dizziness pain. She noted to be weepy concerned that she may not be able to go to rehab close to her son in [place]. Patient reports she just received medication for her blood pressure. OBJECTIVE patient frail alert semireclined in bed. Venodyne leg wraps in place bilateral lower extremity. Patient agreeable to participate now that she has no dizziness.? PAIN: Denied VITALS: ? Pre-Treatment: 108/62 Therapeutic Activities (70750c1): Direct one-on-one instruction in dynamic activities to improve functional performance. ? BED MOBILITY/TRANSFERS? Rolling L/R: CGA with rails and increased time Supine-sit: Min assist with head of bed elevated ? Sit-supine: Min assist with head of bed elevated ? Sit-stand: CGA ? Stand-sit: CGA ? Bed-Chair: CGA with FWW ? Chair-bed: CGA with FWW Provided skilled cues and instruction on performance and technique throughout. ? Therapeutic Exercises (99499e0): Direct one-on-one instruction in therapeutic exercises to develop strength, endurance, range of motion and flexibility. ? Exercises ? Supine bilateral lower extremity x 10 reps Quad sets Glutes sets Ankle pumps Short arc quads Heel slides Seated BLE x 10 Heel raises LAQ ? Provided skilled instruction in proper exercise performance ASSESSMENT: Patient demonstrated increased tolerance to sitting and standing tasks this session after receiving midodrine. She tolerated sitting at edge of the bed unsupported for 10 minutes then tolerated standing for 3 minutes. Patient responded well to dangling of lower extremities and elevation of head of bed prior to sitting. During standing time patient able to perform marching x 10 and lateral stepping to right and left. PLAN: Continue strengthening functional mobility training and balance TREATMENT CODE/TIME: 71599 x 2, 62298 x 1 ([id number]) DISCHARGE RECOMMENDATION: SNF
[2024-03-31] VITALS (10 sets, daily range): BP systolic 78–120; BP diastolic 48–66; PULSE 71–109; RESP 17–20; TEMP 36–36.8; O2SAT 89–100
[2024-03-31] MEDS: Acetaminophen 325 MG TAB PO ×4 (03:59→20:51)
[2024-03-31 06:17] LABS: Abs Immature Grans 0.06 10^3/uL (0.0-0.06); Absolute Basophil Count 0.07 10^3/uL (0.0-0.2); Absolute Eosinophil Count 0.31 10^3/uL (0.0-0.7); Absolute Monocyte Count 0.89 10^3/uL (0.1-0.8); Basophils % 0.8 %; Eosinophils % 3.4 %; HCT 31.3 % (36.0-46.0); HGB 9.6 g/dL (11.2-15.7); Immature Grans % 0.7 %; MCH 33.3 pg (27.0-33.0); MCHC 30.7 % (32.0-36.0); MCV 109 fL (80-95); MPV 8.7 fL (8.0-11.0); Monocytes % 9.7 %; Neutrophils % 74.4 %; Platelet Count 204 10^3/uL (130-400); RBC 2.88 10^6/uL (3.93-5.22); RDW 16.7 % (11.7-14.6); RDW-SD 66.1 fL; WBC 9.13 10^3/uL (4.4-10.8)
[2024-03-31 06:29] LABS: INR 1.1 (0.9-1.1); Prothrombin Time 10.8 sec (9.1-11.1)
[2024-03-31] MEDS: Levothyroxine 75 MCG TAB PO (06:36)
[2024-03-31 06:47] LABS: BUN 9 mg/dL (7-18); Calcium 8.8 mg/dL (8.5-10.1); Chloride 106 mmol/L (98-107); Estimated GFR 57.66 (mL/min/1.73m2); Glucose 84 mg/dL (74-106); Potassium 4.3 mmol/L (3.5-5.1); Sodium 141 mmol/L (136-145)
[2024-03-31] MEDS: Calcium Carbonate *TUMS* 500 MG CHEW 1000 MG PO ×2 (07:53→20:51)
[2024-03-31] MEDS: Loperamide 2 MG CAP PO ×2 (07:53→20:51)
[2024-03-31] MEDS: Gabapentin 100 MG CAP PO ×3 (07:54→20:51)
[2024-03-31] MEDS: Empaglifozin 10 MG TAB PO (07:54)
[2024-03-31] MEDS: Multivitamin TAB 1 TAB PO (07:54)
[2024-03-31] MEDS: Magnesium Gluconate 500 MG TAB PO ×2 (07:54→20:51)
[2024-03-31] MEDS: Calcitriol 0.25 MCG CAP PO (07:55)
[2024-03-31] MEDS: Metoprolol 50 MG TAB PO ×3 (07:55→20:50)
[2024-03-31] MEDS: Midodrine 2.5 MG TAB PO (07:55)
[2024-03-31] MEDS: Normal Saline Flush 10 ML SYR IVP ×3 (07:56→20:52)
--- NOTE | 2024-03-31 09:31 | PGE_ITS ---
Date of Service Date of service: 03/31/24 Time of Service: 09:32 Assessment and Plan Assessment and plan (1) Elevated INR: Status: Acute Assessment and plan: -Patient initially presented with generalized weakness and inability to perform ADLs (see below for details), but in the emergency department she was noted as having significantly elevated INR greater than 10 -Patient not on any anticoagulation -At this time it is presumed that this is secondary to poor p.o. intake/nutrition in combination with short gut and malabsorption -INR stable at 1.1. I think that this should be checked weekly for a month and if stable then decrease to monthly. She may need parenteral vitamin K periodically to keep her INR stable (2) Generalized weakness: Status: Acute Assessment and plan: secondary to deconditioning and malnutrition. Nutrition consult has been obtained, see Karlos's note. Patient is not amenable to recommended protein supplement drinks, however she does eat a variety of meats offered to her. (3) Hypoalbuminemia: Status: Acute Assessment and plan: - Secondary to poor p.o. intake and shortcut/malabsorption as noted above (4) Frailty: Status: Acute Assessment and plan: continue w/ p.t. 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 B12 lower end of normal while high folate levels. will check MMA and homocysteine levels, may need parenteral vitamin b12 supplementation, low Mg level but improved. currently on oral magnesium supplementation; historically low vitamin D levels <5 ng/mL of hydroxy vitamin d as of 11/30/23. will put her on calcitril 0.25 mcg daily. folate is >20 B12 is low end of normal at 269, homocysteine and MMA are pending at this time. I will begin supplementation of her vitamin B12. 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 She says that she did attempt to work w/ P.T. yesterday. She is willing to work w/ P.T. again today. She is willing to go to SNF for continued P.T. and O.T. Exam Narrative Exam Narrative: Emma is sitting up in bed. she has finished her breakfast, she seems more congenial this mornning. No distress, not in pain. Lungs: clear Heart: irregularly irregular, soft systolic mumur at apex, no thrill Abdomen: soft, nontender Legs: no cyanosis or edema Objective Last Vital Signs Temp 36.2 C L 03/31/24 07:12 Pulse 81 03/31/24 09:00 Resp 20 03/31/24 07:12 BP 96/48 L 03/31/24 09:00 Pulse Ox 98 03/31/24 07:12 Laboratory Results - last 24 hr 03/31/24 06:05 WBC 9.13 RBC 2.88 L Hgb 9.6 L Hct 31.3 L MCV 109 H MCH 33.3 H MCHC 30.7 L RDW 16.7 H Plt Count 204 MPV 8.7 Immature Gran % 0.7 Neutrophils % 74.4 Lymphocytes % 11.0 Monocytes % 9.7 Eosinophils % 3.4 Basophils % 0.8 Nucleated RBC % 0.0 Absolute Neutrophils 6.80 H Absolute Lymphocytes 1.00 L Absolute Monocytes 0.89 H Absolute Eosinophils 0.31 Absolute Basophils 0.07 PT 10.8 INR 1.1 Sodium 141 Potassium 4.3 Chloride 106 Carbon Dioxide 30.0 Anion Gap 5.0 BUN 9 Creatinine 1.0 Est GFR (CKD-EPI 2020) 57.66 Glucose 84 Calcium 8.8 C-Reactive Protein 1.10 H Time Spent with Patient Time Spent with Patient: 25-34 minutes Time was spent: preparing to see the patient(eg.review tests), ordering medications,tests, procedures, referring, communicating with other health career development counselor, indepentently interpreting results, counseling the patient and care coordination
--- NOTE | 2024-03-31 09:48 | CMPROGNOTE_ITS ---
Date of service: 03/31/24 Time of Service: 09:48 Care Management Progress Note Progress Note Text Progress Note Text: Emma was sitting up in bed when CM met with her. She was pleasant in manner and engaged well with CM. Emma informed CM that she is finally starting to feel a little better. She was started on an antibiotic for the UTI she has and she was given Midodrine for the hypotension. She also reported to CM that the new medication for the pain in her legs (Gabapentin) is really helping. Because Emma developed the uti and hypotendsion, she now meets inpatient criteria. This is important because it allows for a wider choice of halfway facilities for rehab. Emma expressed a desire to go to a facility closer to home. If she indeed needs to remain hospitalized for another couple of days, referrals can be sent to both [facility] and [facility]. Discharge Potential Discharge Needs: Other (halfway facility for rehab) Anticipated Barriers to Discharge: Bed availability and Medical Status (dizzy when standing) Patient/Family Education Needs: Review discharge instructions, discuss Ask Me Three Transportation: Private vehicle Plan: Emma has agreed to go to short term rehab before returning home. Referrals had been sent to 8 facilities in the [facility] where her son lives and who are able to waive the 3 night stay Medicare rule. No bed offers have been received. Yesterday Emma's status changed to inpatient due to a Uti with hypotension. Additional referrals will be sent now that she will have the required 3 night stay. Transportation will be determined by disposition. CM will follow and continue to support discharge needs. SDOH(Care Management) Screening Will the Patient Participate in the Screening?: Unable to obtain Do you worry about having a steady place to live?: no Problems where you live: no known problems In the past 12 months, have you had to go without electric, gas, oil or water in your home?: no Have you or anyone in your house had to go without enough food to eat?: no Has lack of transportation kept you from medical appointments or from doing things needed for daily living?: no Has anyone in your support network made you feel unsafe for any reason?: no
[2024-03-31] MEDS: Cyanocobalamin 1000 MCG/ML VIAL IM/SC (10:08)
--- NOTE | 2024-03-31 10:52 | NUR.NOTE ---
Nursing Note:Yesterday at 13:30, I sent a message to Dr. Linton asking if he could set parameters with a minimal BP that he if comfortable with administration of metoprolol. The patient BP is typically sitting around 100, in which case I do not feel comfortable administering the medication, yet can not withhold the medication from the patient if there are no set parameters. No parameters have been set.
--- NOTE | 2024-03-31 10:59 | NUR.NOTE ---
Student Teacher sent FYI message to Dr. Linton: Completed set of orthostatic vitals, which are as follows: Supine: 96/48, HR 81, Sittin/54 HR 81 and Standin/50 HR 71. Patient is symptomatic when standing at edge of bed, c/o dizziness, room spinning sensation and having SOB. Maintaining 02 Sats 90-91% on RA, non-labored breathing. Upon recheck, BP 98/56 HR 71. Student Teacher inquired whether provider would recommend restarting IVF to keep pressures up since patient is on metoprolol for rate control. Received message back from provider, I will increase her midodrine, please apply thigh high TEDS. Student Teacher updated assigned RN Mariah. Mariah verbalized understanding and stated she would apply thigh high TEDS as ordered. See nursing documentation and provider's orders for further detail.
[2024-03-31] MEDS: Normal Saline 250 ML IV (11:13)
[2024-03-31 11:46] LABS: D-Dimer > 7500 ng/mlFEU (<500)
[2024-03-31] MEDS: cefTRIAXone 2 GM/50 ML BAG IVPB (12:33)
[2024-03-31] MEDS: Normal Saline - Diluent 50 ML VIAL IJ (15:06)
--- NOTE | 2024-03-31 15:10 | PT.INTREAT ---
PT Notes Visit Reasons: Generalized Weakness Inpatient Physical Therapy Treatment Note [facility] Date: 03/31/2024 PRECAUTIONS: Standard, monitor for low BP, urostomy, ileostomy ,IV SUBJECTIVE: Patient reported during AM dizziness with low blood pressure. ( Confirmed by nursing and MD anticipated to see patient). When approached in the afternoon patient denied dizziness pain. She noted to be weepy concerned that she may not be able to go to rehab close to her son in [place]. Patient reports she just received medication for her blood pressure. OBJECTIVE patient frail alert semireclined in bed. Venodyne leg wraps in place bilateral lower extremity. Patient agreeable to participate now that she has no dizziness.? PAIN: Denied VITALS: ? Pre-Treatment: 108/62 Therapeutic Activities (29136j2): Direct one-on-one instruction in dynamic activities to improve functional performance. ? BED MOBILITY/TRANSFERS? Rolling L/R: CGA with rails and increased time Supine-sit: Min assist with head of bed elevated ? Sit-supine: Min assist with head of bed elevated ? Sit-stand: CGA ? Stand-sit: CGA ? Bed-Chair: CGA with FWW ? Chair-bed: CGA with FWW Ambulation 7 feet CGA with FWW Provided skilled cues and instruction on performance and technique throughout. ? Therapeutic Exercises (14898c4): Direct one-on-one instruction in therapeutic exercises to develop strength, endurance, range of motion and flexibility. ? Exercises ? Supine bilateral lower extremity x 10 reps Quad sets Glutes sets Ankle pumps Short arc quads Heel slides Seated BLE x 10 Heel raises LAQ ? Provided skilled instruction in proper exercise performance ASSESSMENT: Patient demonstrated increased tolerance to sitting and standing tasks this session after morning being unavailable d/t low BPs. She tolerated sitting at edge of the bed unsupported for 6 minutes then tolerated standing for 3 minutes x2. Patient responded well to dangling of lower extremities and elevation of head of bed prior to sitting at EOB . During standing time patient able to performshort 7foot walk and lateral stepping to right and left prior to session being cut short for her to go to CT scan. PLAN: Continue strengthening functional mobility training and balance TREATMENT CODE/TIME: 66661 x 1, 91198 x 1 ([id number]) DISCHARGE RECOMMENDATION: SNF
[2024-03-31] MEDS: Omnipaque 350 MG/ML 500 ML BTL-Imaging package 55 ML IJ (15:22)
--- NOTE | 2024-03-31 15:25 | DI.CT_ITS ---
Exam(s) CT CHEST PE CTA EXAM: CT CHEST PE CTA CLINICAL HISTORY: dyspnea. TECHNIQUE: Imaging Protocol: Axial CT angiography was performed with multi-slice acquisition and mu lti-planar reconstructions as well as axial, coronal and sagittal MIP reconstructions. CONTRAST MATERIAL: Intravenous: Omnipaque 350 Contrast volume:55 ml COMPARISON: CT CT CHEST PE CTA from 11/30/2023 CR XR CHEST 2V PA LATERAL from 03/25/[address] ABDOMEN PELVIS CTA from 03/25/2024 FINDINGS: Pulmonary Arteries: No evidence of filling defect to suggest pulmonary emboli. Tracheobronchial tree: No mucous plugging. Mediastinum and Priscilla: No dominant adenopathy or fluid collection. Pulmonary parenchyma: No consolidation. Left lower lobe nodule again noted. Emphysematous changes. Pleura: No effusion or pneumothorax. Heart: The heart is mildly dilated. [id number]-[id number]-dtuxnoll coronary artery calcifications are seen. Aorta: Ascending aorta measures 3.5 cm. No dissection. Upper abdomen: No acute findings. Bones: Stable L1 compression fracture. Minimal compression of midthoracic vertebral bodies. Degener ative changes throughout. Tubes, Catheters, and Lines: None Soft tissues: Unremarkable. IMPRESSION: No evidence of pulmonary embolism or other acute abnormality. Stable 7 millimeter left lower lobe nodule. RADIATION DOSE DELIVERED: 46.69mGy.cm Total DLP DATA REPOSITORY: All CT scans at this facility are submitted to the National Radiology Data Registry (NRDR) Dose Index Registry (DIR) with the [employer] ([employer]). RADIATION OPTIMIZATION: All CT scans at this facility use at least one of these dose optimization te chniques: automated exposure control; mA and/or kV adjustment per patient size (includes targeted exa ms where dose is matched to clinical indication); or iterative reconstruction.
[2024-03-31] MEDS: Midodrine 2.5 MG TAB 5 MG PO ×2 (15:35→20:51)
[2024-03-31] MEDS: Enoxaparin 40 MG/0.4 ML SYR SC (18:05)
--- NOTE | 2024-03-31 20:11 | PCPN_ITS ---
Date of service: 03/31/24 Time of Service: 15:08 Assessment and Plan Assessment and plan (1) Palliative care encounter: Status: Acute Assessment and plan: See HPI: -New COLST drawn up today, to replace 1 that we do not have a copy of. -Palliative care will plan to follow-up with patient in a month if she is still [place]. We are happy to see patient sooner if needed. 16 to 30 minutes spent today on Advance Care Planning. Patient and family participated voluntarily. Advance care planning may include (not limited to) explanation and discussion of advance directives, choosing and appointing healthcare agents, alternatives to various ACP tools, discussion of (and if indicated, completion of) COLST form, discussion of patient's values and overall goals for treatment, palliative and disease directive care options, ways to avoid hospital readmission including hospice discussions, care preferences should the patient's several other adverse health events.See today's palliative care note for additional information. 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 Garcia is a 78-year-old woman who lives alone in her house in [facility] with her cat Joaquín. 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 [facility] Palliative Care Team has been following her since November 2022 help with advanced Care planning, Goals of Care, rallying support services and additional support to her and her son. Please refer to palliative care 03/26/2024 note for more complete summary of palliative care involvement with her. I met with patient today for follow-up as well as to clear up another problem identified: She actually got sicker several days after I saw her. Was diagnosed with Klebsiella UTI. Has been started on antibiotics. Still quite orthostatic. Midodrine started for hypotension and blood pressure is somewhat better since then. Nursing staff are glad to report that she seems finally to be improving over the last 18 hours. Notes reviewed: Discussions between patient, son and case management: She is ag reeable to going to subacute rehab to get stronger before she returns home. She has never agreed to do this in the past, but even she realizes she is too weak at this point to return home alone. Reviewed this with patient today and she confirmed that she is willing to go to subacute rehab. My December 2023 notes refer to sitting with patient and having goals of care discussion which resulted in COLST including: DNR/DNI, do transfer to the hospital and treat with antibiotics and IV fluids. Patient confirms that we filled out a COLST on that day in December and tells me it is in a red envelope on my refrigerator:. Unfortunately neither I nor my office staff are able to find a COLST form scanned into the [facility] chart. Since patient will be going to [facility], she will need a COLST to go with her to reflect her wishes. Discussion with patient today, she confirms her wishes to be DNR/DNI. She Is pretty sure she does not ever want to have any surgery again, even to save her life. However she does want to continue to be evaluated and treated for medical problems including having blood work and other tests done, being admitted to the hospital and having IV antibiotics and IV fluid if needed. Page one of the COLST form is completed today and signed by patient. I am going to asked my office staff to call her PCP office to see if they actually have a copy of this COLST on file (neither patient nor son will be going back to the home soon). Supportive counseling today around illness. Patient reports she is upbeat and happy that she is beginning to feel little bit better. Exam Narrative Exam Narrative: Patient looks much improved since last time I saw her. Just comes back on stretcher from radiology. Is able to sit up and stand on her own and pivot and transfer with spotting (not needed) to her bed. She is quite talkative and her with has returned. She is pale but this has been her baseline. She is oriented Objective Last Vital Signs Temp 36.1 C L 03/31/24 19:17 Pulse 91 H 03/31/24 19:17 Resp 18 03/31/24 19:17 BP 101/66 03/31/24 19:17 Pulse Ox 100 03/31/24 19:17 Laboratory Results - last 24 hr 03/31/24 06:05 WBC 9.13 RBC 2.88 L Hgb 9.6 L Hct 31.3 L MCV 109 H MCH 33.3 H MCHC 30.7 L RDW 16.7 H Plt Count 204 MPV 8.7 Immature Gran % 0.7 Neutrophils % 74.4 Lymphocytes % 11.0 Monocytes % 9.7 Eosinophils % 3.4 Basophils % 0.8 Nucleated RBC % 0.0 Absolute Neutrophils 6.80 H Absolute Lymphocytes 1.00 L Absolute Monocytes 0.89 H Absolute Eosinophils 0.31 Absolute Basophils 0.07 PT 10.8 INR 1.1 D-Dimer > 7500 H Sodium 141 Potassium 4.3 Chloride 106 Carbon Dioxide 30.0 Anion Gap 5.0 BUN 9 Creatinine 1.0 Est GFR (CKD-EPI 2020) 57.66 Glucose 84 Calcium 8.8 C-Reactive Protein 1.10 H
[2024-03-31] MEDS: traMADol 50 MG TAB PO (20:51)
[2024-04-01] VITALS (7 sets, daily range): BP systolic 70–130; BP diastolic 40–88; PULSE 56–93; RESP 15–18; TEMP 35.8–36.8; O2SAT 98–99
--- NOTE | 2024-04-01 | DI.US_ITS ---
Exam(s) US EXTREMITY VENOUS BI EXAM: US EXTREMITY VENOUS BI CLINICAL HISTORY: elevated d-dimer. TECHNIQUE: Bilateral lower extremity venous ultrasound performed using grayscale, color-flow, and sp ectral Doppler analysis. COMPARISON: No exams were available for comparison FINDINGS: The bilateral common femoral, femoral and popliteal veins demonstrate normal compressibility, augment ation, and color Doppler. The posterior tibial veins are patent. IMPRESSION: Right: Negative for DVT Left: Negative for DVT DATA REPOSITORY:
[2024-04-01] MEDS: Levothyroxine 75 MCG TAB PO (05:09)
[2024-04-01] MEDS: Enoxaparin 40 MG/0.4 ML SYR SC (05:09)
[2024-04-01] MEDS: Digoxin 0.125 MG TAB PO (05:09)
[2024-04-01] MEDS: Acetaminophen 325 MG TAB PO ×3 (05:09→20:28)
[2024-04-01 06:21] LABS: HCT 28.6 % (36.0-46.0); HGB 8.7 g/dL (11.2-15.7); MCH 33.9 pg (27.0-33.0); MCHC 30.4 % (32.0-36.0); MCV 111 fL (80-95); MPV 8.8 fL (8.0-11.0); Platelet Count 203 10^3/uL (130-400); RBC 2.57 10^6/uL (3.93-5.22); RDW 16.9 % (11.7-14.6); RDW-SD 68.3 fL; WBC 6.34 10^3/uL (4.4-10.8)
[2024-04-01] MEDS: cefTRIAXone 1 GM/50 ML BAG IVPB (08:28)
[2024-04-01] MEDS: Magnesium Gluconate 500 MG TAB PO ×2 (08:29→20:28)
[2024-04-01] MEDS: Multivitamin TAB 1 TAB PO (08:29)
[2024-04-01] MEDS: Metoprolol 50 MG TAB PO (08:30)
[2024-04-01] MEDS: Calcium Carbonate *TUMS* 500 MG CHEW 1000 MG PO ×2 (08:30→20:29)
[2024-04-01] MEDS: Gabapentin 100 MG CAP PO ×3 (08:31→20:31)
[2024-04-01] MEDS: Loperamide 2 MG CAP PO ×2 (08:31→20:29)
[2024-04-01] MEDS: Midodrine 2.5 MG TAB 5 MG PO ×3 (08:31→20:28)
[2024-04-01] MEDS: Empaglifozin 10 MG TAB PO (08:32)
[2024-04-01] MEDS: Calcitriol 0.25 MCG CAP PO (08:32)
[2024-04-01] MEDS: Normal Saline Flush 10 ML SYR IVP ×3 (08:33→20:29)
[2024-04-01] MEDS: traMADol 50 MG TAB PO (08:35)
--- NOTE | 2024-04-01 09:19 | PDOC.CMPRO ---
Date of service: 04/01/24 Time of Service: 09:19 Care Management Progress Note Progress Note Text Progress Note Text: Emma was sitting up in bed when CM met with her. She did not appear to be in good spirits and admitted that she is having a bad day. She had new compression stockings ordered yesterday and she reported that they were causing severe pain in her heel and she needed to have them removed. She also had to go to medical Imaging for testing (venous doppler) and stated that it was painful because her legs are so sensitive. Emma's dizziness persists and medications are being adjusted to address the issue. On a positive note, CM was able to inform Emma that she received a bed offer from [facility]. She readily accepted the offer. CM left a message for Tan who indicated that he is pleased with the choice and believes it will be a good fit for his Mom. Discharge Potential Discharge Needs: Other (SNF) Anticipated Barriers to Discharge: Bed availability Patient/Family Education Needs: Review discharge instructions, discuss Ask Me Three Transportation: Other (to be determined by disposition) Plan: Emma has agreed to go to short term rehab before returning home. Referrals were sent to about 10 facilities to waive the 3 night stay Medicare rule. No bed offers have been received. Yesterday Emma's status changed to inpatient due to a Uti with hypotension. Additional referrals will be sent now that she will have the required 3 night stay. Transportation will be determined by disposition. CM will follow and continue to support discharge needs. SDOH(Care Management) Screening Will the Patient Participate in the Screening?: Unable to obtain Do you worry about having a steady place to live?: no Problems where you live: no known problems In the past 12 months, have you had to go without electric, gas, oil or water in your home?: no Have you or anyone in your house had to go without enough food to eat?: no Has lack of transportation kept you from medical appointments or from doing things needed for daily living?: no Has anyone in your support network made you feel unsafe for any reason?: no
--- NOTE | 2024-04-01 11:42 | NUR.NOTE ---
Addendum entered by Molly Noble 04/01/24 13:17: Received following new orders entered by provider: Administer one time dose of 25 gram Albumin 200 mL/hr Provider also decreased dose of metoprolol from 50 mg TID to 25 mg TID Stool sample sent per orders Original Note: Electric Distribution Checker notified Dr. Linton with concern of patient's worsening orthostatic hypotension and ongoing softer BP's despite receiving a 250 mL IVF bolus yesterday, receiving an increased dose of midodrine yesterday and again today, and initiating thigh high TEDS. Supine: 104/60 HR 76, Sittin/44 HR 82 and Standin/40 HR 58. Patient c/o lightheadedness and spinning sensation with position changes. Denied SOB or CP. Patient did however refuse to keep thigh high TEDS on prior to getting OOB with therapy this morning d/t c/o pain to heel and TEDS being too tight. Electric Distribution Checker educated patient on purpose of TEDS in regards to management of orthostatic hypotension and also offered to apply a larger size of TEDS to make patient more comfortable, patient refused intervention despite automotive service writer's best efforts. Provider at nurse's station. Electric Distribution Checker inquired whether restarting IVF or an additional IVF bolus would be appropriate or if provider would be changing dosage of midodrine again. Awaiting provider's recommendations/orders for further management.
[2024-04-01] MEDS: ALBUMIN HUMAN 25 GM/100 ML BTL IV (13:00)
--- NOTE | 2024-04-01 13:09 | PT.INTREAT ---
PT Notes Visit Reasons: UTI, Hypotension Inpatient Physical Therapy Treatment Note [facility] Date: 04/01/2024 PRECAUTIONS: Standard, monitor for low BP, urostomy, ileostomy ,IV SUBJECTIVE: PT reporting her right heel and left lateral foot painful. Pt reports the TADEO stockins were so tight they caused her to get a blister. OBJECTIVE patient frail alert semireclined in bed. Venodyne leg wraps in place bilateral lower extremity. Socks removed and noted ecchymotic area and lateral 5th MT blister Left foot, Patient agreeable to participate now that she has no dizziness.? PAIN: Denied VITALS: ?orthostatic vitals: Supine 104/60 HR 76 Sit 78/44 HR 82 Stand 70/40 HR 93 Therapeutic Activities (71649): Direct one-on-one instruction in dynamic activities to improve functional performance. ? BED MOBILITY/TRANSFERS? Rolling L/R: CGA with rails and increased time Supine-sit: Min assist with head of bed elevated ? Sit-supine: Min assist with head of bed elevated ? Sit-stand: CGA ? Stand-sit: CGA ? Bed-Chair: CGA with FWW ? Chair-bed: CGA with FWW Provided skilled cues and instruction on performance and techniques. ASSESSMENT: Pt able to perform functional transfers with CGA however within 3 mins of standing pt became symptomatic , decrease level of alertness, and lightheadedness with increase need for assist to sustain standing. Pt . unable to ambulate this morning session. Nursing aware. PLAN: Continue strengthening functional mobility training and balance TREATMENT CODE/TIME: 06045 x2 [id number] DISCHARGE RECOMMENDATION: SNF
[2024-04-01] MEDS: Metoprolol 50 MG TAB 25 MG PO ×2 (13:55→20:29)
--- NOTE | 2024-04-01 14:21 | NUR.NOTE ---
Oceanography Professor sent message to provider (Dr. Linton) inquiring if initiating telemetry would be appropriate for patient given patient's A-fib, hypotension, intermittent dyspnea, intermittent tachycardia, increased lethargy, pale pallor and overall increased risk for sepsis. No new orders at this time.
--- NOTE | 2024-04-01 16:35 | PGE_ITS ---
Date of Service Date of service: 04/01/24 Time of Service: 16:35 Assessment and Plan Assessment and plan (1) Orthostatic hypotension: Status: Acute Assessment and plan: cont. midodrine; decrease lopressor to 25 mg tid, trial of albumin infusion; encourage use of TEDS and protein supplements (2) Klebsiella cystitis: Status: Acute Assessment and plan: day #3 Ceftriaxone (3) GI bleeding: Status: Chronic Assessment and plan: no overt melena nor hematochezia but stool his heme positive and she is anemic. Her d-dimer was elevated but her CTA chest negative for PE and today her duplex of her legs was negative for DVT. I have stoppe her lovenox and will cover w/ SCD for DVT prophylaxis. She was not on a PPI therefore I have put her on protonix 40 mg bid Qualifiers: GI bleed type/associated pathology: unspecified gastrointestinal hemorrhage type Qualified Code(s): K92.2 - Gastrointestinal hemorrhage, unspecified (4) Macrocytic anemia: Status: Acute Assessment and plan: patient anemia had been controlled back in November but beginning in February she became more anemia w/ Hb of 9.8 gm, however her Hb on admission was higher at 11.2 but all of her other reading have been in the 9's, today she is 8.7 gm Her B12 is low normal at 269 while her folate is high. I have sent off MMA and homocysteine levels and she got a dose of B12 yesterday. No recent iron studies have been done. I will send for ferritin, TIBC and iron levels in the morning. her stool was heme positive today but not grossly bloody or melena. I have put her on protonix for GI protection. (5) Elevated INR: Status: Acute Assessment and plan: -Patient initially presented with generalized weakness and inability to perform ADLs (see below for details), but in the emergency department she was noted as having significantly elevated INR greater than 10 -Patient not on any anticoagulation -At this time it is presumed that this is secondary to poor p.o. intake/nutrition in combination with short gut and malabsorption -INR stable at 1.1. I think that this should be checked weekly for a month and if stable then decrease to monthly. She may need parenteral vitamin K periodically to keep her INR stable (6) Generalized weakness: Status: Acute Assessment and plan: secondary to deconditioning and malnutrition. Nutrition consult has been obtained, see Karlos's note. Patient is not amenable to recommended protein supplement drinks, however she does eat a variety of meats offered to her. (7) Hypoalbuminemia: Status: Acute Assessment and plan: - Secondary to poor p.o. intake and shortcut/malabsorption as noted above; will give albumin infusion (8) Frailty: Status: Acute Assessment and plan: continue w/ p.t. 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 B12 lower end of normal while high folate levels. will check MMA and homocysteine levels, may need parenteral vitamin b12 supplementation, low Mg level but improved. currently on oral magnesium supplementation; historically low vitamin D levels <5 ng/mL of hydroxy vitamin d as of 11/30/23. will put her on calcitril 0.25 mcg daily. folate is >20 B12 is low end of normal at 269, homocysteine and MMA are pending at this time. I will begin supplementation of her vitamin B12. 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 I have not put her on telemetry since her HR has not been an issue and we know she has chronic afib. Subjective Subjective Interval history since last seen: Emma denies any pain or dyspnea. Orthostasis seems a bit worse today however she could not tolerate her TEDS d/t pain in her legs. Currently her legs are doing ok since removal of the stockings. I have already increased her midodrine to 5 mg tid. Because of her cardiomyopathy, I do not want to give more iv fluids nor put her on fludrocortisone. I am going to decrease her metoprolol dose. Also it would help if she were to take in the protein supplements. Exam Narrative Exam Narrative: Emma is alert, oriented, NAD Lungs: clear Heart: irregularly irregular at controlled rate, systolic murmur at apex Abdomen: ileostomy intact, pink, no bleeding; nondistended, soft, nontender Extremities: venous varicosities, no edema; diminished pedal pulses Objective Last Vital Signs Temp 36.4 C L 04/01/24 15:31 Pulse 60 04/01/24 15:31 Resp 15 04/01/24 15:31 BP 108/68 04/01/24 15:31 Pulse Ox 99 04/01/24 15:31 Laboratory Results - last 24 hr 03/31/24 04/01/24 06:05 05:45 WBC 6.34 RBC 2.57 L Hgb 8.7 L Hct 28.6 L MCV 111 H MCH 33.9 H MCHC 30.4 L RDW 16.9 H Plt Count 203 MPV 8.8 Homocysteine 24.0 H Time Spent with Patient Time Spent with Patient: 25-34 minutes Time was spent: preparing to see the patient(eg.review tests), ordering me dications,tests, procedures, referring, communicating with other health palliative care nurse practitioner, indepentently interpreting results, counseling the patient and care coordination
--- NOTE | 2024-04-01 16:49 | CHAPLAIN ---
Emma was resting in bed when I visited. Again, she told me she wasn't interested in a cartridge feeder visit because she wasn't interested in me talking about restorationism. I reminded her that I didn't have an agenda and just came in to say jesus and see how her day was going. She was interested in having her stocking cut off because she said they were making her feet and legs hurt and they hadn't been hurting until the stockings were on. The nurse explained the reason for the stockings, and Emma said she wanted them off anyway because of the pain. Emma said she spoke with her son in [place], yesterday. She told me that he lives in [place] and does computer work and that when he visits her he is often working on his computer. Emma remains pleasant in interactions with me, noting that she doesn't want to talk about restorationism.
[2024-04-01] MEDS: Pantoprazole 40 MG TABCR PO (16:52)
[2024-04-02] MEDS: Levothyroxine 75 MCG TAB PO (06:20)
[2024-04-02] MEDS: Empaglifozin 10 MG TAB PO (08:00)
[2024-04-02] MEDS: Gabapentin 100 MG CAP PO ×3 (08:00→20:10)
[2024-04-02] MEDS: Loperamide 2 MG CAP PO ×2 (08:00→20:10)
[2024-04-02] MEDS: Calcitriol 0.25 MCG CAP PO (08:00)
[2024-04-02] MEDS: Normal Saline Flush 10 ML SYR IVP ×2 (08:00→20:11)
[2024-04-02] MEDS: Multivitamin TAB 1 TAB PO (08:00)
[2024-04-02] MEDS: Pantoprazole 40 MG TABCR PO ×2 (08:00→20:11)
[2024-04-02] MEDS: Midodrine 2.5 MG TAB 5 MG PO ×3 (08:00→20:10)
[2024-04-02] MEDS: Magnesium Gluconate 500 MG TAB PO ×2 (08:00→20:10)
[2024-04-02] MEDS: cefTRIAXone 1 GM/50 ML BAG IVPB (08:00)
[2024-04-02] MEDS: Calcium Carbonate *TUMS* 500 MG CHEW 1000 MG PO ×2 (08:00→20:10)
[2024-04-02] MEDS: Metoprolol 50 MG TAB 25 MG PO ×3 (08:00→20:10)
[2024-04-02 09:00] LABS: Anion Gap 4.8 mmol/L (3-11); BUN 11 mg/dL (7-18); CO2 30.2 mmol/L (21.0-32.0); CREATININE 0.8 mg/dL (0.55-1.02); Calcium 8.9 mg/dL (8.5-10.1); Chloride 105 mmol/L (98-107); Estimated GFR 75.37 (mL/min/1.73m2); Ferritin 40 ng/mL (8-252); Glucose 76 mg/dL (74-106); Iron 23 ug/dL (50-170); Potassium 4.3 mmol/L (3.5-5.1); Sodium 140 mmol/L (136-145); Total Iron Binding Capacity 222 ug/dL (250-450); Transferrin Sat 10 % (15-50)
[2024-04-02 09:25] VITALS: BP 95/57; RESP 17; TEMP 36.2
--- NOTE | 2024-04-02 09:57 | PDOC.CMPRO ---
Date of service: 04/02/24 Time of Service: 09:57 Care Management Progress Note Progress Note Text Progress Note Text: Emma was sitting up in bed when CM met with her. She was in good spirits and proudly announced she was able to walk all the way to the doorway and back with PT. Emma has been struggling with orthostatic hypotension and dizziness, both of which have made ambulation difficult. She informed CM that the medication adjustments that have been made are finally beginning to work and she is feeling much better. Emma has been accepted for transfer to [facility] for short term rehab and will likely go tomorrow. Discharge Potential Discharge Needs: Other (SNF) Anticipated Barriers to Discharge: None Identified Patient/Family Education Needs: Review discharge instructions, discuss Ask Me Three [facility] Plan: Emma has agreed to go to short term rehab before returning home. Referrals were sent and Emma received a bed offer from [facility], which she accepted. CM also discussed the bed offer with her son Tan who is also agreeable. She will likely be transported by [facility] coordinated by [facility]. CM will follow and continue to support discharge needs. SDOH(Care Management) Screening Will the Patient Participate in the Screening?: Unable to obtain Do you worry about having a steady place to live?: no Problems where you live: no known problems In the past 12 months, have you had to go without electric, gas, oil or water in your home?: no Have you or anyone in your house had to go without enough food to eat?: no Has lack of transportation kept you from medical appointments or from doing things needed for daily living?: no Has anyone in your support network made you feel unsafe for any reason?: no
[2024-04-02 10:21] LABS: Abs Immature Grans 0.05 10^3/uL (0.0-0.06); Absolute Basophil Count 0.06 10^3/uL (0.0-0.2); Absolute Eosinophil Count 0.29 10^3/uL (0.0-0.7); Absolute Lymphocyte Count 0.86 10^3/uL (1.2-3.4); Basophils % 0.9 %; Eosinophils % 4.4 %; HCT 32.3 % (36.0-46.0); HGB 9.9 g/dL (11.2-15.7); Immature Grans % 0.8 %; Lymphocytes % 12.9 %; MCH 33.6 pg (27.0-33.0); MCHC 30.7 % (32.0-36.0); MCV 110 fL (80-95); MPV 8.9 fL (8.0-11.0); Monocytes % 10.5 %; Neutrophils % 70.5 %; Platelet Count 300 10^3/uL (130-400); RBC 2.95 10^6/uL (3.93-5.22); RDW 16.6 % (11.7-14.6); RDW-SD 67.5 fL; WBC 6.66 10^3/uL (4.4-10.8)
[2024-04-02] MEDS: Acetaminophen 325 MG TAB PO ×2 (13:46→20:10)
[2024-04-02 14:58] VITALS: BP 102/62; RESP 17; TEMP 36.2
[2024-04-02 16:25] VITALS: BP 99/55; PULSE 79; RESP 16; TEMP 36.8; O2SAT 98
--- NOTE | 2024-04-02 16:40 | PT.INPN ---
PT Notes Visit Reasons: UTI, Hypotension Inpatient Physical Therapy Progress Note Date: 04/02/2024 Dates of Service: 12/12 - 04/02/2024 PRECAUTIONS: Urostomy, ileostomy, IV, monitor for signs and symptoms of orthostasis, fall risk SUBJECTIVE: Patient reports feeling better today and states we going running today OBJECTIVE PAIN: Patient intermittently reports pain bilateral feet however denies on this date BED MOBILITY/TRANSFERS Rolling L/R: Min assist Supine-sit: Min assist for trunk Sit-supine: CGA Sit-stand: CGA with cues for hand placement Stand-sit: CGA with cues for hand placement Bed-Chair: CGA with FWW Chair-bed: CGA with FWW GAIT Assistive Device: FWW Weight bearing: Full Assist: Contact-guard assist/min assist Distance: 40 feet Deviation: Narrow base of support decreased step length bilateral, VITALS: Patient continues with episodes of orthostasis monitored by nursing supine BP 99/55 THEREX: Supine heel slides ankle pumps short arc quads, quad sets, glutes sets; seated long arc quads marching x 10 reps bilateral lower extremities Balance: Sit normal dynamic and static; stand fair-dynamic and fair static with bilateral upper extremity support ASSESSMENT: Emma has demonstrated significant improvement in her ability to tolerate sitting and standing tasks since last session. She is now able to ambulate 40 feet with FWW contact-guard/min assist although she does report some lightheadedness after approximately 3 minutes of standing. She has demonstrated gains in her ability to perform functional transfers and bed mobility as well. Due to ongoing blood pressure issues patient has been unable to participate/attempt stair training. Patient is a 78year old female referred to physical therapy services with diagnosis of failure to thrive generalized weakness and UTI patient presents with clinical signs and symptoms consistent with admitting diagnosis as demonstrated by the following impairment level findings 1. Decreased strength to bilateral upper extremity and lower extremity major muscle groups 2. Impaired standing balance 3. Impaired activity tolerance impairments are contributing to the following functional limitations: 1. Decline in bed mobility skills 2. Declining transfer skills 3. Difficulty with ambulation without assistive device and physical assistance 4. Increased completion time for mobility/ADL performance 5. Increased fall risk Patient benefit from continued skilled PT to address the goals below. GOALS Goals x1 week 1. Supine-Sit supervision (not met) 2. Sit-Supine supervision(not met) 3. Sit-Stand supervision(not met) 4. Stand-Sit supervision(not met) 5. Bed-Chair supervision with device(not met) 6. Chair-Bed supervision with device(not met) 7. Gait amb 50 feet with device supervision(not met) 8. Stairs 5 steps with rail CGA(not met) 9. Independent with home exercise program (not met) 10. Balance Fair+ with FWW standing(not met) PLAN OF CARE/TREATMENT PLAN: 1-2x/day, 7 days/ week x 1 week Plan of care has been reviewed with the UPPER CUTTER OUT providing the service under Physical therapy direction. Initiate physical therapy intervention for strengthening, bed mobility, transfers, gait, stairs, balance training, use of assistive device. DISCHARGE RECOMMENDATIONS: SNF for short-term rehab TREATMENT CODE/TIME: 06549/1020?1050; [id number]/[id number]
--- NOTE | 2024-04-02 18:16 | PGE_ITS ---
Date of Service Date of service: 04/02/24 Time of Service: 18:16 Assessment and Plan Assessment and plan (1) Orthostatic hypotension: Status: Acute Assessment and plan: cont. midodrine; decrease lopressor to 25 mg tid, trial of albumin infusion; encourage use of TEDS and protein supplements (2) Klebsiella cystitis: Status: Acute Assessment and plan: day #4 Ceftriaxone probably can change to po cefpodoxime and finish one or two more days. (3) GI bleeding: Status: Chronic Assessment and plan: no overt melena nor hematochezia but stool his heme positive and she is anemic. continue SCD, not candidate for anticoagulation Qualifiers: GI bleed type/associated pathology: unspecified gastrointestinal hemorrhage type Qualified Code(s): K92.2 - Gastrointestinal hemorrhage, unspecified (4) Macrocytic anemia: Status: Acute Assessment and plan: patient anemia had been controlled back in November but beginning in February she became more anemia w/ Hb of 9.8 gm, however her Hb on admission was higher at 11.2 but all of her other reading have been in the 9's, today she is 9.9 gm Her B12 is low normal at 269 while her folate is high. I have sent off MMA and homocysteine levels and she got a dose of B12 yesterday. Iron studies suggest iron deficiency, I have added iron supplements to her regimen (5) Elevated INR: Status: Acute Assessment and plan: -Patient initially presented with generalized weakness and inability to perform ADLs (see below for details), but in the emergency department she was noted as having significantly elevated INR greater than 10 -Patient not on any anticoagulation -At this time it is presumed that this is secondary to poor p.o. intake/nutrition in combination with short gut and malabsorption -INR stable at 1.1. I think that this should be checked weekly for a month and if stable then decrease to monthly. She may need parenteral vitamin K periodically to keep her INR stable (6) Chronic atrial fibrillation: Status: Chronic Assessment and plan: now on lopressor 25 mg po q8hr, d/t her short gut syndrome I do not think Toprol XL would be absorbed well. continue digoxin 125 mcg QOD (7) Generalized weakness: Status: Acute Assessment and plan: secondary to deconditioning and malnutrition. Nutrition consult has been obtained, see Karlos's note. Patient is not amenable to recommended protein supplement drinks, however she does eat a variety of meats offered to her. (8) Hypoalbuminemia: Status: Acute Assessment and plan: - Secondary to poor p.o. intake and shortcut/malabsorption as noted above; will give albumin infusion (9) Frailty: Status: Acute Assessment and plan: continue w/ p.t. 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 B12 lower end of normal while high folate levels. will check MMA and homocysteine levels, may need parenteral vitamin b12 supplementation, low Mg level but improved. currently on oral magnesium supplementation; historically low vitamin D levels <5 ng/mL of hydroxy vitamin d as of 11/30/23. will put her on calcitril 0.25 mcg daily. folate is >20 B12 is low end of normal at 269, homocysteine and MMA are pending at this time. I will begin supplementation of her vitamin B12. 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 She got out of bed for P.T. She did her mobility transfers w/ CGA and she walked 40 ft w/ FWW w/ just CGA. She says that she tolerated this but did feel a little dizzy towards the end. Exam Narrative Exam Narrative: Thin elderly female who is alert and oriented, NAD Lungs: CTA COR: irregularly irregular but controlled rate Abdomen: soft, nontender Extremities: no edema, she has venous varicosities. Objective Last Vital Signs Temp 36.8 C 04/02/24 16:25 Pulse 79 04/02/24 16:25 Resp 16 04/02/24 16:25 BP 99/55 L 04/02/24 16:25 Pulse Ox 98 04/02/24 16:25 Laboratory Results - last 24 hr 04/02/24 05:55 WBC 6.66 RBC 2.95 L Hgb 9.9 L Hct 32.3 L MCV 110 H MCH 33.6 H MCHC 30.7 L RDW 16.6 H Plt Count 300 MPV 8.9 Immature Gran % 0.8 Neutrophils % 70.5 Lymphocytes % 12.9 Monocytes % 10.5 Eosinophils % 4.4 Basophils % 0.9 Nucleated RBC % 0.0 Absolute Neutrophils 4.70 Absolute Lymphocytes 0.86 L Absolute Monocytes 0.70 Absolute Eosinophils 0.29 Absolute Basophils 0.06 Sodium 140 Potassium 4.3 Chloride 105 Carbon Dioxide 30.2 Anion Gap 4.8 BUN 11 Creatinine 0.8 Est GFR (CKD-EPI 2020) 75.37 Glucose 76 Calcium 8.9 Iron 23 L TIBC 222 L Transferrin % Sat 10 L Ferritin 40 Time Spent with Patient Time Spent with Patient: <25 minutes Time was spent: preparing to see the patient(eg.review tests), ordering medications,tests, procedures, counseling the patient and care coordination
[2024-04-02 19:24] VITALS: BP 101/58; PULSE 83; RESP 20; TEMP 36.5; O2SAT 100
[2024-04-02] MEDS: Ferrous Sulfate 325 MG TAB PO (20:10)
[2024-04-02] MEDS: Cefpodoxime 200 MG TAB PO (20:11)
[2024-04-03] MEDS: Acetaminophen 325 MG TAB PO (00:19)
[2024-04-03] MEDS: traMADol 50 MG TAB PO (00:22)
[2024-04-03 05:19] VITALS: PULSE 70
[2024-04-03] MEDS: Levothyroxine 75 MCG TAB PO (05:19)
[2024-04-03] MEDS: Digoxin 0.125 MG TAB PO (05:19)
[2024-04-03 07:26] VITALS: BP 114/37; PULSE 73; RESP 12; TEMP 35.5; O2SAT 100
[2024-04-03] MEDS: Calcitriol 0.25 MCG CAP PO (08:33)
[2024-04-03] MEDS: Cefpodoxime 200 MG TAB PO (08:34)
[2024-04-03] MEDS: Calcium Carbonate *TUMS* 500 MG CHEW 1000 MG PO (08:35)
[2024-04-03] MEDS: Magnesium Gluconate 500 MG TAB PO (08:35)
[2024-04-03] MEDS: Multivitamin TAB 1 TAB PO (08:35)
[2024-04-03] MEDS: Pantoprazole 40 MG TABCR PO (08:36)
[2024-04-03] MEDS: Midodrine 2.5 MG TAB 5 MG PO (08:37)
[2024-04-03] MEDS: Loperamide 2 MG CAP PO (08:37)
[2024-04-03] MEDS: Ferrous Sulfate 325 MG TAB PO (08:38)
[2024-04-03] MEDS: Gabapentin 100 MG CAP PO (08:39)
[2024-04-03] MEDS: Metoprolol 50 MG TAB 25 MG PO (08:39)
[2024-04-03] MEDS: Empaglifozin 10 MG TAB PO (08:39)
[2024-04-03] MEDS: Normal Saline Flush 10 ML SYR IVP (08:40)
[2024-04-03 09:02] LABS: Transferrin 178 mg/dL (201-352)
--- NOTE | 2024-04-03 10:28 | CMDISCH_ITS ---
Date of service: 04/03/24 Time of Service: 10:28 LACE Index Scoring Tool Questions: Length of Stay (in days): 7 - 13 Was the patient admitted via the E.D.?: Yes Comorbidities: Congestive Heart Failure and Liver or Renal Disease E.D. Visits: 3 Answers: Total Score: 16 Risk of Readmission: High Risk Care Management Discharge Plan Reason for Hospitalization: elevated INR, Uti Discharge Plan: Emma will be discharged to [facility] for short term rehab prior to returning home. She will follow up with facility providers and plan of care and transport via [facility] private car coordinated by CM. Patient/Family Education Needs: Expectations, limitations, follow up plan Services Needed at Discharge: Longterm Facility SDOH Health Related Social Needs: Health related social needs transpo insecurity
--- NOTE | 2024-04-03 10:50 | DSE_ITS ---
Date of service: 04/03/24 Time of Service: 10:50 DS: Diagnosis Discharge Diagnosis (1) Orthostatic hypotension: Status: Chronic Asessment and Plan: treated w/ midodrine 5 mg tid, reduction in her lopressor dose to 25 mg tid, encourage high protein diet, liberalize her salt intake; trial of thigh high compression stockings which the patient was intolerant and refused to wear. Fludrocortisone was not tried d/t her cardiomyopathy and concern for inducing exacerbation of CHF (2) Klebsiella cystitis: Status: Acute Asessment and Plan: Had 3 days of Ceftriaxone and now on her 2nd day of cefpodoxime. She should complete treatment tomorrow. (3) GI bleeding: Status: Chronic Asessment and Plan: patient has some blood in her ileostomy which resolved. She is not a good candidate for enteroscopy. However if acute bleeding reoccurs then she should be re-evaluated. CTA abdomen and pelvis did not show any acute bleeding. serial hemoglobin was monitored. Her Hb was 11.2 gm on admission but dripped to 9.7 gm overnight after she was rehydrated w/ iv fluids. No further bleeding was noted from her ostomy and her Hb remains stable at 9.9 gm. Her anemia is being treated w/ parenteral vitamin B12 and iron supplementation although she may need parenteral iron such as venofer if she is not absorbing the iron (4) Macrocytic anemia: Status: Acute Asessment and Plan: she has adequate folate levels at > 20 ng/mL but her B12 level is at the lower end of normal range at 269 pg/mL and her homocysteine level is high at 24 nmol/mL, her methylmalonic acid level is pending. This would suggest an occult B12 deficiency particularly if her MMA level is elevated. She received [facility] vitamin B12 1000 mcg and should continue this weekly for a month then monthly thereafter. Suggest rechecking her levels in one month including her MMA and B12 and homocysteine (5) Elevated INR: Status: Acute Asessment and Plan: INR elevated at >10.2 but responded to parenteral vitamin K, this suggests that she is not absorbing/producing vitamin K in her enteric bruce and probably needs parenteral supplementation. Repeat INR during her stay were stable with the latest at 1.1 on 03/31/24, suggest repeat levels in one week (6) Chronic atrial fibrillation: Status: Chronic Asessment and Plan: stable. continue digoxin 125 mcg q48h and metoprolol reduced to 25 mg tid. monitor HR (7) Generalized weakness: Status: Acute Asessment and Plan: continue P.T. and O.T. 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 last level was checked 11/30/23. She had been on weekly doses of vitamin D 50,000 units weekly. Suggest repeat her vitamin D levels in 4 weeks after starting calcitriol (11) Ambulatory dysfunction: Status: Acute Asessment and Plan: continue P.T. and O.T. 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 She suffers from short gut syndrome presented to the emergency department with some blood in her ostomy was found to have symptoms of fatigue and difficulty managing her ADLs she has had a progressive decline in her functional capacity. She has had orthostatic hypotension but no nausea or vomiting. Evaluation included routine labs including CBC that showed a hemoglobin 11.2 g that dropped overnight to 9.7 g. Serial CBC throughout her hospital course was monitored and her hemoglobin remained between 9.3 and 9.9 g. She had no further blood in her ileostomy. Chemistry panel showed normal electrolytes but showed some mild dehydration with a BUN of 20 creatinine 1.1. Patient received IV fluids for her orthostatic hypotension and dehydration. Total protein stores are found to be low with a total protein 6.2 albumin 2.8. TSH was mildly elevated at 6.75 with a normal free T4 of 1.22. Consultation was obtained with nutritional services to try to improve upon her nutrition for her short gut syndrome. However patient declined taking any of the oral protein supplements and we offered her states she did not like them. Further nutritional workup included checking her B12 level which was found to be at the lower end of normal at 269 pg/mL folate level was greater than 20 however methylmalonic acid level and homocystine levels were sent out with the methylmalonic acid level still pending but her homocystine was elevated 24. Iron studies were sent and she was found to have a low serum iron of 23. Transferrin saturation of 10% with a ferritin level of 40 and a TIBC of 222. These findings are suggestive of a chronic iron deficiency anemia. Her CBC showed that she had a macrocytic anemia with an MCV of 110 and RDW of 16.6. On admission the urinalysis showed moderate amount of blood with 10-20 red cells 5-10 white cells many bacteria and rare epithelial cells. Urine culture came back positive for Klebsiella pneumoniae however antibiotics did not get started until she was put on ceftriaxone on 03/30/2024 this was continued until 04/02/2024 when she was switched to cefpodoxime 200 mg p.o. twice daily. Patient was noted to be in atrial fibrillation but her rate was reasonably controlled and therefore her metoprolol dose was reduced to accommodate for her low blood pressure readings. Metoprolol dose had been 50 mg 3 times a day was reduced to 25 mg TID. Patient was started on calcitriol 0.25 mcg daily to treat her vitamin D deficiency. She was given a dose of vitamin B12 1000 mcg parenterally to treat her low B12 levels. Recommend she continue B12 shots 1000 mcg weekly for a month then monthly thereafter. Her atrial fibrillation was controlled with metoprolol and digoxin. Digoxin level was checked and found to be therapeutic at 1.43. She continues to receive digoxin 125 mcg every 48 hours. 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 For her neuropathy she was placed on gabapentin 100 mg 3 times daily which greatly improved her leg pain. Recommendations for follow-up including repeating her prothrombin time in 1 week she did receive vitamin K to correct her hypoprothrombinemia her INR came down from 10.2-1.0 and this is rechecked a couple more times and remained stable at 1.1. It is also recommended she have follow-up vitamin D level in 1 month as well as follow-up on her B12 level in 1 month. She should have periodic monitoring of her thyroid function test as well as her chemistries and CBC which I will leave at the discretion of the certified medical biller or her PCP. Pertinent imaging included abdominal and pelvic CTA showed no evidence of active bleeding from the bowels. She does have a compression fracture of superior endplate of L1 and loss of about 30% height of the vertebral body. She has cholelithiasis but no evidence of cholecystitis. She had marked atherosclerosis with marked stenosis involving internal iliac arteries bilaterally. She has an IVC filter in place. Chest x-ray showed no acute pulmonary findings. Because of the elevated D-dimer she is up with a venous duplex of her legs and it was negative for DVT and a CT of her chest that showed no pulmonary embolism. Of note she has a stable 7 mm left lower lobe nodule further monitoring at the discretion of her primary care provider and the patient. Home Meds and New Rx's Prescriptions: New cefpodoxime 200 mg Tablet 200 mg PO BID 2 Days Qty: 0 0RF calcitriol 0.25 mcg Capsule 0.25 mcg PO DAILY Qty: 0 0RF tramadol 50 mg Tablet 50 mg PO Q6H PRN PRN5 Days Qty: 20 0RF pantoprazole 40 mg Tablet,Delayed Release (Dr/Ec) 40 mg PO DAILY Qty: 30 0RF ferrous sulfate 325 mg (65 mg iron) Tablet 325 mg PO BID Qty: 0 0RF midodrine 2.5 mg Tablet 5 mg PO TID Qty: 0 0RF gabapentin 100 mg Capsule 100 mg PO TID Qty: 30 0RF cyanocobalamin (vitamin B-12) 1,000 mcg/mL solution See Rx Instructions .ROUTE .COMPLEX Qty: 10 0RF Rx Instructions: 1,000 mcg subcutaneously weekly x 1 month then monthly Continued multivitamin [Multi-Day] 1 EACH tablet 1 tab PO DAILY loperamide [Imodium A-D] 2 mg Capsule 2 mg PO BID acetaminophen [Arthritis Pain Reliever] 650 mg Tablet Extended Release 2 tab PO BID levothyroxine 75 mcg tablet 75 mcg PO DAILY Patient Comments: TAKE 1 TABLET BY MOUTH DAILY calcium carbonate 200 mg calcium (500 mg) Tablet,Chewable 1,000 mg PO BID Qty: 120 0RF magnesium gluconate 27 mg magnesium (500 mg) Tablet 500 mg PO DAILY Qty: 30 0RF Jardiance 10 mg Tablet 10 mg PO QAM Qty: 30 0RF digoxin 125 mcg (0.125 mg) tablet 125 mcg PO Q48H Qty: 15 0RF Changed metoprolol tartrate 50 mg Tablet 25 mg PO TID Qty: 90 0RF Discontinued ergocalciferol (vitamin D2) [Vitamin D2] 1,250 mcg (50,000 unit) Capsule 1,250 mcg PO Q7D Qty: 12 0RF Discharge Instructions Instructions: Orthostatic hypotension, Atrial Fibrillation (DC), How to Put On and Take Off Compression Stockings Additional Instructions: Obtain prothrombin time/INR in one week; patient may need periodic parenteral vitamin K supplementation. Follow up on her methylmalonic acid levels. If high then recheck in one month along with another vitamin B12 level. Methylmalonic acid and homocysteine levels should normalize after her B12 has been adequately restored. Encourage patient to take in 120 gm of protein daily. Recheck her vitamin D levels in one month. Stand Alone Forms: Nursing Discharge Form Activity:: Activity as Tolerated Equipment/Supplies:: No Equipment Needed Diet:: Normal Diet Discharge Orders Discharge Orders: Discharge Order (Routine); Ordered 04/03/24 Ordered By: Bryant Linton DS: Summary Time Spent with Patient providing and/or coordinating discharge services: Greater than 30 minutes Specific discharge activities: Interview/exam of patient; review of discharge instructions, completion of prescriptions/discharge instructions; discussion w/ nursing and CM; documentation of hospital visit Status at Discharge Functional status at discharge: uses cane/walker Overall status at discharge: patient is progressing back to baseline Mental Status: mental status grossly normal Speech and Movement: speech and movement normal Mood: congruent mood Affect: normal affect Quality:SDOH Health Related Social Needs: Health related social needs transpo insecurity Exam Narrative Exam Narrative: Showed sitting up in her chair she is dressed she is ready to go to the [facility] denies a dizziness said she had a little bit of dyspnea while getting dressed this morning but otherwise feels okay no chest pain or pressure or palpitations Lungs are clear Heart is irregularly irregular controlled rate with soft systolic murmur Abdomen soft and nontender Extremities without peripheral cyanosis or edema Psych Mental Status: mental status grossly normal Speech and Movement: speech and movement normal Mood: congruent mood Affect: normal affect DS: Data Vitals/I&O Vitals and I&O: Vital Signs Temperature 35.5 C L 04/03/24 07:26 Temperature Source Tympanic 04/02/24 19:24 Pulse 73 04/03/24 07:26 Pulse Rhythm Regular 03/25/24 17:49 Pulse 85 03/25/24 12:32 Respiratory Rate 12 04/03/24 07:26 Respiratory Effort Normal 03/25/24 17:49 Respiratory Depth Normal 03/25/24 17:49 Respiratory Pattern Normal 03/25/24 17:49 Blood Pressure 114/37 L 04/03/24 07:26 Blood Pressure Mean 84 03/25/24 17:30 Blood Pressure Position Supine 03/25/24 17:30 Pulse Oximetry 100 04/03/24 07:26 Oxygen Delivery Method Room Air 04/03/24 07:26 Oxygen Flow Rate 0 04/03/24 07:26 Pain Level 0 04/03/24 07:26 Comment Post albumin BP 04/01/24 13:42 Intake & Output 04/02/24 04/02/24 04/03/24 11:59 23:59 11:59 Intake Total 350 / 550 200 / 550 410 / 410 Output Total 300 / 1050 750 / 1050 300 / 300 Balance 50 / -500 -550 / -500 110 / 110 Intake: IV 50 / 50 10 / 10 Oral 300 / 500 200 / 500 400 / 400 Output: Urine 300 / 600 300 / 600 150 / 150 Stool 450 / 450 150 / 150 Other: Urine Color Yellow Yellow Urine Appearance Cloudy Clear Urine Odor None None Stool Size Large Stool Characteristics Soft Formed Voiding Methods Urostomy Urostomy Urostomy Data Completed and Pending Labs on day of discharge: Labs from last 24 hours 04/02/24 05:55 WBC 6.66 RBC 2.95 L Hgb 9.9 L Hct 32.3 L MCV 110 H MCH 33.6 H MCHC 30.7 L RDW 16.6 H Plt Count 300 MPV 8.9 Immature Gran % 0.8 Neutrophils % 70.5 Lymphocytes % 12.9 Monocytes % 10.5 Eosinophils % 4.4 Basophils % 0.9 Nucleated RBC % 0.0 Absolute Neutrophils 4.70 Absolute Lymphocytes 0.86 L Absolute Monocytes 0.70 Absolute Eosinophils 0.29 Absolute Basophils 0.06 Sodium 140 Potassium 4.3 Chloride 105 Carbon Dioxide 30.2 Anion Gap 4.8 BUN 11 Creatinine 0.8 Est GFR (CKD-EPI 2020) 75.37 Glucose 76 Calcium 8.9 Iron 23 L TIBC 222 L Transferrin 178 L Transferrin % Sat 10 L Ferritin 40 PFSH All Active Problems (Updated 04/03/24 @ 10:51 by Bryant Linton MD) Macrocytic anemia (Acute) Orthostatic hypotension (Chronic) Treated with Fludrocortisone. Klebsiella cystitis (Acute) Malabsorption (Acute) Discharge planning issues (Acute) Ambulatory dysfunction (Acute) Palliative care encounter (Acute) Cardiomyopathy (Acute) Diagnosed November 2023: EF 30% GI bleeding (Chronic) Coagulopathy (Acute) Elevated INR (Acute) Generalized weakness (Acute) Hypoalbuminemia (Acute) Dehydration (Acute) Frailty (Acute) Short gut syndrome (Acute) Ileostomy in place (Acute) Lung nodule, multiple (Acute) DNR (do not resuscitate) (Acute) See November 28, 2023 palliative care note. Patient desires DNR/DNI. Does want to be transferred to the hospital and treated, receive IV fluids and IV antibiotics. Refuses to complete COLST form, as she feels advanced directive is enough and additional forms would just be confusing . Palliative care patient (Acute) Advanced care planning/counseling discussion (Acute) Radiation colitis (Acute) Underweight (Acute) Reduced vision (Acute) Macular degeneration by report Heart failure with reduced ejection fraction due to cardiomyopathy (Acute) Atrial fibrillation (Chronic) Cardiomegaly (Acute) Compression fx, lumbar spine (Acute) Status post cataract extraction and insertion of intraocular lens of right eye (Chronic 05/26/18) Corneal endothelial dystrophy (Chronic) Nuclear sclerotic cataract of left eye (Acute) Weakness (Chronic 08/28/13) Radiation cystitis (Chronic) Chronic diarrhea (Chronic) Short-bowel syndrome? 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 Pancreatic insufficiency (Chronic) Cholelithiasis (Chronic) Adrenal nodule (Chronic) Incidental. Ruptured bladder (Acute 09/12/13) Cutaneous urostomy tubes. 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 Gross hematuria. 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 Social History Smoking/Tobacco Use Status: Former Tobacco Use Quit Date: 11/19/13 Smoking risk assessment performed?: Yes Alcohol Intake: never Drug use: Never Housing: house Do you feel safe at home: Yes Additional Social history: lives alone, with her cat Time Spent with Patient Time Spent with Patient: 45-69 minutes Time was spent: preparing to see the patient(eg.review tests), ordering medications,tests, procedures, referring, communicating with other health career development manager, indepentently interpreting results, counseling the patient and care coordination
--- NOTE | 2024-04-03 11:18 | PTTR_ITS ---
PT Notes Visit Reasons: UTI, Hypotension Inpatient Physical Therapy Treatment Note [facility] Date: 04/03/2024 PRECAUTIONS: Urostomy, ileostomy SUBJECTIVE: Patient reports she is going to the [facility] today and uncertain of time. She reports she is happy to be getting 1 step closer to home OBJECTIVE: Pt alert , smiling with Nurse at bedside. Pt agreeable to participate ? PAIN: denies VITALS: ? Pre-Treatment: 114/37 pulse 73 ? Post-Treatment: 98/48 pulse 85 Therapeutic Activities ([id number][]): Direct one-on-one instruction in dynamic activities to improve functional performance. ? BED MOBILITY/TRANSFERS? Rolling L/R: Independent Supine-sit: Independent with increased time? Sit-supine: Contact-guard assist with increased time? Sit-stand: Standby assist ? Stand-sit: Standby assist? Bed-Chair: Contact-guard assist with FWW ? Chair-bed: Contact-guard assist with FWW Provided skilled cues and instruction on performance and technique throughout. Ambulation: Patient demonstrates ability to ambulate with FWW 40 feet including turns with contact-guard assist/min assist. Patient demonstrates narrow base of support with reduced step length, assist needed for stabilizing trunk and pelvis during turns due to impaired glutes and balance reactions. ASSESSMENT: Patient demonstrates significant improvement in bed mobility transfers and ambulation this session. Patient noted with elevated BP today prior to session as compared to previous sessions. Patient requires seated rest between tasks for breath control. Patient would benefit from continued skilled PT for strengthening functional activity tolerance and functional mobility retraining prior to discharge to home PLAN: PT for strengthening functional mobility training TREATMENT CODE/TIME: [id number] DISCHARGE RECOMMENDATION: SNF
[2024-04-06 08:38] LABS: Methylmalonic Acid 0.77 nmol/mL (<=0.40)
== END 2024-04-03 11:15 | disposition skilled nursing facility (03) | DRG 948 ==
LOC: ER 14:52 → MS 03-26 08:26
PROVIDERS: Family Medicine; Internal Medicine; Nurse Practitioner Acute Care; Admitting Provider Family Medicine; Emergency Provider Emergency Medicine; PCP Family Medicine; Visit Provider Family Medicine
DX: R79.1 Abnormal coagulation profile (principal); N30.00 Acute cystitis without hematuria; D68.9 Coagulation defect, unspecified; I42.9 Cardiomyopathy, unspecified; K90.822 Short bowel syndrome without colon in continuity; K90.9 Intestinal malabsorption, unspecified; I50.20 Unspecified systolic (congestive) heart failure; I48.20 Chronic atrial fibrillation, unspecified; Z68.1 Body mass index [BMI] 19.9 or less, adult; I95.1 Orthostatic hypotension; E88.09 Other disorders of plasma-protein metabolism, not elsewhere classified; R53.1 Weakness; D64.9 Anemia, unspecified; Z93.2 Ileostomy status; Z85.41 Personal history of malignant neoplasm of cervix uteri; Z51.5 Encounter for palliative care; R26.9 Unspecified abnormalities of gait and mobility; Z66 Do not resuscitate; B96.1 Klebsiella pneumoniae [K. pneumoniae] as the cause of diseases classified elsewhere; R91.8 Other nonspecific abnormal finding of lung field; E86.0 Dehydration; R63.6 Underweight; R29.6 Repeated falls; E03.9 Hypothyroidism, unspecified; E78.5 Hyperlipidemia, unspecified; Y84.2 Radiological procedure and radiotherapy as the cause of abnormal reaction of the patient, or of later complication, without mention of misadventure at the time of the procedure; N18.9 Chronic kidney disease, unspecified; Z93.6 Other artificial openings of urinary tract status; G62.9 Polyneuropathy, unspecified
CPT/HCPCS: 00123; 36415; 71275; 80048; 80053; 80186; 83090; 85027; 86850; 86900; 86901; 87077; 87637; 93005; 96361; 96365; 96366; 96374; 96375; 96376; 97110; 97162; 97530; 99285; J1650; 71046; 74174; 80162; 81003; 81015; 82270; 82607; 82728; 82746; 83540; 83550; 83735; 84439; 84443; 84466; 85025; 85379; 85610; 85730; 86140; 86870; 86880; 86905; 87086; 87186; 93010; 93970; 99223; 99231; 99232; 99233; 99239; J0696; J2270; J3420; J3430; J3475; J7168; P9047

== ENCOUNTER 2024-04-06 19:57 | Outpatient (REF) | payer MEDICARE, SELFPAY ==
[2024-04-06 20:32] LABS: Abs Immature Grans 0.08 10^3/uL (0.0-0.06); Absolute Basophil Count 0.06 10^3/uL (0.0-0.2); Absolute Eosinophil Count 0.16 10^3/uL (0.0-0.7); Absolute Lymphocyte Count 0.83 10^3/uL (1.2-3.4); Absolute Monocyte Count 0.64 10^3/uL (0.1-0.8); Absolute Neutrophil Count 7.43 10^3/uL (1.2-6.7); Basophils % 0.7 %; Eosinophils % 1.7 %; HCT 30.8 % (36.0-46.0); HGB 9.2 g/dL (11.2-15.7); Immature Grans % 0.9 %; MCH 34.1 pg (27.0-33.0); MCHC 29.9 % (32.0-36.0); MCV 114 fL (80-95); Neutrophils % 80.7 %; Nucleated RBC 0.3 % (0.0-0.3); Platelet Count 347 10^3/uL (130-400); RDW 16.9 % (11.7-14.6); RDW-SD 72.2 fL
[2024-04-06 20:46] LABS: Iron 55 ug/dL (50-170); Total Iron Binding Capacity 294 ug/dL (250-450); Transferrin Sat 19 % (15-50)
[2024-04-06 21:11] LABS: Hemoglobin A1C 4.8 % (<5.7)
[2024-04-06 21:19] LABS: ALT 26 U/L (14-59); AST 26 U/L (15-37); Albumin 2.6 g/dL (3.4-5.0); Alkaline Phosphatase 146 U/L (46-116); Anion Gap 10.8 mmol/L (3-11); BUN 9 mg/dL (7-18); Bilirubin, Total 0.24 mg/dL (0.2-1.0); CO2 27.2 mmol/L (21.0-32.0); CREATININE 1.1 mg/dL (0.55-1.02); Calcium 8.9 mg/dL (8.5-10.1); Chloride 109 mmol/L (98-107); Estimated GFR 51.43 (mL/min/1.73m2); Ferritin 115 ng/mL (8-252); Glucose 87 mg/dL (74-106); Magnesium 1.7 mg/dL (1.8-2.4); Potassium 3.3 mmol/L (3.5-5.1); Sodium 147 mmol/L (136-145); TSH (W/Ref FT4) 3.82 uIU/mL (0.36-3.74); Total Protein 5.5 g/dL (6.4-8.2); Vitamin B12 667 pg/mL (193-986)
[2024-04-06 21:20] LABS: Folate > 20.0 ng/mL (8.6-20.0)
[2024-04-06 21:30] LABS: Diff Comment RBC Morph Reviewed; Hypochromasia 1+; Macrocytosis 2+
[2024-04-06 21:38] LABS: FREE T4 0.95 ng/dL (0.76-1.46); NT-proBNP 7496 pg/mL (<300)
== END 2024-04-06 19:58 | disposition home or self-care (01) ==
LOC: LBN 19:57
PROVIDERS: PCP Family Medicine; Visit Provider Nurse Practitioner Gerontology
DX: R73.09 Other abnormal glucose; E83.42 Hypomagnesemia; I11.0 Hypertensive heart disease with heart failure; R53.82 Chronic fatigue, unspecified; I11.9 Hypertensive heart disease without heart failure; G89.4 Chronic pain syndrome; D52.9 Folate deficiency anemia, unspecified; D51.9 Vitamin B12 deficiency anemia, unspecified; I50.9 Heart failure, unspecified; R79.1 Abnormal coagulation profile
CPT/HCPCS: 80053; 82607; 82728; 82746; 83036; 83540; 83550; 83735; 83880; 84439; 84443; 85025; 85610

== ENCOUNTER 2024-04-07 20:43 | Outpatient (REF) | payer MEDICARE, SELFPAY ==
[2024-04-07 19:48] LABS: INR 1.2 (0.9-1.1); Prothrombin Time 11.5 sec (9.1-11.1)
== END 2024-04-07 20:44 | disposition home or self-care (01) ==
LOC: LBN 20:43
PROVIDERS: PCP Family Medicine; Visit Provider Nurse Practitioner Gerontology
DX: R79.1 Abnormal coagulation profile (principal)
CPT/HCPCS: 85610

== ENCOUNTER 2024-04-11 19:45 | Inpatient (IN) | payer MEDICARE, SELFPAY ==
[2024-04-11] VITALS (48 sets, daily range): BP systolic 125–151; BP diastolic 62–73; PULSE 72–82; RESP 8–25; TEMP 36.4; O2SAT 98–100
--- NOTE | 2024-04-11 19:30 | RT.EKG_ITS ---
APPROVED REPORT Exam: Resting ECG Reason for Exam: [facility] Patient Location: E HR:81 bpm ECG Measurements Heart Rate 81 AXIS [place] [id number] P [id number] QRSd 69 QRS 10 QT 334 T -12 QTc 389 Conclusion Atrial fibrillation...V-rate 62- 99, irreg A-activity Low voltage, extremity leads...all extremity leads <0.5mV narrow complex, irregular rhythm , normal axis, normal intervals, st seg depressions anterior lateral
--- NOTE | 2024-04-11 19:59 | W.ED.GENAD ---
Discharge Plan Discharge Details Chief Complaint: CVA/TIA Primary Care Provider: Maliha Ceja ED Provider: Tori Lieberman Home Meds and New Rx's Prescriptions: No Action multivitamin [Multi-Day] 1 EACH tablet 1 tab PO DAILY calcitriol 0.25 mcg Capsule 0.25 mcg PO DAILY Qty: 0 0RF pantoprazole 40 mg Tablet,Delayed Release (Dr/Ec) 40 mg PO DAILY Qty: 30 0RF ferrous sulfate 325 mg (65 mg iron) Tablet 325 mg PO BID Qty: 0 0RF midodrine 2.5 mg Tablet 5 mg PO TID Qty: 0 0RF gabapentin 100 mg Capsule 100 mg PO TID Qty: 30 0RF metoprolol tartrate 50 mg Tablet 25 mg PO TID Qty: 90 0RF cyanocobalamin (vitamin B-12) 1,000 mcg/mL solution See Rx Instructions .ROUTE .COMPLEX Qty: 10 0RF Rx Instructions: 1,000 mcg subcutaneously weekly x 1 month then monthly loperamide [Imodium A-D] 2 mg Capsule 2 mg PO BID acetaminophen [Arthritis Pain Reliever] 650 mg Tablet Extended Release 2 tab PO BID levothyroxine 75 mcg tablet 75 mcg PO DAILY Patient Comments: TAKE 1 TABLET BY MOUTH DAILY calcium carbonate 200 mg calcium (500 mg) Tablet,Chewable 1,000 mg PO BID Qty: 120 0RF magnesium gluconate 27 mg magnesium (500 mg) Tablet 500 mg PO DAILY Qty: 30 0RF Jardiance 10 mg Tablet 10 mg PO QAM Qty: 30 0RF digoxin 125 mcg (0.125 mg) tablet 125 mcg PO Q48H Qty: 15 0RF HPI General Date/Time Provider Initiated Documentation: 04/11/24 19:55. HPI Narrative: Emma is a 78-year-old female who presents to the emergency department today via EMS from the [facility] for evaluation of sudden mental status change. Last known well 6 PM. Patient is usually alert and oriented x 3, was found by staff to be unresponsive. There is purposeful movement noted to her left hand, however she is unable to cooperate with any neurological exam. She does lean forward when I do try to listen to her lungs. Report received from EMS. Physical exam remarkable for markedly altered patient who is arousable to voice and makes eye contact, but otherwise is unable to participate in physical exam or history. Easy work of breathing, shallow respirations noted. She is currently on 5 L O2 via nasal cannula. Normal heart sounds. Peripheral pulses intact, no pedal edema noted. DDx includes but is not limited to: CVA, ACS, electrolyte imbalance, severe anemia, metabolic encephalopathy, occult infection such as pneumonia or UTI, medication overdose I independently interpreted the following tests: VBG notable for respiratory acidosis with pH 7.29 and hypercarbia, CO2 62. CBC reassuring, mild leukocytosis with white cell count 10.82, no change in baseline anemia. Mild hypomagnesemia, 1.6. CMP largely unremarkable. EKG shows afib with rate 81, no changes c/w acute ischemia. Patient has DNR/DNI on file from hospitalization on 03/25/2024. I did review patient's medical records sent from the [facility], patient is not on any anticoagulation. She does have history of short-bowel syndrome with ostomy, ileostomy, history of malignant neoplasm of cervix, A-fib. [facility]ST paperwork shows that patient has wishes to not have any artificial hydration or nutrition, with limited use of antibiotics with goal of comfort, other limited treatments 2030: Call placed to son voice Jeraldmail left asking him to call back ED. ED distance learning unit leader to continue calling in attempt to reach family. Discussed case with Dr. Stafford, [facility] hospitalist. As patient has had hypoxia with decreased respiratory drive, recommends CTA to rule out PE prior to admission. CTA ordered, significant for new small peripheral pulmonary emboli in the right middle lobe and left lower lobe segments. No sign of pulmonary arterial hypertension or RV strain. Dr. Stafford at bedside, plan to admit patient. We have been unable to reach patient's son, hospitalist to continue trying to reach family for review of patient's condition and to ascertain patient's wishes. Related Data Home Medications ?Medication ?Instructions ?Recorded ?Confirmed multivitamin (Multi-Day tablet) 1 tab PO DAILY 06/21/13 04/11/24 acetaminophen 650 mg 2 tab PO BID 05/21/18 04/11/24 tablet,extended release (Arthritis Pain Reliever) loperamide 2 mg capsule (Imodium 2 mg PO BID 05/21/18 04/11/24 A-D) levothyroxine 75 mcg tablet 75 mcg PO DAILY 11/27/23 04/11/24 calcium carbonate 1,000 mg (5 x 200 mg calcium (500 12/03/23 04/11/24 mg)) PO BID #120 tabs digoxin 125 mcg (0.125 mg) tablet 125 mcg PO Q48H #15 tabs 12/03/23 04/11/24 empagliflozin 10 mg tablet 10 mg PO QAM #30 tabs 12/03/23 04/11/24 (Jardiance) magnesium gluconate 27 mg 500 mg (18.5185 x 27 mg magnesium 12/03/23 04/11/24 magnesium (500 mg) tablet (500 mg)) PO DAILY #30 tabs calcitriol 0.25 mcg capsule 0.25 mcg PO DAILY #0 caps 04/03/24 04/11/24 cyanocobalamin (vitamin B-12) See Rx Instructions .Route 04/03/24 04/11/24 1,000 mcg/mL injection solution .COMPLEX #10 mL ferrous sulfate 325 mg (65 mg 325 mg PO BID #0 tabs 04/03/24 04/11/24 iron) tablet gabapentin 100 mg capsule 100 mg PO TID #30 caps 04/03/24 04/11/24 metoprolol tartrate 50 mg tablet 25 mg (1/2 x 50 mg) PO TID #90 tabs 04/03/24 04/11/24 midodrine 2.5 mg tablet 5 mg (2 x 2.5 mg) PO TID #0 tabs 04/03/24 04/11/24 pantoprazole 40 mg tablet,delayed 40 mg PO DAILY #30 tabs 04/03/24 04/11/24 release Previous Rx's ?Medication ?Instructions ?Recorded calcium carbonate 1,000 mg (5 x 200 mg calcium (500 12/03/23 mg)) PO BID #120 tabs digoxin 125 mcg (0.125 mg) tablet 125 mcg PO Q48H #15 tabs 12/03/23 empagliflozin 10 mg tablet 10 mg PO QAM #30 tabs 12/03/23 (Jardiance) magnesium gluconate 27 mg 500 mg (18.5185 x 27 mg magnesium 12/03/23 magnesium (500 mg) tablet (500 mg)) PO DAILY #30 tabs calcitriol 0.25 mcg capsule 0.25 mcg PO DAILY #0 caps 04/03/24 cyanocobalamin (vitamin B-12) See Rx Instructions .Route 04/03/24 1,000 mcg/mL injection solution .COMPLEX #10 mL ferrous sulfate 325 mg (65 mg 325 mg PO BID #0 tabs 04/03/24 iron) tablet gabapentin 100 mg capsule 100 mg PO TID #30 caps 04/03/24 metoprolol tartrate 50 mg tablet 25 mg (1/2 x 50 mg) PO TID #90 tabs 04/03/24 midodrine 2.5 mg tablet 5 mg (2 x 2.5 mg) PO TID #0 tabs 04/03/24 pantoprazole 40 mg tablet,delayed 40 mg PO DAILY #30 tabs 04/03/24 release Allergies Allergy/AdvReac Type Severity Reaction Status Date / Time aspirin Allergy Unknown Unknown Verified 03/25/24 10:57 codeine AdvReac Intermediate Nausea Verified 03/25/24 10:56 General FEDE: 3 Review of Systems Narrative: see HPI Exam Const General: no acute distress and lethargic Orientation: awake and obtunded Limitations: altered mental status HENMT Head: normal to inspection Mouth: oral mucosae normal Eyes Pupils: PERRL Resp Effort & Inspection: decreased respiratory effort (RR 6-8/min) Auscultation: clear to auscultation bilaterally Cardio Rate: regular rate Rhythm: regular rhythm Pulses: other (peripheral pulses weak to bilat UE and LE) GI Inspection: other (Ileostomy and colostomy bags in place, no blood in stool) Palpation: soft, not firm and nontender Skin Rashes: rashes noted (Blanchable purple patches noted on bilateral feet) Neuro General: unable to assess gait Cognition: abnormal cognition Speech: expressive aphasia Motor: muscle tone normal throughout Other: Unable to participate in neuroexam due to mental status Extrem General: no pedal edema Medical Decision Making Quality:SDOH Health Related Social Needs: Health related social needs transpo insecurity PFSH All Active Problems (Updated 04/04/24 @ 00:01 by JOANN CHRISTENSEN) Macrocytic anemia (Acute) Orthostatic hypotension (Chronic) Treated with Fludrocortisone. Klebsiella cystitis (Acute) Malabsorption (Acute) Ambulatory dysfunction (Acute) Palliative care encounter (Acute) Cardiomyopathy (Acute) Diagnosed November 2023: EF 30% GI bleeding (Chronic) Coagulopathy (Acute) Elevated INR (Acute) Generalized weakness (Acute) Hypoalbuminemia (Acute) Frailty (Acute) Short gut syndrome (Acute) Ileostomy in place (Acute) Lung nodule, multiple (Acute) DNR (do not resuscitate) (Acute) See November 28, 2023 palliative care note. Patient desires DNR/DNI. Does want to be transferred to the hospital and treated, receive IV fluids and IV antibiotics. Refuses to complete COLST form, as she feels advanced directive is enough and additional forms would just be confusing . Palliative care patient (Acute) Advanced care planning/counseling discussion (Acute) Radiation colitis (Acute) Underweight (Acute) Reduced vision (Acute) Macular degeneration by report Heart failure with reduced ejection fraction due to cardiomyopathy (Acute) Atrial fibrillation (Chronic) Cardiomegaly (Acute) Compression fx, lumbar spine (Acute) Status post cataract extraction and insertion of intraocular lens of right eye (Chronic 05/26/18) Corneal endothelial dystrophy (Chronic) Nuclear sclerotic cataract of left eye (Acute) Weakness (Chronic 08/28/13) Radiation cystitis (Chronic) Chronic diarrhea (Chronic) Short-bowel syndrome? 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 Pancreatic insufficiency (Chronic) Cholelithiasis (Chronic) Adrenal nodule (Chronic) Incidental. Ruptured bladder (Acute 09/12/13) Cutaneous urostomy tubes. 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 Gross hematuria. 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 Social History Smoking/Tobacco Use Status: Former Tobacco Use Quit Date: 11/19/13 Smoking risk assessment performed?: Yes Alcohol Intake: never Drug use: Never Housing: house Do you feel safe at home: Yes Additional Social history: lives alone, with her cat
--- NOTE | 2024-04-11 20:02 | DI.CT_ITS ---
Exam(s) CT HEAD - STROKE PROTOCOL EXAM: CT HEAD - STROKE PROTOCOL CLINICAL HISTORY: global deficits, onset 6 pm. TECHNIQUE: Imaging Protocol: Axial computed tomography images with coronal and sagittal reformatted images were created and reviewed COMPARISON: CT CT HEAD WO from 02/21/2024 FINDINGS: There are no skull fractures. There is no fluid in the visualized paranasal sinuses. There has been prior right orbit cataract surgery. There is no evidence of intracranial hemorrhage, mass effect, or shift of midline structures. There are no extra-axial fluid collections. The ventricles are not enlarged or shifted and there is no blo od within the ventricular system nor within the basal cisterns. IMPRESSION: No acute intracranial findings on this noninfused CT scan of the brain. RADIATION DOSE DELIVERED: 931.25mGy.cm Total DLP DATA REPOSITORY: All CT scans at this facility are submitted to the National Radiology Data Registry (NRDR) Dose Index Registry (DIR) with the [employer] (ACR). RADIATION OPTIMIZATION: All CT scans at this facility use at least one of these dose optimization te chniques: automated exposure control; mA and/or kV adjustment per patient size (includes targeted exa ms where dose is matched to clinical indication); or iterative reconstruction.
[2024-04-11 20:16] LABS: Abs Immature Grans 0.09 10^3/uL (0.0-0.06); Absolute Basophil Count 0.11 10^3/uL (0.0-0.2); Absolute Eosinophil Count 0.31 10^3/uL (0.0-0.7); Absolute Lymphocyte Count 1.18 10^3/uL (1.2-3.4); Absolute Monocyte Count 1.24 10^3/uL (0.1-0.8); Absolute Neutrophil Count 7.89 10^3/uL (1.2-6.7); Eosinophils % 2.9 %; HCT 32.6 % (36.0-46.0); HGB 9.8 g/dL (11.2-15.7); Immature Grans % 0.8 %; Lymphocytes % 10.9 %; MCH 33.7 pg (27.0-33.0); MCHC 30.1 % (32.0-36.0); MCV 112 fL (80-95); MPV 8.8 fL (8.0-11.0); Monocytes % 11.5 %; Neutrophils % 72.9 %; Platelet Count 255 10^3/uL (130-400); RBC 2.91 10^6/uL (3.93-5.22); RDW 16.4 % (11.7-14.6); RDW-SD 67.8 fL; WBC 10.82 10^3/uL (4.4-10.8)
--- NOTE | 2024-04-11 20:20 | DI.VRAD_ITS ---
PROCEDURE INFORMATION: Exam: CT Head Without Contrast Exam date and time: 04/11/2024 7:58 PM Age: 78 years old Clinical indication: Stroke-like symptoms; Other: Global deficits, onset 6pm TECHNIQUE: Imaging protocol: Computed tomography of the head without contrast. Other technique: STROKE PROTOCOL was implemented. COMPARISON: CT HEAD WO 02/21/2024 3:17 PM FINDINGS: Brain: Moderate generalized cerebral/cerebellar atrophy. Mild periventricular bilateral white matter hypodensities which are nonspecific but most commonly associated with chronic microvascular ischemia in this age group. The IACs are grossly normal. No extra-axial fluid collections. No evidence of acute intracranial hemorrhage. Cerebral/cerebellar meraz-white matter differentiation is well maintained. No CT evidence of large territory acute or subacute intracranial ischemia/infarct. 4 mm chronic lacunar infarct in the right caudate head again noted. No intracranial mass lesions. No midline shift or herniation. Cerebral ventricles: Mild compensatory ventriculomegaly secondary to central atrophy. Pituitary gland and sella: The sella is grossly normal. Paranasal sinuses: Visualized paranasal sinuses are clear. Mastoid air cells: Visualized mastoid air cells are clear. Orbital cavities: No acute intraorbital findings. Prior right ocular cataract surgery. Bones: No acute osseous findings. Hyperostosis frontalis interna incidentally noted. Severe nonspecific chronic arthropathy at the odontoid with chronic hypertrophy and erosive changes and capsular thickening/calcification around the odontoid producing chronic severe canal stenosis at this level with moderate ventral/dorsal cord surface flattening, grossly unchanged from cervical spine CT 11/27/2023. Soft tissues: No acute soft tissue findings. Vasculature: Mild-moderate calcific atherosclerosis. No asymmetric vascular hyperdensities suggestive of thrombosis are identified. IMPRESSION: 1. No acute intracranial process. No intracranial hemorrhage or mass effect. 2. Atrophy and microvascular changes consistent with age. 3. Severe canal stenosis in the upper cervical spine at the level of the odontoid secondary to chronic arthropathy with hypertrophic capsular thickening and calcification, unchanged. ASSESSMENT: ASPECTS ([place] Stroke Program Early CT Score) is 10. Dictated and Authenticated by: Delvin Rodriguez MD. Ordering:ALFONSO Valle MD
--- NOTE | 2024-04-11 20:24 | NUR.NOTE ---
Please note the delay in EKG being done was due to patient being brought to CT Scan once she arrived.
--- NOTE | 2024-04-11 20:30 | DI.RAD_ITS ---
Exam(s) XR PORTABLE CHEST AP EXAM: XR PORTABLE CHEST AP CLINICAL HISTORY: AMS, ?PNA. TECHNIQUE: 2D digital imaging was performed. COMPARISON: CR XR CHEST 2V PA LATERAL from 03/25/2024 FINDINGS: Single AP portable view. Heart size is upper normal. The mediastinum is not widened. Lungs are clear. No infiltrates nor obvious pleural effusions. IMPRESSION: No acute pulmonary findings on this single AP portable view of the chest. DATA REPOSITORY: RADIATION DOSE DELIVERED:
[2024-04-11 20:31] LABS: Anisocytosis 1+; Diff Comment RBC Morph Reviewed; Macrocytosis 2+
[2024-04-11 20:39] LABS: ALT 17 U/L (14-59); AST 24 U/L (15-37); Albumin 2.2 g/dL (3.4-5.0); Alkaline Phosphatase 144 U/L (46-116); Anion Gap 5.6 mmol/L (3-11); BUN 11 mg/dL (7-18); Bilirubin, Total 0.23 mg/dL (0.2-1.0); CO2 25.4 mmol/L (21.0-32.0); CREATININE 0.9 mg/dL (0.55-1.02); Calcium 8.9 mg/dL (8.5-10.1); Chloride 104 mmol/L (98-107); Estimated GFR 65.44 (mL/min/1.73m2); Glucose 93 mg/dL (74-106); Magnesium 1.6 mg/dL (1.8-2.4); Potassium 5.1 mmol/L (3.5-5.1); Sodium 135 mmol/L (136-145); Total Protein 5.6 g/dL (6.4-8.2); Troponin I 27 ng/L (<or=51)
[2024-04-11 20:41] LABS: BE (Venous) 3 mmol/L (-2-3); HCO3 (Venous) 29 mmol/L (23-28); O2 Sat (Venous) 59 %; TCO2 (Venous) 28 mmol/L (24-29); pH (Venous) 7.29 (7.31-7.41); pO2 (Venous) 36 mmHg
[2024-04-11 20:44] LABS: pCO2 (Venous) 62 mmHg (41-51)
[2024-04-11 20:55] LABS: Bilirubin Negative (Negative); Blood Negative (Negative); Clarity Cloudy (Clear); Glucose 250 mg/dL (Negative); Ketones Negative (Negative); Leukocyte Esterase Small (Negative); Nitrite Negative (Negative); Specific Gravity 1.025 (1.005-1.025); Urobilinogen 0.2 mg/dL (Up to 0.2); pH 5.5 (5-8)
[2024-04-11 21:06] LABS: Bacteria Rare HPF (Negative); C & S Indicated? No; Casts Negative LPF (Negative); Crystals Negative HPF (Negative); Epithelial Cells Rare HPF (Negative); Mucus Negative (Negative); RBC Negative HPF (0-2)
[2024-04-11 21:09] LABS: *AMPHETAMINES SCREEN URINE Negative (Negative); *BARBITURATES SCREEN URINE Negative (Negative); *BENZODIAZEPINES SCREEN URINE Negative (Negative); Cannabinoids THC Negative (Negative); Cocaine Screen,Urine Negative (Negative); METHADONE URINE SCREEN Negative (Negative); OPIATES URINE SCREEN Negative (Negative)
[2024-04-11 21:10] LABS: Tricyclic Antidepressants Negative (Negative)
--- NOTE | 2024-04-11 21:15 | DI.CT_ITS ---
Exam(s) CT CHEST PE CTA EXAM: CT CHEST PE CTA CLINICAL HISTORY: r/o PE, hypoxia with dec resp drive. TECHNIQUE: Imaging Protocol: CT angiography of the chest was performed using pulmonary embolus steven col. Multi planar reconstructions were performed. CONTRAST MATERIAL: Intravenous: Omnipaque 350 Contrast volume: 100 cc COMPARISON: CT CT CHEST PE CTA from 03/31/2024 FINDINGS: CHEST: PULMONARY ARTERIES: This study is positive for new intraluminal filling defects consistent with pulmo nary emboli evident with in the left lower lobe and right middle lobe. LUNGS: There are no infiltrates nor evidence of pulmonary infarction.. There are now bilateral pleura l effusions, slightly larger on the left side moderate size. These were not evident 11 days ago on C T scan of 03/31/2024. No evidence of pulmonary infarction. Some atelectasis in the basal segments o f the left lower lobe noted. There are few tiny bilateral benign-appearing nodules. MEDIASTINUM: There is no hilar nor mediastinal adenopathy. Visualized thyroid unremarkable. CARDIAC: Mild cardiomegaly. Ventricular ratio is approximately 1:1. No pericardial effusion. Ascen ding thoracic aorta diameter is upper normal. Cannot assess for dissection of the aorta as there is no contrast in the aorta. All the contrast is in the pulmonary arterial tree,. There is mild cont rast reflux into the upper intrahepatic IVC. Please note this patient has an IVC filter is seen on p rior CT study 03/31/2024. PARTIALLY VISUALIZED UPPERMOST ABDOMEN: No obvious findings OSSEOUS: No significant osseous lesions.. IMPRESSION: 1. This is study is positive for the presence of new acute appearing pulmonary emboli involving arter ies of the left lower lobe and right middle lobe..No evidence of pulmonary infarction but there are n ew bilateral small pleural effusions, slightly larger on the left side as well as some atelectasis in the basal segments of the left lower lobe. Ventricular ratio is 1:1. There is mild contrast reflux into the uppermost IVC. Cannot exclude mild right heart strain. Please note that there is an IVC filter in place RADIATION DOSE DELIVERED: 41.93mGy.cm Total DLP DATA REPOSITORY: All CT scans at this facility are submitted to the National Radiology Data Registry (NRDR) Dose Index Registry (DIR) with the [employer] (ACR). RADIATION OPTIMIZATION: All CT scans at this facility use at least one of these dose optimization te cameron: automated exposure control; mA and/or kV adjustment per patient size (includes targeted exa ms where dose is matched to clinical indication); or iterative reconstruction.
--- NOTE | 2024-04-11 21:28 | DI.VRAD_ITS ---
PROCEDURE INFORMATION: Exam: XR Chest Exam date and time: 04/11/2024 9:13 PM Age: 78 years old Clinical indication: Other: AMS, ? pna TECHNIQUE: Imaging protocol: Radiologic exam of the chest. Views: 1 view. COMPARISON: CT CHEST PE CTA 03/31/2024 3:12 PM. No comparison report provided. FINDINGS: Lungs: Mild pulmonary hyperexpansion/hyperlucency consistent with emphysematous changes. Pulmonary vasculature grossly normal. Mild alveolar density in the medial left lung base, atelectasis versus pneumonia. Pleural spaces: No pleural effusion. No pneumothorax. Heart/Mediastinum: Heart size normal. No tracheal/mediastinal shift. Vasculature: Mild aortic ectasia/tortuosity and calcific atherosclerosis. Bones/joints: No acute osseous abnormalities are identified. IMPRESSION: Mild alveolar density in the medial left lung base suspicious for atelectasis or pneumonia. Dictated and Authenticated by: Delvin Rodriguez MD. Ordering:ALFONSO Valle MD
[2024-04-11] MEDS: MAGNESIUM SULFATE 2 GM/50 ML BAG IVINF (21:54)
[2024-04-11 22:32] LABS: Troponin I 20 ng/L (<or=51)
--- NOTE | 2024-04-11 23:28 | DI.VRAD_ITS ---
PROCEDURE INFORMATION: Exam: CTA Chest With Contrast Exam date and time: 04/11/2024 10:40 PM Age: 78 years old Clinical indication: Other: R/O pe, hypoxia with dec resp drive TECHNIQUE: Imaging protocol: Computed tomographic angiography of the chest with contrast. Exam focused on the arteries. 3D rendering (Not supervised by radiologist): MIP and/or 3D reconstructed images were created by the technologist. Contrast material: [id number]; Contrast volume: 48 ml; Contrast route: INTRAVENOUS (IV); COMPARISON: CT CHEST PE CTA 03/31/2024 3:12 PM FINDINGS: Pulmonary arteries: New small peripheral pulmonary emboli are identified in the right middle lobe lateral segment and in the left lower lobe basilar segments. Thrombus burden is small. No gross changes of pulmonary arterial hypertension or right ventricular strain. RV to LV ratio is 0.9. Aorta: Aortic assessment limited by early contrast phase. Moderate aortic ectasia/tortuosity and calcific atherosclerosis. No mediastinal hematoma. Thyroid: The thyroid gland is severely atrophic. Correlate clinically for evidence of hypothyroidism. Lungs: Endobronchial content in the right lower lobe lobar and medial basilar segmental/subsegmental bronchi suggesting mucous plugging/secretions or small volume aspirated content. No gross pulmonary infiltrates or edema pattern. Mild dependent atelectasis in the lung bases. 4 mm juxtapleural pulmonary nodule in the posterolateral right lower lobe series 5 image 319. Small 2-3 mm peripheral pulmonary nodules in the right upper lobe on images 76 and 82. There are few small 3-4 mm peripheral juxtapleural pulmonary nodules in the anterior left upper lobe on images 98-168. These are unchanged. For patients at low risk (minimal or absent history of smoking and of other known risk factors), no routine follow-up is indicated. For patients at high risk (history of smoking or of other known risk factors), consider optional CT at 12 months. (Tereso et al., Fleischner Society, 2017). Moderate centrilobular emphysematous changes in the upper lung saha. Pleural spaces: Small dependent bilateral simple pleural effusions measuring near 0 Hounsfield units. No pneumothorax. Heart: Moderate cardiomegaly. No pericardial effusion. Coronary arteries: Moderate coronary artery calcification. Esophagus: The esophagus is largely contracted but demonstrates no gross abnormality. Lymph nodes: No supraclavicular or axillary adenopathy. No mediastinal or hilar adenopathy. Stomach: Visualized upper abdominal structures are unremarkable. Bones/joints: No acute osseous abnormalities. Osteopenia. Chronic periarticular ossifications around both shoulder joints unchanged. Moderate thoracic spondylosis. Unchanged moderate chronic superior endplate compression of L1. Soft tissues: No acute soft tissue abnormalities. IMPRESSION: 1. Small bilateral pulmonary emboli. Thrombus burden is small. No changes of pulmonary arterial hypertension or right ventricular strain. 2. Moderate emphysematous changes. 3. Small bilateral pleural effusions. No gross pulmonary infiltrates. 4. Endobronchial content in the right lower lobe may relate to mucous plugging/secretions or small volume aspiration. 5. Small bilateral pulmonary nodules, largest 4 mm, unchanged from prior exam. 6. Additional nonemergent findings detailed above. These findings initiated a critical results reporting process. An addendum will be issued at the time of clinician notification. Dictated and Authenticated by: Delvin Rodriguez MD. Ordering:ALFONSO Valle MD
--- NOTE | 2024-04-11 23:32 | DI.VRAD_ITS ---
Addendum created by Delvin Rodriguez MD on 04/11/2024 11:31:21 PM EDT: Addendum: THIS REPORT CONTAINS FINDINGS THAT MAY BE CRITICAL TO PATIENT CARE. The findings were verbally communicated via telephone conference with YUKI WADSWORTH at 11:31 PM EDT on 04/11/2024. The findings were acknowledged and understood. Initial report created on 04/11/2024 11:27:54 PM EDT: PROCEDURE INFORMATION: Exam: CTA Chest With Contrast Exam date and time: 04/11/2024 10:40 PM Age: 78 years old Clinical indication: Other: R/O pe, hypoxia with dec resp drive TECHNIQUE: Imaging protocol: Computed tomographic angiography of the chest with contrast. Exam focused on the arteries. 3D rendering (Not supervised by radiologist): MIP and/or 3D reconstructed images were created by the technologist. Contrast material: [id number]; Contrast volume: 48 ml; Contrast route: INTRAVENOUS (IV); COMPARISON: CT CHEST PE CTA 03/31/2024 3:12 PM FINDINGS: Pulmonary arteries: New small peripheral pulmonary emboli are identified in the right middle lobe lateral segment and in the left lower lobe basilar segments. Thrombus burden is small. No gross changes of pulmonary arterial hypertension or right ventricular strain. RV to LV ratio is 0.9. Aorta: Aortic assessment limited by early contrast phase. Moderate aortic ectasia/tortuosity and calcific atherosclerosis. No mediastinal hematoma. Thyroid: The thyroid gland is severely atrophic. Correlate clinically for evidence of hypothyroidism. Lungs: Endobronchial content in the right lower lobe lobar and medial basilar segmental/subsegmental bronchi suggesting mucous plugging/secretions or small volume aspirated content. No gross pulmonary infiltrates or edema pattern. Mild dependent atelectasis in the lung bases. 4 mm juxtapleural pulmonary nodule in the posterolateral right lower lobe series 5 image 319. Small 2-3 mm peripheral pulmonary nodules in the right upper lobe on images 76 and 82. There are few small 3-4 mm peripheral juxtapleural pulmonary nodules in the anterior left upper lobe on images 98-168. These are unchanged. For patients at low risk (minimal or absent history of smoking and of other known risk factors), no routine follow-up is indicated. For patients at high risk (history of smoking or of other known risk factors), consider optional CT at 12 months. (Tereso et al., Fleischner Society, 2017). Moderate centrilobular emphysematous changes in the upper lung saha. Pleural spaces: Small dependent bilateral simple pleural effusions measuring near 0 Hounsfield units. No pneumothorax. Heart: Moderate cardiomegaly. No pericardial effusion. Coronary arteries: Moderate coronary artery calcification. Esophagus: The esophagus is largely contracted but demonstrates no gross abnormality. Lymph nodes: No supraclavicular or axillary adenopathy. No mediastinal or hilar adenopathy. Stomach: Visualized upper abdominal structures are unremarkable. Bones/joints: No acute osseous abnormalities. Osteopenia. Chronic periarticular ossifications around both shoulder joints unchanged. Moderate thoracic spondylosis. Unchanged moderate chronic superior endplate compression of L1. Soft tissues: No acute soft tissue abnormalities. IMPRESSION: 1. Small bilateral pulmonary emboli. Thrombus burden is small. No changes of pulmonary arterial hypertension or right ventricular strain. 2. Moderate emphysematous changes. 3. Small bilateral pleural effusions. No gross pulmonary infiltrates. 4. Endobronchial content in the right lower lobe may relate to mucous plugging/secretions or small volume aspiration. 5. Small bilateral pulmonary nodules, largest 4 mm, unchanged from prior exam. 6. Additional nonemergent findings detailed above. These findings initiated a critical results reporting process. An addendum will be issued at the time of clinician notification. Dictated and Authenticated by: Delvin Rodriguez MD. Ordering:ALFONSO Valle MD
[2024-04-12] VITALS (58 sets, daily range): BP systolic 105–150; BP diastolic 64–95; PULSE 70–145; RESP 12–42; TEMP 36.6; O2SAT 79–99
[2024-04-12] MEDS: Omnipaque 350 MG/ML 50 ML BTL IJ (00:13)
[2024-04-12] MEDS: Normal Saline - Diluent 50 ML VIAL IJ (00:13)
--- NOTE | 2024-04-12 01:09 | HPE_ITS ---
Date of service: 04/12/24 Time of Service: 01:12 Assessment and Plan Assessment and plan (1) Pulmonary emboli: Start date: 04/12/24 Status: Chronic Assessment and plan: This is a 78-year-old lady with acute respiratory symptoms with hypoxemia and hypercapnia which may be more chronic with CTA revealing bilateral pulmonary emboli though this appears to be small clot load compared to her dramatic onset of symptoms. She will be treated with subcu Lovenox for pulmonary emboli and also further evaluation should be performed with MRI of the brain when available if patient persists with mental alteration despite treating her acute hypoxemia. CT of the head was unrevealing for acute process. She is a DNR/DNI. Qualifiers: Pulmonary embolism type: other Chronicity: acute Acute cor pulmonale presence: without acute cor pulmonale Qualified Code(s): I26.99 - Other pulmonary embolism without acute cor pulmonale (2) Acute respiratory failure with hypoxia: Start date: 04/12/24 Status: Acute Assessment and plan: Patient has evidence of emphysema on CT of the chest and no previous VBG and the admission VBG this hospitalization revealing slightly elevated pCO2. Of significance is her acute hypoxemia which likely is secondary to pulmonary emboli though these appear to be small. Patient may be compromised with chronic decreased lung function as risk for his acute response of hypoxemia which seems sudden onset and significant with such a low embolus load. (3) Acute alteration in mental status: Start date: 04/12/24 Status: Acute Assessment and plan: Patient underwent assessment likely secondary to hypoxemia and decreased respiratory status but MRI of the brain should be done to follow-up and unrevealing CT of the brain. Observation of mental status changes with treatment of acute hypoxemia presumed to be from acute pulmonary embolus. (4) GI bleeding: Status: Chronic Assessment and plan: Brown stool and colostomy bag presently with observation for GI bleed, and with treatment for PE. Her PT/INR will be rechecked to ensure it continues to be normal after her last hospitalization. Qualifiers: GI bleed type/associated pathology: unspecified gastrointestinal hemorrhage type Qualified Code(s): K92.2 - Gastrointestinal hemorrhage, unspecified (5) Chronic atrial fibrillation: Status: Chronic Assessment and plan: Not on anticoagulation chronically the patient now having complications of thromboembolic events. She would not be a good candidate for chronic anticoagulation with GI bleed in the past and chronic macrocytic anemia. This will be reviewed with her son. (6) Short gut syndrome: Status: Acute Assessment and plan: Colostomy is draining brown stool presently. Watch closely for GI bleed with Lovenox treatment for acute PE. 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 She is not chronically on anticoagulation had an elevated INR from malnutrition with vitamin K deficiency suspected. 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 (8) Hypothyroidism: Status: Chronic Assessment and plan: Check TSH and monitor outpatient supplement with continuation of same presently. Qualifiers: Hypothyroidism type: acquired Qualified Code(s): E03.9 - Hypothyroidism, unspecified (9) Macrocytic anemia: Status: Chronic Assessment and plan: The patient having normal B12 and folate levels recently but low iron levels. This could be associate with hypothyroidism poorly controlled. Her TSH was increased in the past and will be repeated. History of Present Illness History of Present Illness Chief Complaint: Sudden mental status changes N arrative: This is a 78-year-old female patient who was recently hospitalized for GI bleed with elevated PT/INR secondary to short gut syndrome and vitamin K deficiency not being on anticoagulation chronically with a history of chronic atrial fibrillation. She has been rehabilitating at the [facility] [place] and did have a sudden onset of mental status change with the patient becoming unresponsive. She was last seen in her normal state about 6 PM on the evening of presentation to the ED. Patient usually is alert and oriented and talkative and was not responding to questions. She was staring straight ahead throughout my entire exam. She had no focal loss of movement and in at the time I saw the patient, she was following commands but not verbalizing answers. In the ED she was found to be hypoxic being started on 5 L/min per nasal cannula to make pulse oximeter above 90%. The patient does not usually require oxygen therapy. She also had a decreased respiratory rate which slowly improved during her ED evaluation. Patient's blood pressure was not low and she was not tachycardic. She does have chronic atrial fibrillation. During her last hospitalization her PT/INR was elevated and treated with vitamin K for acute GI bleed with blood loss anemia. Further evaluation in the ED this visit did reveal bilateral pulmonary emboli which may have been the cause of her sudden onset of mental status deterioration and respiratory changes. There was no evidence of pneumonia or CHF. The patient continues to be nonverbal and will require further imaging of her head with with CT of the head and MRI when available. She also will require echocardiogram for evaluation of her right ventricular function with bilateral pulmonary embol with no RV strain on CTA of the chest with 2 troponin levels being normal and BNP pending. Patient will remain a DNR/DNI. Her son was called several times but was not available for decision- making process on admission. If she is not doing well, the family should consider [facility] status. Review of Systems Narrative: 13 point review of systems unobtainable with patient nonverbal. PFSH All Active Problems (Updated 04/12/24 @ 01:35 by Kaushal Stafford) Acute respiratory failure with hypoxia (Acute) Pulmonary emboli (Chronic) Acute alteration in mental status (Acute) Macrocytic anemia (Chronic) Orthostatic hypotension (Chronic) Treated with Fludrocortisone. 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 Patient desires DNR/DNI. Does want to be transferred to the hospital and treated, receive IV fluids and IV antibiotics. Refuses to complete COLST form, as she feels advanced directive is enough and additional forms would just be confusing . Palliative care patient (Acute) Advanced care planning/counseling discussion (Acute) Radiation colitis (Acute) Underweight (Acute) Reduced vision (Acute) Macular degeneration by report Heart failure with reduced ejection fraction due to cardiomyopathy (Acute) Atrial fibrillation (Chronic) Cardiomegaly (Acute) Compression fx, lumbar spine (Acute) Status post cataract extraction and insertion of intraocular lens of right eye (Chronic 05/26/18) Corneal endothelial dystrophy (Chronic) Nuclear sclerotic cataract of left eye (Acute) Weakness (Chronic 08/28/13) Radiation cystitis (Chronic) Chronic diarrhea (Chronic) Short-bowel syndrome? 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 Pancreatic insufficiency (Chronic) Cholelithiasis (Chronic) Adrenal nodule (Chronic) Incidental. Ruptured bladder (Acute 09/12/13) Cutaneous urostomy tubes. 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 Gross hematuria. 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 Social History Smoking/Tobacco Use Status: Former Tobacco Use Quit Date: 11/19/13 Smoking risk assessment performed?: Yes Alcohol Intake: never Drug use: Never Housing: house Do you feel safe at home: Yes Additional Social history: lives alone, with her cat Meds Allergies and Home Medications Allergies Allergy/AdvReac Type Severity Reaction Status Date / Time aspirin Allergy Unknown Unknown Verified 03/25/24 10:57 codeine AdvReac Intermediate Nausea Verified 03/25/24 10:56 Home Medications ?Medication ?Instructions ?Recorded ?Confirmed ?Type multivitamin (Multi-Day tablet) 1 tab PO DAILY 06/21/13 04/11/24 History acetaminophen 650 mg 2 tab PO BID 05/21/18 04/11/24 History tablet,extended release (Arthritis Pain Reliever) loperamide 2 mg capsule (Imodium 2 mg PO BID 05/21/18 04/11/24 History A-D) levothyroxine 75 mcg tablet 75 mcg PO DAILY 11/27/23 04/11/24 History calcium carbonate 1,000 mg (5 x 200 mg calcium (500 12/03/23 04/11/24 Rx mg)) PO BID #120 tabs digoxin 125 mcg (0.125 mg) tablet 125 mcg PO Q48H #15 tabs 05/14/24 09/21/24 Rx empagliflozin 10 mg tablet 10 mg PO QAM #30 tabs 12/03/23 04/11/24 Rx (Jardiance) magnesium gluconate 27 mg 500 mg (18.5185 x 27 mg magnesium 12/03/23 04/11/24 Rx magnesium (500 mg) tablet (500 mg)) PO DAILY #30 tabs calcitriol 0.25 mcg capsule 0.25 mcg PO DAILY #0 caps 04/03/24 04/11/24 Rx cyanocobalamin (vitamin B-12) See Rx Instructions .Route 04/03/24 04/11/24 Rx 1,000 mcg/mL injection solution .COMPLEX #10 mL ferrous sulfate 325 mg (65 mg 325 mg PO BID #0 tabs 04/03/24 04/11/24 Rx iron) tablet gabapentin 100 mg capsule 100 mg PO TID #30 caps 04/03/24 04/11/24 Rx metoprolol tartrate 50 mg tablet 25 mg (1/2 x 50 mg) PO TID #90 tabs 04/03/24 04/11/24 Rx midodrine 2.5 mg tablet 5 mg (2 x 2.5 mg) PO TID #0 tabs 04/03/24 04/11/24 Rx pantoprazole 40 mg tablet,delayed 40 mg PO DAILY #30 tabs 04/03/24 04/11/24 Rx release Exam Narrative Exam Narrative: General: Patient appears older than stated age, lying in bed appearing very pale staring straight ahead though at times following commands such as taking a deep inspiration when asked. She is not oriented to person, place or time being nonverbal and not able to answer questions. She appears comfortable and in no acute distress. HEENT: Normocephalic, eyes with pupils equal and react to light symmetrically, extraocular move intact and sclera anicteric. Oropharynx with dry mucosa poor dentition. Neck: Supple without JVD. Lungs: No focal rales or rhonchi with fair to poor aeration and bronchovesicular breath sounds diffusely. No expiratory wheeze. Breast: Exam deferred. Heart: Irregularly irregular rhythm with normal rate. No murmurs or gallops appreciated. Abdomen: Slightly obese contour, soft nontender to palpation with no palpable hepatosplenomegaly. Colostomy bag over upper abdomen draining brown solid stool without evidence of blood and ileal conduit bag containing clear urine. Genitalia/rectal: Exam deferred. Extremities: Without clubbing, cyanosis or pitting edema. Muscle wasting diffusely over lower extremities. Skin: Pale, patches of mottling over hands with the right more than left. Cool and dry. Neuro: Patient does move lower extremities but infrequent and appears generally weak. No tremor. Cranial nerves II through XII appear to be grossly intact by indirect testing. Psych: Patient is staring straight ahead and nonverbal with assessment of mental status deferred. She does not appear to be encephalopathic or delusional but simply in a nonresponsive state with her eyes open. Results Imaging Imaging Studies: Exam: CT Head Without Contrast Exam date and time: 04/11/2024 7:58 PM Age: 78 years old Clinical indication: Stroke-like symptoms; Other: Global deficits, onset 6pm TECHNIQUE: Imaging protocol: Computed tomography of the head without contrast. Other technique: STROKE PROTOCOL was implemented. COMPARISON: CT HEAD WO 02/21/2024 3:17 PM FINDINGS: Brain: Moderate generalized cerebral/cerebellar atrophy. Mild periventricular bilateral white matter hypodensities which are nonspecific but most commonly associated with chronic microvascular ischemia in this age group. The IACs are grossly normal. No extra-axial fluid collections. No evidence of acute intracranial hemorrhage. Cerebral/cerebellar meraz-white matter differentiation is well maintained. No CT evidence of large territory acute or subacute intracranial ischemia/infarct. 4 mm chronic lacunar infarct in the right caudate head again noted. No intracranial mass lesions. No midline shift or herniation. Cerebral ventricles: Mild compensatory ventriculomegaly secondary to central atrophy. Pituitary gland and sella: The sella is grossly normal. Paranasal sinuses: Visualized paranasal sinuses are clear. Mastoid air cells: Visualized mastoid air cells are clear. Orbital cavities: No acute intraorbital findings. Prior right ocular cataract surgery. Bones: No acute osseous findings. Hyperostosis frontalis interna incidentally noted. Severe nonspecific chronic arthropathy at the odontoid with chronic hypertrophy and erosive changes and capsular thickening/calcification around the odontoid producing chronic severe canal stenosis at this level with moderate ventral/dorsal cord surface flattening, grossly unchanged from cervical spine CT 11/27/2023. Soft tissues: No acute soft tissue findings. Vasculature: Mild-moderate calcific atherosclerosis. No asymmetric vascular hyperdensities suggestive of thrombosis are identified. IMPRESSION: 1. No acute intracranial process. No intracranial hemorrhage or mass effect. 2. Atrophy and microvascular changes consistent with age. 3. Severe canal stenosis in the upper cervical spine at the level of the odontoid secondary to chronic arthropathy with hypertrophic capsular thickening and calcification, unchanged. Exam: XR Chest Exam date and time: 04/11/2024 9:13 PM Age: 78 years old Clinical indication: Other: AMS, ? pna TECHNIQUE: Imaging protocol: Radiologic exam of the chest. Views: 1 view. COMPARISON: CT CHEST PE CTA 03/31/2024 3:12 PM. No comparison report provided. FINDINGS: Lungs: Mild pulmonary hyperexpansion/hyperlucency consistent with emphysematous changes. Pulmonary vasculature grossly normal. Mild alveolar density in the medial left lung base, atelectasis versus pneumonia. Pleural spaces: No pleural effusion. No pneumothorax. Heart/Mediastinum: Heart size normal. No tracheal/mediastinal shift. Vasculature: Mild aortic ectasia/tortuosity and calcific atherosclerosis. Bones/joints: No acute osseous abnormalities are identified. IMPRESSION: Mild alveolar density in the medial left lung base suspicious for atelectasis or pneumonia. Exam: CTA Chest With Contrast Exam date and time: 04/11/2024 10:40 PM Age: 78 years old Clinical indication: Other: R/O pe, hypoxia with dec resp drive TECHNIQUE: Imaging protocol: Computed tomographic angiography of the chest with contrast. Exam focused on the arteries. 3D rendering (Not supervised by radiologist): MIP and/or 3D reconstructed images were created by the technologist. Contrast material: [id number]; Contrast volume: 48 ml; Contrast route: INTRAVENOUS (IV); COMPARISON: CT CHEST PE CTA 03/31/2024 3:12 PM FINDINGS: Pulmonary arteries: New small peripheral pulmonary emboli are identified in the right middle lobe lateral segment and in the left lower lobe basilar segments. Thrombus burden is small. No gross changes of pulmonary arterial hypertension or right ventricular strain. RV to LV ratio is 0.9. Aorta: Aortic assessment limited by early contrast phase. Moderate aortic ectasia/tortuosity and calcific atherosclerosis. No mediastinal hematoma. Thyroid: The thyroid gland is severely atrophic. Correlate clinically for evidence of hypothyroidism. Lungs: Endobronchial content in the right lower lobe lobar and medial basilar segmental/subsegmental bronchi suggesting mucous plugging/secretions or small volume aspirated content. No gross pulmonary infiltrates or edema pattern. Mild dependent atelectasis in the lung bases. 4 mm juxtapleural pulmonary nodule in the posterolateral right lower lobe series 5 image 319. Small 2-3 mm peripheral pulmonary nodules in the right upper lobe on images 76 and 82. There are few small 3-4 mm peripheral juxtapleural pulmonary nodules in the anterior left upper lobe on images 98-168. These are unchanged. For patients at low risk (minimal or absent history of smoking and of other known risk factors), no routine follow-up is indicated. For patients at high risk (history of smoking or of other known risk factors), consider optional CT at 12 months. (Tereso et al., Fleischner Society, 2017). Moderate centrilobular emphysematous changes in the upper lung saha. Pleural spaces: Small dependent bilateral simple pleural effusions measuring near 0 Hounsfield units. No pneumothorax. Heart: Moderate cardiomegaly. No pericardial effusion. Coronary arteries: Moderate coronary artery calcification. Esophagus: The esophagus is largely contracted but demonstrates no gross abnormality. Lymph nodes: No supraclavicular or axillary adenopathy. No mediastinal or hilar adenopathy. Stomach: Visualized upper abdominal structures are unremarkable. Bones/joints: No acute osseous abnormalities. Osteopenia. Chronic periarticular ossifications around both shoulder joints unchanged. Moderate thoracic spondylosis. Unchanged moderate chronic superior endplate compression of L1. Soft tissues: No acute soft tissue abnormalities. IMPRESSION: 1. Small bilateral pulmonary emboli. Thrombus burden is small. No changes of pulmonary arterial hypertension or right ventricular strain. 2. Moderate emphysematous changes. 3. Small bilateral pleural effusions. No gross pulmonary infiltrates. 4. Endobronchial content in the right lower lobe may relate to mucous plugging/secretions or small volume aspiration. 5. Small bilateral pulmonary nodules, largest 4 mm, unchanged from prior exam. 6. Additional nonemergent findings detailed above. Labs 04/11/24 20:10 04/11/24 20:10 Labs: Laboratory Results - last 24 hr 04/11/24 04/11/24 04/11/24 20:10 20:35 20:46 WBC 10.82 H RBC 2.91 L Hgb 9.8 L Hct 32.6 L MCV 112 H MCH 33.7 H MCHC 30.1 L RDW 16.4 H Plt Count 255 MPV 8.8 Immature Gran % 0.8 Neutrophils % 72.9 Lymphocytes % 10.9 Monocytes % 11.5 Eosinophils % 2.9 Basophils % 1.0 Nucleated RBC % 0.0 Absolute Neutrophils 7.89 H Absolute Lymphocytes 1.18 L Absolute Monocytes 1.24 H Absolute Eosinophils 0.31 Absolute Basophils 0.11 RBC Morphology See Below Anisocytosis 1+ Macrocytosis 2+ VBG pH 7.29 L VBG pCO2 62 H* VBG pO2 36 VBG HCO3 29 H VBG Total CO2 28 VBG O2 Saturation 59 VBG Base Excess 3 Sodium 135 L Potassium 5.1 Chloride 104 Carbon Dioxide 25.4 Anion Gap 5.6 BUN 11 Creatinine 0.9 Est GFR (CKD-EPI 2020) 65.44 Glucose 93 Calcium 8.9 Magnesium 1.6 L Total Bilirubin 0.23 AST 24 ALT 17 Alkaline Phosphatase 144 H Troponin I 27 Total Protein 5.6 L Albumin 2.2 L Urine Color Yellow Urine Clarity Cloudy Urine pH 5.5 Ur Specific [place] 1.025 Urine Protein Negative Urine Ketones Negative Urine Blood Negative Urine Nitrite Negative Urine Bilirubin Negative Urine Urobilinogen 0.2 Ur Leukocyte Esterase Small H Urine RBC Negative Urine WBC 3-5 Ur Epithelial Cells Rare Urine Crystals Negative Urine Bacteria Rare Urine Casts Negative Urine Mucus Negative Urine Other Many Yeast Ur Culture Indicated? No Urine Glucose 250 H Urine Opiates Screen Negative Urine Methadone Screen Negative Ur Barbiturates Screen Negative Ur Tricyclics Screen Negative Ur Amphetamines Screen Negative U Benzodiazepines Scrn Negative Urine Cocaine Screen Negative Ur THC Screen Negative 04/11/24 22:05 WBC RBC Hgb Hct MCV MCH MCHC RDW Plt Count MPV Immature Gran % Neutrophils % Lymphocytes % Monocytes % Eosinophils % Basophils % Nucleated RBC % Absolute Neutrophils Absolute Lymphocytes Absolute Monocytes Absolute Eosinophils Absolute Basophils RBC Morphology Anisocytosis Macrocytosis VBG pH VBG pCO2 VBG pO2 VBG HCO3 VBG Total CO2 VBG O2 Saturation VBG Base Excess Sodium Potassium Chloride Carbon Dioxide Anion Gap BUN Creatinine Est GFR (CKD-EPI 2020) Glucose Calcium Magnesium Total Bilirubin AST ALT Alkaline Phosphatase Troponin I 20 Total Protein Albumin Urine Color Urine Clarity Urine pH Ur Specific [place] Urine Protein Urine Ketones Urine Blood Urine Nitrite Urine Bilirubin Urine Urobilinogen Ur Leukocyte Esterase Urine RBC Urine WBC Ur Epithelial Cells Urine Crystals Urine Bacteria Urine Casts Urine Mucus Urine Other Ur Culture Indicated? Urine Glucose Urine Opiates Screen Urine Methadone Screen Ur Barbiturates Screen Ur Tricyclics Screen Ur Amphetamines Screen U Benzodiazepines Scrn Urine Cocaine Screen Ur THC Screen Last Vital Signs Temp 36.4 C L 04/11/24 20:49 Pulse 77 04/12/24 00:00 Resp 17 04/12/24 00:03 BP 124/66 04/12/24 00:00 Pulse Ox 99 04/12/24 00:03 Time Spent Time spent with Patient: >75 minutes Time was spent: preparing to see the patient(eg.review tests), obtaining and/or reviewing separately otained hiistory, ordering medications,tests, procedures, referring, communicating with other health care navigator, indepentently interpreting results and care coordination
--- NOTE | 2024-04-12 03:16 | W.PC.ACHO ---
Registration Status: Primary Language: Preferred Language: ED Information & Data Chief Complaint CVA/TIA 04/11/24 20:57 Chief Complaint CVA/TIA 04/11/24 20:49 Triage Note stroke alert last well 1800 04/11/24 20:49 Subjective apnea at times 04/11/24 20:57 Medical / Surgical History (Last Reviewed 04/12/24 @ 01:23 by Kaushal Stafford) Nuclear sclerotic cataract of right eye (Last Reviewed 04/12/24 @ 01:23 by Kaushal Stafford) History of urostomy Status post ileostomy Most Recent Vital Signs Temperature 36.4 C L 04/11/24 20:49 Pulse 74 04/12/24 03:00 Respiratory Rate 24 04/12/24 03:11 Blood Pressure 150/64 H 04/12/24 03:00 Pulse Oximetry 89 L 04/12/24 03:09 Respiratory End-tidal CO2 17 04/12/24 00:03 Allergies aspirin Allergy (Unknown, Verified 03/25/24 10:57) Unknown codeine Adverse Reaction (Intermediate, Verified 03/25/24 10:56) Nausea gi upset Active Medications Generic Name Dose Route Start Last Admin Trade Name Freq PRN Reason Stop Dose Admin Iohexol 50 ml 04/12/24 01:00 04/12/24 00:13 Omnipaque 350 Mg/Ml 50 Ml Btl IJ 05/12/24 23:59 50 ml DIRECTED NITIN Administration Sodium Chloride 50 ml 04/12/24 00:15 04/12/24 00:13 Normal Saline - Diluent 50 Ml Vial IJ 50 ml .FOR DI USE NITIN Administration IV IV Catheter Type [Right Wrist] Saline Lock IV Catheter Type [Right] Diffusics IV Catheter Gauge [Right Wrist 20 ] Diagnostics 04/11/24 04/11/24 04/11/24 Range/Units 22:55 22:05 20:46 WBC (4.4-10.8) 10^3/uL RBC (3.93-5.22) 10^6/uL Hgb (11.2-15.7) g/dL Hct (36.0-46.0) % MCV (80-95) fL MCH (27.0-33.0) pg MCHC (32.0-36.0) % RDW (11.7-14.6) % Plt Count (130-400) 10^3/uL MPV (8.0-11.0) fL Immature Gran % % Neutrophils % % Lymphocytes % % Monocytes % % Eosinophils % % Basophils % % Nucleated RBC % (0.0-0.3) % Absolute Neutrophils (1.2-6.7) 10^3/uL Absolute Lymphocytes (1.2-3.4) 10^3/uL Absolute Monocytes (0.1-0.8) 10^3/uL Absolute Eosinophils (0.0-0.7) 10^3/uL Absolute Basophils (0.0-0.2) 10^3/uL RBC Morphology Anisocytosis Macrocytosis VBG pH (7.31-7.41) VBG pCO2 (41-51) mmHg VBG pO2 mmHg VBG HCO3 (23-28) mmol/L VBG Total CO2 (24-29) mmol/L VBG O2 Saturation % VBG Base Excess (-2-3) mmol/L Sodium (136-145) mmol/L Potassium (3.5-5.1) mmol/L Chloride (98-107) mmol/L Carbon Dioxide (21.0-32.0) mmol/L Anion Gap (3-11) mmol/L BUN (7-18) mg/dL Creatinine (0.55-1.02) mg/dL Est GFR (CKD-EPI 2020) (mL/min/1.73m2) Glucose (74-106) mg/dL Calcium (8.5-10.1) mg/dL Magnesium (1.8-2.4) mg/dL Total Bilirubin (0.2-1.0) mg/dL AST (15-37) U/L ALT (14-59) U/L Alkaline Phosphatase (46-116) U/L Troponin I Cancelled 20 (<or=51) ng/L Total Protein (6.4-8.2) g/dL Albumin (3.4-5.0) g/dL Urine Color Yellow (Yellow) Urine Clarity Cloudy (Clear) Urine pH 5.5 (5-8) Ur Specific [place] 1.025 (1.005-1.025) Urine Protein Negative (Neg-Trace) mg/dL Urine Ketones Negative (Negative) mg/dL Urine Blood Negative (Negative) Urine Nitrite Negative (Negative) Urine Bilirubin Negative (Negative) Urine Urobilinogen 0.2 (Up to 0.2) mg/dL Ur Leukocyte Esterase Small H (Negative) Urine RBC Negative (0-2) HPF Urine WBC 3-5 (0-5) HPF Ur Epithelial Cells Rare (Negative) HPF Urine Crystals Negative (Negative) HPF Urine Bacteria Rare (Negative) HPF Urine Casts Negative (Negative) LPF Urine Mucus Negative (Negative) Urine Other Many Yeast (Negative) Ur Culture Indicated? No Urine Glucose 250 H (Negative) mg/dL Urine Opiates Screen Negative (Negative) Urine Methadone Screen Negative (Negative) Ur Barbiturates Screen Negative (Negative) Ur Tricyclics Screen Negative (Negative) Ur Amphetamines Screen Negative (Negative) U Benzodiazepines Scrn Negative (Negative) Urine Cocaine Screen Negative (Negative) Ur THC Screen Negative (Negative) 04/11/24 04/11/24 Range/Units 20:35 20:10 WBC 10.82 H (4.4-10.8) 10^3/uL RBC 2.91 L (3.93-5.22) 10^6/uL Hgb 9.8 L (11.2-15.7) g/dL Hct 32.6 L (36.0-46.0) % MCV 112 H (80-95) fL MCH 33.7 H (27.0-33.0) pg MCHC 30.1 L (32.0-36.0) % RDW 16.4 H (11.7-14.6) % Plt Count 255 (130-400) 10^3/uL MPV 8.8 (8.0-11.0) fL Immature Gran % 0.8 % Neutrophils % 72.9 % Lymphocytes % 10.9 % Monocytes % 11.5 % Eosinophils % 2.9 % Basophils % 1.0 % Nucleated RBC % 0.0 (0.0-0.3) % Absolute Neutrophils 7.89 H (1.2-6.7) 10^3/uL Absolute Lymphocytes 1.18 L (1.2-3.4) 10^3/uL Absolute Monocytes 1.24 H (0.1-0.8) 10^3/uL Absolute Eosinophils 0.31 (0.0-0.7) 10^3/uL Absolute Basophils 0.11 (0.0-0.2) 10^3/uL RBC Morphology See Below Anisocytosis 1+ Macrocytosis 2+ VBG pH 7.29 L (7.31-7.41) VBG pCO2 62 H* (41-51) mmHg VBG pO2 36 mmHg VBG HCO3 29 H (23-28) mmol/L VBG Total CO2 28 (24-29) mmol/L VBG O2 Saturation 59 % VBG Base Excess 3 (-2-3) mmol/L Sodium 135 L (136-145) mmol/L Potassium 5.1 (3.5-5.1) mmol/L Chloride 104 (98-107) mmol/L Carbon Dioxide 25.4 (21.0-32.0) mmol/L Anion Gap 5.6 (3-11) mmol/L BUN 11 (7-18) mg/dL Creatinine 0.9 (0.55-1.02) mg/dL Est GFR (CKD-EPI 2020) 65.44 (mL/min/1.73m2) Glucose 93 (74-106) mg/dL Calcium 8.9 (8.5-10.1) mg/dL Magnesium 1.6 L (1.8-2.4) mg/dL Total Bilirubin 0.23 (0.2-1.0) mg/dL AST 24 (15-37) U/L ALT 17 (14-59) U/L Alkaline Phosphatase 144 H (46-116) U/L Troponin I 27 (<or=51) ng/L Total Protein 5.6 L (6.4-8.2) g/dL Albumin 2.2 L (3.4-5.0) g/dL Urine Color (Yellow) Urine Clarity (Clear) Urine pH (5-8) Ur Specific [place] (1.005-1.025) Urine Protein (Neg-Trace) mg/dL Urine Ketones (Negative) mg/dL Urine Blood (Negative) Urine Nitrite (Negative) Urine Bilirubin (Negative) Urine Urobilinogen (Up to 0.2) mg/dL Ur Leukocyte Esterase (Negative) Urine RBC (0-2) HPF Urine WBC (0-5) HPF Ur Epithelial Cells (Negative) HPF Urine Crystals (Negative) HPF Urine Bacteria (Negative) HPF Urine Casts (Negative) LPF Urine Mucus (Negative) Urine Other (Negative) Ur Culture Indicated? Urine Glucose (Negative) mg/dL Urine Opiates Screen (Negative) Urine Methadone Screen (Negative) Ur Barbiturates Screen (Negative) Ur Tricyclics Screen (Negative) Ur Amphetamines Screen (Negative) U Benzodiazepines Scrn (Negative) Urine Cocaine Screen (Negative) Ur THC Screen (Negative) 04/11/24 22:10 Blood Culture - Pending Blood 04/11/24 20:40 Blood Culture - Pending Blood [id number] Documentation Fingerstick Glucose Start: 04/11/24 19:55 Freq: .Stat Status: Active Protocol: Activity Type Activity Date Activity User E-sign Co-sign Detail Recorded Client Recorded Date Recorded By Document 04/11/24 20:16 BKG DAEMON(3) NVT-BG05 04/11/24 20:18 BKG DAEMON(4) Intake and Output - 24 Hour Total 04/11/24 19:39 thru 04/11/24 23:13 Intake Total 50 Balance 50 Weight 41.3 kg Intake: IV 50 Falls Risk Assessment History of Falls Previous History 04/11/24 21:02 Contributing Factors Confusion 04/11/24 21:02 Ambulatory Aids Uses ambulatory device + 04/11/24 21:02 Tubes/Lines With any additional score 04/11/24 21:02 Gait Evaluation W/no contributing factors 04/11/24 21:02 Cognition Cognitive impairment 04/11/24 21:02 Fall Total Score 93 04/11/24 21:02 Level of Risk Maximum Risk 04/11/24 21:02 Problems (Last Reviewed 04/12/24 @ 01:23 by Kaushal Stafford) Acute respiratory failure with hypoxia (Acute) Pulmonary emboli (Chronic) Acute alteration in mental status (Acute) Macrocytic anemia (Chronic) GI bleeding (Chronic) Short gut syndrome (Acute) Chronic atrial fibrillation (Chronic) Hypothyroidism (Chronic) Notes 04/11/24 20:24 Nursing Notes by Lauren Zimmerman Please note the delay in EKG being done was due to patient being brought to CT Scan once she arrived. Initialized on 04/11/24 20:24 - END OF NOTE v v v v v v v v v Sending and/or Receiving Nurses: Please use comment section below to note any information pertinent to the patient hand-off not included above. Information / Comments: Report received from: Regino CHONG @ [id number]
[2024-04-12] MEDS: Normal Saline Flush 10 ML SYR IVP ×4 (04:18→20:23)
[2024-04-12] MEDS: Lactated Ringers 1,000 ML 75 ML IV (04:19)
[2024-04-12 06:20] LABS: HCT 30.1 % (36.0-46.0); HGB 9.3 g/dL (11.2-15.7); MCH 33.9 pg (27.0-33.0); MCHC 30.9 % (32.0-36.0); MCV 110 fL (80-95); Platelet Count 243 10^3/uL (130-400); RBC 2.74 10^6/uL (3.93-5.22); RDW 16.3 % (11.7-14.6); RDW-SD 66.8 fL; WBC 11.83 10^3/uL (4.4-10.8)
[2024-04-12 06:38] LABS: INR 1.1 (0.9-1.1); Prothrombin Time 10.6 sec (9.1-11.1)
[2024-04-12 06:58] LABS: ALT 18 U/L (14-59); AST 22 U/L (15-37); Albumin 2.4 g/dL (3.4-5.0); Alkaline Phosphatase 147 U/L (46-116); Anion Gap 5.6 mmol/L (3-11); BUN 13 mg/dL (7-18); Bilirubin, Total 0.32 mg/dL (0.2-1.0); CO2 29.4 mmol/L (21.0-32.0); CREATININE 0.9 mg/dL (0.55-1.02); Calcium 9.2 mg/dL (8.5-10.1); Chloride 102 mmol/L (98-107); Estimated GFR 65.44 (mL/min/1.73m2); Glucose 104 mg/dL (74-106); Magnesium 1.8 mg/dL (1.8-2.4); Potassium 4.4 mmol/L (3.5-5.1); Sodium 137 mmol/L (136-145); Total Protein 5.7 g/dL (6.4-8.2)
[2024-04-12 07:04] LABS: NT-proBNP 5221 pg/mL (<300); TSH (W/Ref FT4) 4.82 uIU/mL (0.36-3.74)
[2024-04-12 07:20] LABS: FREE T4 1.14 ng/dL (0.76-1.46)
--- NOTE | 2024-04-12 09:08 | PDOC.CMIN ---
Date of service: 04/12/24 Time of Service: 09:08 Care Management Initial Assmt Initial Assessment Reason for Hospitalization: Acute pulmonary emboli with hypoxic respiratory failure Functional Status/Living Situation Patient Presentation: Emma was resting when CM visited her; she appeared restless/uncomfortable, which was reported to her primary RN. Per report, Emma has not been verbally responsive today. MD spoke to her son, who decided to transition Emma to comfort measures. She will remain at [facility] vs return to the [facility] for end of life care. CM will continue to follow. Town of Residence: [place] Resides with: Alone Natural Supports: sonJerald, lives in [place] Employment Status: Retired Instrumental Activities of Daily Living (ADLs): Requires support (Emma is currently receiving short term rehab at the [facility]) with Groceries and Transportation Medications Medication Management: No Issues/Barriers identified Physical Functioning/Mobility Assistive Device: SPC, FWW, shower chair Advance Directives Advance Directives: Do you have an Advance Directive: Y 03/25/24 08:40 AD On File at [facility]: Y 03/25/24 08:40 Date Asked 04/07/24 04/07/24 17:09 AD Date Reviewed 03/30/24 04/01/24 09:28 COLST On File at [facility] COLST Date Scanned Code Status Resuscitation Status DNR/DNI Insurance Coverage/Financial Issues Insurance: [facility] Care Team Visit Care Team Role Provider Type Maliha Ceja Primary Care Provider NON-[facility] STAFF PHYSICIAN Mariana Busch, ECO INDUSTRIAL DEVELOPMENT CONSULTANT Other Providers SPEECH LANGUAGE PATHOLOGIST Alicia Calvo, ECO INDUSTRIAL DEVELOPMENT CONSULTANT Other Providers SPEECH LANGUAGE PATHOLOGIST Lindsey Arias Other Providers SPEECH LANGUAGE PATHOLOGIST Ama Lopez, ECO INDUSTRIAL DEVELOPMENT CONSULTANT Other Providers SPEECH LANGUAGE PATHOLOGIST Betty Decker, ECO INDUSTRIAL DEVELOPMENT CONSULTANT Other Providers SPEECH LANGUAGE PATHOLOGIST Bernadette Salgado Other Providers OTHER Tori Weiner Emergency Provider NURSE PRACTITIONER Kaushal Stafford Admit Provider NON-[facility] STAFF PHYSICIAN Attending Provider Discharge Potential Discharge Needs: Consult Consult Services Needed: Speech and PT Evaluation Anticipated Barriers to Discharge: None Identified Patient/Family Education Needs: Review discharge instructions, discuss Ask Me Three Transportation: RCT RCT Transportation: Private vechicle Plan: Emma transitioned to comfort measures today, after her son met with and discussed Emma's wishes per her COLST. She will remain at [facility] vs return to the [facility] for end of life care. will continue to support Emma and her family during this difficult time. [facility] All Active Problems (Updated 04/12/24 @ 13:40 by Jonathan Escamilla MD) Comfort measures only status (Acute) Acute respiratory failure with hypoxia (Acute) Pulmonary emboli (Chronic) Acute alteration in mental status (Acute) Macrocytic anemia (Chronic) Orthostatic hypotension (Chronic) Treated with Fludrocortisone. 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 Patient desires DNR/DNI. Does want to be transferred to the hospital and treated, receive IV fluids and IV antibiotics. Refuses to complete COLST form, as she feels advanced directive is enough and additional forms would just be confusing . Palliative care patient (Acute) Advanced care planning/counseling discussion (Acute) Radiation colitis (Acute) Underweight (Acute) Reduced vision (Acute) Macular degeneration by report Heart failure with reduced ejection fraction due to cardiomyopathy (Acute) Atrial fibrillation (Chronic) Cardiomegaly (Acute) Compression fx, lumbar spine (Acute) Status post cataract extraction and insertion of intraocular lens of right eye (Chronic 05/26/18) Corneal endothelial dystrophy (Chronic) Nuclear sclerotic cataract of left eye (Acute) Weakness (Chronic 08/28/13) Radiation cystitis (Chronic) Chronic diarrhea (Chronic) Short-bowel syndrome? 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 Pancreatic insufficiency (Chronic) Cholelithiasis (Chronic) Adrenal nodule (Chronic) Incidental. Ruptured bladder (Acute 09/12/13) Cutaneous urostomy tubes. 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 Gross hematuria. 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 Social History Smoking/Tobacco Use Status: Former Tobacco Use Quit Date: 11/19/13 Smoking risk assessment performed?: Yes Alcohol Intake: never Drug use: Never Housing: group home Do you feel safe at home: Yes Additional Social history: lives alone, with her cat SDOH(Care Management) Screening Will the Patient Participate in the Screening?: Unable to obtain
--- NOTE | 2024-04-12 11:55 | PT.INIE ---
PT Notes Visit Reasons: Acute pulmonary embolus with hypoxic respiratory.. Inpatient Physical Therapy Evaluation Date: [04/12/2024] Referring Doctor: [Kaushal Stafford] PT Orders: PT CONSULT: [Limited ability] Precautions: [Standard, fall risk] Patient Profile/Admitting Diagnosis: Pulmonary emboli, acute respiratory failure, AMS, chronic A-fib. This is a 78-year-old female patient who was recently hospitalized for GI bleed with elevated PT/INR secondary to short gut syndrome and vitamin K deficiency not being on anticoagulation chronically with a history of chronic atrial fibrillation. She has been rehabilitating at [facility] at local senior living and did have a sudden onset of mental status change with the patient becoming unresponsive. She was taken to ED early am 04/12/2024 and admitted. PMHX: [] Social History/Home Situation: [] Current Functional Limitations: [] Equipment Owned/DME: [] Subjective: [] Objective: [] General Observation: [] Mental Status: [] Pain: [] Vital Signs: [] ROM: Right Upper Extremity: [] Left Upper Extremity: [] Right Lower Extremity: [] Left Lower Extremity: [] Strength: Right Upper Extremity: [] Left Upper Extremity: [] Right Lower Extremity: [] Left Lower Extremity: [] Sensation: [] Bed Mobility/Transfers: [] Gait: [] Balance: [] Static Sitting: [] Dynamic Sitting: [] Static Standing: [] Dynamic Standing: [] Special Tests: Mobility Limitations Standardized Measure [facility] AM-PAC 6 clicks Basic Mobility Inpatient Short Form: Raw Score: [] Standardized Score: [] CMS Score: [] Informed Consent/Education: Patient instructed in purpose of PT consult and plan of care. Assessment: Patient is a [] year old [] referred to physical therapy services with the diagnosis of []. Patient presents with clinical signs and symptoms consistent with [], as demonstrated by the following impairment level findings: []. Impairments are contributing to the following functional limitations: AMPAC score. Patient is assessed as a [] Low 46121 [] Moderate 55645 [] High 92281 complexity based on the following: History: [] Examination: [] Presentation: [] Decision Making: [] Goals: Goals X1 week 1. Supine-Sit [] 2. Sit-Supine [] 3. Sit-Stand [] 4. Stand-Sit [] 5. Bed-Chair [] 6. Chair-Bed [] 7. Gait [] 8. Stairs [] 9. Independent with home exercise program [] 10. Balance [] Plan of Care/Treatment Plan: 1-2x/day, 7 days/week x 1 week. Plan of care has been reviewed with the BIOMEDICAL ELECTRONICS TECHNICIAN providing the service under Physical Therapy direction. Initiate Physical Therapy intervention for strengthening, bed mobility, transfers, gait, stairs, balance training, use of assistive device. DISCHARGE RECOMMENDATIONS: [] [] Home with no services [] [] Home with services [specify] [] Home with outpatient PT [] [] SNF for continued rehabilitation [] [] [facility] Care [] [] SNF versus LTC based on ability to participate and progress [] TREATMENT CODE/TIME: [] Please sign an return this page within 30 days if you agree with the above POC. Thank you! Physician Signature Date [facility]
[2024-04-12] MEDS: Metoprolol 5 MG/5 ML VIAL IVP (11:57)
--- NOTE | 2024-04-12 13:16 | PT.INNT ---
PT Notes Visit Reasons: Acute pulmonary embolus with hypoxic respiratory.. Physical Therapy Non Treatment Note Date: [04/12/2024] Referring Doctor: [Kaushal Stafford] PT Orders: PT CONSULT: [Limited ability] Precautions: [Standard, fall risk] Patient Profile/Admitting Diagnosis: Pulmonary emboli, acute respiratory failure, AMS, chronic A-fib. This is a 78-year-old female patient who was recently hospitalized for GI bleed with elevated PT/INR secondary to short gut syndrome and vitamin K deficiency not being on anticoagulation chronically with a history of chronic atrial fibrillation. She has been rehabilitating at [facility] at [facility] and did have a sudden onset of mental status change with the patient becoming unresponsive. She was taken to ED early am 04/12/2024 and admitted. Spoke with CASTILLO Smith stating that she still is fairly nonresponsive and we agreed that she is not even near her baseline to do a proper assessment as she is not following directions, has not improved mental status and will defer evaluation until tomorrow. Falguni Gutiérrez,PT
--- NOTE | 2024-04-12 13:37 | W.PM.PROGNOT ---
Date of Service Date of service: 04/12/24 Time of Service: 13:37 Assessment and Plan Assessment and plan (1) Comfort measures only status: Status: Acute Assessment and plan: -As described in detail under the subjective section of this note, and as it is in line with patient's COLST form, previously verbalized wishes both with this provider and her son who was present at bedside, decision was made for patient to transition to comfort measures only -Minimize disturbances of patient, which includes discontinuation of vitals checks, telemetry -Will continue supplemental oxygen as patient did have acute hypoxic respiratory failure on admission -As needed morphine, Ativan, Haldol for pain, anxiety or agitation (2) Pulmonary emboli: Start date: 04/12/24 Status: Chronic Assessment and plan: -admitting diagnosis, was being treated with treatment dose lovenox -discontinuing all non-comfort directed medications as noted above Qualifiers: Pulmonary embolism type: other Chronicity: acute Acute cor pulmonale presence: without acute cor pulmonale Qualified Code(s): I26.99 - Other pulmonary embolism without acute cor pulmonale (3) Acute respiratory failure with hypoxia: Start date: 04/12/24 Status: Acute Assessment and plan: -secondary to PEs as ntoed above (4) Acute alteration in mental status: Start date: 04/12/24 Status: Acute (5) GI bleeding: Status: Chronic Qualifiers: GI bleed type/associated pathology: unspecified gastrointestinal hemorrhage type Qualified Code(s): K92.2 - Gastrointestinal hemorrhage, unspecified (6) Chronic atrial fibrillation: Status: Chronic Assessment and plan: -will continue schedule IV lopressor (7) Short gut syndrome: Status: Acute 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 (8) Elevated INR: Status: Resolved (9) Hypothyroidism: Status: Chronic Qualifiers: Hypothyroidism type: acquired Qualified Code(s): E03.9 - Hypothyroidism, unspecified (10) Macrocytic anemia: Status: Chronic Subjective Subjective Interval history since last seen: Prolonged discussion was had in the presence of the patient's son Tan and his . As indicated on patient's COLST form Tan is patient's healthcare agent for advanced directives. 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 Exam Narrative Exam Narrative: Severely cachectic, frail, elderly female laying in bed in no acute distress, infrequently opens eyes to verbal stimuli but is otherwise nonresponsive, heart regular rate with tachycardia in the 1 teens, lungs clear to auscultation bilaterally but there have been visualized periods of apnea lasting up to 10 seconds Objective Last Vital Signs Temp 97.9 F 04/12/24 07:23 Pulse 145 H 04/12/24 11:57 Resp 12 04/12/24 07:23 BP 105/92 H 04/12/24 11:57 Pulse Ox 92 04/12/24 09:05 Laboratory Results - last 24 hr 04/11/24 04/11/24 04/11/24 20:10 20:35 20:46 WBC 10.82 H RBC 2.91 L Hgb 9.8 L Hct 32.6 L MCV 112 H MCH 33.7 H MCHC 30.1 L RDW 16.4 H Plt Count 255 MPV 8.8 Immature Gran % 0.8 Neutrophils % 72.9 Lymphocytes % 10.9 Monocytes % 11.5 Eosinophils % 2.9 Basophils % 1.0 Nucleated RBC % 0.0 Absolute Neutrophils 7.89 H Absolute Lymphocytes 1.18 L Absolute Monocytes 1.24 H Absolute Eosinophils 0.31 Absolute Basophils 0.11 RBC Morphology See Below Anisocytosis 1+ Macrocytosis 2+ PT INR VBG pH 7.29 L VBG pCO2 62 H* VBG pO2 36 VBG HCO3 29 H VBG Total CO2 28 VBG O2 Saturation 59 VBG Base Excess 3 Sodium 135 L Potassium 5.1 Chloride 104 Carbon Dioxide 25.4 Anion Gap 5.6 BUN 11 Creatinine 0.9 Est GFR (CKD-EPI 2020) 65.44 Glucose 93 Calcium 8.9 Magnesium 1.6 L Total Bilirubin 0.23 AST 24 ALT 17 Alkaline Phosphatase 144 H Troponin I 27 NT-Pro-B Natriuret Pep Total Protein 5.6 L Albumin 2.2 L TSH Free T4 Urine Color Yellow Urine Clarity Cloudy Urine pH 5.5 Ur Specific [place] 1.025 Urine Protein Negative Urine Ketones Negative Urine Blood Negative Urine Nitrite Negative Urine Bilirubin Negative Urine Urobilinogen 0.2 Ur Leukocyte Esterase Small H Urine RBC Negative Urine WBC 3-5 Ur Epithelial Cells Rare Urine Crystals Negative Urine Bacteria Rare Urine Casts Negative Urine Mucus Negative Urine Other Many Yeast Ur Culture Indicated? No Urine Glucose 250 H Urine Opiates Screen Negative Urine Methadone Screen Negative Ur Barbiturates Screen Negative Ur Tricyclics Screen Negative Ur Amphetamines Screen Negative U Benzodiazepines Scrn Negative Urine Cocaine Screen Negative Ur THC Screen Negative 04/11/24 04/11/24 04/12/24 22:05 22:55 06:05 WBC 11.83 H RBC 2.74 L Hgb 9.3 L Hct 30.1 L MCV 110 H MCH 33.9 H MCHC 30.9 L RDW 16.3 H Plt Count 243 MPV 9.0 Immature Gran % Neutrophils % Lymphocytes % Monocytes % Eosinophils % Basophils % Nucleated RBC % Absolute Neutrophils Absolute Lymphocytes Absolute Monocytes Absolute Eosinophils Absolute Basophils RBC Morphology Anisocytosis Macrocytosis PT 10.6 INR 1.1 VBG pH VBG pCO2 VBG pO2 VBG HCO3 VBG Total CO2 VBG O2 Saturation VBG Base Excess Sodium 137 Potassium 4.4 Chloride 102 Carbon Dioxide 29.4 Anion Gap 5.6 BUN 13 Creatinine 0.9 Est GFR (CKD-EPI 2020) 65.44 Glucose 104 Calcium 9.2 Magnesium 1.8 Total Bilirubin 0.32 AST 22 ALT 18 Alkaline Phosphatase 147 H Troponin I 20 Cancelled NT-Pro-B Natriuret Pep 5221 H Total Protein 5.7 L Albumin 2.4 L TSH 4.82 H Free T4 1.14 Urine Color Urine Clarity Urine pH Ur Specific [place] Urine Protein Urine Ketones Urine Blood Urine Nitrite Urine Bilirubin Urine Urobilinogen Ur Leukocyte Esterase Urine RBC Urine WBC Ur Epithelial Cells Urine Crystals Urine Bacteria Urine Casts Urine Mucus Urine Other Ur Culture Indicated? Urine Glucose Urine Opiates Screen Urine Methadone Screen Ur Barbiturates Screen Ur Tricyclics Screen Ur Amphetamines Screen U Benzodiazepines Scrn Urine Cocaine Screen Ur THC Screen Time Spent with Patient Time Spent with Patient: >50 minutes Time was spent: preparing to see the patient(eg.review tests), obtaining and/or reviewing separately otained hiistory, ordering medications,tests, procedures, referring, communicating with other health hospice care transitions coordinator, indepentently interpreting results, counseling the patient and care coordination
[2024-04-12] MEDS: LORazepam 2 MG/ML VIAL IV/SC ×3 (16:47→23:28)
[2024-04-12] MEDS: MORPHine 2 MG/ML SYR IV/SC (20:22)
[2024-04-13] MEDS: MORPHine 2 MG/ML SYR IV/SC (00:20)
[2024-04-13] MEDS: LORazepam 2 MG/ML VIAL IV/SC ×4 (03:00→21:41)
[2024-04-13] MEDS: MORPHine 2 MG/ML SYR IVP ×3 (03:32→06:27)
--- NOTE | 2024-04-13 08:39 | PGE_ITS ---
Date of Service Date of service: 04/13/24 Time of Service: 08:40 Assessment and Plan Assessment and plan (1) Comfort measures only status: Status: Acute Assessment and plan: -as mentioned in previous progress note, patient has transitioned to comfort measures only -Minimize disturbances of patient, which includes discontinuation of vitals checks, telemetry -Will continue supplemental oxygen as patient did have acute hypoxic respiratory failure on admission -As needed morphine, Ativan, Haldol for pain, anxiety or agitation (2) Pulmonary emboli: Start date: 04/12/24 Status: Chronic Assessment and plan: -admitting diagnosis, was being treated with treatment dose lovenox -discontinuing all non-comfort directed medications as noted above Qualifiers: Pulmonary embolism type: other Chronicity: acute Acute cor pulmonale presence: without acute cor pulmonale Qualified Code(s): I26.99 - Other pulmonary embolism without acute cor pulmonale (3) Acute respiratory failure with hypoxia: Start date: 04/12/24 Status: Acute Assessment and plan: -secondary to PEs as ntoed above (4) Acute alteration in mental status: Start date: 04/12/24 Status: Acute (5) GI bleeding: Status: Chronic Qualifiers: GI bleed type/associated pathology: unspecified gastrointestinal hemorrhage type Qualified Code(s): K92.2 - Gastrointestinal hemorrhage, unspecified (6) Chronic atrial fibrillation: Status: Chronic Assessment and plan: -will continue schedule IV lopressor (7) Short gut syndrome: Status: Acute 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 Exam Narrative Exam Narrative: Severely cachectic, frail, elderly female laying in bed in no acute distress, infrequently opens eyes to verbal stimuli but is otherwise nonresponsive, visualized periods of apnea lasting up to 10 seconds Objective Last Vital Signs Temp 97.9 F 04/12/24 07:23 Pulse 145 H 04/12/24 11:57 Resp 12 04/12/24 07:23 BP 105/92 H 04/12/24 11:57 Pulse Ox 92 04/12/24 09:05 Time Spent with Patient Time Spent with Patient: >50 minutes Time was spent: preparing to see the patient(eg.review tests), obtaining and/or reviewing separately otained hiistory, ordering medications,tests, procedures, referring, communicating with other health healthcare business analyst, indepentently interpreting results, counseling the patient and care coordination
--- NOTE | 2024-04-13 09:43 | PT.INNT ---
PT Notes Visit Reasons: Acute pulmonary embolus with hypoxic respiratory.. Pt medical status has been changed to Comfort Measures Only. Pt is nonresponsive to verbal and tactile stimulus. Oxygen in place . Skilled PT evaluation no longer indicated. Evaluation was not completed due to change in condition.
--- NOTE | 2024-04-13 11:27 | PDOC.CMIN ---
Date of service: 04/13/24 Time of Service: 11:27 Care Management Initial Assmt Initial Assessment Reason for Hospitalization: Pulmonary emboli Functional Status/Living Situation Patient Presentation: Emma was sleeping and unable to respond to verbal stimuli when CM went to see her. Her breathing was unlabored and she appeared to be very comfortable. She has been receiving prn doses of Ativan and morphine but is not currently on a pump for pain control.CM will follow. Town of Residence: [place] Resides with: Other (has been at [facility] since hospital discharge earlier this month) Significant Other/Family: Out of area Caregiver/Guardian: only son lives in [place] Natural Supports: stuart Maddox Employment Status: Retired Instrumental Activities of Daily Living (ADLs): Requires support Advance Directives Advance Directives: Do you have an Advance Directive: Y 03/25/24 08:[address] [facility]: Y 03/25/24 08:40 Date Asked 04/07/24 04/07/24 17:09 AD Date Reviewed 03/30/24 04/01/24 09:28 COLST On [address] [facility] COLST Date Scanned Code Status Resuscitation Status DNR/DNI Insurance Coverage/Financial Issues Insurance: Medicare A&B Care Team Visit Care Team Role Provider Type Maliha Ceja Primary Care Provider NON-[facility] STAFF PHYSICIAN Tori Weiner Emergency Provider NURSE PRACTITIONER Kaushal Stafford Admit Provider NON-[facility] STAFF PHYSICIAN Attending Provider Discharge Potential Discharge Needs: Other (return to SNF vs end of life care at [facility]) Plan: Emma has been transitioned to comfort measures. She is non-verbal and has new pulmonary emboli with respiratory compromise. Emma is receiving PRN Ativan and Morphine and appears comfortable. It has not been determined if she will return to [facility] or remain at [facility] for end of life care. CM will continue to support Emma and her family through this difficult period. PFSH All Active Problems (Updated 04/12/24 @ 13:40 by Jonathan Escamilla MD) Comfort measures only status (Acute) Acute respiratory failure with hypoxia (Acute) Pulmonary emboli (Chronic) Acute alteration in mental status (Acute) Macrocytic anemia (Chronic) Orthostatic hypotension (Chronic) Treated with Fludrocortisone. 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 Patient desires DNR/DNI. Does want to be transferred to the hospital and treated, receive IV fluids and IV antibiotics. Refuses to complete COLST form, as she feels advanced directive is enough and additional forms would just be confusing . Palliative care patient (Acute) Advanced care planning/counseling discussion (Acute) Radiation colitis (Acute) Underweight (Acute) Reduced vision (Acute) Macular degeneration by report Heart failure with reduced ejection fraction due to cardiomyopathy (Acute) Atrial fibrillation (Chronic) Cardiomegaly (Acute) Compression fx, lumbar spine (Acute) Status post cataract extraction and insertion of intraocular lens of right eye (Chronic 05/26/18) Corneal endothelial dystrophy (Chronic) Nuclear sclerotic cataract of left eye (Acute) Weakness (Chronic 08/28/13) Radiation cystitis (Chronic) Chronic diarrhea (Chronic) Short-bowel syndrome? 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 Pancreatic insufficiency (Chronic) Cholelithiasis (Chronic) Adrenal nodule (Chronic) Incidental. Ruptured bladder (Acute 09/12/13) Cutaneous urostomy tubes. 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 Gross hematuria. 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 Social History Smoking/Tobacco Use Status: Former Tobacco Use Quit Date: 11/19/13 Smoking risk assessment performed?: Yes Alcohol Intake: never Drug use: Never Housing: alf Do you feel safe at home: Yes Additional Social history: lives alone, with her cat SDOH(Care Management) Screening Will the Patient Participate in the Screening?: Unable to obtain
--- NOTE | 2024-04-13 11:36 | PHACLINREV_ITS ---
Pharmacy Admission Review Admission Clinical Review Admission Pharmacy Review: Comfort measures only status (Acute) Acute respiratory failure with hypoxia (Acute) Acute alteration in mental status (Acute) Short gut syndrome (Acute) aspirin Allergy (Unknown, Verified 03/25/24 10:57) Unknown codeine Adverse Reaction (Intermediate, Verified 03/25/24 10:56) Nausea Resuscitation Status DNR/DNI Height 5 ft 4 in Weight 41.3 kg Comments Comments/Follow Ups: TELEVISION ANTENNA INSTALLER Pharmacy Admission Review Renal Dosing Renal Dosing: BUN 13 mg/dL (7-18) 04/12/24 06:05 Creatinine 0.9 mg/dL (0.55-1.02) 04/12/24 06:05 Medications needing adjustments: Reviewed (CrCl 30.18 mL/min) Anticoagulation Anticoagulation: Hgb 9.3 g/dL (11.2-15.7) L 04/12/24 06:05 Hct 30.1 % (36.0-46.0) L 04/12/24 06:05 Plt Count 243 10^3/uL (130-400) 04/12/24 06:05 INR 1.1 (0.9-1.1) 04/12/24 06:05 Creatinine 0.9 mg/dL (0.55-1.02) 04/12/24 06:05 DVT Prophylaxis: N/A Opiate Usage Evaluate Pain Scale/Pains Meds: Reviewed (PRN morphine IVP) Relevant Labs Relevant Labs: Sodium 137 mmol/L (136-145) 04/12/24 06:05 Potassium 4.4 mmol/L (3.5-5.1) 04/12/24 06:05 Chloride 102 mmol/L (98-107) 04/12/24 06:05 Magnesium 1.8 mg/dL (1.8-2.4) 04/12/24 06:05 Electrolytes, C-Reactive P, ESR: Reviewed Cardiac Review Cardiac Review: Troponin I Cancelled 04/11/24 22:55 NT-Pro-B Natriuret Pep 5221 pg/mL (<300) H 04/12/24 06:05 BP, HR, EF%: Reviewed QTc Review QTc: Reviewed (389 from 04/11/24) IV to PO Switch IV Medications: Reviewed Home Meds Home Med List reviewed: Reviewed Current Meds Current Medication Order Review: Reviewed Comments: PRN IVP morphine given at 0332, 0452 and 0627 today Last pain level was 8 this morning at 0020 Per morning meeting, patient does not need a drip at this time Comments Comments/Follow Ups: HARVEY
[2024-04-13] MEDS: Normal Saline Flush 10 ML SYR IVP (21:41)
[2024-04-14] MEDS: MORPHine 2 MG/ML SYR IVP ×3 (01:04→19:45)
[2024-04-14] MEDS: LORazepam 2 MG/ML VIAL IV/SC ×2 (01:04→09:22)
[2024-04-14] MEDS: Normal Saline Flush 10 ML SYR IVP ×2 (10:07→19:45)
--- NOTE | 2024-04-14 10:28 | PDOC.CMPRO ---
Date of service: 04/14/24 Time of Service: 10:28 Care Management Progress Note Progress Note Text Progress Note Text: Emma was sleeping and appeared peaceful when CM met with her. She was moving a bit more than yesterday and scratched her head while CM was with her. Her son Tan was present and stated he believed she was comfortable as well. He also noted that she had been absently scratching this morning but felt it was more an autonomic response than any actual itching. She has not been responding to verbal stimuli. Emma will remain at [facility] for end of life care. Tan shared that Emma has made burial arrangements but a home has not been chosen. He plans to call [facility] today. Discharge Potential Discharge Needs: Other (comfort measures) Anticipated Barriers to Discharge: Medical Status Plan: Emma has been transitioned to comfort measures. She is non-verbal and has new pulmonary emboli with respiratory compromise. Emma is receiving PRN Ativan and Morphine and appears comfortable.She will remain at [facility] for end of life care. CM will continue to support Emma and her family through this difficult period. SDOH(Care Management) Screening Will the Patient Participate in the Screening?: Unable to obtain
--- NOTE | 2024-04-14 10:44 | PGE_ITS ---
Date of Service Date of service: 04/14/24 Time of Service: 10:44 Assessment and Plan Assessment and plan (1) Comfort measures only status: Status: Acute Assessment and plan: -as mentioned in previous progress note, patient has transitioned to comfort measures only -Minimize disturbances of patient, which includes discontinuation of vitals checks, telemetry -Will continue supplemental oxygen as patient did have acute hypoxic respiratory failure on admission -As needed morphine, Ativan, Haldol for pain, anxiety or agitation (2) Pulmonary emboli: Start date: 04/12/24 Status: Chronic Assessment and plan: -admitting diagnosis, was being treated with treatment dose lovenox -discontinuing all non-comfort directed medications as noted above Qualifiers: Pulmonary embolism type: other Chronicity: acute Acute cor pulmonale presence: without acute cor pulmonale Qualified Code(s): I26.99 - Other pulmonary embolism without acute cor pulmonale (3) Acute respiratory failure with hypoxia: Start date: 04/12/24 Status: Acute Assessment and plan: -secondary to PEs as ntoed above (4) Acute alteration in mental status: Start date: 04/12/24 Status: Acute (5) GI bleeding: Status: Chronic Qualifiers: GI bleed type/associated pathology: unspecified gastrointestinal hemorrhage type Qualified Code(s): K92.2 - Gastrointestinal hemorrhage, unspecified (6) Chronic atrial fibrillation: Status: Chronic Assessment and plan: -will continue schedule IV lopressor (7) Short gut syndrome: Status: Acute 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 Exam Narrative Exam Narrative: Severely cachectic, frail, elderly female laying in bed in no acute distress, infrequently opens eyes to verbal stimuli but is otherwise nonresponsive, ongoing visualized periods of apnea lasting up to 10 seconds Objective Last Vital Signs Temp 97.9 F 04/12/24 07:23 Pulse 145 H 04/12/24 11:57 Resp 12 04/12/24 07:23 BP 105/92 H 04/12/24 11:57 Pulse Ox 92 04/12/24 09:05 Time Spent with Patient Time Spent with Patient: >50 minutes Time was spent: preparing to see the patient(eg.review tests), obtaining and/or reviewing separately otained hiistory, ordering medications,tests, procedures, referring, communicating with other health medical care administrator, indepentently interpreting results, counseling the patient and care coordination
--- NOTE | 2024-04-14 15:20 | CHAPLAIN ---
Emma is on comfort measures. She appears to respond to some voices, and to the dulcimer music played by the volunteer for her this morning. Her son is here with her. She has no one else, he said. He's staying at her house but is allergic to Emma's cat, so he stays in a bedroom mostly. He said a friend of Burt is trying to find a new home for the cat. I will continue to visit.
[2024-04-15] MEDS: Normal Saline Flush 10 ML SYR IVP ×6 (01:38→21:27)
[2024-04-15] MEDS: MORPHine 2 MG/ML SYR IVP ×4 (01:38→21:27)
[2024-04-15] MEDS: LORazepam 2 MG/ML VIAL IV/SC ×2 (04:40→18:02)
--- NOTE | 2024-04-15 11:01 | CMPROGNOTE_ITS ---
Date of service: 04/15/24 Time of Service: 11:01 Care Management Progress Note Progress Note Text Progress Note Text: Domenico remains unresponsive on comfort measures. She continues to receive prn doses of Ativan and morphine and appeared very comfortable each time CM visited with her today. CM did not see her son Tan today but may have missed him. Final arrangements are not known at this time. Discharge Potential Discharge Needs: Other (end of life care) Plan: Emma has been transitioned to comfort measures. She is receiving PRN Ativan and Morphine and appears comfortable. She will remain at [facility] for end of life care. CM will continue to support Emma and her family through this difficult period. SDOH(Care Management) Screening Will the Patient Participate in the Screening?: Unable to obtain
--- NOTE | 2024-04-15 18:24 | PGE_ITS ---
Date of Service Date of service: 04/15/24 Time of Service: 11:50 Assessment and Plan Assessment and plan (1) Comfort measures only status: Status: Acute Assessment and plan: -patient has transitioned to comfort measures only -As needed morphine, Ativan, Haldol for pain, anxiety or agitation (2) Pulmonary emboli: Start date: 04/12/24 Status: Chronic Assessment and plan: -admitting diagnosis, was being treated with treatment dose lovenox -discontinuing all non-comfort directed medications as noted above Qualifiers: Pulmonary embolism type: other Chronicity: acute Acute cor pulmonale presence: without acute cor pulmonale Qualified Code(s): I26.99 - Other pulmonary embolism without acute cor pulmonale (3) Acute respiratory failure with hypoxia: Start date: 04/12/24 Status: Acute Assessment and plan: -secondary to PEs as ntoed above Subjective Subjective Patient reports: denies diarrhea, vomiting or fever Interval history since last seen: No new issues per nursing/care team. Patient is non-verbal. Exam Narrative Exam Narrative: Severely cachectic, frail, elderly female laying in bed in no acute distress, infrequently opens eyes to verbal stimuli but is otherwise nonresponsive, occaisional apneic epissodes lasting up to 10 seconds. Objective Last Vital Signs Temp 36.6 C 04/12/24 07:23 Pulse 145 H 04/12/24 11:57 Resp 12 04/12/24 07:23 BP 105/92 H 04/12/24 11:57 Pulse Ox 92 04/12/24 09:05 Time Spent with Patient Time Spent with Patient: 25-34 minutes Time was spent: preparing to see the patient(eg.review tests), obtaining and/or reviewing separately otained hiistory and referring, communicating with other health palliative care physician
[2024-04-16] MEDS: MORPHine 2 MG/ML SYR IVP ×11 (03:00→18:48)
--- NOTE | 2024-04-16 06:20 | NUR.NOTE ---
Nursing Note: Per Dr. Stafford do not remove yusuf, pt unable to take meds including flomax.
[2024-04-16] MEDS: Normal Saline Flush 10 ML SYR IVP ×5 (07:33→22:28)
--- NOTE | 2024-04-16 08:25 | NUR.NOTE ---
Nursing Note:0730, RR in 20's, accessory muscle use, medicated, 0830 medicated for care and repositioning
[2024-04-16] MEDS: LORazepam 2 MG/ML VIAL IV/SC ×5 (10:10→22:27)
--- NOTE | 2024-04-16 17:01 | PGE_ITS ---
Date of Service Date of service: 04/16/24 Time of Service: 17:01 Assessment and Plan Assessment and plan (1) Comfort measures only status: Status: Acute Assessment and plan: -patient has transitioned to comfort measures only -As needed morphine, Ativan, Haldol for pain, anxiety or agitation -Discussed with son and nurse, will titrate up pain medication morphine slightly and continue to monitor. (2) Pulmonary emboli: Start date: 04/12/24 Status: Chronic Assessment and plan: -admitting diagnosis, was being treated with treatment dose lovenox, now stopped. She removes her oxygen so will leave this off. Qualifiers: Pulmonary embolism type: other Chronicity: acute Acute cor pulmonale presence: without acute cor pulmonale Qualified Code(s): I26.99 - Other pulmonary embolism without acute cor pulmonale Subjective Subjective Patient reports: denies vomiting or fever Interval history since last seen: Son at bedside, has noticed she is bringing left hand to head at times, wonders if she is in pain. He feels she is getting good care. She is pulling off blankets and her nasal cannula. Per RN lorazepam helps when patient restless with her feet. Exam Narrative Exam Narrative: Severely cachectic, frail, elderly female laying in bed in no acute distress, infrequently opens eyes to verbal stimuli but is otherwise nonresponsive, moves left arm to face. Respirations faster and more regular today, heart with frequent irregular beats. Objective Last Vital Signs Temp 36.6 C 04/12/24 07:23 Pulse 145 H 04/12/24 11:57 Resp 12 04/12/24 07:23 BP 105/92 H 04/12/24 11:57 Pulse Ox 92 04/12/24 09:05 Time Spent with Patient Time Spent with Patient: 25-34 minutes Time was spent: preparing to see the patient(eg.review tests), obtaining and/or reviewing separately otained hiistory, referring, communicating with other health respiratory care assistant and care coordination
--- NOTE | 2024-04-16 18:01 | CMPROGNOTE_ITS ---
Date of service: 04/16/24 Time of Service: 18:01 Care Management Progress Note Progress Note Text Progress Note Text: Emma will remain at [facility] for end of life care; she appeared to be comfortable when CM checked in on her today. Per RN, her son had been visiting earlier. Final arrangements will be made through [facility], per family. CM will continue to support Emma and her family during this difficult time. Discharge Potential Discharge Needs: Other (end of life care) Plan: Emma has been transitioned to comfort measures. She is receiving PRN Ativan and Morphine and appears comfortable. She will remain at [facility] for end of life care. CM will continue to support Emma and her family through this difficult period. SDOH(Care Management) Screening Will the Patient Participate in the Screening?: Unable to obtain
[2024-04-17] MEDS: MORPHine 2 MG/ML SYR IVP ×8 (00:55→17:39)
[2024-04-17] MEDS: Normal Saline Flush 10 ML SYR IVP ×4 (00:56→08:25)
[2024-04-17] MEDS: LORazepam 2 MG/ML VIAL IV/SC ×4 (02:41→17:39)
--- NOTE | 2024-04-17 11:06 | CMPROGNOTE_ITS ---
Date of service: 04/17/24 Time of Service: 11:06 Care Management Progress Note Progress Note Text Progress Note Text: Domenico remains on comfort measures and appears comfortable. Her son Tan called CM this morning to explain that he has returned home to [place] and will likely not return. he had some questions about the end of life process which CM was able to answer. arrangements have been made [facility]. Discharge Potential Discharge Needs: Other (end of life care at [facility]) Plan: Emma has been transitioned to comfort measures. She is receiving PRN Ativan and Morphine and appears comfortable. She will remain at [facility] for end of life care. will continue to support Emma and her family through this difficult period. SDOH(Care Management) Screening Will the Patient Participate in the Screening?: Unable to obtain
--- NOTE | 2024-04-17 12:20 | NUR.NOTE ---
Assessment reviewed, in agreement with documentation by Andrew Wells LPN Student nurse. Beatriz Celestin, MSN, RNC-OB (clinical instructor)
--- NOTE | 2024-04-17 13:43 | NUR.NOTE ---
Nursing Note: Domenico continues to decline. Nursing alternating MS and Ativan for comfort. Repo q2 with mouth care, tolerated with some discomfort as evidence by pushing my hand away and grimacing.
--- NOTE | 2024-04-17 16:15 | PGE_ITS ---
Date of Service Date of service: 04/17/24 Time of Service: 16:15 Assessment and Plan Assessment and plan (1) Comfort measures only status: Status: Acute Assessment and plan: -patient has transitioned to comfort measures only as of 04/14. -As needed morphine, Ativan, Haldol for pain, anxiety or agitation -Symptoms appear well managed. (2) Pulmonary emboli: Start date: 04/12/24 Status: Chronic Assessment and plan: -admitting diagnosis, was being treated with treatment dose lovenox, now stopped. She removes her oxygen so will leave this off, treating any signs of dyspnea, no change. Qualifiers: Pulmonary embolism type: other Chronicity: acute Acute cor pulmonale presence: without acute cor pulmonale Qualified Code(s): I26.99 - Other pulmonary embolism without acute cor pulmonale Subjective Subjective Interval history since last seen: no new issues per RN, Son. Patient not verbal. Exam Narrative Exam Narrative: Severely cachectic, frail, elderly female laying in bed in no acute distress, minimal movement. Respirations regular with some pauses. Objective Last Vital Signs Temp 36.6 C 04/12/24 07:23 Pulse 145 H 04/12/24 11:57 Resp 12 04/12/24 07:23 BP 105/92 H 04/12/24 11:57 Pulse Ox 92 04/12/24 09:05 Time Spent with Patient Time Spent with Patient: <25 minutes Time was spent: obtaining and/or reviewing separately otained hiistory, referring, communicating with other health director of medicare and care coordination
--- NOTE | 2024-04-17 20:56 | EXPE_ITS ---
Date of service: 04/17/24 Time of Service: 20:56 Discharge Plan Disposition Patient Disposition: Discharge Details Reason For Visit: Acute Pulmonary Embolus with Hypoxic Respiratory F Admit Date/Time: 04/12/24 02:31 Admit Provider: Kaushal Stafford Attending Provider: Kaushal Stafford Primary Care Provider: Maliha Ceja Hospital Course Hospital Course: Patient was admitted 04/12/2024 with acute mental status change and ultimately became unresponsive. CT scan showed pulmonary emboli. She had known atrial fibrillation but had been having problems with GI bleeding. She had short gut syndrome and vitamin K deficiency. She was not a candidate for chronic anticoagulation. A long discussion ensued on 04/12/2024 with the patient's son Tan and his . As indicated on the patient's COLST form the patient had verbalized wishes not to have her life prolonged in the event of a severe life- threatening illness. She was made comfort measures only. She never regained responsiveness and passed quietly on 04/17/2024 at 8:18 p.m. Home Meds and New Rx's Prescriptions: No Action multivitamin [Multi-Day] 1 EACH tablet 1 tab PO DAILY calcitriol 0.25 mcg Capsule 0.25 mcg PO DAILY Qty: 0 0RF pantoprazole 40 mg Tablet,Delayed Release (Dr/Ec) 40 mg PO DAILY Qty: 30 0RF ferrous sulfate 325 mg (65 mg iron) Tablet 325 mg PO BID Qty: 0 0RF midodrine 2.5 mg Tablet 5 mg PO TID Qty: 0 0RF gabapentin 100 mg Capsule 100 mg PO TID Qty: 30 0RF metoprolol tartrate 50 mg Tablet 25 mg PO TID Qty: 90 0RF cyanocobalamin (vitamin B-12) 1,000 mcg/mL solution See Rx Instructions .ROUTE .COMPLEX Qty: 10 0RF Rx Instructions: 1,000 mcg subcutaneously weekly x 1 month then monthly loperamide [Imodium A-D] 2 mg Capsule 2 mg PO BID acetaminophen [Arthritis Pain Reliever] 650 mg Tablet Extended Release 2 tab PO BID levothyroxine 75 mcg tablet 75 mcg PO DAILY Patient Comments: TAKE 1 TABLET BY MOUTH DAILY calcium carbonate 200 mg calcium (500 mg) Tablet,Chewable 1,000 mg PO BID Qty: 120 0RF magnesium gluconate 27 mg magnesium (500 mg) Tablet 500 mg PO DAILY Qty: 30 0RF Jardiance 10 mg Tablet 10 mg PO QAM Qty: 30 0RF digoxin 125 mcg (0.125 mg) tablet 125 mcg PO Q48H Qty: 15 0RF Discharge Data Cause of : Pulmonary embolism Discharge Sum: Prov Provider Primary care physician: Maliha Ceja MD Discharge Sum: Diag Contributing Factors (1) Comfort measures only status: (2) Pulmonary emboli: Discharge Sum: Summary Date and Time Admission Date: 04/12/24 Date of : 04/17/24 Time of : 20:18 Summary Details: Patient passed quietly
== END 2024-04-17 22:22 | disposition expired | DRG 175 ==
LOC: ER 04-12 02:34 → MS 04-12 03:18
PROVIDERS: Admitting Provider Family Medicine; Emergency Provider Nurse Practitioner Family; PCP Family Medicine; Visit Provider Family Medicine
DX: I26.99 Other pulmonary embolism without acute cor pulmonale (principal); I63.9 Cerebral infarction, unspecified; J96.01 Acute respiratory failure with hypoxia; I48.20 Chronic atrial fibrillation, unspecified; K90.822 Short bowel syndrome without colon in continuity; Z68.1 Body mass index [BMI] 19.9 or less, adult; I42.9 Cardiomyopathy, unspecified; I50.20 Unspecified systolic (congestive) heart failure; G93.40 Encephalopathy, unspecified; K92.2 Gastrointestinal hemorrhage, unspecified; R64 Cachexia; R79.1 Abnormal coagulation profile; E03.9 Hypothyroidism, unspecified; D53.9 Nutritional anemia, unspecified; Z93.3 Colostomy status; J43.9 Emphysema, unspecified; I95.1 Orthostatic hypotension; R91.8 Other nonspecific abnormal finding of lung field; R53.1 Weakness; E78.5 Hyperlipidemia, unspecified; K86.89 Other specified diseases of pancreas; R29.6 Repeated falls; N18.9 Chronic kidney disease, unspecified; H18.519 Endothelial corneal dystrophy, unspecified eye; Z51.5 Encounter for palliative care
CPT/HCPCS: 00123; 36415; 36416; 71275; 80053; 80307; 82805; 82962; 85027; 87040; 93005; 96365; 99285; 70450; 71045; 81003; 81015; 83735; 83880; 84439; 84443; 84484; 85025; 85610; 93010; 94760; 99223; 99231; 99233; 99238; J2060; J2270; J3475; Q9967